=== PATIENT | female | born 1955 | race Caucasian/White ===

== ENCOUNTER 2017-11-17 02:06 | Outpatient (CLI) | payer OTHER, MEDICARE, SELFPAY ==
[2017-11-17 11:15] LABS: Prothrombin Time 9.3 sec (9.3-10.8)
[2017-11-17 11:39] LABS: ALT 38 U/L (12-78); AST 26 U/L (15-37); Albumin 3.8 g/dL (3.4-5.0); Alkaline Phosphatase 203 U/L (46-116); Bilirubin, Total 0.3 mg/dL (0.2-1.0); GGT 576 U/L (5-55); Total Protein 6.6 g/dL (6.4-8.2)
[2017-11-17 12:33] LABS: Bilirubin, Direct 0.08 mg/dL (0.00-0.20)
[2017-11-18 21:57] LABS: ALT 32 U/L (7-45); ActiTest Grade A0; ActiTest Interpretation no activity; ActiTest Score 0.15; Alpha-2-Macroglobulin 137 mg/dL (100 - 280); Apoliprotein A1 124 mg/dL (>=140); Bilirubin, Total 0.3 mg/dL (<=1.2); FibroTest Interpretation no fibrosis; FibroTest Score 0.25; FibroTest Stage F0-F1; GGT 454 U/L (5 - 36); Haptoglobin 205 mg/dL (30 - 200)
[2017-11-19 20:25] LABS: Mitochondrial Ab, M2 <0.1 U
== END 2017-11-17 02:26 ==
PROVIDERS: PCP Family Medicine; Visit Provider Internal Medicine Gastroenterology
DX: R94.5 Abnormal results of liver function studies (principal)
CPT/HCPCS: 36415; 80076; 82172; 82247; 82977; 83010; 83516; 83883; 84460; 85610

== ENCOUNTER 2017-12-09 00:26 | Outpatient (CLI) | payer OTHER, MEDICARE, SELFPAY ==
--- NOTE | 2017-12-09 10:13 | DI.MRI_ITS ---
SYMPTOMS/DIAGNOSIS: ABNL LFTS, R94.5 MRI OF THE ABDOMEN: Comparison is made with CT of the abdomen and pelvis dated 4Nov16 and abdomen ultrasound dated [id number]. The previous ultrasound showed diffuse fatty infiltration. T 1 and fat suppressed T 2 axial and coronal and TRUFI axial and coronal sequences were performed. No contrast was administered due to reduced GFR. In phase and out of phase sequences were also not performed. The exam is somewhat limited by respiratory motion and patient body habitus. The liver parenchyma appears homogeneous. No focal liver lesions are seen. The patient is status post cholecystectomy. There is mild enlargement of the common bile duct to 11 mm unchanged from previous ultrasound. This is within normal limits for post cholecystectomy. No filling defects are seen in the common bile duct. The pancreas appears atrophic but otherwise unremarkable. The spleen is normal in size. The adrenals and kidneys are unremarkable. No pleural or pericardial effusions are seen. The aorta is normal in diameter. IMPRESSION: Limited exam. There is stable mild biliary dilatation status post cholecystectomy. No focal liver abnormality is seen.
[2017-12-09 11:35] LABS: Anion Gap 6.7 mmol/L (3-11); BUN 21 mg/dL (7-18); CO2 32.3 mmol/L (21.0-32.0); Calcium 8.9 mg/dL (8.5-10.1); Chloride 102 mmol/L (98-107); Estimated GFR 41.37 (mL/min/1.73m2); Glucose 193 mg/dL (70-100); Potassium 4.5 mmol/L (3.5-5.1); Sodium 141 mmol/L (136-145)
== END 2017-12-09 00:46 ==
PROVIDERS: PCP Family Medicine; Visit Provider Internal Medicine Gastroenterology
DX: Z01.812 Encounter for preprocedural laboratory examination (principal); R94.5 Abnormal results of liver function studies; K83.8 Other specified diseases of biliary tract; Z90.49 Acquired absence of other specified parts of digestive tract
CPT/HCPCS: 36415; 80048; 74181

== ENCOUNTER 2017-12-20 11:23 | Outpatient (CLI) | payer OTHER, MEDICARE, SELFPAY ==
[2017-12-20 13:18] LABS: HCT 37.6 % (36.0-46.0); HGB 12.2 g/dL (12.0-15.5); Mean Corp. HGB Concentration 32.4 g/dL (32.0-36.0); Mean Corpuscular Hemoglobin 31.1 pg (27.0-33.0); Mean Corpuscular Volume 95.9 fL (80-95); Mean Platelet Volume 11.6 fL (8.0-11.0); Platelet Count 227 x1000/uL (130-400); RBC 3.92 m/cumm (4.00-5.20); RBC Distribution Width 14.9 % (11.7-14.6); White Blood Cell Count 7.64 k/cumm (4.4-10.8)
[2017-12-20 13:38] LABS: Hemoglobin A1C 9.3 % (4.5-6.2)
[2017-12-20 13:49] LABS: ALT 45 U/L (12-78); AST 37 U/L (15-37); Alkaline Phosphatase 131 U/L (46-116); Anion Gap 9.2 mmol/L (3-11); BUN 19 mg/dL (7-18); Bilirubin, Total 0.3 mg/dL (0.2-1.0); CO2 31.8 mmol/L (21.0-32.0); CREATININE 1.42 mg/dL (0.55-1.02); Calcium 9.4 mg/dL (8.5-10.1); Chloride 97 mmol/L (98-107); Estimated GFR 37.36 (mL/min/1.73m2); Glucose 160 mg/dL (70-100); Potassium 4.6 mmol/L (3.5-5.1); Sodium 138 mmol/L (136-145); TSH (W/Ref FT4) 0.72 uIU/mL (0.358-3.74)
== END 2017-12-20 11:43 ==
PROVIDERS: PCP Family Medicine; Visit Provider Family Medicine
DX: E03.9 Hypothyroidism, unspecified (principal); E11.9 Type 2 diabetes mellitus without complications; I10 Essential (primary) hypertension; D64.9 Anemia, unspecified
CPT/HCPCS: 36415; 80053; 85027; 83036; 84443

== ENCOUNTER 2018-03-21 13:32 | Emergency (ER) | payer OTHER, MEDICARE, SELFPAY ==
[2018-03-21] VITALS (42 sets, daily range): BP systolic 160–192; BP diastolic 65–110; PULSE 62–77; RESP 9–26; TEMP 36.8–37; O2SAT 94–99
--- NOTE | 2018-03-21 14:55 | DI.RAD_ITS ---
SYMPTOMS/DIAGNOSIS: CHEST PAIN CHEST X-RAY, PA AND LATERAL: Comparison is 08/23/16. The heart is normal in size. The lungs are clear. The mediastinal structures and pleura appear intact. IMPRESSION: Normal chest.
[2018-03-21 15:36] LABS: Abs Immature Grans 0.08 k/cumm (0.0-0.09); Absolute Basophil Count 0.04 k/cumm (0.0-0.2); Absolute Eosinophil Count 0.07 k/cumm (0.0-0.7); Absolute Monocyte Count 0.93 k/cumm (0.11-0.7); Absolute Neutrophil Count 4.69 k/cumm (1.2-6.7); Basophils % 0.6; HCT 36.6 % (36.0-46.0); HGB 12.3 g/dL (12.0-15.5); Immature Grans % 1.1; Lymphocytes % 19.4; Mean Corp. HGB Concentration 33.6 g/dL (32.0-36.0); Mean Corpuscular Hemoglobin 31.1 pg (27.0-33.0); Mean Corpuscular Volume 92.7 fL (80-95); Mean Platelet Volume 12.2 fL (8.0-11.0); Monocytes % 12.9; Platelet Count 192 x1000/uL (130-400); RBC 3.95 m/cumm (4.00-5.20); RBC Distribution Width 15.2 % (11.7-14.6); White Blood Cell Count 7.21 k/cumm (4.4-10.8)
[2018-03-21] MEDS: LORazepam 2 MG/ML VIAL 1 MG IVP (15:40)
--- NOTE | 2018-03-21 15:44 | ED.GENADUL_ITS ---
Discharge Plan Disposition Patient Disposition: HOME Discharge Details Chief Complaint: RespSymp Clinical Impression: Chest pain, Anxiety Primary Care Provider: Renu Gerber ED Provider: Raffy Mejia Home Meds and New Rx's Prescriptions: Continued Januvia 100 mg tablet 100 mg PO DAILY Qty: 90 RF: 4 cholecalciferol (vitamin D3) [Vitamin D3] 2,000 UNIT capsule 2,000 unit PO DAILY RF: 0 pen needle, diabetic [Novofine 32] 1 EACH needle 1 ea Miscellaneous 5 time day Qty: 500 RF: 12 ipratropium-albuterol 3 ML solution for nebulization 3 ml Inhalation TID PRNQty: 100 RF: 3 nystatin 15 GM cream 15 gm Topical BID PRNQty: 15 RF: 0 ProAir HFA 8.5 GM HFA aerosol inhaler 1 - 2 puff Inhalation Q6H PRN Qty: 1 RF: 12 Narcan 4 MG spray,non-aerosol 4 mg NS PRN Qty: 2 RF: 0 Humalog KwikPen Insulin 200 UNIT/1 ML insulin pen 20 unit SQ AC & HS Qty: 6 RF: 11 chlorthalidone 25 MG tablet 25 mg PO DAILY Qty: 90 RF: 4 fluoxetine [Prozac] 20 MG capsule 20 mg PO DAILY Qty: 90 RF: 11 lamotrigine [Lamictal] 200 MG tablet 200 mg PO HS Qty: 90 RF: 12 omeprazole 40 MG capsule,delayed release(DR/EC) 40 mg PO DAILY Qty: 90 RF: 3 magnesium oxide 500 MG capsule 500 mg PO BID Qty: 180 RF: 12 metoprolol succinate 100 MG tablet extended release 24 hr 1.5 tab PO DAILY Qty: 135 RF: 11 ropinirole [Requip] 0.25 MG tablet 2 tab PO HS Qty: 180 RF: 6 losartan 100 MG tablet 1 tab PO DAILY Qty: 90 RF: 12 Symbicort 10.2 GM HFA aerosol inhaler 2 puff Inhalation BID Qty: 3 RF: 12 Levemir U-100 Insulin 100 UNIT/ML solution 140 unit SQ DAILY Qty: 6 RF: 12 metformin 500 MG tablet 500 mg PO BID Qty: 180 RF: 12 cyanocobalamin (vitamin B-12) [Vitamin B-12] 100 MCG tablet 100 mcg PO DAILY RF: 0 levothyroxine 175 MCG tablet 175 mcg PO DAILY Qty: 90 RF: 11 clonazepam 2 mg tablet 1 mg PO DAILY MDD 1 PRN (Reason: anxiety) Qty: 90 RF: 2 Lyrica 150 mg capsule 150 mg PO BID MDD 2 90 Days Qty: 180 RF: 2 vitamin E 400 unit capsule 1,200 unit PO DAILY RF: 0 blood sugar diagnostic [Blood Glucose Test] strip .ROUTE .MEDSUPPLY Qty: 400 RF: 5 Glucagon Emergency Kit (human) 1 MG kit 1 mg Sub-Q STAT PRNQty: 1 RF: 1 Discharge Instructions Instructions: Chest Pain (ED), Anxiety (ED) Additional Instructions: Please take medication as prescribed. Take your metoprolol in the morning. Take your insulin tonight. Please call your doctor to arrange follow-up. You should have your kidney function rechecked later this week. You need to have a stress test performed ideally within the next 72 hours. Diagnostic testing department will be in contact with you to arrange this test. Please contact your primary care physician to arrange follow-up. Return to the ER for any worsening or new concerning symptoms. Referrals: Renu Gerber MD, [place] [Primary Care Provider] - Discharge Data Discharge Date/Time-TO BE ENTERED AT DEPARTURE: 03/21/18 20:22 Medical Decision Making 18:10 --62-year-old female with multiple medical problems here with intermittent chest pain over the past few days with radiation to the back. Patient is hypertensive. She did not take her antihypertensive medication today. Patient is saturating well in no respiratory distress. Possible withdrawal from decreased benzodiazepine. We will give Ativan 1 mg IV this will also help with her anxiety. Consider ACS as well as aortic dissection. ECG was reviewed and interpreted by me: Normal sinus rhythm 67 bpm, nonspecific ST depression noted in lead V3 to V6, not presently ECG 2012. Labs reviewed and chronic kidney disease noted. Initial troponin normal. GFR is depressed. Had a lengthy conversation with the patient about my concerns for potential acute aortic dissection and the risks and benefits of CT imaging with IV contrast. Patient provided verbal informed consent to CTA chest. Awaiting repeat trop. 19:50 -- Patient reassessed and has remained stable. CT of the chest interpreted by radiology: IMPRESSION: 1. No aneurysm of the aorta. 2. No dissection of the aorta. 3. No evidence of pulmonary embolus in the main pulmonary arteries. CT of the abd/pelv intepreted by radiology: IMPRESSION: 1. No aneurysm of the aorta. 2. No dissection of the aorta. 3. 50% stenosis in the origin of the left renal artery. Impression. Labs reviewed: elevated gluc noted. no anion gap. Will give patient her humolog. -- Repeat troponin at 4 hours negative. All results were discussed with the patient. Suspect anxiety as etiology but will plan for outpatient stress test and follow- up with PCP. Unclear home dose of metoprolol. Will give metoprolol 50mg PO. Patient requesting additional benzo and has run out of home prescription. I will give 0.5 clonazepam. I instructed her to call her PCP tomorrow regarding ongoing benzodiazepam dosing. Disposition decision was made weighing the risks and benefits of hospitalization versus outpatient treatment, the risk for further decompensation, and the patient's wishes. The patient was stable and requested discharge. Prior to discharge, my usual and customary return precautions were reviewed with the patient - this included follow-up instructions and reason to return to the emergency department if condition worsens, does not improve as expected, or other new concerns arise. HPI General Mode of arrival: ambulatory . Date/Time Provider Initiated Documentation: 03/21/18 14:07 . Limitations to Documentation: no limitations . Information obtained by: patient . HPI Narrative: 62-year-old female with multiple medical problems including von Willebrand factor inhibitor disorder, insulin-dependent diabetes, hyperlipidemia, hypertension, presents with chief complaint of chest pain. Patient notes that over the past few days she has had intermittent chest pain. Pain is localized to her left anterior chest and seems to radiate to her upper back. Pain is described as sharp, moderate intensity and lasting minutes. No modifiers. She also has associated palpitations and intermittent shortness of breath. She also notes that a few days ago she had a different type of achy discomfort in her chest. She states that her anxiety has been more intense recently. She specifically notes about 1 month ago her Klonopin was decreased by one half of chronic dose. Related Data Home Medications Medication Instructions Recorded Confirmed cholecalciferol (vitamin D3) 2,000 unit PO DAILY 05/16/12 03/21/18 [Vitamin D3] pen needle, diabetic [Novofine 32] #500 ndl 03/06/15 12/20/17 Glucagon Emergency Kit (human) 1 mg SUB-Q STAT PRN #1 kit 07/02/15 03/21/18 ipratropium-albuterol 3 ml INHALATION TID PRN #100 dose 06/24/16 03/21/18 Narcan 4 mg NS PRN #2 spray 11/25/16 03/21/18 ProAir HFA 1 - 2 puff INHALATION Q6H PRN #1 11/25/16 03/21/18 inhaler nystatin 15 gm TOPICAL BID PRN #15 gm 11/25/16 03/21/18 Humalog KwikPen Insulin 20 unit SQ AC & HS #6 box 03/01/17 03/21/18 chlorthalidone 25 mg PO DAILY #90 tab 03/07/17 03/21/18 fluoxetine [Prozac] 20 mg PO DAILY #90 tab-cap 03/21/17 03/21/18 lamotrigine [Lamictal] 200 mg PO HS #90 tab-cap 03/24/17 03/21/18 magnesium oxide 500 mg PO BID #180 tab 03/24/17 03/21/18 omeprazole 40 mg PO DAILY #90 tab-cap 03/24/17 03/21/18 metoprolol succinate 1.5 tab PO DAILY #135 tab-cap 04/11/17 03/21/18 ropinirole [Requip] 2 tab PO HS #180 tab-cap 05/17/17 03/21/18 Symbicort 2 puff INHALATION BID #3 canister 07/01/17 03/21/18 losartan 1 tab PO DAILY #90 tab 07/01/17 03/21/18 Levemir U-100 Insulin 140 unit SQ DAILY #6 vial 08/09/17 03/21/18 metformin 500 mg PO BID #180 tab-cap 09/01/17 03/21/18 cyanocobalamin (vitamin B-12) 100 mcg PO DAILY 09/26/17 12/20/17 [Vitamin B-12] levothyroxine 175 mcg PO DAILY #90 tab-cap 09/28/17 03/21/18 clonazepam 2 mg tablet 1 mg PO DAILY PRN #90 tab-cap MDD 1 12/14/17 03/21/18 pregabalin 150 mg capsule 150 mg PO BID 90 Days #180 tab MDD 12/15/17 03/21/18 2 sitagliptin 100 mg tablet 100 mg PO DAILY #90 tab 12/20/17 03/21/18 vitamin E 400 unit capsule 1,200 unit PO DAILY cap 12/20/17 03/21/18 blood sugar diagnostic strips #400 each 02/06/18 Previous Rx's Medication Instructions Recorded Glucagon Emergency Kit (human) 1 mg SUB-Q STAT PRN #1 kit 07/02/15 Narcan 4 mg NS PRN #2 spray 11/25/16 ProAir HFA 1 - 2 puff INHALATION Q6H PRN #1 11/25/16 inhaler Humalog KwikPen Insulin 20 unit SQ AC & HS #6 box 03/01/17 chlorthalidone 25 mg PO DAILY #90 tab 03/07/17 fluoxetine [Prozac] 20 mg PO DAILY #90 tab-cap 03/21/17 lamotrigine [Lamictal] 200 mg PO HS #90 tab-cap 03/24/17 magnesium oxide 500 mg PO BID #180 tab 03/24/17 omeprazole 40 mg PO DAILY #90 tab-cap 03/24/17 metoprolol succinate 1.5 tab PO DAILY #135 tab-cap 04/11/17 ropinirole [Requip] 2 tab PO HS #180 tab-cap 05/17/17 Symbicort 2 puff INHALATION BID #3 canister 07/01/17 losartan 1 tab PO DAILY #90 tab 07/01/17 Levemir U-100 Insulin 140 unit SQ DAILY #6 vial 08/09/17 metformin 500 mg PO BID #180 tab-cap 09/01/17 levothyroxine 175 mcg PO DAILY #90 tab-cap 09/28/17 clonazepam 2 mg tablet 1 mg PO DAILY PRN #90 tab-cap MDD 1 12/14/17 pregabalin 150 mg capsule 150 mg PO BID 90 Days #180 tab MDD 12/15/17 2 sitagliptin 100 mg tablet 100 mg PO DAILY #90 tab 12/20/17 blood sugar diagnostic strips #400 each 02/06/18 Allergies Allergy/AdvReac Type Severity Reaction Status Date / Time Penicillins Allergy Skin Rash Unverified 03/21/18 13:43 amlodipine besylate AdvReac Intermediate cough Unverified 03/21/18 13:43 [From [facility]] lithium AdvReac Intermediate HYPERACTIVITY Unverified 03/21/18 13:43 FOR DAYS rizatriptan AdvReac Intermediate BAD COUGH Unverified 03/21/18 13:43 FOR 2 YEARS morphine AdvReac Mild Hallucinati Unverified 03/21/18 13:43 ons/Vomitin g atorvastatin AdvReac myalgias Unverified 03/21/18 13:43 carbamazepine AdvReac myalgias Unverified 03/21/18 13:43 enalaprilat AdvReac Cough Unverified 03/21/18 13:43 General Stated Complaint: RespSymp EARL: 3 Review of Systems Constitutional Denies fever(s) Cardiovascular Reports as per HPI Gastrointestinal Denies abdominal pain Psychiatric Reports as per HPI ON LICENSE OF [facility] Medical History Von Willebrand factor inhibitor disorder (Chronic) Vitamin D deficiency (Resolved 02/24/12) Type II diabetes mellitus, uncontrolled (Chronic) Stenosing tenosynovitis of thumb (Chronic 05/13/14) Rotator cuff disorder (Chronic 06/27/14) Right foot pain (Chronic 12/16/14) Recurrent ventral hernia (Chronic 04/07/16) Non-alcoholic fatty liver disease (Chronic) Neoplasm of unspecified nature of bone, soft tissue, and skin (Resolved 08/12/14) Insomnia (Chronic) Hypothyroidism (Chronic) Hyperlipidemia (Chronic) Gastroesophageal reflux disease (Chronic) Essential hypertension (Chronic 12/13/12) Elevated serum GGT level (Chronic 02/17/15) Diverticula of colon (Chronic) Diabetes mellitus with neuropathy (Chronic 02/14/14) Depressed bipolar I disorder (Chronic) Cerebrovascular accident (Resolved 04/02/13) Sanjuanita infection (Chronic 08/26/16) Atrophic vaginitis (Chronic 09/14/12) Asthma (Chronic) Chronic pain disorder (Chronic 11/25/16) Fatigue (Chronic) Stress incontinence in female (Chronic) Chest pain (Resolved) Ganglion of tendon sheath (Resolved) Hand joint pain (Resolved) History of alcoholism (Resolved) History of tobacco use (Resolved) Overdose (Resolved) Triggering of finger (Resolved) Asthma Atrophic vaginitis Bipolar disorder CVA (cerebral vascular accident) Chronic cough Chronic sinusitis Diabetes type 2, uncontrolled Diabetic neuropathy Essential hypertension Fatty liver disease, nonalcoholic GERD (gastroesophageal reflux disease) Headache Hyperlipidemia Hypothyroidism Insomnia Rotator cuff disorder Vitamin D deficiency Von Willebrand factor inhibitor disorder Surgical History H/O esophagogastroduodenoscopy (Resolved) H/O surgical procedure (Resolved) S/P BSO (bilateral salpingo-oophorectomy) (Resolved) S/P abdominal hysterectomy (Resolved) S/P cholecystectomy (Resolved) S/P hernia repair (Resolved) Abdominal hysterectomy Bilateral salpingectomy with oophorectomy Cholecystectomy Colonoscopy - IV Sedation (04/02/11) Colonoscopy - MAC (~03/2011) EGD - MAC (09/29/12) Incision, Tendon Sheath (08/01/12) Tooth extraction Ventral Hernia repair (04/07/16) hernia repair (~02/2011) Family History Mother Alcohol abuse Mental disorder Neoplasm Father No problems noted. Sister Substance abuse Brother No problems noted. Grandfather Asthma Grandfather Heart disease Grandmother No problems noted. Grandmother No problems noted. Sister Substance abuse Asthma Son No problems noted. Son No problems noted. Son Essential hypertension Asthma Social History household members: other details: 3 current occupational status: unemployed frequency: 3-4 times per week duration: 15-30 minutes/day Smoking/Tobacco Use Status: Former Tobacco Use quit date: 06/19/13 alcohol intake: never substance use type: marijuana daron/jehovah's witness: [employer] special daron needs: No Exam Const General: cooperative and no acute distress HENMT Head: normocephalic and atraumatic Mouth: moist mucous membranes Eyes Conjunctivae: normal conjunctivae Sclera: normal sclerae EOM: EOM intact bilaterally Neck Neck: trachea midline and supple Resp Auscultation: clear to auscultation bilaterally, no rales, no rhonchi and no wheezes Cardio Jugular venous pressure: no JVD Rate: regular rate and not tachycardic Rhythm: regular rhythm Pulses: radial pulses present on the right 2+ and on the left 2+ GI Palpation: soft, not firm, no guarding, no masses, not rigid and nontender Skin General skin exam: no rashes or lesions noted Other: diaphoresis Neuro General: alert, awake, oriented x3 and tone normal Extrem General: no edema Psych Appearance: grossly normal Mental Status: mental status grossly normal Speech and Movement: speech and movement normal Other: anxious Course Vital Signs Temperature 37 C 03/21/18 13:39 Pulse 71 03/21/18 13:39 Respiratory Rate 16 03/21/18 13:39 Blood Pressure 192/73 H 03/21/18 13:39 Pulse Oximetry 97 03/21/18 13:39 Temperature 37 C 03/21/18 13:39 Temperature Source Skin 03/21/18 13:39 Pulse 64 03/21/18 15:31 Pulse 67 03/21/18 15:20 Respiratory Rate 9 L 03/21/18 15:31 Respiratory Effort Non-Labored 03/21/18 13:48 Respiratory Depth Normal 03/21/18 13:48 Blood Pressure 164/86 H 03/21/18 15:31 Blood Pressure Mean 105 03/21/18 15:31 Blood Pressure Position Sitting 03/21/18 13:39 Pulse Oximetry 96 03/21/18 15:31 Oxygen Delivery Method Room Air 03/21/18 13:39 Oxygen Flow Rate 0 03/21/18 13:39 Pain Level 0 03/21/18 13:39 Lab/Test Results Lab/Test Results: Laboratory Tests Range/Units 03/21/18 15:30 WBC (4.4-10.8) k/cumm 7.21 RBC (4.00-5.20) m/cumm 3.95 L Hgb (12.0-15.5) g/dL 12.3 Hct (36.0-46.0) % 36.6 MCV (80-95) fL 92.7 MCH (27.0-33.0) pg 31.1 MCHC (32.0-36.0) g/dL 33.6 RDW (11.7-14.6) % 15.2 H Plt Count (130-400) x1000/uL 192 MPV (8.0-11.0) fL 12.2 H Immature Gran % 1.1 Neutrophils % 65.0 Lymphocytes % 19.4 Monocytes % 12.9 Eosinophils % 1.0 Basophils % 0.6 Absolute Neutrophils (1.2-6.7) k/cumm 4.69 Absolute Lymphocytes (1.2-3.4) k/cumm 1.40 Absolute Monocytes (0.11-0.7) k/cumm 0.93 H Absolute Eosinophils (0.0-0.7) k/cumm 0.07 Absolute Basophils (0.0-0.2) k/cumm 0.04
[2018-03-21 15:53] LABS: ALT 89 U/L (12-78); AST 49 U/L (15-37); Alkaline Phosphatase 166 U/L (46-116); Anion Gap 8.4 mmol/L (3-11); BUN 17 mg/dL (7-18); Bilirubin, Total 0.6 mg/dL (0.2-1.0); CO2 29.6 mmol/L (21.0-32.0); CREATININE 1.35 mg/dL (0.55-1.02); Calcium 9.2 mg/dL (8.5-10.1); Chloride 98 mmol/L (98-107); Estimated GFR 39.61 (mL/min/1.73m2); Glucose 355 mg/dL (70-100); Magnesium 1.8 mg/dL (1.8-2.4); Potassium 4.3 mmol/L (3.5-5.1); Sodium 136 mmol/L (136-145); Total Protein 7.1 g/dL (6.4-8.2)
[2018-03-21 16:02] LABS: Troponin I < 0.02 ng/mL (0.00-0.06)
--- NOTE | 2018-03-21 17:36 | DI.CT_ITS ---
SYMPTOM/DIAGNOSIS: CHEST PAIN RADIATING TO BACK, ? DISSECTION CHEST AND ABDOMEN CTA: CT angiography was performed with multi slice acquisition and multi planar and 3D reconstruction. The study was carried out according to the usual protocol with an intravenous administration of 80 cc's of Omnipaque 350. CHEST: There is no evidence of pulmonary emboli. There is no evidence of an aneurysm involving the aorta. There is nothing to suggest a dissection. The lungs are normal. There is no pneumothorax or pleural effusion. Coronary artery calcification is demonstrated. There is no lymphadenopathy. There is no acute bony abnormality. The soft tissues are unremarkable. ABDOMEN: There is no evidence of an aortic aneurysm. Note is made of atherosclerotic changes throughout the mid and distal portion of the abdominal aorta. THere is no evidence of occlusion involving the celiac axis or superior mesenteric artery. Note is made of what appears to represent a 50% stenosis at the origin of the left main pulmonary artery. The liver is normal. There is some prominence of the common duct which measures up to 12 mm. in caliber. The patient is status post cholecystectomy and the findings are likely on a post surgical basis. If there is further strong specific clinical indication, then further imaging of the biliary tree could be obtained. The pancreas is normal. The spleen is normal. The adrenals are normal. There is no abnormality involving the kidneys or ureters. There is no evidence of hydronephrosis. The stomach is unremarkable. There is no evidence of bowel obstruction. There is no evidence of free air or free fluid in the intraperitoneal space. No acute bony abnormality is apparent. Opacities are noted in the subcutaneous fat anteriorly where a small fat containing ventral hernia is evident. There is no evidence of lymphadenopathy. CONCLUSION: There is no aortic aneurysm. There is no evidence of dissection. Note is made of what appears to represent up to a 50% stenosis at the origin of the left pulmonary artery.
[2018-03-21] MEDS: Omnipaque 350 MG/ML 100 ML BTL IV (18:01)
[2018-03-21] MEDS: Normal Saline 1,000 ML 1000 ML IV (18:11)
--- NOTE | 2018-03-21 19:11 | DI.VRAD_ITS ---
EXAM: CT Angiography Chest With Contrast EXAM DATE/TIME: 03/21/2018 5:39 PM CLINICAL HISTORY: 62 years old, female; Signs and symptoms; Other: Chest pain radiating to back, consider dissection TECHNIQUE: Axial computed tomographic angiography images of the chest with intravenous contrast using CT angiography protocol. All CT scans at this facility use at least one of these dose optimization techniques: automated exposure control; mA and/or kV adjustment per patient size (includes targeted exams where dose is matched to clinical indication); or iterative reconstruction. MIP reconstructed images were created and reviewed. CONTRAST: 80 ml of omnipaque 350 administered intravenously. COMPARISON: CR XR CHEST 2V PA LATERAL 03/21/2018 3:45 PM FINDINGS: Pulmonary arteries: No evidence of pulmonary embolus in the main pulmonary arteries. Aorta: No aneurysm of the aorta. No dissection of the aorta. Lungs: Normal. No consolidation. No masses. Pleural space: Normal. No pneumothorax. No pleural effusion. Heart: Coronary artery calcifications may indicate coronary artery disease Lymph nodes: Unremarkable. No enlarged lymph nodes. Bones/joints: Unremarkable. No acute fracture. Soft tissues: Unremarkable. IMPRESSION: 1. No aneurysm of the aorta. 2. No dissection of the aorta. 3. No evidence of pulmonary embolus in the main pulmonary arteries. EXAM: CT Angiography Abdomen With Contrast EXAM DATE/TIME: 03/21/2018 5:39 PM CLINICAL HISTORY: 62 years old, female; Signs and symptoms; Other: Chest pain radiating to back, consider dissection TECHNIQUE: Axial computed tomographic angiography images of the abdomen with intravenous contrast material, including non-contrast images if performed. MIP and/or 3D reconstructed images were created and reviewed. All CT scans at this facility use at least one of these dose optimization techniques: automated exposure control; mA and/or kV adjustment per patient size (includes targeted exams where dose is matched to clinical indication); or iterative reconstruction. CONTRAST: 80 ml of omnipaque 350 administered intravenously. COMPARISON: CR XR CHEST 2V PA LATERAL 03/21/2018 3:45 PM FINDINGS: VASCULATURE: Aorta: No aneurysm of the aorta. No dissection of the aorta. Celiac trunk and mesenteric arteries: No occlusion or significant stenosis. Renal arteries: 50% stenosis in the origin of the left renal artery. ABDOMEN: Liver: Normal. No mass. Gallbladder and bile ducts: The common duct is prominent. It measures 12 millimeters. This may be due to post cholecystectomy state and elderly status. However, if biliary obstruction is suspected clinically, recommend further evaluation Pancreas: Normal. No ductal dilation. Spleen: Normal. No splenomegaly. Adrenals: Normal. No mass. Kidneys and ureters: Normal. No hydronephrosis. Stomach and bowel: Unremarkable. No obstruction. No mucosal thickening. Intraperitoneal space: Unremarkable. No free air. No significant fluid collection. Bones/joints: Unremarkable. No acute fracture. No dislocation. Soft tissues: Opacities in the subcutaneous fat anteriorly Ventral hernia contains fat Lymph nodes: Unremarkable. No enlarged lymph nodes. IMPRESSION: 1. No aneurysm of the aorta. 2. No dissection of the aorta. 3. 50% stenosis in the origin of the left renal artery. Impression. Dictated and Authenticated by: Autumn Chacon MD. Ordering:JACQUELINE Akbar MD
[2018-03-21 19:48] LABS: Troponin I 0.02 ng/mL (0.00-0.06)
[2018-03-21] MEDS: Metoprolol 50 MG TAB PO (20:01)
[2018-03-21] MEDS: clonazePAM 0.5 MG TAB PO (20:02)
== END 2018-03-21 20:22 | disposition home or self-care (01) ==
PROVIDERS: Emergency Provider Student in an Organized Health Care Education/Training Program; PCP Family Medicine
DX: R07.9 Chest pain, unspecified (principal); F41.9 Anxiety disorder, unspecified; D60.0 Chronic acquired pure red cell aplasia; I10 Essential (primary) hypertension; E11.40 Type 2 diabetes mellitus with diabetic neuropathy, unspecified; Z79.4 Long term (current) use of insulin
CPT/HCPCS: 36415; 71275; 74175; 80053; 82947; 93005; 96361; 96374; 99285; 71046; 83735; 84484; 85025; 93010; J2060; J3490

== ENCOUNTER 2018-04-06 07:36 | Outpatient (CLI) | payer OTHER, MEDICARE, SELFPAY ==
[2018-04-06 08:37] LABS: Hemoglobin A1C 9.6 % (4.5-6.2)
[2018-04-06 09:07] LABS: ALT 94 U/L (12-78); AST 30 U/L (15-37); Albumin 3.9 g/dL (3.4-5.0); Alkaline Phosphatase 169 U/L (46-116); Anion Gap 9.9 mmol/L (3-11); BUN 27 mg/dL (7-18); Bilirubin, Total 0.4 mg/dL (0.2-1.0); CO2 30.1 mmol/L (21.0-32.0); CREATININE 1.51 mg/dL (0.55-1.02); Calcium 9.6 mg/dL (8.5-10.1); Chloride 97 mmol/L (98-107); Glucose 397 mg/dL (70-100); Potassium 4.4 mmol/L (3.5-5.1); Sodium 137 mmol/L (136-145); TSH (W/Ref FT4) 0.27 uIU/mL (0.358-3.74); Total Protein 7.1 g/dL (6.4-8.2)
[2018-04-06 09:25] LABS: FREE T4 1.25 ng/dL (0.76-1.46)
== END 2018-04-06 07:56 ==
PROVIDERS: PCP Family Medicine; Visit Provider Family Medicine
DX: I10 Essential (primary) hypertension (principal); E11.65 Type 2 diabetes mellitus with hyperglycemia; E03.9 Hypothyroidism, unspecified
CPT/HCPCS: 36415; 80053; 83036; 84439; 84443

== ENCOUNTER 2018-05-26 10:46 | Outpatient (CLI) | payer OTHER, MEDICARE, SELFPAY ==
[2018-05-26 11:30] LABS: Hemoglobin A1C 8.7 % (4.5-6.2)
[2018-05-26 12:23] LABS: ALT 50 U/L (12-78); AST 39 U/L (15-37); Albumin 4.1 g/dL (3.4-5.0); Alkaline Phosphatase 111 U/L (46-116); Anion Gap 12.8 mmol/L (3-11); BUN 22 mg/dL (7-18); Bilirubin, Total 0.3 mg/dL (0.2-1.0); CO2 26.2 mmol/L (21.0-32.0); CREATININE 1.34 mg/dL (0.55-1.02); Calcium 9.2 mg/dL (8.5-10.1); Chloride 103 mmol/L (98-107); Estimated GFR 39.82 (mL/min/1.73m2); Glucose 205 mg/dL (70-100); Potassium 4.5 mmol/L (3.5-5.1); Sodium 142 mmol/L (136-145); TSH (W/Ref FT4) 0.05 uIU/mL (0.358-3.74); Total Protein 7.1 g/dL (6.4-8.2)
[2018-05-26 12:42] LABS: FREE T4 1.01 ng/dL (0.76-1.46)
[2018-05-26 12:49] LABS: GGT 252 U/L (5-55)
== END 2018-05-26 11:06 ==
PROVIDERS: PCP Family Medicine; Visit Provider Family Medicine
DX: E11.65 Type 2 diabetes mellitus with hyperglycemia (principal); R74.8 Abnormal levels of other serum enzymes; R94.5 Abnormal results of liver function studies; E03.9 Hypothyroidism, unspecified; K76.0 Fatty (change of) liver, not elsewhere classified
CPT/HCPCS: 36415; 80053; 82977; 83036; 84439; 84443

== ENCOUNTER 2018-07-10 10:28 | Emergency (ER) | payer OTHER, MEDICARE, SELFPAY ==
[2018-07-10 10:39] VITALS: BP 145/68; PULSE 64; RESP 18; TEMP 36.5; O2SAT 98
--- NOTE | 2018-07-10 11:48 | DI.RAD_ITS ---
SYMPTOMS/DIAGNOSIS: KNEE PAIN LEFT KNEE: No fracture or joint effusion is seen. The joint spaces are well maintained. There are minimal degenerative changes. IMPRESSION: Minimal degenerative changes.
--- NOTE | 2018-07-10 11:48 | DI.US_ITS ---
SYMPTOMS/DIAGNOSIS: LEFT LOWER EXTREMITY SWELLING AND RIGHT LOWER EXTREMITY SWELLING LEFT LOWER EXTREMITY ULTRASOUND: The femoral and popliteal veins and visualized portions of the calf veins are freely compressible. No thrombus is visible. The Doppler venous waveform augments normally. No Laird's cyst is seen. IMPRESSION: Negative left lower extremity ultrasound. No evidence of DVT.
--- NOTE | 2018-07-10 11:49 | W.ED.GENAD ---
Discharge Plan Discharge Details Chief Complaint: Orthopedic Primary Care Provider: Renu Gerber ED Provider: Triston Harrison Home Meds and New Rx's Prescriptions: No Action clonazepam 2 mg tablet 1 mg PO BID MDD 1 PRN (Reason: anxiety) Qty: 60 RF: 4 insulin syringe-needle U-100 [BD Insulin Syringe] 0.5 mL 29 gauge x 1/2 syringe .ROUTE .MEDSUPPLY Qty: 100 RF: 7 Tresiba FlexTouch U-200 200 unit/mL (3 mL) insulin pen 90 unit SC BID RF: 0 cholecalciferol (vitamin D3) [Vitamin D3] 2,000 UNIT capsule 2,000 unit PO DAILY RF: 0 pen needle, diabetic [Novofine 32] 1 EACH needle 1 ea Miscellaneous 5 time day Qty: 500 RF: 12 ipratropium-albuterol 3 ML solution for nebulization 3 ml Inhalation TID PRNQty: 100 RF: 3 albuterol sulfate [ProAir HFA] 8.5 GM HFA aerosol inhaler 1 - 2 puff Inhalation Q6H PRN Qty: 1 RF: 12 Narcan 4 MG spray,non-aerosol 4 mg NS PRN Qty: 2 RF: 0 chlorthalidone 25 MG tablet 25 mg PO DAILY Qty: 90 RF: 4 losartan 100 MG tablet 1 tab PO DAILY Qty: 90 RF: 12 Symbicort 10.2 GM HFA aerosol inhaler 2 puff Inhalation BID Qty: 3 RF: 12 levothyroxine 175 MCG tablet 175 mcg PO DAILY Qty: 90 RF: 11 Lyrica 150 mg capsule 150 mg PO BID MDD 2 90 Days Qty: 180 RF: 2 Blood Glucose Test strip .Route .MEDSUPPLY Qty: 400 RF: 5 insulin lispro 200 unit/mL (3 mL) insulin pen 20 unit SC .Ac and HS Qty: 15 RF: 4 metoprolol succinate 100 mg tablet extended release 24 hr 150 mg PO DAILY Qty: 135 RF: 11 ropinirole [Requip] 0.5 mg tablet 0.5 mg PO QHS Qty: 90 RF: 1 Glucagon Emergency Kit (human) 1 MG kit 1 mg Sub-Q STAT PRNQty: 1 RF: 1 fluoxetine [Prozac] 20 mg Capsule 20 mg PO DAILY RF: 0 Medical Decision Making 63-year-old female with primary complaint of left knee pain x-ray and ultrasound unremarkable no DVT no fracture suspect possible meniscal injury versus sprain versus strain will provide Librado wrap as needed crutches versus cane and orthopedic follow-up. Left back and hip pain full range of motion no sensory deficits no skin changes no back pain red flags. Patient to take naproxen and Tylenol and follow-up with primary care return for increasing pain focal neurologic deficit fever chills decreased range of motion or other concern. HPI 63-year-old female past medical history of fatty liver diabetes morbid obesity hypertension hypothyroid GERD hyperlipidemia presents with few weeks of left knee pain and intermittent lower back pain began temporally related to working outside with her son no known trauma known falls that she may have kaleigh her knee a few times working outside that day. Since then her back pain is improved but the knee pain continues pain is lateral knee worse with walking intermittently using crutches due to the pain. Patient full but painful range of motion. No shortness of breath chest pain nausea vomiting loss of consciousness pain on palpation of her knee redness skin changes or other concern General Date/Time Provider Initiated Documentation: 07/10/18 11:14. Related Data Home Medications Medication Instructions Recorded Confirmed cholecalciferol (vitamin D3) 2,000 unit PO DAILY 05/16/12 07/10/18 [Vitamin D3] pen needle, diabetic [Novofine 32] #500 ndl 03/06/15 05/25/18 Glucagon Emergency Kit (human) 1 mg SUB-Q STAT PRN #1 kit 07/02/15 07/10/18 ipratropium-albuterol 3 ml INHALATION TID PRN #100 dose 06/24/16 07/10/18 Narcan 4 mg NS PRN #2 spray 11/25/16 07/10/18 albuterol sulfate [ProAir HFA] 1 - 2 puff INHALATION Q6H PRN #1 11/25/16 07/10/18 inhaler chlorthalidone 25 mg PO DAILY #90 tab 03/07/17 07/10/18 Symbicort 2 puff INHALATION BID #3 canister 07/01/17 07/10/18 losartan 1 tab PO DAILY #90 tab 07/01/17 07/10/18 levothyroxine 175 mcg PO DAILY #90 tab-cap 09/28/17 07/10/18 pregabalin 150 mg capsule 150 mg PO BID 90 Days #180 tab MDD 12/15/17 07/10/18 2 blood sugar diagnostic strips #400 each 02/06/18 05/25/18 clonazepam 2 mg tablet 1 mg PO BID PRN #60 tab-cap MDD 1 04/10/18 07/10/18 insulin syringe U-100 with needle #100 each 04/10/18 05/25/18 0.5 mL 29 gauge x 1/2 insulin lispro (U-200) 200 unit/mL 20 unit SC .Ac and HS #15 ml 05/19/18 07/10/18 (3 mL) subcutaneous pen insulin degludec (U-200) 200 90 unit SC BID syringe 05/25/18 07/10/18 unit/mL (3 mL) subcutaneous pen metoprolol succinate ER 100 mg 150 mg PO DAILY #135 tab-cap 07/03/18 07/10/18 tablet,extended release 24 hr ropinirole 0.5 mg tablet 0.5 mg PO QHS #90 tab 07/04/18 07/10/18 fluoxetine [Prozac] 20 mg PO DAILY 07/10/18 07/10/18 Previous Rx's Medication Instructions Recorded Glucagon Emergency Kit (human) 1 mg SUB-Q STAT PRN #1 kit 07/02/15 Narcan 4 mg NS PRN #2 spray 11/25/16 albuterol sulfate [ProAir HFA] 1 - 2 puff INHALATION Q6H PRN #1 11/25/16 inhaler chlorthalidone 25 mg PO DAILY #90 tab 03/07/17 Symbicort 2 puff INHALATION BID #3 canister 07/01/17 losartan 1 tab PO DAILY #90 tab 07/01/17 levothyroxine 175 mcg PO DAILY #90 tab-cap 09/28/17 pregabalin 150 mg capsule 150 mg PO BID 90 Days #180 tab MDD 12/15/17 2 blood sugar diagnostic strips #400 each 02/06/18 clonazepam 2 mg tablet 1 mg PO BID PRN #60 tab-cap MDD 1 04/10/18 insulin syringe U-100 with needle #100 each 04/10/18 0.5 mL 29 gauge x 1/2 insulin lispro (U-200) 200 unit/mL 20 unit SC .Ac and HS #15 ml 05/19/18 (3 mL) subcutaneous pen metoprolol succinate ER 100 mg 150 mg PO DAILY #135 tab-cap 07/03/18 tablet,extended release 24 hr ropinirole 0.5 mg tablet 0.5 mg PO QHS #90 tab 07/04/18 Allergies Allergy/AdvReac Type Severity Reaction Status Date / Time Penicillins Allergy Skin Rash Unverified 07/10/18 11:21 amlodipine besylate AdvReac Intermediate cough Unverified 07/10/18 11:[address] [[address] [facility]] lithium AdvReac Intermediate HYPERACTIVITY Unverified 07/10/18 11:21 FOR DAYS rizatriptan AdvReac Intermediate BAD COUGH Unverified 07/10/18 11:21 FOR 2 YEARS morphine AdvReac Mild Hallucinati Unverified 07/10/18 11:21 ons/Vomitin g ibuprofen AdvReac Unknown Other (See Unverified 07/10/18 11:21 Comment) atorvastatin AdvReac myalgias Unverified 07/10/18 11:21 carbamazepine AdvReac myalgias Unverified 07/10/18 11:21 enalaprilat AdvReac Cough Unverified 07/10/18 11:21 General Stated Complaint: Orthopedic EARL: 4 Review of Systems Review of Systems All systems reviewed & are unremarkable except as noted in HPI and below PFSH Medical History Von Willebrand factor inhibitor disorder (Chronic) Vitamin D deficiency (Resolved 02/24/12) Type II diabetes mellitus, uncontrolled (Chronic) Stenosing tenosynovitis of thumb (Chronic 05/13/14) Rotator cuff disorder (Chronic 06/27/14) Recurrent ventral hernia (Chronic 04/07/16) Non-alcoholic fatty liver disease (Chronic) Insomnia (Chronic) Hypothyroidism (Chronic) Hyperlipidemia (Chronic) Gastroesophageal reflux disease (Chronic) Elevated serum GGT level (Chronic 02/17/15) Diverticula of colon (Chronic) Diabetes mellitus with neuropathy (Chronic 02/14/14) Depressed bipolar I disorder (Chronic) Cerebrovascular accident (Resolved 04/02/13) Sanjuanita infection (Chronic 08/26/16) Atrophic vaginitis (Chronic 09/14/12) Asthma (Chronic) Chronic pain disorder (Chronic 11/25/16) Fatigue (Chronic) Stress incontinence in female (Chronic) Chest pain (Resolved) Ganglion of tendon sheath (Resolved) Hand joint pain (Resolved) History of alcoholism (Resolved) History of tobacco use (Resolved) Neoplasm of unspecified nature of bone, soft tissue, and skin (Resolved 08/12/14) Overdose (Resolved) Right foot pain (Resolved 12/16/14) Triggering of finger (Resolved) Essential hypertension (Inactive 12/13/12) Asthma Atrophic vaginitis Bipolar disorder CVA (cerebral vascular accident) Chronic cough Chronic sinusitis Diabetes type 2, uncontrolled Diabetic neuropathy Essential hypertension Fatty liver disease, nonalcoholic GERD (gastroesophageal reflux disease) Headache Hyperlipidemia Hypothyroidism Insomnia Rotator cuff disorder Vitamin D deficiency Von Willebrand factor inhibitor disorder Surgical History H/O esophagogastroduodenoscopy (Resolved) H/O surgical procedure (Resolved) S/P BSO (bilateral salpingo-oophorectomy) (Resolved) S/P abdominal hysterectomy (Resolved) S/P cholecystectomy (Resolved) S/P hernia repair (Resolved) Abdominal hysterectomy Bilateral salpingectomy with oophorectomy Cholecystectomy Colonoscopy - IV Sedation (04/02/11) Colonoscopy - MAC (~03/2011) EGD - MAC (09/29/12) Incision, Tendon Sheath (08/01/12) Tooth extraction Ventral Hernia repair (04/07/16) hernia repair (~02/2011) Social History Smoking/Tobacco Use Status: Former Tobacco Use Quit Date: 06/19/13 Alcohol Intake: never Drug use: Occasionally Substance use type: marijuana Household members: other Details: 3 Duration: 15-30 minutes/day Frequency: 3-4 times per week Silvia/Denominational: [facility] Special silvia needs: No Do you feel safe in your relationship?: Yes Exam Narrative Exam Narrative: Pulse oximetry reviewed by me and is normal [] Constitutional: Pt is in no acute distress. she is well appearing. she oriented to person, place, and time. Eyes: conjunctivae are normal. Pupils are equal, round, and reactive to light. No scleral icterus. extraocular muscles are intact Ears/Nose/Mouth/Throat: mucus membranes are moist. Musculoskeletal: neck is supple. normal range of motion in all extremities. Left knee with mild tenderness along the medial meniscal line mild knee effusion full range of motion no redness warmth normal distal neurovascular exam. Full range of motion at the left hip no tenderness palpation normal plantar flexion extension no sensory deficits normal distal patellar reflexes Cardiovascular: Normal rate and rhythm. No lower extremity edema [regular rate and] Respiratory: effort is normal . pt exhibits no stridor or respiratory distress. [Lungs clear to auscultation bile] GastrointestinaI: abdomen soft, +BS, nontender, -rebound, -guarding. Neurological: alert and oriented to person, place, and time. he has normal strength, no tremor. Skin: Skin is warm and dry. he is not diaphoretic. Distal perfusion in tact, warm extremities, cap refill ? 2 seconds. Hem/Lymph/Imm: No cervical LAD, no goiter, no conjunctival pallor Psych: normal mood and affect. behavior is normal Triage and nurse notes reviewed.[] Course Vital Signs Temperature 36.5 C 07/10/18 10:39 Pulse 64 07/10/18 10:39 Respiratory Rate 18 07/10/18 10:39 Blood Pressure 145/68 H 07/10/18 10:39 Pulse Oximetry 98 07/10/18 10:39 Temperature 36.5 C 07/10/18 10:39 Temperature Source Skin 07/10/18 10:39 Pulse 64 07/10/18 10:39 Respiratory Rate 18 07/10/18 10:39 Blood Pressure 145/68 H 07/10/18 10:39 Pulse Oximetry 98 07/10/18 10:39 Oxygen Delivery Method Room Air 07/10/18 10:39 Oxygen Flow Rate 0 07/10/18 10:39 Pain Level 9 07/10/18 11:30
[2018-07-10] MEDS: Naproxen 250 MG TAB PO (13:10)
[2018-07-10] MEDS: Acetaminophen 500 MG TAB 1000 MG PO (13:10)
== END 2018-07-10 14:40 | disposition home or self-care (01) ==
PROVIDERS: Emergency Provider Emergency Medicine; PCP Family Medicine
DX: M25.562 Pain in left knee (principal); M54.5 Low back pain; M25.552 Pain in left hip; Y93.H2 Activity, gardening and landscaping; I10 Essential (primary) hypertension; E11.9 Type 2 diabetes mellitus without complications; Z79.4 Long term (current) use of insulin; E66.01 Morbid (severe) obesity due to excess calories; Z68.36 Body mass index [BMI] 36.0-36.9, adult
CPT/HCPCS: 73562; 99284; 93971

== ENCOUNTER 2018-08-28 00:23 | Outpatient (CLI) | payer OTHER, MEDICARE, SELFPAY ==
--- NOTE | 2018-08-28 08:46 | DI.MRI_ITS ---
SYMPTOM/DIAGNOSIS: LT INTERNAL DERANGEMENT, LT KNEE PAIN MRI LEFT KNEE: Comparison is made with plain films dated 10 Jul 2018 FS T2 axial, T1 and FS T2 coronal, proton density and FS T2 sagittal and proton density oblique sagittal sequences were performed. There is a small to moderate size joint effusion. The anterior cruciate ligament shows thickening distally with some surrounding fluid. There is no evidence of a complete tear. The posterior cruciate ligament appears intact. There is edema around the medial collateral ligament. No focal tear. The lateral collateral ligament complex appears intact. The body of the medial meniscus appears diminutive. There is a small amount of high signal in the body of the lateral meniscus. No displaced fragment is seen. The lateral meniscus appears intact. No focal cartilage defects are seen. The marrow signal is normal. IMPRESSION: 1. ACL and MCL sprains. 2. Tear in the body of the medial meniscus.
== END 2018-08-28 00:43 ==
PROVIDERS: PCP Family Medicine; Visit Provider Orthopaedic Surgery
DX: M25.562 Pain in left knee (principal); M23.92 Unspecified internal derangement of left knee; S83.512A Sprain of anterior cruciate ligament of left knee, initial encounter; S83.412A Sprain of medial collateral ligament of left knee, initial encounter; S83.242A Other tear of medial meniscus, current injury, left knee, initial encounter; M25.432 Effusion, left wrist
CPT/HCPCS: 73721

== ENCOUNTER 2018-09-06 12:38 | Day surgery (SDC) | payer OTHER, SELFPAY, MEDICARE ==
[2018-09-06] VITALS (7 sets, daily range): BP systolic 116–134; BP diastolic 45–61; PULSE 60–65; RESP 10–18; TEMP 35.8–36.7; O2SAT 95–100
[2018-09-06] MEDS: Lactated Ringers 1,000 ML 80 ML IV ×2 (13:55→15:40)
[2018-09-06] MEDS: ceFAZolin 2 GM/50 ML BAG IVPB (14:53)
--- NOTE | 2018-09-06 15:59 | PDOC.DSDIS_ITS ---
Discharge Plan Disposition Patient Disposition: HOME Condition: Good Discharge Details Reason For Visit: INTERNAL DERANGEMENT (L) KNEE Attending Provider: Girma Nuno Primary Care Provider: Renu Gerber Home Meds and New Rx's Prescriptions: New hydrocodone-acetaminophen 5-325 mg tablet 1 tab PO Q4H PRN (Reason: pain) Qty: 20 RF: 0 naproxen [Naprosyn] 500 mg tablet 500 mg PO BID Qty: 30 RF: 0 Continued clonazepam 2 mg tablet 1 mg PO BID MDD 1 PRN (Reason: anxiety) Qty: 60 RF: 4 insulin syringe-needle U-100 [BD Insulin Syringe] 0.5 mL 29 gauge x 1/2 syringe .ROUTE .MEDSUPPLY Qty: 100 RF: 7 Tresiba FlexTouch U-200 200 unit/mL (3 mL) insulin pen 90 unit SC BID RF: 0 Avocado seed See Patient Comments PO DAILY RF: 0 nystatin 100,000 unit/gram powder 1 applic TP BID Qty: 60 RF: 2 cholecalciferol (vitamin D3) [Vitamin D3] 2,000 UNIT capsule 2,000 unit PO DAILY RF: 0 pen needle, diabetic [Novofine 32] 1 EACH needle 1 ea Miscellaneous 5 time day Qty: 500 RF: 12 ipratropium-albuterol 3 ML solution for nebulization 3 ml Inhalation TID PRNQty: 100 RF: 3 Narcan 4 MG spray,non-aerosol 4 mg NS PRN Qty: 2 RF: 0 levothyroxine 175 MCG tablet 175 mcg PO DAILY Qty: 90 RF: 11 Blood Glucose Test strip .Route .MEDSUPPLY Qty: 400 RF: 5 insulin lispro 200 unit/mL (3 mL) insulin pen 20 unit SC .Ac and HS Qty: 15 RF: 4 metoprolol succinate 100 mg tablet extended release 24 hr 150 mg PO DAILY Qty: 135 RF: 11 ropinirole [Requip] 0.5 mg tablet 0.5 mg PO QHS Qty: 90 RF: 1 albuterol sulfate [ProAir HFA] 90 mcg/actuation HFA aerosol inhaler 1 - 2 puff Inhalation Q6H PRN Qty: 1 RF: 12 Symbicort 160-4.5 mcg/actuation HFA aerosol inhaler 2 puff Inhalation BID Qty: 3 RF: 12 chlorthalidone 25 mg tablet 25 mg PO DAILY Qty: 90 RF: 4 losartan 100 mg tablet 100 mg PO DAILY Qty: 90 RF: 4 Lyrica 150 mg capsule 150 mg PO BID MDD 2 tabs 90 Days Qty: 180 RF: 2 Glucagon Emergency Kit (human) 1 MG kit 1 mg Sub-Q STAT PRNQty: 1 RF: 1 fluoxetine [Prozac] 20 mg capsule 40 mg PO HS RF: 0 Januvia 100 mg Tablet 100 mg PO DAILY RF: 0 naproxen 250 mg tablet 250 mg PO BID PRN (Reason: pain) Qty: 20 RF: 0 Discharge Instructions Additional Instructions: Elevate L leg on pillows when sitting. Keep cryocuff on L knee continuously overnite tonite. Tomorrow, start to use 4 times/day for 1 hour each time. May remove dressings, shower, and get incisions wet after 48 hours. Leave incisions uncovered when they are dry and sealed. Crutches to walk. Put as much weight on L leg as your pain allows. Discontinue the crutches when you can step fully on L leg with minimal discomfort. Begin outpatient physical therapy on Tuesday for rehab of L knee post- arthroscopic partial medial meniscectomy. Follow up with in 2 weeks. Take naprosyn twice/day for 2 weeks to decrease swelling and inflammation. Take hydrocodone for breakthru pain, if needed. Referrals: Girma Nuno MD [ [facility] STAFF PHYSICIAN] - (f/u in 2 weeks.) Activity:: Activity as Tolerated Remove Dressings/Wound Care:: 48 hours Shower/Bathe:: 48 hours Diet:: As Tolerated Discharge Orders Discharge Orders: Discharge Order (Routine); Ordered 09/06/18 Ordered By: Girma Nuno DS: Diagnosis Discharge Diagnosis (1) Torn medial meniscus: Status: Acute
[2018-09-06] MEDS: fentaNYL 100 MCG/2 ML VIAL IVP ×2 (16:09→16:25)
[2018-09-06] MEDS: oxyCODONE-CR 10 MG TABCR PO (17:10)
--- NOTE | 2018-09-08 08:43 | ROE_ITS ---
REPORT OF OPERATIVE PROCEDURE DATE OF SURGERY September 06, 2018 PREOPERATIVE DIAGNOSIS Torn left medial meniscus. POSTOPERATIVE DIAGNOSIS Torn left medial meniscus. Mild medial compartment osteoarthritis. PROCEDURES Arthroscopic partial left medial meniscectomy, limited chondroplasty medial femoral condyle. ANESTHESIA General. SURGEON Girma Nuno M.D. INDICATIONS This 63-year-old white female with persistent disabling left knee pain following a twisting injury. S he has not responded to conservative treatment. She was forced to use a cane to ambulate. An MRI sca n was obtained, which showed a large tear of the posterior horn of the medial meniscus. Because of fa ilure to improve with conservative treatment, arthroscopy and arthroscopic partial medial meniscectom y was recommended. The risks and complications of the procedure were explained to the patient in deta il preoperatively. PROCEDURE The patient was taken to the Operating Room on 09/06/18, she was placed supine on the operating table and a General anesthetic was administered. The left thigh was placed in the arthroscopic leg butcher. The left knee was prepped and draped free in usual sterile fashion. Arthroscopic portals were establi shed and the knee was inflated with normal saline solution using the arthroscopy pump. Routine arthro scopic examination then proceeded. Intraoperative photographs were obtained to document pertinent fin dings. Upon entering the medial compartment, she was found to have an obvious complex tear of the posterior horn of the medial meniscus. The extent of the tear was determined by probing under direct vision wi th the right angle probe. The tear was then resected using punch forceps to debulk the tear and then further debridement smoothing and contouring the remaining rim of the medial meniscus with the 90-deg ree high rate frequency electrocautery wand. Once the resection was complete, the remainder of the me dial meniscus was probed under direct vision and was found to be fully stable. The patient demonstrat ed some grade II change of the medial femoral condyle over a small area and a very limited chondropla sty was performed. The tibia had some grade I changes of osteoarthritis. The intercondylar notch showed intact anterior and posterior cruciate ligaments. The lateral compartment showed normal lateral meniscus, stable to probing under direct vision. The ar ticular cartilage and in the lateral compartment was normal. The medial and lateral gutters were clear. The suprapatellar pouch demonstrated some mild synovitis. Patellar tracking was anatomic. Articular cartilage and the patellofemoral joint was not damaged. At this point, the knee was copiously irrigated with saline solution using the arthroscopy pump until t he outflow was clear. 20 cc of 0.5% Marcaine with epinephrine solution along with 4 mg of morphine we re instilled into the left knee. All instruments were removed from the knee. The arthroscopy portals were infiltrated with 0.5% Marcaine with epinephrine solution. The arthroscopy portals were approximated with interrupted #4-0 Nylon sutures. Sterile dressings wer e applied, of Xeroform gauze, sterile gauze, 4x4s, ABD pad and wrapped with a 6-inch Librado bandage for a light pressure dressing. The patient's anesthesia was reversed without complication. Blood loss was minimal. The patient was discharged to the Recovery Room in good condition. The patient was discharged home from the Day Surgery Unit when fully recovered from her general anest hesia. She was given instructions to elevate her left leg on one to two pillows as much as possible for the next 48 hours. She is to apply the Cryo/Cuff continuously overnight. Tomorrow she will start using the Cryo/Cuff on the left knee four times a day for an hour each time. She is to keep her dressings dry and intact for 48 hours. After 48 hours, she can remove her dressing s, shower and get her incisions wet. She is to use crutches to walk, weightbearing as tolerated to th e left leg. She may discontinue the crutches when she can step fully on her left leg with minimal reid n. She can leave the incisions uncovered when they are dry and sealed. She will begin outpatient physical therapy on 09/11/2018 for rehab of her left knee post arthr oscopic partial medial meniscectomy. She will take Naprosyn 500 mg p.o. b.i.d. for inflammation and swelling. She is given a prescription for pain of hydrocodone 5/325, 1 tablet every four as if needed for breakthrough pain. She will followup with Dr. Nuno in two weeks.
== END 2018-09-06 17:56 | disposition home or self-care (01) ==
PROVIDERS: PCP Family Medicine; Visit Provider Orthopaedic Surgery
PROC: (CPT 29870; principal; 2018-09-06 14:00)
DX: S83.232A Complex tear of medial meniscus, current injury, left knee, initial encounter (principal); X50.1XXA Overexertion from prolonged static or awkward postures, initial encounter; E11.65 Type 2 diabetes mellitus with hyperglycemia; K21.9 Gastro-esophageal reflux disease without esophagitis; E11.42 Type 2 diabetes mellitus with diabetic polyneuropathy; I10 Essential (primary) hypertension
CPT/HCPCS: 29881; J0690; J1100; J1200; J1885; J2250; J2405; J3010

== ENCOUNTER 2018-11-14 01:29 | Outpatient (CLI) | payer OTHER, MEDICARE, SELFPAY ==
[2018-11-14 11:58] LABS: Hemoglobin A1C 7.1 % (4.5-6.2)
[2018-11-14 12:02] LABS: Albumin 3.8 g/dL (3.4-5.0); Anion Gap 6.6 mmol/L (3-11); BUN 12 mg/dL (7-18); Bilirubin, Total 0.4 mg/dL (0.2-1.0); CO2 30.4 mmol/L (21.0-32.0); CREATININE 1.21 mg/dL (0.55-1.02); Chloride 104 mmol/L (98-107); Glucose 171 mg/dL (70-100); Sodium 141 mmol/L (136-145); Total Protein 6.4 g/dL (6.4-8.2)
[2018-11-14 12:52] LABS: ALT 30 U/L (14-59); AST 19 U/L (15-37); Alkaline Phosphatase 131 U/L (46-116)
[2018-11-14 21:14] LABS: TSH <0.02 uIU/ml (0.47-4.68)
== END 2018-11-14 01:49 ==
PROVIDERS: PCP Family Medicine; Visit Provider Family Medicine
DX: E11.9 Type 2 diabetes mellitus without complications (principal); E03.9 Hypothyroidism, unspecified; E11.65 Type 2 diabetes mellitus with hyperglycemia
CPT/HCPCS: 36415; 80053; 83036; 84439; 84443

== ENCOUNTER 2018-12-05 01:45 | Outpatient (CLI) | payer OTHER, MEDICARE, SELFPAY ==
--- NOTE | 2018-12-05 14:16 | DI.MRI_ITS ---
EXAM: MR BRAIN WO CLINICAL HISTORY: new stabbing headache, R51. TECHNIQUE: Multiplanar multisequence MRI was performed. COMPARISON: MRI - BRAIN WO CONTRAST from 03/27/2013 FINDINGS: The exam is somewhat limited by patient motion. There is moderate atrophy. No intracranial hemorrhag e, mass or infarct is seen. There are a few scattered high signal lesions in the white matter consis tent with small vessel disease. The vascular flow voids appear intact. Ventricles are normal in size . The orbits, sinuses and mastoid air cells are unremarkable. IMPRESSION: Atrophy and mild white matter changes of small vessel disease. No acute abnormality.
== END 2018-12-05 02:05 ==
PROVIDERS: PCP Family Medicine; Visit Provider Nurse Practitioner Adult Health
DX: R51 Headache (principal); G31.89 Other specified degenerative diseases of nervous system; R90.82 White matter disease, unspecified
CPT/HCPCS: 70551

== ENCOUNTER 2019-02-19 01:38 | Outpatient (CLI) | payer OTHER, MEDICARE, SELFPAY ==
[2019-02-19 12:24] LABS: HGB 12.8 g/dL (12.0-15.5); Mean Corp. HGB Concentration 32.8 g/dL (32.0-36.0); Mean Corpuscular Hemoglobin 30.8 pg (27.0-33.0); Mean Corpuscular Volume 93.8 fL (80-95); Mean Platelet Volume 12.1 fL (8.0-11.0); Platelet Count 160 x1000/uL (130-400); RBC 4.16 m/cumm (4.00-5.20); RBC Distribution Width 14.9 % (11.7-14.6); White Blood Cell Count 5.38 k/cumm (4.4-10.8)
[2019-02-19 13:01] LABS: ALT 135 U/L (14-59); AST 156 U/L (15-37); Albumin 3.8 g/dL (3.4-5.0); Alkaline Phosphatase 157 U/L (46-116); Anion Gap 6.1 mmol/L (3-11); BUN 22 mg/dL (7-18); Bilirubin, Total 0.8 mg/dL (0.2-1.0); CO2 33.9 mmol/L (21.0-32.0); CREATININE 1.26 mg/dL (0.55-1.02); Calcium 9.1 mg/dL (8.5-10.1); Calculated LDL 132 mg/dL; Chloride 101 mmol/L (98-107); Cholesterol 237 mg/dL (<200); Estimated GFR 42.75 (mL/min/1.73m2); Glucose 300 mg/dL (74-106); HDL Cholesterol 27 mg/dL (40-60); Potassium 4.9 mmol/L (3.5-5.1); Sodium 141 mmol/L (136-145); TSH (W/Ref FT4) 0.04 uIU/mL (0.36-3.74); Total Protein 6.4 g/dL (6.4-8.2); Triglyceride 391 mg/dL (<150)
[2019-02-19 13:28] LABS: FREE T4 1.44 ng/dL (0.76-1.46)
[2019-02-19 13:45] LABS: GGT 984 U/L (5-55)
[2019-02-20 08:54] LABS: Hemoglobin A1C 9.2 % (3.8-5.6)
== END 2019-02-19 01:58 ==
PROVIDERS: PCP Family Medicine; Visit Provider Family Medicine
DX: E03.9 Hypothyroidism, unspecified (principal); E11.9 Type 2 diabetes mellitus without complications; E11.65 Type 2 diabetes mellitus with hyperglycemia; K76.0 Fatty (change of) liver, not elsewhere classified
CPT/HCPCS: 36415; 80053; 80061; 85027; 82977; 83036; 84439; 84443

== ENCOUNTER 2019-03-29 01:18 | Outpatient (CLI) | payer OTHER, MEDICARE, SELFPAY ==
--- NOTE | 2019-03-29 08:43 | DI.CTLCSR_ITS ---
EXAM: CT CHEST LUNG CANCER SCREEN CLINICAL HISTORY: Screening for lung cancer, H/O NICOTINE DEPENDENCE, Z87.891 TECHNIQUE: COMPARISON: CT thorax abdomen CTA from 03/21/2018 FINDINGS: Chest CT was performed utilizing low-dose lung cancer screening protocol. Images obtained through th e upper abdomen show unremarkable appearance of visualized portions of the liver and spleen. No mediastinal or hilar adenopathy seen. Tracheobronchial tree appears intact. No pleural effusion. There are scattered tiny noncalcified nodules in both lungs measuring less than 4 millimeters in diam eter. These are unchanged prior study of 03/21/2018. No new pulmonary nodule seen. IMPRESSION: Benign appearance or behavior of pulmonary nodules, category 2, continue annual screening with LD CT in 12 months.
== END 2019-03-29 01:38 ==
PROVIDERS: PCP Family Medicine; Visit Provider Family Medicine
DX: Z12.2 Encounter for screening for malignant neoplasm of respiratory organs (principal); R91.8 Other nonspecific abnormal finding of lung field; Z87.891 Personal history of nicotine dependence
CPT/HCPCS: G0297

== ENCOUNTER 2019-06-22 02:01 | Outpatient (CLI) | payer OTHER, MEDICARE, SELFPAY ==
--- NOTE | 2019-06-26 17:18 | PDOC.EEG ---
Neurology EEG EEG: [facility] Department of Neurology EEG REPORT Date of Recordin06/22/19 Interpreting Physician: Dr. Lee Ann Hood PCP/Referring Provider: Dr. Renu Gerber Reason for study: Ms. To is a 64 year-old woman with reported nocturnal thrashing episodes concerning for seizure. Current Medications: Home Medications Medication Instructions Recorded Confirmed Type cholecalciferol (vitamin D3) 2,000 unit PO DAILY 05/16/12 05/31/19 History [Vitamin D3] metoprolol succinate 100 mg 150 mg PO DAILY #135 tab-cap 07/03/18 05/31/19 Rx tablet,extended release 24 hr budesonide-formoterol HFA 160 2 puff INHALATION BID #3 canister 07/31/18 05/31/19 Rx mcg-4.5 mcg/actuation aerosol inhaler chlorthalidone 25 mg tablet 25 mg PO DAILY #90 tab 07/31/18 05/31/19 Rx losartan 100 mg tablet 100 mg PO DAILY #90 tab 07/31/18 05/31/19 Rx nystatin 100,000 unit/gram topical 1 applic TP BID #60 gm 08/03/18 05/31/19 Rx powder albuterol sulfate 90 mcg/actuation 1 - 2 puff INHALATION Q6H PRN 11/14/18 05/31/19 History aerosol inhaler inhaler fluoxetine 40 mg capsule 40 mg PO HS #90 cap 11/14/18 05/31/19 Rx sitagliptin 100 mg tablet 100 mg PO DAILY #90 tab 01/16/19 05/31/19 Rx blood sugar diagnostic #400 each 02/12/19 05/31/19 Rx insulin lispro 200 unit/mL (3 mL) 30 unit SC .Ac and HS #20 ml 03/01/19 05/31/19 Rx subcutaneous pen insulin syringe-needle U-100 0.5 #100 each 03/01/19 05/31/19 Rx mL 29 gauge x 1/2 levothyroxine 150 mcg tablet 150 mcg PO DAILY #90 tab-cap 03/01/19 05/31/19 Rx pen needle, diabetic 32 gauge x #500 each 03/01/19 05/31/19 Rx 1/4 omeprazole 20 mg capsule,delayed 20 mg PO DAILY #90 cap 05/01/19 05/31/19 Rx release pregabalin 150 mg capsule 150 mg PO BID 90 Days #180 tab MDD 05/01/19 05/31/19 Rx 2 tabs ropinirole 0.5 mg tablet 0.5 mg PO QHS #90 tab 05/16/19 05/31/19 Rx ipratropium 0.5 mg-albuterol 3 mg 3 ml INHALATION TID PRN #100 dose 05/18/19 05/31/19 Rx (2.5 mg base)/3 mL nebulization soln trazodone 50 mg tablet 50 mg PO QHS #90 tab 05/31/19 05/31/19 Rx insulin degludec 200 unit/mL (3 90 unit SC BID #60 ml 06/04/19 Rx mL) subcutaneous pen clonazepam 2 mg tablet 2 mg PO QHS PRN #30 tab-cap MDD 1 06/21/19 06/21/19 Rx METHODS: A 21 channel digitized electroencephalogram was performed in the [facility]. The 10/20 international system of electrode placement was used and bipolar and referential electrode montages were recorded. In addition to EEG the patient was monitored for EKG and lateral/vertical eye movements. Activation procedures of photic stimulation and hyperventilation were performed if applicable. Video was used during activation procedures and during events where applicable. The duration of the recording was 30 minutes. DESCRIPTION OF EEG: The patient was noted to be awake only during the recording. During maximal wakefulness a 10-Hz posterior background rhythm was present which was well-modulated, symmetrical, reactive to eye opening, and of moderate voltage. With eye opening the background activity changed to a low voltage mixture of alpha, beta, and occasional theta range frequencies. Faster frequencies were present in the bilateral anterior head regions. There was a normal anterior-posterior voltage gradient. No drowsiness or stage II sleep was recorded. Activating Procedures: Photic stimulation was performed which produced a symmetrical posterior driving response at various flash frequencies. Hyperventilation was not performed. EKG: EKG revealed normal sinus rhythm. INTERPRETATION: This EEG is normal during the awake state as well as during photic stimulation. PRIOR EEG: none CLINICAL CORRELATION: No focal regions of cerebral dysfunction or epileptiform activity was present. No sleep was recorded during the study which reduces the sensitivity of the exam. If seizure remains a part of the differential, consider a repeat sleep-deprived EEG or overnight ambulatory EEG as her events are reported as nocturnal. Epilepsy remains a clinical diagnosis and a normal EEG does not rule out epilepsy. Clinical correlation is advised. Lee Ann Hood MD
== END 2019-06-22 02:21 ==
PROVIDERS: PCP Family Medicine; Visit Provider Family Medicine
DX: R56.9 Unspecified convulsions (principal)
CPT/HCPCS: 95816

== ENCOUNTER 2019-07-01 09:53 | Outpatient (CLI) | payer OTHER, MEDICARE, SELFPAY | END 2019-07-01 10:13 | PROVIDERS: PCP Family Medicine; Visit Provider Family Medicine | DX: R25.8 Other abnormal involuntary movements (principal); R56.9 Unspecified convulsions; F31.9 Bipolar disorder, unspecified | CPT/HCPCS: 95953 ==

== ENCOUNTER 2019-07-03 03:18 | Outpatient (CLI) | payer OTHER, MEDICARE, SELFPAY ==
[2019-07-03 12:28] LABS: Hemoglobin A1C 9.8 % (3.8-5.6)
[2019-07-03 12:30] LABS: Microalb ug/mg Crea 4.3 ug/mg Cr
[2019-07-03 12:35] LABS: ALT 55 U/L (14-59); AST 55 U/L (15-37); Albumin 4.4 g/dL (3.4-5.0); Alkaline Phosphatase 154 U/L (46-116); Anion Gap 8.3 mmol/L (3-11); BUN 24 mg/dL (7-18); Bilirubin, Total 0.6 mg/dL (0.2-1.0); CO2 31.7 mmol/L (21.0-32.0); CREATININE 1.51 mg/dL (0.55-1.02); Calcium 8.9 mg/dL (8.5-10.1); Chloride 100 mmol/L (98-107); Estimated GFR 34.58 (mL/min/1.73m2); GGT 304 U/L (5-55); Glucose 139 mg/dL (74-106); Potassium 4.2 mmol/L (3.5-5.1); Sodium 140 mmol/L (136-145); TSH (W/Ref FT4) 0.09 uIU/mL (0.36-3.74); Total Protein 7.1 g/dL (6.4-8.2)
[2019-07-03 12:54] LABS: FREE T4 1.58 ng/dL (0.76-1.46)
== END 2019-07-03 03:38 ==
PROVIDERS: PCP Family Medicine; Visit Provider Family Medicine
DX: E03.9 Hypothyroidism, unspecified (principal); E11.40 Type 2 diabetes mellitus with diabetic neuropathy, unspecified; R74.8 Abnormal levels of other serum enzymes; F31.9 Bipolar disorder, unspecified; R94.5 Abnormal results of liver function studies
CPT/HCPCS: 36415; 80053; 82043; 82570; 82977; 83036; 84439; 84443

== ENCOUNTER 2019-08-09 02:36 | Outpatient (CLI) | payer OTHER, MEDICARE, SELFPAY ==
[2019-08-09 10:24] LABS: Ferritin 83 ng/mL (8-252)
== END 2019-08-09 02:56 ==
PROVIDERS: PCP Family Medicine; Visit Provider Internal Medicine
DX: M25.50 Pain in unspecified joint (principal)
CPT/HCPCS: 36415; 82728

== ENCOUNTER 2019-11-06 22:18 | Outpatient (REF) | payer OTHER, MEDICARE, SELFPAY | END 2019-11-06 22:38 | LOC: LBN 22:18 | PROVIDERS: PCP Family Medicine; Visit Provider Family Medicine | DX: S50.821A Blister (nonthermal) of right forearm, initial encounter (principal); R21 Rash and other nonspecific skin eruption | CPT/HCPCS: 87070; 87205 ==

== ENCOUNTER 2019-11-07 02:54 | Outpatient (CLI) | payer OTHER, MEDICARE, SELFPAY ==
[2019-11-07 12:46] LABS: ALT 36 U/L (14-59); AST 28 U/L (15-37); Albumin 4.1 g/dL (3.4-5.0); Alkaline Phosphatase 116 U/L (46-116); Anion Gap 5.2 mmol/L (3-11); BUN 17 mg/dL (7-18); Bilirubin, Total 0.5 mg/dL (0.2-1.0); CO2 31.8 mmol/L (21.0-32.0); CREATININE 1.29 mg/dL (0.55-1.02); Calcium 9.1 mg/dL (8.5-10.1); Chloride 99 mmol/L (98-107); Estimated GFR 41.48 (mL/min/1.73m2); Glucose 245 mg/dL (74-106); Hemoglobin A1C 10.6 % (<5.7); Potassium 4.1 mmol/L (3.5-5.1); Sodium 136 mmol/L (136-145); Total Protein 6.7 g/dL (6.4-8.2)
[2019-11-08 07:06] LABS: Vitamin D 25 Total 28.2 ng/ml (30-100)
== END 2019-11-07 03:14 ==
PROVIDERS: PCP Family Medicine; Visit Provider Family Medicine
DX: E11.9 Type 2 diabetes mellitus without complications (principal); E03.9 Hypothyroidism, unspecified; K76.0 Fatty (change of) liver, not elsewhere classified; M81.0 Age-related osteoporosis without current pathological fracture
CPT/HCPCS: 36415; 80053; 82306; 83036; 84443

== ENCOUNTER 2020-02-08 04:43 | Outpatient (CLI) | payer OTHER, MEDICARE, SELFPAY | END 2020-02-08 05:03 | PROVIDERS: PCP Family Medicine; Visit Provider Family Medicine | DX: E11.9 Type 2 diabetes mellitus without complications (principal) | CPT/HCPCS: 36415; 83036 ==

== ENCOUNTER 2020-05-02 02:05 | Outpatient (CLI) | payer OTHER, MEDICARE, SELFPAY ==
[2020-05-02 12:41] LABS: Hemoglobin A1C 8.6 % (<5.7)
== END 2020-05-02 02:06 | disposition home or self-care (01) ==
LOC: LOS 02:05
PROVIDERS: PCP Family Medicine; Visit Provider Family Medicine
DX: E11.9 Type 2 diabetes mellitus without complications (principal)
CPT/HCPCS: 36415; 83036

== ENCOUNTER 2020-06-09 04:00 | Outpatient (CLI) | payer OTHER, MEDICARE, SELFPAY ==
[2020-06-09 12:29] LABS: ESR 4 mm//hr (0-30)
[2020-06-09 12:30] LABS: Abs Immature Grans 0.06 10^3/uL (0.0-0.06); Absolute Basophil Count 0.05 10^3/uL (0.0-0.2); Absolute Eosinophil Count 0.14 10^3/uL (0.0-0.7); Absolute Monocyte Count 0.91 10^3/uL (0.1-0.8); Absolute Neutrophil Count 5.99 10^3/uL (1.2-6.7); Basophils % 0.6; Eosinophils % 1.6; HCT 43.2 % (36.0-46.0); HGB 13.8 g/dL (11.2-15.7); Immature Grans % 0.7; Lymphocytes % 18.3; MCH 30.1 pg (27.0-33.0); MCHC 31.9 % (32.0-36.0); MCV 94.1 fL (80-95); Monocytes % 10.4; Neutrophils % 68.4; Nucleated RBC 0 %; Platelet Count 224 10^3/uL (130-400); RBC 4.59 10^6/uL (3.93-5.22); RDW 14.4 % (11.7-14.6); RDW-SD 50.2 fL; WBC 8.75 10^3/uL (4.4-10.8)
[2020-06-09 13:15] LABS: ALT 60 U/L (14-59); AST 31 U/L (15-37); Albumin 4.1 g/dL (3.4-5.0); Alkaline Phosphatase 143 U/L (46-116); Anion Gap 7.9 mmol/L (3-11); BUN 24 mg/dL (7-18); Bilirubin, Total 0.4 mg/dL (0.2-1.0); C-Reactive Protein 1.82 mg/dL (0.0-0.3); CO2 33.1 mmol/L (21.0-32.0); CREATININE 1.8 mg/dL (0.55-1.02); Calcium 9.4 mg/dL (8.5-10.1); Chloride 102 mmol/L (98-107); Creatine Kinase 253 U/L (26-192); Estimated GFR 28.15 (mL/min/1.73m2); Glucose 211 mg/dL (74-106); Potassium 4.4 mmol/L (3.5-5.1); Sodium 143 mmol/L (136-145); Total Protein 7.1 g/dL (6.4-8.2)
[2020-06-09 13:35] LABS: Vitamin D 25 Total 20.3 ng/mL (30-100)
[2020-06-10 15:26] LABS: ANA Interpretation Positive (Negative); ANA Titer Pattern 1:160 Homogeneous
== END 2020-06-09 04:01 | disposition home or self-care (01) ==
LOC: LOS 04:00
PROVIDERS: PCP Family Medicine; Visit Provider Physician Assistant
DX: E11.40 Type 2 diabetes mellitus with diabetic neuropathy, unspecified (principal); E55.9 Vitamin D deficiency, unspecified; R53.83 Other fatigue; L29.8 Other pruritus; M25.59 Pain in other specified joint; G89.29 Other chronic pain
CPT/HCPCS: 80053; 82306; 82550; 85652; 85025; 86038; 86140

== ENCOUNTER 2020-06-12 21:34 | Outpatient (REF) | payer OTHER, MEDICARE, SELFPAY ==
[2020-06-12 14:08] LABS: ESR 13 mm//hr (0-30)
[2020-06-12 14:18] LABS: Hemoglobin A1C 8.6 % (<5.7)
[2020-06-12 14:19] LABS: ALT 56 U/L (14-59); AST 45 U/L (15-37); Albumin 4.3 g/dL (3.4-5.0); Alkaline Phosphatase 128 U/L (46-116); Anion Gap 9.8 mmol/L (3-11); BUN 26 mg/dL (7-18); Bilirubin, Total 0.4 mg/dL (0.2-1.0); CO2 31.2 mmol/L (21.0-32.0); CREATININE 2.1 mg/dL (0.55-1.02); Calcium 9.4 mg/dL (8.5-10.1); Chloride 100 mmol/L (98-107); Estimated GFR 23.56 (mL/min/1.73m2); GGT 265 U/L (5-55); Glucose 252 mg/dL (74-106); Potassium 4.6 mmol/L (3.5-5.1); Sodium 141 mmol/L (136-145); Total Protein 7.4 g/dL (6.4-8.2)
[2020-06-12 14:46] LABS: C-Reactive Protein 1.93 mg/dL (0.0-0.3)
[2020-06-12 21:45] LABS: Rheumatoid Factor <8.6 IU/mL (<12.0)
[2020-06-13 09:08] LABS: Cyclic Citrullinated Peptide <2.5 U/mL (<5.0)
== END 2020-06-12 21:35 | disposition home or self-care (01) ==
LOC: LBN 21:34
PROVIDERS: PCP Family Medicine; Visit Provider Physician Assistant
DX: E11.40 Type 2 diabetes mellitus with diabetic neuropathy, unspecified (principal); E55.9 Vitamin D deficiency, unspecified; R79.89 Other specified abnormal findings of blood chemistry; M25.59 Pain in other specified joint
CPT/HCPCS: 80053; 85652; 86200; 82977; 83036; 86140; 86431

== ENCOUNTER 2021-01-26 03:26 | Outpatient (CLI) | payer MEDICARE, OTHER, SELFPAY ==
--- OUTSIDE RECORDS SUMMARY | 2021-01-26 03:44 | XMS_ITS ---
:1955 Author Care Team Providers Name Role Phone DARNELL GARCIA Primary Care Provider [phone] Allergies Code Code System Name Reaction Severity Status Onset RxNorm Amlodipine ? ? Active ? 51809 RxNorm Atorvastatin ? ? Active ? 2001 RxNorm Carbamazepine ? ? Active ? 3829 RxNorm Enalaprilat ? ? Active ? 5640 RxNorm Ibuprofen ? ? Active ? 5548 RxNorm [place] ? ? Active ? 7052 RxNorm Morphine ? ? Active ? 75561 RxNorm Rizatriptan ? ? Active ? Medications Name Status Start Date Stop Date ? ? albuterol sulf 90 mcg/actuation breath activated powder inhaler, sensor Active ? Not available Inhale 2 puffs every 4-6 hours by inhalation route. budesonide-formoterol HFA 160 mcg-4.5 mcg/actuation aerosol inha ler Active ? Not available Inhale 2 puffs twice a day by inhalation route. chlorthalidone 25 mg tablet Active ? Not available Take 1 tablet every day by oral route. clonazepam 2 mg disintegrating tablet Active ? Not available Place 1 tablet every day by translingual route at bedtime. fluoxetine 40 mg capsule Active ? Not thang ilable Take 1 capsule every day by oral route at bedtime. insulin lispro (U-200) 200 unit/mL (3 mL) subcutaneous pen Activ e ? Not available Inject 30 units twice a day by subcutaneous route. ipratropium 0.5 mg-albuterol 3 mg (2.5 mg base)/3 mL nebulizatio n soln Active ? Not available Inhale 3 mL 3 times a day by nebulization route. levothyroxine 150 mcg tablet Active ? Not available Take 1 tablet every day by oral route. losartan 100 mg tablet Active ? Not avail able Take 1 tablet every day by oral route. metoprolol suc 100 mg-hydrochlorothiazide 12.5 mg tablet,ext.rel 24 hr Active ? Not available Take 1 tablet every day by oral route. omeprazole 20 mg capsule,delayed release Active ? Not available Take 1 capsule every day by oral route. pregabalin 150 mg capsule Active ? Not av ailable Take 1 capsule twice a day by oral route. ropinirole 0.5 mg tablet Completed ? 020 Take 1 tablet 3 times a day by oral route at bedtime. ropinirole 1 mg tablet Active ? Not avail able take 1 PO 2 hours before bedtime sitagliptin 100 mg tablet Active ? Not av ailable Take 1 tablet every day by oral route. trazodone 50 mg tablet Active ? Not avail able Take 1 tablet every day by oral route at bedtime. Tresiba FlexTouch U-200 insulin 200 unit/mL (3 mL) subcutaneous pen Active ? Not available Inject 90 units twice a day by subcutaneous route. Problems Name Status Onset Date Source ? Type 2 Diabetes Mellitus Active 08/03/2019 ? Atrial Fibrillation Active 08/03/2019 ? Asthma Active 08/03/2019 ? Candidiasis Active 08/06/2019 ? Neoplasm of Bone Active 08/06/2019 ? Hypothyroidism Active 08/06/2019 ? Vitamin D Deficiency Active 08/06/2019 ? Hyperlipidemia Active 08/06/2019 ? Von Willebrand Disorder Active 08/06/2019 ? Bipolar Disorder Active 08/06/2019 ? Psychophysiologic Insomnia Active 08/06/2019 ? Depressive Disorder Active 08/06/2019 ? Insomnia Active 08/06/2019 ? Restless Legs Active 08/06/2019 ? Chronic Pain Active 08/06/2019 ? Cerebrovascular Accident Active 08/06/2019 ? Chronic Sinusitis Active 08/06/2019 ? Gastroesophageal Reflux Disease Active 08/06/2019 ? Recurrent Hernia of Anterior Abdominal Wall Active 09/2019 ? Atrophic Vaginitis Active 08/06/2019 ? Cellulitis Active 08/06/2019 ? Hand Joint Pain Active 08/06/2019 ? Disorder of Rotator Cuff Active 08/06/2019 ? Stenosing Tenosynovitis Active 08/06/2019 ? 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 Fatigue Active 08/06/2019 ? Headache Active 08/06/2019 ? Snoring Active 08/06/2019 ? Chest Pain Active 08/06/2019 ? Diarrhea Active 08/06/2019 ? Incontinence Active 08/06/2019 ? Serum Lactate Dehydrogenase Level Elevated Active 08/05 ? Tear of Medial Meniscus of Knee Active 08/06/2019 ? Drug Overdose Active 08/06/2019 ? Neuropathic Arthropathy Due to Diabetes Active 08/06/19 20 ? Mellitus Diverticulosis of Colon Active 08/06/2019 ? Pain in Right Foot Active 08/06/2019 ? Dream Enactment Behavior Active 08/06/2019 ? Obstructive Sleep Apnea Syndrome Active ? ? Hypertensive Disorder Active ? ? Procedures None recorded. Results Lab Results Date Name Specimen Result Interpretation Description Value Range Status Address ? 08/09/2019 Ferritin, ? No observation ? ? ? [facility] Serum or recorded. [facility]: [address] [place] [address], [facility] Past Encounters 10/29/2019 Obstructive Sleep Apnea Syndrome; Restle ss Legs [employer]ab[employer]: [address] [place] [phone], Ph. 08/16/2019 Obstructive Sleep Apnea Syndrome; Restle ss Legs; Psychophysiologic Insomnia [employer]: [address] [place] [phone], Ph. 08/06/2019 Snoring; Restless Legs; Dream Enactment Behavior; Psychophysiologic Insomnia; Joint Pain [employer]: [address] [place] [phone], Ph. Social History Tobacco Smoking Status Former Smoker (1 pack per week) Not es: quit 2003 Vaccine List None recorded. Plan of Care Reminders Provider Appointments None ? ? recorded. Lab None ? ? recorded. Referral None ? ? recorded. Procedures None ? ? recorded. Surgeries None ? ? recorded. Imaging None ? ? recorded. Vitals 10/29/2019 08:00AM Office 15 Height Weight BMI Blood Pressure 166.37 cm 102.06 kg 36.9 kg/m2 128/60 mm[Hg] 08/16/2019 08:00AM Office 30 Height Weight BMI Blood Pressure 166.37 cm 101.56 kg 36.7 kg/m2 128/64 mm[Hg] 08/06/2019 09:45AM New Patient 44 Height Weight BMI Blood Pressure 166.37 cm 106.87 kg 38.6 kg/m2 138/86 mm[Hg]
[2021-01-26 12:40] LABS: Hemoglobin A1C 8.7 % (<5.7)
== END 2021-01-26 03:27 | disposition home or self-care (01) ==
LOC: LOS 03:26
PROVIDERS: PCP Family Medicine; Visit Provider Family Medicine
DX: E11.9 Type 2 diabetes mellitus without complications (principal)
CPT/HCPCS: 36415; 83036

== ENCOUNTER 2021-05-29 02:45 | Outpatient (CLI) | payer OTHER, MEDICARE, SELFPAY ==
[2021-05-29 10:53] LABS: Hemoglobin A1C 8.7 % (<5.7)
[2021-05-29 11:06] LABS: COMMENT (LAB VIEW ONLY) 107.83 mg/dL; Microalb ug/mg Crea 12.2 ug/mg Cr
== END 2021-05-29 02:46 | disposition home or self-care (01) ==
LOC: LBO 02:45
PROVIDERS: PCP Family Medicine; Visit Provider Family Medicine
DX: E11.9 Type 2 diabetes mellitus without complications (principal)
CPT/HCPCS: 36415; 82043; 82570; 83036

== ENCOUNTER 2021-06-02 12:56 | Outpatient (REF) | payer OTHER, MEDICARE, SELFPAY | END 2021-06-02 12:57 | disposition home or self-care (01) | LOC: LBN 12:56 | PROVIDERS: PCP Family Medicine; Visit Provider Family Medicine | DX: N76.0 Acute vaginitis (principal) | CPT/HCPCS: 87480; 87510; 87660 ==

== ENCOUNTER 2021-06-03 01:31 | Outpatient (CLI) | payer OTHER, MEDICARE, SELFPAY ==
--- NOTE | 2021-06-03 07:30 | DI.RAD_ITS ---
Exam(s) XR LUMBAR SPINE COMPLETE EXAM: XR LUMBAR SPINE COMPLETE CLINICAL HISTORY: left LBP and leg pain,radicular pain,m54.16. TECHNIQUE: 2D digital imaging was performed. COMPARISON: No exams were available for comparison FINDINGS: Six views There is no evidence of fracture, listhesis, or pars defects. There is multilevel chronic disc space narrowing at L3-4, L4-5, and L5-S1 levels. Prominent right-si ded osteophytes are noted at L4-5 level where there is more prominent right-sided than left-sided sharron rowing of this disc space. There is prominent density in the sub endplate regions of both L3 and L4 levels, this surrounding a significantly degenerative disc this level. This implies Modic type 1 or type 3 changes. Disc spaces above L3 appear unremarkable. There are minimal facet joint degenerative changes. Sacroiliac joints appear unremarkable. There is evidence of previous cholecystectomy. There is also calcification lower abdominal aorta and common iliac arteries and there is suggestion of abdominal aortic aneurysm. IMPRESSION: As above. Recommend follow-up MRI of the lumbosacral spine. DATA REPOSITORY: RADIATION DOSE DELIVERED:
== END 2021-06-03 01:51 ==
PROVIDERS: PCP Family Medicine; Visit Provider Family Medicine
DX: M79.605 Pain in left leg; M51.17 Intervertebral disc disorders with radiculopathy, lumbosacral region; M47.27 Other spondylosis with radiculopathy, lumbosacral region
CPT/HCPCS: 72110

== ENCOUNTER 2021-07-28 13:55 | Emergency (ER) | payer OTHER, MEDICARE, SELFPAY ==
[2021-07-28] VITALS (12 sets, daily range): BP systolic 148–181; BP diastolic 64–99; PULSE 57–68; RESP 4–29; TEMP 36.3; O2SAT 90–98
--- NOTE | 2021-07-28 14:00 | RT.EKG_ITS ---
APPROVED REPORT Exam: Resting ECG Reason for Exam: chest pain Patient Location: E HR:62 bpm ECG Measurements Heart Rate 62 AXIS DE 176 P 41 QRSd 84 QRS 38 QT 424 T 64 QTc 431 Conclusion Sinus rhythm...normal P axis, V-rate 60- 99
--- NOTE | 2021-07-28 14:30 | DI.RAD_ITS ---
Exam(s) XR CHEST 2V PA LATERAL EXAM: XR CHEST 2V PA LATERAL CLINICAL HISTORY: cough, SOB. TECHNIQUE: 2D digital imaging was performed. COMPARISON: CR XR CHEST 2V PA LATERAL from 03/21/2018 FINDINGS: 2 views: Heart size is normal. The mediastinum is not widened. Lungs are clear. No infiltrates nor pleural effusions. IMPRESSION: No acute pulmonary findings. DATA REPOSITORY: RADIATION DOSE DELIVERED:
--- NOTE | 2021-07-28 14:31 | ED.GENADUL_ITS ---
Discharge Plan Disposition Patient Disposition: HOME Condition: Improving Discharge Details Clinical Impression: Acute bronchitis with chronic obstructive pulmonary disease (COPD) Primary Care Provider: Renu Gerber ED Provider: Girma Ribeiro Home Meds and New Rx's Prescriptions: New cefpodoxime 200 mg tablet 200 mg PO BID 7 Days Qty: 14 0RF Rx Instructions: must administer with a meal/food prednisone 50 mg tablet 50 mg PO DAILY 5 Days Qty: 5 0RF Continued trazodone 100 mg tablet 100 mg PO QHS Qty: 90 4RF (DME) insulin syringe-needle U-100 [BD Insulin Syringe] 0.5 mL 29 gauge x 1/2 syringe See Dose Instructions .ROUTE .MEDSUPPLY Qty: 100 7RF Dose Instruction: As directed Rx Instructions: As directed (DME) pen needle, diabetic [Novofine 32] 32 gauge x 1/4 needle 1 ea Miscellaneous 5 time day Qty: 500 4RF Rx Instructions: E11.40 novofine pen needles 32X6mm ; use 5 times daily ipratropium-albuterol 0.5 mg-3 mg(2.5 mg base)/3 mL solution for nebulization 3 ml Inhalation TID PRN (Reason: shortness of breath or wheezing) Qty: 180 3RF Rx Instructions: J45.909 clindamycin phosphate 2 % cream 1 appful vaginal DAILY Qty: 40 0RF Rx Instructions: for 3 days cholecalciferol (vitamin D3) [Vitamin D3] 2,000 UNIT capsule 2,000 unit PO DAILY hydroxyzine pamoate [Vistaril] 25 mg capsule 25 mg PO TID PRN (Reason: itching) Qty: 5 0RF metoprolol succinate 100 mg tablet extended release 24 hr 150 mg PO DAILY Qty: 135 11RF losartan 100 mg tablet 100 mg PO DAILY Qty: 90 4RF levothyroxine 125 mcg tablet 125 mcg PO DAILY Qty: 90 11RF fluoxetine 40 mg capsule 40 mg PO HS Qty: 90 4RF chlorthalidone 25 mg tablet 25 mg PO DAILY Qty: 90 4RF budesonide-formoterol [Symbicort] 160-4.5 mcg/actuation HFA aerosol inhaler 2 puff Inhalation BID Qty: 3 12RF omeprazole 40 mg capsule,delayed release(DR/EC) 40 mg PO DAILY Qty: 90 4RF (DME) Blood Glucose Test Strip See Dose Instructions .Route .MEDSUPPLY Qty: 400 5RF Dose Instruction: EDGARD and ABISAI Label Comments: pt. reports checking blood sugar this AM, BS 134 @ 0800 Rx Instructions: EDGARD and ABISAI; 4Xdaily; E11.21 albuterol sulfate [ProAir HFA] 90 mcg/actuation HFA aerosol inhaler 1 - 2 puff Inhalation Q6H PRN Qty: 18 3RF pregabalin [Lyrica] 150 mg capsule 150 mg PO Q8H MDD 3 tabs Qty: 270 2RF ropinirole 1 mg tablet 1 mg PO QHS Qty: 90 1RF Rx Instructions: administer 1-3 hours before bedtime clonazepam 2 mg tablet 2 mg PO QHS MDD 1 PRN (Reason: anxiety) Qty: 30 2RF nystatin 100,000 unit/gram powder 1 applic TP BID PRN (Reason: yeast infx in groin) Qty: 60 1RF Humalog U-100 Insulin 100 unit/mL cartridge 50 unit subcut TID Qty: 270 3RF Tresiba FlexTouch U-200 200 unit/mL (3 mL) insulin pen 96 unit SC BID Qty: 60 5RF Rx Instructions: 90units BID; insulin dependent diabetes Discharge Instructions Instructions: Acute Bronchitis (ED) Additional Instructions: Elevate your legs above the level of the heart to reduce pain and swelling. We will ask our care management team to arrange a follow-up for you with Dr. Gerber for recheck. Take prednisone and antibiotics as prescribed, your next doses will be tomorrow morning. Return to the ER for any acute concerns. Medical Decision Making 66-year-old female reports a chronic cough that is worsened over days time, accompanied with wheeze and shortness of breath as well as production with dark- colored sputum. She notes a 10 pound weight gain with this along with some mild pretibial edema. No chest pain. Differential gnosis includes peripheral fluid retention, CHF, bronchitis, exacerbation of underlying reactive airway disease. Patient was placed on a shelter monitor, screening laboratories obtained, she is given parenteral steroids and inhaled DuoNeb updraft. Referred for x-ray. The patient's laboratories will note a normal white blood cell count of 7.9, hematocrit of 35.8, platelets 158. Chemistries sodium 140, potassium 3.8, chloride 102, bicarb 30, BUN 17, creatinine 1.2. Magnesium slightly low at 1.5 and supplemented in the emergency department. Troponin is negative. BNP slightly elevated at 603. Urinalysis appears contaminated. Chest x-ray without focal infiltrate no evidence of pulmonary edema. Patient is improving with DuoNeb updraft and steroids. Patient given a single dose of Lasix for diuresis. We will arrange outpatient follow-up for her for recheck. I will place her on a course of oral antibiotics. She will be given a burst of oral prednisone. HPI General Mode of arrival: ambulatory . Date/Time Provider Initiated Documentation: 07/28/21 14:13 . Limitations to Documentation: no limitations . Information obtained by: patient . History of Present Illness 66 year old F presents to the emergency department with the chief complaint of Cough, sputum production, shortness of breath, weight gain, described as moderate, and is localized to the chest. Patient reports no radiation. Patient started exper iencing this day(s) and it has been intermittent. No relieving factors improve symptom(s), Movement worsens symptoms . Patient notes cough, fever/chills and shortness of breath; denies chest pain. Patient did receive the following treatments prior to arrival, none Related Data Home Medications Medication Instructions Recorded Confirmed cholecalciferol (vitamin D3) 50 2,000 unit PO DAILY 05/16/12 07/28/21 mcg (2,000 unit) capsule (Vitamin D3) insulin syringe-needle U-100 0.5 #100 ea 03/01/19 07/28/21 mL 29 gauge x 1/2 (BD Insulin Syringe) pen needle, diabetic 32 gauge x #500 ea 03/01/19 07/28/21 1/4 (Novofine 32) hydroxyzine pamoate 25 mg capsule 25 mg PO TID PRN itching #5 caps 06/09/20 (Vistaril) budesonide-formoterol HFA 160 2 puff inhalation BID ##3 07/31/20 07/28/21 mcg-4.5 mcg/actuation aerosol inhaler (Symbicort) chlorthalidone 25 mg tablet 25 mg PO DAILY #90 tabs 07/31/20 07/28/21 fluoxetine 40 mg capsule 40 mg PO HS #90 caps 07/31/20 07/28/21 levothyroxine 125 mcg tablet 125 mcg PO DAILY #90 tab-caps 07/31/20 07/28/21 losartan 100 mg tablet 100 mg PO DAILY #90 tabs 07/31/20 07/28/21 metoprolol succinate 100 mg 150 mg PO DAILY #135 tab-caps 07/31/20 07/28/21 tablet,extended release 24 hr omeprazole 40 mg capsule,delayed 40 mg PO DAILY #90 caps 07/31/20 07/28/21 release trazodone 100 mg tablet 100 mg PO QHS #90 tabs 08/12/20 07/28/21 blood sugar diagnostic (Blood #400 ea 12/01/20 07/28/21 Glucose Test strips) albuterol sulfate 90 mcg/actuation 1 - 2 puff inhalation Q6H PRN #18 02/03/21 07/28/21 aerosol inhaler (ProAir HFA) grams pregabalin 150 mg capsule (Lyrica) 150 mg PO Q8H #270 tabs 04/05/21 07/28/21 ropinirole 1 mg tablet 1 mg PO QHS #90 tabs 05/13/21 07/28/21 clonazepam 2 mg tablet 2 mg PO QHS PRN anxiety #30 05/26/21 07/28/21 tab-caps clindamycin phosphate 2 % vaginal 1 appful vaginal DAILY #40 grams 06/02/21 07/28/21 cream ipratropium 0.5 mg-albuterol 3 mg 3 ml inhalation TID PRN shortness 06/02/21 07/28/21 (2.5 mg base)/3 mL nebulization of breath or wheezing #180 mL soln nystatin 100,000 unit/gram topical 1 applic topical BID PRN yeast 06/19/21 07/28/21 powder infx in groin #60 grams insulin lispro 100 unit/mL 50 unit (0.5 mL) subcut TID #270 mL 06/29/21 07/28/21 subcutaneous cartridge (Humalog U-100 Insulin) insulin degludec 200 unit/mL (3 96 unit (0.48 mL) subcut BID #60 mL 07/11/21 07/28/21 mL) subcutaneous pen (Tresiba FlexTouch U-200 insulin) cefpodoxime 200 mg tablet 200 mg PO BID 7 days #14 tabs 07/28/21 prednisone 50 mg tablet 50 mg PO DAILY 5 days #5 tabs 07/28/21 Previous Rx's Medication Instructions Recorded insulin syringe-needle U-100 0.5 #100 ea 03/01/19 mL 29 gauge x 1/2 (BD Insulin Syringe) pen needle, diabetic 32 gauge x #500 ea 03/01/19 1/4 (Novofine 32) hydroxyzine pamoate 25 mg capsule 25 mg PO TID PRN itching #5 caps 06/09/20 (Vistaril) budesonide-formoterol HFA 160 2 puff inhalation BID ##3 07/31/20 mcg-4.5 mcg/actuation aerosol inhaler (Symbicort) chlorthalidone 25 mg tablet 25 mg PO DAILY #90 tabs 07/31/20 fluoxetine 40 mg capsule 40 mg PO HS #90 caps 07/31/20 levothyroxine 125 mcg tablet 125 mcg PO DAILY #90 tab-caps 07/31/20 losartan 100 mg tablet 100 mg PO DAILY #90 tabs 07/31/20 metoprolol succinate 100 mg 150 mg PO DAILY #135 tab-caps 07/31/20 tablet,extended release 24 hr omeprazole 40 mg capsule,delayed 40 mg PO DAILY #90 caps 07/31/20 release trazodone 100 mg tablet 100 mg PO QHS #90 tabs 08/12/20 blood sugar diagnostic (Blood #400 ea 12/01/20 Glucose Test strips) albuterol sulfate 90 mcg/actuation 1 - 2 puff inhalation Q6H PRN #18 02/03/21 aerosol inhaler (ProAir HFA) grams pregabalin 150 mg capsule (Lyrica) 150 mg PO Q8H #270 tabs 04/05/21 ropinirole 1 mg tablet 1 mg PO QHS #90 tabs 05/13/21 clonazepam 2 mg tablet 2 mg PO QHS PRN anxiety #30 05/26/21 tab-caps clindamycin phosphate 2 % vaginal 1 appful vaginal DAILY #40 grams 06/02/21 cream ipratropium 0.5 mg-albuterol 3 mg 3 ml inhalation TID PRN shortness 06/02/21 (2.5 mg base)/3 mL nebulization of breath or wheezing #180 mL soln nystatin 100,000 unit/gram topical 1 applic topical BID PRN yeast 06/19/21 powder infx in groin #60 grams insulin lispro 100 unit/mL 50 unit (0.5 mL) subcut TID #270 mL 06/29/21 subcutaneous cartridge (Humalog U-100 Insulin) insulin degludec 200 unit/mL (3 96 unit (0.48 mL) subcut BID #60 mL 07/11/21 mL) subcutaneous pen (Tresiba FlexTouch U-200 insulin) cefpodoxime 200 mg tablet 200 mg PO BID 7 days #14 tabs 07/28/21 prednisone 50 mg tablet 50 mg PO DAILY 5 days #5 tabs 07/28/21 Allergies Allergy/AdvReac Type Severity Reaction Status Date / Time Penicillins Allergy Skin Rash Verified 06/02/21 10:33 amlodipine besylate AdvReac Intermediate cough Verified 06/02/21 10:33 [From [facility]] lithium AdvReac Intermediate HYPERACTIVITY Verified 06/02/21 10:33 FOR DAYS rizatriptan AdvReac Intermediate BAD COUGH Verified 06/02/21 10:33 FOR 2 YEARS morphine AdvReac Mild Hallucinati Verified 06/02/21 10:33 ons/Vomitin g ibuprofen AdvReac Unknown Other (See Verified 06/02/21 10:33 Comment) atorvastatin AdvReac myalgias Verified 06/02/21 10:33 carbamazepine AdvReac myalgias Verified 06/02/21 10:33 enalaprilat AdvReac Cough Verified 06/02/21 10:33 General Stated Complaint: Chest Pain EARL: 2 Review of Systems Narrative: Reports some incomplete voiding. Lower extremity edema over days time. No chest pain. 6 systems reviewed and otherwise negative PFSH All Active Problems (Updated 07/28/21 @ 15:58 by Girma Ribeiro MD) Acute bronchitis with chronic obstructive pulmonary disease (COPD) (Acute) AAA (abdominal aortic aneurysm) (Acute) Herpes (Acute) Lumbar radicular pain (Acute) Seborrhea corporis (Acute) Elevated LFTs (Acute) Arthralgia (Acute) DARLENE positive (Acute) Yeast infection (Acute) Staph infection (Acute) Restless leg (Acute) Von Willebrand factor inhibitor disorder (Chronic) Rotator cuff disorder (Chronic 06/27/14) Recurrent ventral hernia (Chronic 04/07/16) Non-alcoholic fatty liver disease (Chronic) elevated LFT Insomnia (Chronic) Hypothyroidism (Chronic) Hyperlipidemia (Chronic) Gastroesophageal reflux disease (Chronic) 09/29/12 EGD SHOW SOME REFULX CHANGES Elevated serum GGT level (Chronic 02/17/15) 1600 in 2011 [address] [place] [address] RIDDLE Diverticula of colon (Chronic) Diabetes mellitus with neuropathy (Chronic 02/14/14) Depressed bipolar I disorder (Chronic) STABLE 02/2011 Chronic cough (Chronic) Cataracts, both eyes (Chronic 12/09/15) 12/09/15-[facility]- OD>OS Atrophic vaginitis (Chronic 09/14/12) Asthma (Chronic) Chronic pain disorder (Chronic 11/25/16) Hypertension (Chronic) Stress incontinence in female (Chronic) Ganglion (Chronic) Medical History Asthma Atrophic vaginitis (09/14/12) Bipolar disorder Sanjuanita infection (08/26/16) Cellulitis Cerebrovascular accident (04/02/13) Chest pain 06/05/12 Chronic cough Chronic pain disorder (11/25/16) Chronic sinusitis CVA (cerebral vascular accident) Depressed bipolar I disorder STABLE 02/2011 Diabetes mellitus with neuropathy (02/14/14) Diabetes type 2, uncontrolled Diabetic neuropathy Diarrhea Diverticula of colon Elevated lipase (08/26/16) Elevated serum GGT level (02/17/15) 1600 in 2011 [address] 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 TIFFANI NICHOLS; DIVERTICULA Colonoscopy - MAC (~03/2011) EGD - MAC (09/29/12) ACTIVE GASTRITIS AND FOCAL ACUTE INFLAMMATION. H/O esophagogastroduodenoscopy active gastritis and focal acute inflammation 02/29/12 H/O surgical procedure right thumb release 02/29/12 hernia repair (~02/2011) Incision, Tendon Sheath (08/01/12) RIGHT THUMB RELEASE S/P abdominal hysterectomy fibroids, abnormal paps S/P BSO (bilateral salpingo-oophorectomy) S/P cholecystectomy S/P hernia repair 02/28/11 Status post abdominal hysterectomy Status post bilateral salpingo-oophorectomy Status post cholecystectomy Status post hernia repair Tooth extraction 10/12/14-TEETH REMOVED Ventral Hernia repair (04/07/16) Dr. Jackson Family History Mother , age 67 Alcohol abuse Mental disorder Psychotic/paranoid symptoms, unknown diagnosis Cancer bladder/kidney; ?brain Sister Substance abuse MARIJUANA Maternal Grandfather Asthma Paternal Grandfather Heart disease Maternal Grandmother No problems noted. Paternal Grandmother No problems noted. Sister Substance abuse MARIJUANA Asthma Son No problems noted. Son No problems noted. Son Essential hypertension Asthma Social History Smoking/Tobacco Use Status: Former Tobacco Use Quit Date: 06/19/13 Tobacco: How many years used: 30 Smoking risk assessment performed?: Yes Alcohol Intake: former Drug use: Daily Substance use type: marijuana Details: CBD oil Caregiver/Support person: No Household members: spouse and children Communication Needs: Corrective Lenses Do you need help understanding health information?: Often Pets and animals: Yes Pets and animals: cat(s) and dog(s) Sexually active: No Do you think of yourself as: straight/heterosexual Current gender identity: female What is your relationship status?: How often do you talk on the phone with friends or family?: twice per week How often do you get together with friends or relatives?: never How often do you attend shinto or restorationism services?: decline to answer Do you belong to any clubs or organized social groups?: no Panel score (0-1 are the most socially isolated patients): 1 What type of physical activity do you participate in: decline to answer Duration: 30-45 minutes/day Frequency: daily Silvia/Temple: Yashira Special silvia needs: No Seatbelt use: always Helmet use: No Drive intox or ride w/intox petrol tanker driver: No Do you feel safe at home: Yes Do you feel safe in your relationship?: Yes Exam Narrative Exam Narrative: GEN: awake, alert, oriented 3. Pleasant, well groomed, interactive. HEAD: Normocephalic, atraumatic ENT: Mucous membranes moist, oropharynx unremarkable, External ear exam unremarkable EYES: PERRL, EOMI NECK: Full ROM, no MAGDALENA, no menigismus CHEST/RESP: Nontender, bilateral end expiratory wheeze, predominantly at the bases CARDIOVASCULAR: RRR, no murmur, rub atbitha. 2+ Rad pulse bilateral ABDOMEN: Soft, nontender, no mass. +Bowel sounds EXT: Full ROM, 1+ pretibial symmetric bilateral edema, no rash Neuro: Grossly normal neurologic exam, conversant, interactive. Psych: Speech fluent, thoughts congruent, affect normal Course Vital Signs Vital signs: Vital Signs Temperature 36.3 C L 07/28/21 13:57 Pulse 63 07/28/21 13:57 Respiratory Rate 11 L 07/28/21 13:57 Blood Pressure 170/88 H 07/28/21 13:57 Pulse Oximetry 96 07/28/21 13:57 Temperature 36.3 C L 07/28/21 13:57 Temperature Source Skin 07/28/21 13:57 Pulse 63 07/28/21 13:57 Respiratory Rate 11 L 07/28/21 13:57 Respiratory Effort Incrsd Work of Breathing 07/28/21 14:18 Blood Pressure 170/88 H 07/28/21 13:57 Blood Pressure Position Sitting 07/28/21 13:57 Pulse Oximetry 96 07/28/21 13:57 Oxygen Delivery Method Room Air 07/28/21 13:57 Oxygen Flow Rate 0 07/28/21 13:57 Pain Level 7 07/28/21 13:57 Comment 07/28/21 13:57
[2021-07-28 14:38] LABS: Abs Immature Grans 0.13 10^3/uL (0.0-0.06); Absolute Basophil Count 0.07 10^3/uL (0.0-0.2); Absolute Eosinophil Count 0.13 10^3/uL (0.0-0.7); Absolute Lymphocyte Count 1.59 10^3/uL (1.2-3.4); Absolute Neutrophil Count 5.19 10^3/uL (1.2-6.7); Basophils % 0.9; Eosinophils % 1.6; HCT 35.8 % (36.0-46.0); HGB 12.2 g/dL (11.2-15.7); Immature Grans % 1.6; Lymphocytes % 20.1; MCHC 34.1 % (32.0-36.0); MCV 91 fL (80-95); MPV 12.1 fL (8.0-11.0); Monocytes % 10.1; Neutrophils % 65.7; Platelet Count 158 10^3/uL (130-400); RBC 3.94 10^6/uL (3.93-5.22); RDW 14.2 % (11.7-14.6); RDW-SD 47.1 fL; WBC 7.91 10^3/uL (4.4-10.8)
[2021-07-28 14:53] LABS: Bilirubin Negative (Negative); Blood Negative (Negative); Clarity Clear (Clear); Glucose Negative (Negative); Ketones Negative (Negative); Leukocyte Esterase Small (Negative); Nitrite Negative (Negative); Specific Gravity 1.015 (1.005-1.025); Urobilinogen 0.2 EU/dL (Up TO 0.2)
[2021-07-28 15:01] LABS: Bacteria Rare HPF (Negative); C & S Indicated? No/Sq. Contamination; Casts Negative LPF (Negative); Crystals Negative HPF (Negative); Epithelial Cells Moderate HPF (Negative); Mucus Negative (Negative); RBC Negative HPF (0-2)
[2021-07-28] MEDS: Albuterol/Ipratropium 3 ML UPD VIAL UPD ×2 (15:08→15:53)
[2021-07-28] MEDS: methylPREDNISolone SUCC 125 MG VIAL IVP (15:10)
[2021-07-28 15:15] LABS: ALT 46 U/L (14-59); AST 30 U/L (15-37); Albumin 3.9 g/dL (3.4-5.0); Alkaline Phosphatase 93 U/L (46-116); Anion Gap 7.6 mmol/L (3-11); BUN 17 mg/dL (7-18); Bilirubin, Total 0.4 mg/dL (0.2-1.0); CO2 30.4 mmol/L (21.0-32.0); CREATININE 1.2 mg/dL (0.55-1.02); Calcium 8.4 mg/dL (8.5-10.1); Chloride 102 mmol/L (98-107); Estimated GFR 44.81 (mL/min/1.73m2); Glucose 158 mg/dL (74-106); Magnesium 1.5 mg/dL (1.8-2.4); NT-proBNP 603 pg/mL (<300); Potassium 3.8 mmol/L (3.5-5.1); Sodium 140 mmol/L (136-145); Total Protein 6.8 g/dL (6.4-8.2); Troponin I < 50 ng/L (<or=60)
[2021-07-28] MEDS: MAGNESIUM SULFATE 1 GM/100 ML BAG IVPB (16:06)
[2021-07-28] MEDS: Furosemide 20 MG/2 ML VIAL IVP (16:06)
--- NOTE | 2021-07-28 16:19 | NUR.NOTE ---
Nursing Note: Referral faxed to [facility],PCP; for COPD exacerbation, 1 to 2 weeks. Patricia Larson
[2021-07-28] MEDS: Cefpodoxime 200 MG TAB PO (16:25)
== END 2021-07-28 17:45 | disposition home or self-care (01) ==
PROVIDERS: Emergency Provider Emergency Medicine; PCP Family Medicine
DX: J20.9 Acute bronchitis, unspecified (principal); J44.0 Chronic obstructive pulmonary disease with (acute) lower respiratory infection; R07.9 Chest pain, unspecified; R06.02 Shortness of breath
CPT/HCPCS: 36415; 80053; 93005; 94640; 96365; 96375; 99284; 71046; 81003; 81015; 83735; 83880; 84484; 85025; 93010; J1941; J2930; J3475; J7620

== ENCOUNTER 2021-07-31 16:03 | Outpatient (REF) | payer OTHER, MEDICARE, SELFPAY ==
[2021-08-02 15:43] LABS: COVID-19 RT-PCR UVMMC Result Negative (Negative)
== END 2021-07-31 16:04 | disposition home or self-care (01) ==
LOC: LBN 16:03
PROVIDERS: PCP Family Medicine; Visit Provider Family Medicine
DX: J06.9 Acute upper respiratory infection, unspecified (principal); Z20.822 Contact with and (suspected) exposure to COVID-19
CPT/HCPCS: U0003

== ENCOUNTER → 2021-08-19 01:23 | Outpatient (CLI) | payer OTHER, MEDICARE, SELFPAY ==
--- NOTE | 2021-08-19 07:45 | DI.MAMMO_ITS ---
Exam(s) MG MAMMO SCREENING 60 MIN DUR EXAM: MG MAMMO SCREENING 60 MIN DUR CLINICAL HISTORY: breast cancer screening, Z12.31 TECHNIQUE: Bilateral full field digital CC and MLO mammographic images were obtained with 3D tomosyn thesis and utilizing computer aided detection (CAD). COMPARISON: Available for comparison. FINDINGS: Masses/Architectural Distortion: None seen. Microcalcifications: No suspicious pleomorphic-type are seen. Skin Thickening/Nipple Retraction: None. IMPRESSION: 1. No significant interval change with no specific features of malignancy noted. 2. Unless there is more urgent need, screening mammography is recommended, as per [place] [employer] guidelines. BI-RADS Category 1 - Negative Breast Density - Category B - Scattered areas of fibroglandular density Breast density category C or D implies that the patient has dense breast tissue. Dense breast tissue is very common and is not abnormal but dense breast tissue can make it harder to find cancer on a ma mmogram. Also, dense breast tissue may increase their breast cancer risk. This information about the result of the mammogram report was provided to the patient to raise their awareness. Use this report when you speak with the patient about their risks for breast cancer, which includes their family hist ory. At that time, you may recommend for more screening tests (Ultrasound or MRI) as they might be us eful based on their risk. A negative radiographic report should not delay biopsy if a dominant or clinically suspicious mass is present. Up to ten percent of cancers are not identified on mammography. A negative report may reinforce clinical impression. Adenosis and dense breasts may obscure an underlying neoplasm. False positive reports average 6 to 10%. Patient will receive a letter notifying them of these results.
== END ==
PROVIDERS: PCP Family Medicine; Visit Provider Family Medicine
DX: Z12.31 Encounter for screening mammogram for malignant neoplasm of breast (principal)
CPT/HCPCS: 77063; 77067

== ENCOUNTER 2021-08-28 02:41 | Outpatient (CLI) | payer OTHER, MEDICARE, SELFPAY ==
[2021-08-28 13:30] LABS: Hemoglobin A1C 8.7 % (<5.7)
== END 2021-08-28 02:42 | disposition home or self-care (01) ==
LOC: LOS 02:41
PROVIDERS: PCP Family Medicine; Visit Provider Family Medicine
DX: E11.9 Type 2 diabetes mellitus without complications (principal)
CPT/HCPCS: 36415; 83036

== ENCOUNTER 2022-03-31 12:46 | Emergency (ER) | payer OTHER, MEDICARE, SELFPAY ==
[2022-03-31 12:51] VITALS: BP 171/100; PULSE 74; RESP 20; TEMP 37; O2SAT 97
--- NOTE | 2022-03-31 13:05 | ED.GENADUL_ITS ---
Discharge Plan Disposition Patient Disposition: Home Condition: Stable Discharge Details Clinical Impression: Abdominal pain Primary Care Provider: Renu Gerber ED Provider: Bryant Mckeon Home Meds and New Rx's Prescriptions: Continued (DME) insulin syringe-needle U-100 [BD Insulin Syringe] 0.5 mL 29 gauge x 1/2 syringe See Dose Instructions .ROUTE .MEDSUPPLY Qty: 100 7RF Dose Instruction: As directed Rx Instructions: As directed (DME) pen needle, diabetic [Novofine 32] 32 gauge x 1/4 needle 1 ea Miscellaneous 5 time day Qty: 500 4RF Rx Instructions: E11.40 novofine pen needles 32X6mm ; use 5 times daily ipratropium-albuterol 0.5 mg-3 mg(2.5 mg base)/3 mL solution for nebulization 3 ml Inhalation TID PRN (Reason: shortness of breath or wheezing) Qty: 180 3RF Rx Instructions: J45.909 clindamycin phosphate 2 % cream 1 appful vaginal DAILY Qty: 40 0RF Rx Instructions: for 3 days clonazepam 2 mg tablet 2 mg PO QHS MDD 1 PRN (Reason: anxiety) Qty: 30 5RF cholecalciferol (vitamin D3) [Vitamin D3] 2,000 UNIT capsule 2,000 unit PO DAILY (DME) Blood Glucose Test Strip See Dose Instructions .Route .MEDSUPPLY Qty: 400 5RF Dose Instruction: AC and ABISAI Label Comments: pt. reports checking blood sugar this AM, BS 134 @ 0800 Rx Instructions: AC and HS; 4Xdaily; E11.21 losartan 100 mg tablet 100 mg PO DAILY Qty: 90 4RF nystatin 100,000 unit/gram powder 1 applic TP BID PRN (Reason: yeast infx in groin) Qty: 60 1RF budesonide-formoterol [Symbicort] 160-4.5 mcg/actuation HFA aerosol inhaler 2 puff Inhalation BID Qty: 3 4RF metoprolol succinate 100 mg tablet extended release 24 hr 150 mg PO DAILY Qty: 135 3RF levothyroxine 125 mcg tablet 125 mcg PO DAILY Qty: 90 11RF (DME) Dexcom G6 Sensor Device See Rx Instructions .Route Qty: 9 4RF Rx Instructions: As directed (DME) Dexcom G6 Access Representative Misc See Rx Instructions .Route Qty: 3 4RF Rx Instructions: As directed (DME) Dexcom G6 Transmitter Device See Rx Instructions .Route Qty: 1 3RF Rx Instructions: As directed chlorthalidone 25 mg tablet 25 mg PO DAILY Qty: 90 3RF omeprazole 40 mg capsule,delayed release(DR/EC) 40 mg PO DAILY Qty: 90 3RF nystatin-triamcinolone 100,000-0.1 unit/gram-% ointment 1 applic topical BID Qty: 60 0RF insulin degludec [Tresiba FlexTouch U-200] 200 unit/mL (3 mL) insulin pen 96 unit SC BID Qty: 60 5RF Rx Instructions: insulin dependent diabetes trazodone 100 mg tablet 100 mg PO QHS Qty: 90 4RF Humalog U-100 Insulin 100 unit/mL cartridge 50 unit subcut TID Qty: 270 3RF albuterol sulfate [ProAir HFA] 90 mcg/actuation HFA aerosol inhaler 1 - 2 puff Inhalation Q6H PRN Qty: 18 3RF ropinirole 1 mg tablet 1.5 mg PO QHS Qty: 135 1RF Rx Instructions: administer 1-3 hours before bedtime pregabalin 100 mg capsule 100 mg PO Q8H MDD 3 tabs Qty: 90 5RF Discharge Instructions Instructions: Abdominal Pain (ED) Additional Instructions: your blood work and cat scan did not show concerning findings at this time I placed you on our follow up list to see a surgeon within a week. if you feel more ill, have persistent vomiting or fevers return to the emergency department Discharge Data Discharge Date/Time-TO BE ENTERED AT DEPARTURE: 03/31/22 16:30 Medical Decision Making <Shabnam Cornell DO - Last Filed: 04/04/22 20:04> 1300 -- 66-year-old female with a history of morbid obesity, hypertension, hyperlipidemia, diabetes, CVA, GERD, hypothyroidism, total hysterectomy, cholecystectomy, hernia repair x2 presents for worsening abdominal pain for the past 2 weeks. Also endorses right ear pain and decreased hearing for last few days. She states she had COVID, influenza and RSV in the last 2 months. Pressure hypertensive, will continue to monitor. Her abdomen is obese with a reducible hernia that is quite large and soft in the right lateral abdomen. There are no signs of overlying cellulitis. She has tenderness to the right side of her abdomen but no rigidity or guarding. No peritoneal signs. Discussed with patient at length that we can obtain screening labs and CT a bdomen and pelvis to rule out strangulated versus incarcerated hernia considering her recent increase in coughing which may have contributed to worsening of her hernia. We will also obtain a Fluvid for uri symptoms. If Fluvid negative, consider treatment with medrol dose mauricio for persistent right ear inflammation in the setting of recent multiple viral infections. Do not see an indication for antibiotics at this time. 1445 --labs reviewed. Normal white blood cell count. Normal electrolytes. Fluvid negative. Patient reassessed and she still is complaining of pain and nausea. We will order a dose of Dilaudid and Reglan IV. Pt to go to CT at 1505. 1500 -- case endorsed to Dr. Mckeon to f/u on imaging and final disposition. Medical Records Medical records reviewed: Yes I reviewed the patient's medical records. Lab Data Lab results reviewed: Yes I reviewed the patient's lab results. Labs: Laboratory Tests Range/Units 03/31/22 03/31/22 03/31/22 13:25 13:25 13:25 WBC (4.4-10.8) 10^3/uL 7.61 RBC (3.93-5.22) 10^6/uL 4.39 Hgb (11.2-15.7) g/dL 13.3 Hct (36.0-46.0) % 39.5 MCV (80-95) fL 90 MCH (27.0-33.0) pg 30.3 MCHC (32.0-36.0) % 33.7 RDW (11.7-14.6) % 14.4 Plt Count (130-400) 10^3/uL 207 MPV (8.0-11.0) fL 10.9 Immature Gran % 1.1 Neutrophils % 49.5 Lymphocytes % 33.9 Monocytes % 13.0 Eosinophils % 1.4 Basophils % 1.1 Nucleated RBC % (0.0-0.3) % 0.0 Absolute Neutrophils (1.2-6.7) 10^3/uL 3.77 Absolute Lymphocytes (1.2-3.4) 10^3/uL 2.58 Absolute Monocytes (0.1-0.8) 10^3/uL 0.99 H Absolute Eosinophils (0.0-0.7) 10^3/uL 0.11 Absolute Basophils (0.0-0.2) 10^3/uL 0.08 Sodium (136-145) mmol/L 139 Potassium (3.5-5.1) mmol/L 3.8 Chloride (98-107) mmol/L 102 Carbon Dioxide (21.0-32.0) mmol/L 31.1 Anion Gap (3-11) mmol/L 5.9 BUN (7-18) mg/dL 14 Creatinine (0.55-1.02) mg/dL 1.3 H Est GFR (CKD-EPI 2020) (mL/min/1.73m2) 45.07 Glucose (74-106) mg/dL 107 H Calcium (8.5-10.1) mg/dL 9.1 Total Bilirubin (0.2-1.0) mg/dL 0.4 AST (15-37) U/L 35 ALT (14-59) U/L 33 Alkaline Phosphatase (46-116) U/L 105 Total Protein (6.4-8.2) g/dL 7.0 Albumin (3.4-5.0) g/dL 3.7 Lipase (16-77) U/L 20 Urine Color (Yellow) Urine Clarity (Clear) Urine pH (5-8) Ur Specific Eads (1.005-1.025) Urine Protein (Negative) mg/dL Urine Ketones (Negative) mg/dL Urine Blood (Negative) Urine Nitrite (Negative) Urine Bilirubin (Negative) Urine Urobilinogen (Up TO 0.2) EU/dL Ur Leukocyte Esterase (Negative) Urine RBC (0-2) HPF Urine WBC (0-5) HPF Ur Epithelial Cells (Negative) HPF Urine Crystals (Negative) HPF Urine Bacteria (Negative) HPF Urine Casts (Negative) LPF Urine Mucus (Negative) Ur Culture Indicated? Urine Glucose (Negative) mg/dL COVID-19 Source Nasopharynx SARS-CoV-2 (PCR) (Negative) Negative Influenza Type A (PCR) (Negative) Negative Influenza Type B (PCR) (Negative) Negative RSV (PCR) (Negative) Negative Range/Units 03/31/22 14:35 WBC (4.4-10.8) 10^3/uL RBC (3.93-5.22) 10^6/uL Hgb (11.2-15.7) g/dL Hct (36.0-46.0) % MCV (80-95) fL MCH (27.0-33.0) pg MCHC (32.0-36.0) % RDW (11.7-14.6) % Plt Count (130-400) 10^3/uL MPV (8.0-11.0) fL Immature Gran % Neutrophils % Lymphocytes % Monocytes % Eosinophils % Basophils % Nucleated RBC % (0.0-0.3) % Absolute Neutrophils (1.2-6.7) 10^3/uL Absolute Lymphocytes (1.2-3.4) 10^3/uL Absolute Monocytes (0.1-0.8) 10^3/uL Absolute Eosinophils (0.0-0.7) 10^3/uL Absolute Basophils (0.0-0.2) 10^3/uL Sodium (136-145) mmol/L Potassium (3.5-5.1) mmol/L Chloride (98-107) mmol/L Carbon Dioxide (21.0-32.0) mmol/L Anion Gap (3-11) mmol/L BUN (7-18) mg/dL Creatinine (0.55-1.02) mg/dL Est GFR (CKD-EPI 2020) (mL/min/1.73m2) Glucose (74-106) mg/dL Calcium (8.5-10.1) mg/dL Total Bilirubin (0.2-1.0) mg/dL AST (15-37) U/L ALT (14-59) U/L Alkaline Phosphatase (46-116) U/L Total Protein (6.4-8.2) g/dL Albumin (3.4-5.0) g/dL Lipase (16-77) U/L Urine Color (Yellow) Yellow Urine Clarity (Clear) Sl Cloudy Urine pH (5-8) 7.5 Ur Specific Eads (1.005-1.025) 1.020 Urine Protein (Negative) mg/dL Negative Urine Ketones (Negative) mg/dL Negative Urine Blood (Negative) Negative Urine Nitrite (Negative) Negative Urine Bilirubin (Negative) Negative Urine Urobilinogen (Up TO 0.2) EU/dL 0.2 Ur Leukocyte Esterase (Negative) Trace H Urine RBC (0-2) HPF Negative Urine WBC (0-5) HPF 0-2 Ur Epithelial Cells (Negative) HPF Many Urine Crystals (Negative) HPF Negative Urine Bacteria (Negative) HPF Rare Urine Casts (Negative) LPF Negative Urine Mucus (Negative) Negative Ur Culture Indicated? No/Sq. Contamination Urine Glucose (Negative) mg/dL Negative COVID-19 Source SARS-CoV-2 (PCR) (Negative) Influenza Type A (PCR) (Negative) Influenza Type B (PCR) (Negative) RSV (PCR) (Negative) <Bryant Mckeon MD - Last Filed: 03/31/22 16:07> 1300 -- 66-year-old female with a history of morbid obesity, hypertension, hyperlipidemia, diabetes, CVA, GERD, hypothyroidism, total hysterectomy, cholecystectomy, hernia repair x2 presents for worsening abdominal pain for the past 2 weeks. Also endorses right ear pain and decreased hearing for last few days. She states she had COVID, influenza and RSV in the last 2 months. Pressure hypertensive, will continue to monitor. Her abdomen is obese with a reducible hernia that is quite large and soft in the right lateral abdomen. There are no signs of overlying cellulitis. She has tenderness to the right side of her abdomen but no rigidity or guarding. No peritoneal signs. Discussed with patient at length that we can obtain screening labs and CT abdomen and pelvis to rule out strangulated versus incarcerated hernia considering her recent increase in coughing which may have contributed to worsening of her hernia. We will also obtain a Fluvid for uri symptoms. If Fluvid negative, consider treatment with medrol dose mauricio for persistent right ear inflammation in the setting of recent multiple viral infections. Do not see an indication for antibiotics at this time. 1445 --labs reviewed. Normal white blood cell count. Normal electrolytes. Fluvid negative. Patient reassessed and she still is complaining of pain and nausea. We will order a dose of Dilaudid and Reglan IV. Pt to go to CT at 1505. 1500 -- case endorsed to Dr. Mckeon to f/u on imaging and final disposition. pt doing well, stable, mild pain in the right side of her abdomen, labs and imaging unremarkable, no hernia on CT. Discussed with pt and given reassuring workup and feels well feel she is stable for d/c and can f/u as an outpatient with general surgery. Return precautions given HPI <Shabnam Prather Jonathonsharon - Last Filed: 04/04/22 20:04> General Mode of arrival: ambulatory . Date/Time Provider Initiated Documentation: 03/31/22 12:57 . Limitations to Documentation: no limitations . Information obtained by: patient . HPI Narrative: Patient is a 66-year-old female with a history of morbid obesity, hypertension, hyperlipidemia, diabetes, CVA, GERD, hypothyroidism, total hysterectomy, cholecystectomy, hernia repair x2 presents for worsening abdominal pain for the past 2 weeks. Patient states she last had hernia repair several years ago with Dr. Norman. She states has had COVID, influenza and RSV in the last 2 months and has been coughing frequently and feels that she may have caused worsening of her hernia. She states she also has had increased pain in her abdomen eating solids over the past 2 months. She also endorses diarrhea over the last few days and states it is mainly been watery and brown. She denies any rectal bleeding. She does admit to occasional nausea but denies any vomiting. She denies fever, chest pain, shortness of breath. She does also endorse that she has had right ear pain and decreased hearing of the last few days. She does also endorse right-sided facial pain. She states she had URI symptoms with her recent diagnosis of COVID, flu and RSV but states the right ear pain and decreased hearing has persisted. Again she denies any fever, left ear pain, rhinorrhea, congestion, sore throat or coughing. Related Data Home Medications Medication Instructions Recorded Confirmed cholecalciferol (vitamin D3) 50 2,000 unit PO DAILY 05/16/12 03/31/22 mcg (2,000 unit) capsule (Vitamin D3) insulin syringe-needle U-100 0.5 #100 ea 03/01/19 01/10/22 mL 29 gauge x 1/2 (BD Insulin Syringe) pen needle, diabetic 32 gauge x #500 ea 03/01/19 01/10/22 1/4 (Novofine 32) blood sugar diagnostic (Blood #400 ea 12/01/20 01/10/22 Glucose Test strips) clindamycin phosphate 2 % vaginal 1 appful vaginal DAILY #40 grams 06/02/21 01/10/22 cream ipratropium 0.5 mg-albuterol 3 mg 3 ml inhalation TID PRN shortness 06/02/21 03/31/22 (2.5 mg base)/3 mL nebulization of breath or wheezing #180 mL soln losartan 100 mg tablet 100 mg PO DAILY #90 tabs 08/04/21 03/31/22 nystatin 100,000 unit/gram topical 1 applic topical BID PRN yeast 08/19/21 03/31/22 powder infx in groin #60 grams budesonide-formoterol HFA 160 2 puff inhalation BID ##3 09/02/21 03/31/22 mcg-4.5 mcg/actuation aerosol inhaler (Symbicort) metoprolol succinate 100 mg 150 mg PO DAILY #135 tab-caps 09/02/21 03/31/22 tablet,extended release 24 hr levothyroxine 125 mcg tablet 125 mcg PO DAILY #90 tab-caps 09/16/21 03/31/22 blood-glucose meter,continuous #3 ea 10/06/21 01/10/22 (Dexcom G6 Access Representative) blood-glucose sensor (Dexcom G6 #9 ea 10/06/21 01/10/22 Sensor device) blood-glucose transmitter (Dexcom #1 ea 10/07/21 01/10/22 G6 Transmitter device) chlorthalidone 25 mg tablet 25 mg PO DAILY #90 tabs 10/26/21 03/31/22 omeprazole 40 mg capsule,delayed 40 mg PO DAILY #90 caps 11/12/21 03/31/22 release clonazepam 2 mg tablet 2 mg PO QHS PRN anxiety #30 11/17/21 03/31/22 tab-caps nystatin-triamcinolone 100,000 1 applic topical BID apply under 11/17/21 03/31/22 unit/gram-0.1 % topical ointment breasts #60 grams insulin degludec 200 unit/mL (3 96 unit (0.48 mL) subcut BID #60 mL 11/22/21 03/31/22 mL) subcutaneous pen (Tresiba FlexTouch U-200 insulin) trazodone 100 mg tablet 100 mg PO QHS #90 tabs 11/22/21 03/31/22 insulin lispro 100 unit/mL 50 unit (0.5 mL) subcut TID #270 mL 02/04/22 03/31/22 subcutaneous cartridge (Humalog U-100 Insulin) albuterol sulfate 90 mcg/actuation 1 - 2 puff inhalation Q6H PRN #18 02/15/22 03/31/22 aerosol inhaler (ProAir HFA) grams pregabalin 100 mg capsule 100 mg PO Q8H #90 tabs 03/08/22 03/31/22 ropinirole 1 mg tablet 1.5 mg PO QHS #135 tabs 03/08/22 03/31/22 Previous Rx's Medication Instructions Recorded insulin syringe-needle U-100 0.5 #100 ea 03/01/19 mL 29 gauge x 1/2 (BD Insulin Syringe) pen needle, diabetic 32 gauge x #500 ea 03/01/19 1 (Novofine 32) blood sugar diagnostic (Blood #400 ea 12/01/20 Glucose Test strips) clindamycin phosphate 2 % vaginal 1 appful vaginal DAILY #40 grams 06/02/21 cream ipratropium 0.5 mg-albuterol 3 mg 3 ml inhalation TID PRN shortness 06/02/21 (2.5 mg base)/3 mL nebulization of breath or wheezing #180 mL soln losartan 100 mg tablet 100 mg PO DAILY #90 tabs 08/04/21 nystatin 100,000 unit/gram topical 1 applic topical BID PRN yeast 08/19/21 powder infx in groin #60 grams budesonide-formoterol HFA 160 2 puff inhalation BID ##3 09/02/21 mcg-4.5 mcg/actuation aerosol inhaler (Symbicort) metoprolol succinate 100 mg 150 mg PO DAILY #135 tab-caps 09/02/21 tablet,extended release 24 hr levothyroxine 125 mcg tablet 125 mcg PO DAILY #90 tab-caps 09/16/21 blood-glucose meter,continuous #3 ea 10/06/21 (Dexcom G6 Access Representative) blood-glucose sensor (Dexcom G6 #9 ea 10/06/21 Sensor device) blood-glucose transmitter (Dexcom #1 ea 10/07/21 G6 Transmitter device) chlorthalidone 25 mg tablet 25 mg PO DAILY #90 tabs 10/26/21 omeprazole 40 mg capsule,delayed 40 mg PO DAILY #90 caps 11/12/21 release clonazepam 2 mg tablet 2 mg PO QHS PRN anxiety #30 11/17/21 tab-caps nystatin-triamcinolone 100,000 1 applic topical BID apply under 11/17/21 unit/gram-0.1 % topical ointment breasts #60 grams insulin degludec 200 unit/mL (3 96 unit (0.48 mL) subcut BID #60 mL 11/22/21 mL) subcutaneous pen (Tresiba FlexTouch U-200 insulin) trazodone 100 mg tablet 100 mg PO QHS #90 tabs 11/22/21 insulin lispro 100 unit/mL 50 unit (0.5 mL) subcut TID #270 mL 02/04/22 subcutaneous cartridge (Humalog U-100 Insulin) albuterol sulfate 90 mcg/actuation 1 - 2 puff inhalation Q6H PRN #18 02/15/22 aerosol inhaler (ProAir HFA) grams pregabalin 100 mg capsule 100 mg PO Q8H #90 tabs 03/08/22 ropinirole 1 mg tablet 1.5 mg PO QHS #135 tabs 03/08/22 Allergies Allergy/AdvReac Type Severity Reaction Status Date / Time Penicillins Allergy Skin Rash Verified 01/08/22 09:31 amlodipine besylate AdvReac Intermediate cough Verified 01/08/22 09:31 [From [facility]] lithium AdvReac Intermediate HYPERACTIVITY Verified 01/08/22 09:31 FOR DAYS rizatriptan AdvReac Intermediate BAD COUGH Verified 01/08/22 09:31 FOR 2 YEARS morphine AdvReac Mild Hallucinati Verified 01/08/22 09:31 ons/Vomitin g ibuprofen AdvReac Unknown Other (See Verified 01/08/22 09:31 Comment) atorvastatin AdvReac myalgias Verified 01/08/22 09:31 carbamazepine AdvReac myalgias Verified 01/08/22 09:31 enalaprilat AdvReac Cough Verified 01/08/22 09:31 General Stated Complaint: Abd Prob EARL: 3 Review of Systems <Shabnam Cornell DO - Last Filed: 04/04/22 20:04> All systems reviewed & are unremarkable except as noted in HPI and below Constitutional Constitutional: Reports as per HPI, Denies chills and Denies fever(s) Eyes Eyes: Denies blurry vision ENT Ears, Nose, Mouth, and Throat: Denies dizziness, Reports otalgia, Denies sore throat and Denies throat swelling Cardiovascular Cardiovascular: Denies chest pain and Denies dyspnea Respiratory Respiratory: Denies cough and Denies dyspnea Gastrointestinal Gastrointestinal: Reports abdominal pain, Reports diarrhea, Reports nausea and Denies vomiting Genitourinary Genitourinary: Denies hematuria and Denies dysuria Musculoskeletal Musculoskeletal: Denies back pain and Denies numbness Integumentary/Breasts Skin/Breast: Denies lesions and Denies rash Neurologic Neurologic: Denies dizziness, Denies localized weakness and Denies numbness Allergic/Immunologic Allergic/Immunologic: Denies throat swelling PFSH <Shabnam Cornell, DO - Last Filed: 04/04/22 20:04> All Active Problems (Updated 03/31/22 @ 16:01 by Bryant Mckeon MD) Abdominal pain (Acute) AAA (abdominal aortic aneurysm) (Acute) Herpes (Acute) Lumbar radicular pain (Acute) Seborrhea corporis (Acute) Elevated LFTs (Acute) Arthralgia (Acute) DARLENE positive (Acute) Yeast infection (Acute) Staph infection (Acute) Restless leg (Acute) Von Willebrand factor inhibitor disorder (Chronic) Rotator cuff disorder (Chronic 06/27/14) Recurrent ventral hernia (Chronic 04/07/16) Non-alcoholic fatty liver disease (Chronic) elevated LFT Insomnia (Chronic) Hypothyroidism (Chronic) Hyperlipidemia (Chronic) Gastroesophageal reflux disease (Chronic) 09/29/12 EGD SHOW SOME REFULX CHANGES Elevated serum GGT level (Chronic 02/17/15) 1600 in 2011 [address] [place] [address] RIDDLE Diverticula of colon (Chronic) Diabetes mellitus with neuropathy (Chronic 02/14/14) Depressed bipolar I disorder (Chronic) STABLE 02/2011 Chronic cough (Chronic) Cataracts, both eyes (Chronic 12/09/15) [facility]OS Atrophic vaginitis (Chronic 09/14/12) Asthma (Chronic) Chronic pain disorder (Chronic 11/25/16) Hypertension (Chronic) Stress incontinence in female (Chronic) Ganglion (Chronic) Medical History Asthma Atrophic vaginitis (09/14/12) Bipolar disorder Sanjuanita infection (08/26/16) Cellulitis Cerebrovascular accident (04/02/13) Chest pain 06/05/12 Chronic cough Chronic pain disorder (11/25/16) Chronic sinusitis CVA (cerebral vascular accident) Depressed bipolar I disorder STABLE 02/2011 Diabetes mellitus with neuropathy (02/14/14) Diabetes type 2, uncontrolled Diabetic neuropathy Diarrhea Diverticula of colon Elevated lipase (08/26/16) Elevated serum GGT level (02/17/15) 1600 in 2011 [address] 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 TIFFANI NICHOLS; DIVERTICULA Colonoscopy - MAC (~03/2011) EGD - MAC (09/29/12) ACTIVE GASTRITIS AND FOCAL ACUTE INFLAMMATION. H/O esophagogastroduodenoscopy active gastritis and focal acute inflammation 02/29/12 H/O surgical procedure right thumb release 02/29/12 hernia repair (~02/2011) Incision, Tendon Sheath (08/01/12) RIGHT THUMB RELEASE S/P abdominal hysterectomy fibroids, abnormal paps S/P BSO (bilateral salpingo-oophorectomy) S/P cholecystectomy S/P hernia repair 02/28/11 Status post abdominal hysterectomy Status post bilateral salpingo-oophorectomy Status post cholecystectomy Status post hernia repair Tooth extraction 10/12/14-TEETH REMOVED Ventral Hernia repair (04/07/16) Dr. Jackson Family History (Updated 10/02/21 @ 11:42 by Patricia Alva) Mother , age 67 Alcohol abuse Mental disorder Psychotic/paranoid symptoms, unknown diagnosis Cancer bladder/kidney; ?brain Sister Substance abuse MARIJUANA Maternal Grandfather Asthma Alcohol abuse Paternal Grandfather Heart disease Diabetes Stroke Maternal Grandmother No problems noted. Paternal Grandmother Diabetes Sister Substance abuse MARIJUANA Asthma Alcohol abuse Son Depression Diabetes Hyperlipidemia Stroke Son No problems noted. Son Asthma Diabetes Hyperlipidemia Hypertension Father , 80 Cancer Brother Alcohol abuse Depression Social History (Updated 10/02/21 @ 11:39 by Patricia Alva) Smoking/Tobacco Use Status: Former Tobacco Use tobacco type: cigarettes Quit Date: 06/19/13 Tobacco: How many years used: 30 Second Hand Exposure: Yes Smoking risk assessment performed?: Yes Alcohol Intake: former Drug use: Daily Substance use type: marijuana Details: CBD oil Caregiver/Support person: No Household members: spouse and children Communication Needs: None Do you need help understanding health information?: Often Pets and animals: Yes Pets and animals: cat(s) and dog(s) Sexually active: No Do you think of yourself as: straight/heterosexual Current gender identity: female What is your relationship status?: How often do you talk on the phone with friends or family?: twice per week How often do you get together with friends or relatives?: never How often do you attend buddhism or sikh services?: decline to answer Do you belong to any clubs or organized social groups?: decline to answer Panel score (0-1 are the most socially isolated patients): 1 What type of physical activity do you participate in: walking Duration: < 15 minutes/day Frequency: 3-4 times per week Silvia/Anglican: Yashira Special silvia needs: No Seatbelt use: always Helmet use: No Drive intox or ride w/intox public transit trolley driver: No Do you feel safe at home: Yes Do you feel safe in your relationship?: Yes Exam <Shabnam Cornell DO - Last Filed: 04/04/22 20:04> Const General: cooperative and no acute distress Orientation: alert, awake and oriented x3 HENMT Head: normal to inspection Ears: hearing grossly normal bilaterally, external ears normal and TM abnormal dull on the right and erythematous on the right General nose exam: external nose normal Face and sinus: normal facial exam and sinus tenderness maxillary Mouth: oral mucosae normal Throat: posterior oropharynx normal Eyes General: appearance normal, both eyes and all related structures Pupils: PERRL EOM: EOM intact bilaterally Neck Neck: normal visual inspection and No submandibular swelling Lymphatic: no lymphadenopathy noted Chest Chest: normal inspection of the chest and no tenderness Resp Effort & Inspection: normal respiratory effort and able to speak in complete sentences Auscultation: clear to auscultation bilaterally Cardio Rate: regular rate Rhythm: regular rhythm GI Inspection: normal to inspection and obesity Palpation: soft, not firm, not rigid and tender (Right side; large reducible hernia right lateral abdomen, no erythema noted) Auscultation: normal bowel sounds Skin General skin exam: no rashes or lesions noted Neuro General: patient alert, patient awake and patient oriented x3 Cognition: normal cognition Speech: speech normal Motor: muscle tone normal throughout Sensory Exam: no sensory deficits noted Extrem General: normal to inspection, full ROM and no edema Psych Appearance: grossly normal Mental Status: mental status grossly normal Speech and Movement: speech and movement normal Affect: normal affect Course <DO Eleno Garcia Filed: 04/04/22 20:04> Vital Signs Vital signs: Vital Signs Temperature 98.6 F 03/31/22 12:51 Pulse 74 03/31/22 12:51 Respiratory Rate 20 03/31/22 12:51 Blood Pressure 171/100 H 03/31/22 12:51 Pulse Oximetry 97 03/31/22 12:51 Temperature 98.6 F 03/31/22 12:51 Temperature Source Temporal Artery Scan 03/31/22 12:51 Pulse 74 03/31/22 12:51 Respiratory Rate 20 03/31/22 12:51 Blood Pressure 171/100 H 03/31/22 12:51 Blood Pressure Position Sitting 03/31/22 12:51 Pulse Oximetry 97 03/31/22 12:51 Oxygen Delivery Method Room Air 03/31/22 12:51 Oxygen Flow Rate 0 03/31/22 12:51 Pain Level 7 03/31/22 12:51 Sign Out <DO Eleno Garcia Last Filed: 04/04/22 20:04> Sign Out Data: Sign Out Comment: Nausea, diarrhea and worsening pain around site of hernia. History of multiple abdominal surgeries. Follow-up on CT and final disposition. Last updated by Shabnam Cornell DO at 03/31/22 14:40
--- NOTE | 2022-03-31 13:15 | DI.CT_ITS ---
Exam(s) CT ABDOMEN PELVIS W EXAM: CT ABDOMEN PELVIS W CLINICAL HISTORY: diffuse abd pain, nausea, diarrhea, h/o hernia. TECHNIQUE: Imaging Protocol: Axial computed tomography images with coronal and sagittal reformatted images were created and reviewed CONTRAST MATERIAL: Intravenous: Omnipaque 350 Contrast volume:100 ml Oral: Yes COMPARISON: CT CT thorax abdomen CTA from 03/21/2018 CR XR LUMBAR SPINE COMPLETE from 06/03/2021 FINDINGS: ABDOMEN: Lung Bases: Normal where visualized. The heart is mildly enlarged. Coronary artery calcifications ar e seen. Liver: Enlarged, fatty infiltration. No measurable mass. Gallbladder and biliary tract: Status post cholecystectomy. No radiodense calculus or dilation. Pancreas: Normal somewhat atrophic. No abnormal calcifications or inflammatory process. Spleen: Normal. Kidneys: Normal size, contour and axis. No radiodense stones or obstructive uropathy. No masses seen. Adrenal glands: No masses seen. Abdominal Aorta: Abdominal portion non-dilated. Atherosclerotic changes. Soft tissues: Small defect in the anterior abdominal wall midline above the level of the umbilicus wh ich appears unchanged. This may be an area of prior hernia repair. PELVIS: Bladder: Nearly empty. No calculi. Bowel: Mild diverticulosis. No obstruction or bowel wall thickening. Appendix normal. Peritoneal cavity: No ascites, collection or mesenteric inflammatory response. Bones: Advanced degenerative changes lower lumbar spine. Reproductive organs: Status post hysterectomy. Lymph nodes: Unremarkable. Impression: No acute abnormality. Findings called to Dr. Kerr of the emergency department. RADIATION DOSE DELIVERED: 1,168.29mGy.cm Total DLP DATA REPOSITORY: All CT scans at this facility are submitted to the National Radiology Data Registry (NRDR) Dose Index Registry (DIR) with the [employer] (ACR). RADIATION OPTIMIZATION: All CT scans at this facility use at least one of these dose optimization te chniques: automated exposure control; mA and/or kV adjustment per patient size (includes targeted exa ms where dose is matched to clinical indication); or iterative reconstruction.
[2022-03-31] MEDS: Breeza Beverage 473 ML BTL PO (13:28)
[2022-03-31 13:32] LABS: Abs Immature Grans 0.08 10^3/uL (0.0-0.06); Absolute Basophil Count 0.08 10^3/uL (0.0-0.2); Absolute Eosinophil Count 0.11 10^3/uL (0.0-0.7); Absolute Lymphocyte Count 2.58 10^3/uL (1.2-3.4); Absolute Monocyte Count 0.99 10^3/uL (0.1-0.8); Absolute Neutrophil Count 3.77 10^3/uL (1.2-6.7); Basophils % 1.1; Eosinophils % 1.4; HCT 39.5 % (36.0-46.0); HGB 13.3 g/dL (11.2-15.7); Immature Grans % 1.1; Lymphocytes % 33.9; MCH 30.3 pg (27.0-33.0); MCHC 33.7 % (32.0-36.0); MCV 90 fL (80-95); MPV 10.9 fL (8.0-11.0); Neutrophils % 49.5; Platelet Count 207 10^3/uL (130-400); RBC 4.39 10^6/uL (3.93-5.22); RDW 14.4 % (11.7-14.6); RDW-SD 47.3 fL; WBC 7.61 10^3/uL (4.4-10.8)
[2022-03-31] MEDS: Normal Saline 1,000 ML 1000 ML IV (13:39)
[2022-03-31] MEDS: Ondansetron 4 MG/2 ML VIAL IVP (13:39)
[2022-03-31] MEDS: ACETAMINOPHEN 1,000 MG/100 ML BTL 400 MG IVPB (13:40)
[2022-03-31 13:51] LABS: ALT 33 U/L (14-59); AST 35 U/L (15-37); Albumin 3.7 g/dL (3.4-5.0); Alkaline Phosphatase 105 U/L (46-116); Anion Gap 5.9 mmol/L (3-11); BUN 14 mg/dL (7-18); Bilirubin, Total 0.4 mg/dL (0.2-1.0); CO2 31.1 mmol/L (21.0-32.0); CREATININE 1.3 mg/dL (0.55-1.02); Calcium 9.1 mg/dL (8.5-10.1); Chloride 102 mmol/L (98-107); Estimated GFR 45.07 (mL/min/1.73m2); Glucose 107 mg/dL (74-106); Lipase 20 U/L (16-77); Potassium 3.8 mmol/L (3.5-5.1); Sodium 139 mmol/L (136-145)
[2022-03-31 14:08] LABS: COVID-19 PCR Negative (Negative); Influenza A PCR Negative (Negative); Influenza B PCR Negative (Negative); RSV PCR Negative (Negative)
[2022-03-31 14:09] LABS: Source Nasopharynx
[2022-03-31 14:43] LABS: Bilirubin Negative (Negative); Blood Negative (Negative); Clarity Sl Cloudy (Clear); Glucose Negative (Negative); Ketones Negative (Negative); Leukocyte Esterase Trace (Negative); Nitrite Negative (Negative); Urobilinogen 0.2 EU/dL (Up TO 0.2); pH 7.5 (5-8)
[2022-03-31 14:49] LABS: Bacteria Rare HPF (Negative); C & S Indicated? No/Sq. Contamination; Casts Negative LPF (Negative); Crystals Negative HPF (Negative); Epithelial Cells Many HPF (Negative); Mucus Negative (Negative); RBC Negative HPF (0-2); WBC 0-2 HPF (0-5)
[2022-03-31 14:51] VITALS: BP 167/93; PULSE 67; RESP 18; O2SAT 96
[2022-03-31] MEDS: HYDROmorphone 2 MG/ML SYR 0.5 MG IVP (14:53)
[2022-03-31] MEDS: Metoclopramide 10 MG/2 ML VIAL IVP (14:54)
[2022-03-31] MEDS: Omnipaque 350 MG/ML 100 ML BTL IJ (15:00)
[2022-03-31] MEDS: Normal Saline - Diluent 50 ML VIAL IJ (15:01)
--- NOTE | 2022-03-31 16:03 | NUR.NOTE ---
Nursing Note: Referral faxed to [phone] for abdomen pain around previous surgical site; within 1 week.
[2022-03-31 16:27] VITALS: BP 166/65; PULSE 66; RESP 18; TEMP 36.7; O2SAT 95
== END 2022-03-31 16:30 | disposition home or self-care (01) ==
PROVIDERS: Physician Assistant; Emergency Provider Emergency Medicine; PCP Family Medicine
DX: K46.9 Unspecified abdominal hernia without obstruction or gangrene (principal); H92.01 Otalgia, right ear; I10 Essential (primary) hypertension; E03.9 Hypothyroidism, unspecified; J45.909 Unspecified asthma, uncomplicated; E11.40 Type 2 diabetes mellitus with diabetic neuropathy, unspecified; Z90.710 Acquired absence of both cervix and uterus; Z86.73 Personal history of transient ischemic attack (TIA), and cerebral infarction without residual deficits; Z86.16 Personal history of COVID-19; Z79.4 Long term (current) use of insulin; Z20.822 Contact with and (suspected) exposure to COVID-19
CPT/HCPCS: 36415; 80053; 83690; 87637; 96361; 96365; 96375; 99285; 74177; 81003; 81015; 85025; 99284; J0131; J1170; J2405; J2765; J3490

== ENCOUNTER 2022-08-04 04:06 | Outpatient (CLI) | payer OTHER, MEDICARE, SELFPAY ==
[2022-08-04 12:44] LABS: ALT 45 U/L (14-59); AST 39 U/L (15-37); Albumin 4.2 g/dL (3.4-5.0); Alkaline Phosphatase 112 U/L (46-116); Anion Gap 7.6 mmol/L (3-11); BUN 22 mg/dL (7-18); Bilirubin, Total 0.6 mg/dL (0.2-1.0); CO2 32.4 mmol/L (21.0-32.0); CREATININE 1.8 mg/dL (0.55-1.02); Calcium 9.9 mg/dL (8.5-10.1); Chloride 99 mmol/L (98-107); Estimated GFR 30.31 (mL/min/1.73m2); Glucose 200 mg/dL (74-106); Potassium 4.1 mmol/L (3.5-5.1); Sodium 139 mmol/L (136-145); Total Protein 7.6 g/dL (6.4-8.2)
== END 2022-08-04 04:07 | disposition home or self-care (01) ==
LOC: LOS 04:07
PROVIDERS: PCP Family Medicine; Visit Provider Family Medicine
DX: E11.40 Type 2 diabetes mellitus with diabetic neuropathy, unspecified (principal); E03.9 Hypothyroidism, unspecified; K76.0 Fatty (change of) liver, not elsewhere classified; R10.9 Unspecified abdominal pain
CPT/HCPCS: 36415; 80053; 84443

== ENCOUNTER 2022-11-03 04:22 | Outpatient (CLI) | payer OTHER, MEDICARE, SELFPAY ==
[2022-11-03 12:28] LABS: HCT 45.7 % (36.0-46.0); HGB 15.1 g/dL (11.2-15.7); MCH 31.5 pg (27.0-33.0); MCV 95 fL (80-95); MPV 11.9 fL (8.0-11.0); Platelet Count 175 10^3/uL (130-400); RDW 14.3 % (11.7-14.6); RDW-SD 50.4 fL; WBC 5.57 10^3/uL (4.4-10.8)
[2022-11-03 12:31] LABS: Hemoglobin A1C 7.1 % (<5.7)
[2022-11-03 12:42] LABS: ALT 35 U/L (14-59); AST 28 U/L (15-37); Albumin 4.1 g/dL (3.4-5.0); Alkaline Phosphatase 111 U/L (46-116); Anion Gap 4.8 mmol/L (3-11); BUN 23 mg/dL (7-18); Bilirubin, Total 0.5 mg/dL (0.2-1.0); CO2 33.2 mmol/L (21.0-32.0); CREATININE 1.8 mg/dL (0.55-1.02); Calcium 9.1 mg/dL (8.5-10.1); Chloride 101 mmol/L (98-107); Estimated GFR 30.31 (mL/min/1.73m2); Glucose 172 mg/dL (74-106); Potassium 4.1 mmol/L (3.5-5.1); Sodium 139 mmol/L (136-145); TSH (W/Ref FT4) 12.96 uIU/mL (0.36-3.74); Total Protein 7.2 g/dL (6.4-8.2)
[2022-11-03 13:04] LABS: FREE T4 0.64 ng/dL (0.76-1.46)
== END 2022-11-03 04:23 | disposition home or self-care (01) ==
LOC: LOS 04:22
PROVIDERS: PCP Family Medicine; Visit Provider Family Medicine
DX: D68.318 Other hemorrhagic disorder due to intrinsic circulating anticoagulants, antibodies, or inhibitors (principal); E03.9 Hypothyroidism, unspecified; I25.10 Atherosclerotic heart disease of native coronary artery without angina pectoris; R79.89 Other specified abnormal findings of blood chemistry; E11.9 Type 2 diabetes mellitus without complications
CPT/HCPCS: 36415; 80053; 85027; 83036; 84439; 84443

== ENCOUNTER 2022-11-15 23:57 | Outpatient (REF) | payer OTHER, MEDICARE, SELFPAY ==
[2022-11-15 17:46] LABS: Microalb ug/mg Crea 10.5 ug/mg Cr
== END 2022-11-15 23:58 | disposition home or self-care (01) ==
LOC: LBN 23:57
PROVIDERS: PCP Family Medicine; Visit Provider Family Medicine
DX: E11.9 Type 2 diabetes mellitus without complications (principal)
CPT/HCPCS: 82043; 82570

== ENCOUNTER → 2022-11-22 01:04 | Outpatient (CLI) | payer OTHER, MEDICARE, SELFPAY ==
--- NOTE | 2022-11-22 07:15 | DI.US_ITS ---
APPROVED REPORT EXAM: Comprehensive 2D, Doppler, and color-flow Echocardiogram Patient Location: Out-Patient Shift Supervisor Rn: Ric Toscano RDCS (AE) Indications: enlarged heart, DM, hx smoking, HTN, CVA, hernia Conclusion Borderline concentric left ventricular hypertrophy. Ejection fraction and wall motion are normal Normal right ventricular size and systolic function Both atria are normal in size There is no structural or hemodynamically significant valvular disease Estimated right ventricular systolic pressure is normal at 22 mmHg Wall motion Left Ventricle The left ventricle is normal size. The left ventricular systolic function is normal. The left ventric ular ejection fraction is within the normal range. Borderline concentric left ventricular hypertrophy . There is normal LV segmental wall motion. There is no ventricular septal defect visualized. LVEF is 55-60%. Right Ventricle The right ventricle is normal size. Right ventricular systolic function is grossly normal. The RVSP i s 21.6 mmHg. Atria The left atrium size is normal. The right atrium size is normal. The interatrial septum is intact wit h no evidence for an atrial septal defect. Aortic Valve The aortic valve is normal in structure. There is no aortic valvular stenosis. No aortic regurgitatio n is present. Mitral Valve The mitral valve is normal in structure. No evidence of mitral valve stenosis. Mild mitral regurgitat ion. Tricuspid Valve The tricuspid valve is normal in structure. There is no tricuspid valve stenosis. Mild to moderate tr icuspid regurgitation. Pulmonic Valve The pulmonary valve is normal in structure. There is no pulmonic valvular stenosis. There is no pulmo edis valvular regurgitation. Great Vessels Aortic root is top normal The ascending aorta is normal in size. Aortic arch is not well visualized. IVC is normal in size and collapses >50% with inspiration. Pericardium There is no pericardial effusion. 2D Dimensions IVSD d PLAX 0.99 cm F: 0.6-1.0 Ao Root d 3.43 cm F: 2.7 - 3.3 LVPW d PLAX 1.03 cm F: 0.6 - 1.0 Ao Asc Diam d 3.27 cm F: 2.3 - 3.1 LVID d PLAX 4.89 cm F: 3.8 - 5.2 LVDs 3.50 cm F: 2.2 - 3.5 LV EF Teichholz 54.7 % FS 28.40 % LV EDV (Teich) 112.4 mL LV ESV (Teich) 51.0 mL Stroke Vol Index (Teich) 30.11 M-Mode TAPSE 2.57 cm (M/F) >1.7 Auto EF LV EDV A4C 125.6 mL LV EDV A2C 134.3 mL LV EDV BP 130.6 mL LV ESV A4C 51.9 mL LV ESV A2C 56.2 mL LV ESV BP 54.0 mL LVEF(%) A4C 58.7 % LVEF(%) A2C 58.2 % LVEF(%) BP 58.6 % LV SV A4C 73.8 ml LV SV A2C 78.1 ml LV SV BP 76.6 ml LV CO A4C 3.5 L/min LV CO A2C 3.8 L/min LV CO BP 3.6 L/min HR A4C 47.43 BPM HR A2C 48.52 BPM LV EDV Index (BP) LA Volume LA Length A4C 4.4 cm LA Length A2C LA Area A4C s 10.17 cm2 LA Area A2C s LA Vol A4C A-L 19.86 mL LA Vol A2C A-L LA Vol Biplane A-L LA Vol A4C MOD 18.4 mL LA Vol A2C MOD LA Vol BP MOD RA Volume RA Area A4C 8.9 cm2 RA ESV A4C (A-L) 17.3mL RA Vol/BSA A4C A-L RA Length A4C 3.9 cm RA ESV A4C (MOD) 16.5mL LV Diastology MV E' medial 0.060 (>0.07 m/s) MV E Vmax 0.72 (0.4-1.3 m/s) MV E/E' MED 11.99 (<14) MV A Vmax 0.85 (0.4-1.3 m/s) MV E' lateral 0.073 (>0.1 m/s) E/A Ratio 0.8 MV E/E' LAT 9.90 (<14) MV E' Average 0.067 m/s MV E/E'(average) 10.84 Aortic Valve AoV Vmax 1.40 m/s LVOT Vmax 1.09 m/s AoV Peak Grad 7.9 mmHg LVOT Peak Grad 4.7 mmHg AoV Area (Vmax) 2.18 cm2 LVOT VTI 0.283 m AoV VTI 0.343 m LVOT Mean Grad 2.5 mmHg AoV Mean [place]. 0.93 m/s LVOT SV 79.71 mL AoV Mean Grad 3.9 mmHg LVOT Diam s 1.85 cm AoV Area (VTI) 2.32 cm2 Velocity Ratio 0.78 Mitral Valve MV DT 198 (160-240 msec) Pulmonary Valve PV Vmax 0.82 (0.5-1.5 m/s) RVOT Vmax 0.65 m/s PV Peak Grad 2.7 mmHg RVOT Peak Gr. 1.7 mmHg PV Mean [place] 0.60 m/s RVOT VTI 0.152 m PV Mean Grad 1.6 mmHg RVOT Mean Gr. 1.0 mmHg Tricuspid Valve RA Pressure 3.00 mmHg TR Vmax 2.15 m/s TR Peak Grad 18.5 mmHg RVSP (TR) 21.6 mmHg
== END ==
PROVIDERS: PCP Family Medicine; Visit Provider Surgery
DX: D68.318 Other hemorrhagic disorder due to intrinsic circulating anticoagulants, antibodies, or inhibitors (principal); E03.9 Hypothyroidism, unspecified; E78.5 Hyperlipidemia, unspecified; F10.21 Alcohol dependence, in remission; F31.9 Bipolar disorder, unspecified; I10 Essential (primary) hypertension; I25.10 Atherosclerotic heart disease of native coronary artery without angina pectoris; I51.7 Cardiomegaly; I70.90 Unspecified atherosclerosis; K43.9 Ventral hernia without obstruction or gangrene; K57.30 Diverticulosis of large intestine without perforation or abscess without bleeding; M25.50 Pain in unspecified joint; R10.9 Unspecified abdominal pain; R79.89 Other specified abnormal findings of blood chemistry; Z87.891 Personal history of nicotine dependence; I51.9 Heart disease, unspecified
CPT/HCPCS: 93306

== ENCOUNTER → 2022-12-02 02:54 | Outpatient (CLI) | payer OTHER, MEDICARE, SELFPAY ==
--- NOTE | 2022-12-02 07:45 | DI.DEXA_ITS ---
Exam(s) XR DEXA BONE DENSITY W/WO ANTOLIN EXAM: XR DEXA BONE DENSITY W/WO ANTOLIN CLINICAL HISTORY: screening for osteoporosis in postmenopausal woman,z78.0 TECHNIQUE: Routine DEXA evaluation of the lumbar spine, hip, or forearm. COMPARISON: No exams were available for comparison FINDINGS: Performed on a Hologic unit. Lateral image: No compression fracture evident. Lumbar Spine total T-score: 4.1 Hip total T-score:0.7 Independent reading at the level of the femoral neck yields T-score of -1.0 Forearm total T-score: -0.8 IMPRESSION: Bone mineral density measures in the normal range. Fracture risk is low. Note: Any spine fracture indicates 5x risk for subsequent spine fracture and 2x risk for subsequent h ip fracture. World Health Organization criteria for BMD interpretation classify patients: Normal...... T- Score at or above -1.0 Osteopenic... T- Score between -1.0 and -2.5 Osteoporosis... T-Score at or below -2.5
== END ==
PROVIDERS: PCP Family Medicine; Visit Provider Family Medicine
DX: Z78.0 Asymptomatic menopausal state (principal); Z13.820 Encounter for screening for osteoporosis
CPT/HCPCS: 77080

== ENCOUNTER → 2022-12-08 00:30 | Outpatient (CLI) | payer OTHER, MEDICARE, SELFPAY ==
--- NOTE | 2022-12-08 07:57 | DI.MAMMO_ITS ---
Exam(s) MG MAMMO SCREENING 60 MIN DUR EXAM: MG MAMMO SCREENING 60 MIN DUR CLINICAL HISTORY: breast cancer screening,Z12.39 TECHNIQUE: Mammograms were interpreted according to the usual protocol including computer analysis w [employer] CAD system, tomosynthesis and C-view imaging. COMPARISON: 2014 through 2021 FINDINGS: The breasts are composed of scattered fibroglandular densities, Breast Density category B. No suspicious masses or suspicious microcalcifications are seen. No skin thickening or abnormal axillary lymph nodes are seen. There has been no significant change from prior exams. IMPRESSION: BI-RADS Category 1, Negative mammogram Yearly screening mammography is recommended. Breast Density - Category B, scattered fibroglandular densities. A negative radiographic report should not delay biopsy if a dominant or clinically suspicious mass is present. Up to ten percent of cancers are not identified on mammography. A negative report may reinforce clinical impression. Adenosis and dense breasts may obscure an underlying neoplasm. False positive reports average 6 to 10%. Patient will receive a letter notifying them of these results.
== END ==
PROVIDERS: PCP Family Medicine; Visit Provider Family Medicine
DX: Z12.31 Encounter for screening mammogram for malignant neoplasm of breast (principal)
CPT/HCPCS: 77063; 77067

== ENCOUNTER 2023-02-24 09:30 | Outpatient (CLI) | payer OTHER, MEDICARE, SELFPAY ==
--- NOTE | 2023-02-24 09:30 | RT.EKG_ITS ---
APPROVED REPORT Exam: Resting ECG Reason for Exam: Pre-op cataract surgery Patient Location: O HR:63 bpm ECG Measurements Heart Rate [address] 169 P 48 QRSd 91 QRS 41 QT 433 T 77 QTc 444 Conclusion Sinus rhythm...normal P axis, V-rate 50- 99 Normal Electrocardiogram I have reviewed and interpreted ECG and agree with software generated interpretation.
== END 2023-02-24 09:31 | disposition home or self-care (01) ==
PROVIDERS: PCP Family Medicine; Visit Provider Family Medicine
DX: Z01.818 Encounter for other preprocedural examination (principal)
CPT/HCPCS: 93010

== ENCOUNTER 2023-03-11 07:46 | Day surgery (SDC) | payer OTHER, MEDICARE, SELFPAY ==
[2023-03-11 08:52] VITALS: BP 126/66; PULSE 63; RESP 16; TEMP 36.5; O2SAT 95
--- NOTE | 2023-03-11 09:01 | W.ANESPRE ---
General Info Date of Service Date Performed: 03/11/23 Height: 5 ft 4 in Weight: 107.6 kg Body Mass Index (BMI): 40.7 Surgical Procedure: Operation Date: 03/11/23 10:40 Proposed Procedure Side Surgeon p Cataract Extraction with IOL Implant Left Jonathan Aguilar MD Meds Allergies and Home Medications Allergies Allergy/AdvReac Type Severity Reaction Status Date / Time Penicillins Allergy Skin Rash Verified 03/11/23 08:30 amlodipine besylate AdvReac Intermediate cough Verified 03/11/23 08:30 [From [facility]] lithium AdvReac Intermediate HYPERACTIVITY Verified 03/11/23 08:30 FOR DAYS rizatriptan AdvReac Intermediate BAD COUGH Verified 03/11/23 08:30 FOR 2 YEARS morphine AdvReac Mild Hallucinati Verified 03/11/23 08:30 ons/Vomitin g ibuprofen AdvReac Unknown Other (See Verified 03/11/23 08:30 Comment) atorvastatin AdvReac myalgias Verified 03/11/23 08:30 carbamazepine AdvReac myalgias Verified 03/11/23 08:30 enalaprilat AdvReac Cough Verified 03/11/23 08:30 Home Medication Medication Instructions Recorded cholecalciferol (vitamin D3) 50 2,000 unit PO DAILY 05/16/12 mcg (2,000 unit) capsule (Vitamin D3) insulin syringe-needle U-100 0.5 #100 ea 03/01/19 mL 29 gauge x 1/2 (BD Insulin Syringe) pen needle, diabetic 32 gauge x #500 ea 03/01/19 1/4 (Novofine 32) blood sugar diagnostic (Blood #400 ea 12/01/20 Glucose Test strips) empagliflozin 25 mg tablet 25 mg PO QAM #90 tabs 04/05/22 (Jardiance) loratadine 10 mg capsule 10 mg PO DAILY PRN allergy 04/05/22 symptoms #30 caps blood-glucose meter,continuous #3 ea 07/01/22 (Dexcom G6 Senior 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) blood-glucose sensor (Dexcom G6 #9 ea 07/01/22 Sensor device) blood-glucose transmitter (Dexcom #1 ea 09/02/22 G6 Transmitter device) chlorthalidone 25 mg tablet 25 mg PO DAILY #90 tabs 10/06/22 clonazepam 2 mg tablet 2 mg PO QHS PRN anxiety #30 10/17/22 tab-caps ropinirole 1 mg tablet 1.5 mg (1.5 x 1 mg) PO QHS #135 10/20/22 tabs losartan 100 mg tablet 100 mg PO DAILY #90 tabs 11/12/22 budesonide-formoterol HFA 160 2 puff inhalation BID ##3 11/15/22 mcg-4.5 mcg/actuation aerosol inhaler (Symbicort) insulin degludec 200 unit/mL (3 96 unit (0.48 mL) subcut BID #60 mL 11/15/22 mL) subcutaneous pen (Tresiba FlexTouch U-200 insulin) insulin lispro 100 unit/mL 40 unit (0.4 mL) subcut TID #270 mL 11/15/22 subcutaneous pen (Humalog Tempo Pen (U-100) Insulin) ipratropium 0.5 mg-albuterol 3 mg 3 ml inhalation TID PRN shortness 11/15/22 (2.5 mg base)/3 mL nebulization of breath or wheezing #180 mL soln levothyroxine 137 mcg tablet 137 mcg PO DAILY #90 tab-caps 11/15/22 metoprolol succinate 100 mg 150 mg (1.5 x 100 mg) PO DAILY 11/15/22 tablet,extended release 24 hr #135 tab-caps nystatin 100,000 unit/gram topical 1 applic topical BID PRN yeast 11/15/22 powder infx in groin #60 grams semaglutide 3 mg tablet 3 mg PO DAILY #90 tabs 11/15/22 trazodone 100 mg tablet 100 mg PO QHS #90 tabs 11/15/22 pregabalin 100 mg capsule 100 mg PO Q8H #90 tabs 12/06/22 nystatin-triamcinolone 100,000 1 applic topical BID apply under 12/09/22 unit/gram-0.1 % topical ointment breasts #60 grams albuterol sulfate 90 mcg/actuation 1 - 2 puff inhalation Q6H PRN #18 02/19/23 aerosol inhaler (ProAir HFA) grams omeprazole 20 mg capsule,delayed 20 mg PO DAILY #90 caps 03/10/23 release diphenhydramine HCl 25 mg capsule 25 mg PO QHS 03/11/23 (Benadryl) melatonin 10 mg tablet 10 mg PO HS PRN 03/11/23 Current Visit Medications: Current Medications Generic Name Dose Route Start Last Admin Trade Name Toneq PRN Reason Stop Dose Admin Acetaminophen 1,000 mg 03/11/23 06:00 Acetaminophen 500 Mg Tab PO 04/10/23 05:59 Q4H PRN PRN Balanced Salt Solution 500 ml 03/11/23 06:00 Balanced Salt Soln.-Plus 500 Ml Bag OP 04/10/23 05:59 DIRECTED CANDACE Miscellaneous Medication 0 ml 03/11/23 06:00 Prednisolone 1%, Moxifloxacin 0.5%, Bromfenac 0.09% 5ml Btl OS 04/10/23 05:59 DIRECTED CANDACE Miscellaneous Medication 0 ml 03/11/23 06:00 03/11/23 08:57 Tropicam./Phenyleph. (1/2.5%) 10 Ml Btl OS 04/10/23 05:59 1 drp DIRECTED CANDACE Administration Tetracaine HCl 0 ml 03/11/23 06:00 Tetracaine 0.5% 4 Ml Btl OS 04/10/23 05:59 DIRECTED CANDACE PFSH Active Problems Active Problems: Problem Status Onset Code Cortical age-related cataract, left eye H25.012 Nuclear age-related cataract, left eye H25.12 Cataract H26.9 Bunion, right foot M21.611 BMI 40.0-44.9, adult Z68.41 Abdominal wall hernia K43.9 Coronary artery calcification seen on CAT scan I25.10 Atherosclerosis I70.90 Enlarged heart I51.7 Herpes B00.9 Lumbar radicular pain M54.16 Seborrhea corporis L21.8 Elevated LFTs R79.89 Arthralgia M25.50 DARLENE positive R76.8 Yeast infection B37.9 Staph infection Restless leg G25.81 Von Willebrand factor inhibitor disorder D68.318 Vitamin D deficiency 02/24/12 E55.9 Rotator cuff disorder 06/27/14 M67.919 Recurrent ventral hernia 04/07/16 K43.2 Non-alcoholic fatty liver disease K76.0 Insomnia G47.00 Hypothyroidism E03.9 Hyperlipidemia E78.5 Gastroesophageal reflux disease K21.9 Elevated serum GGT level 02/17/15 R74.8 Diverticula of colon K57.30 Diabetes mellitus with neuropathy 02/14/14 E11.40 Depressed bipolar I disorder F31.9 Chronic cough R05 Cerebrovascular accident 04/02/13 I63.9 Cataracts, both eyes 12/09/15 H26.9 Atrophic vaginitis 09/14/12 N95.2 Asthma J45.909 Chronic pain disorder 11/25/16 G89.4 Ganglion M67.40 Stress incontinence in female N39.3 Hypertension I10 Medical History Medical History Tibial fracture pt. reports surgical intervention Fatigue Torn medial meniscus Diarrhea Cellulitis Trigger finger Hand joint pain (12/01/11) History of tobacco use History of tobacco use quit in 2002 History of alcoholism in sobriety for greater than 10 years Triggering of finger thumb Ganglion of tendon sheath 12/01/11 Hand joint pain 12/01/11 Chest pain 06/05/12 Overdose 1995: alcohol and benzo 09/18/13 Stenosing tenosynovitis of thumb (05/13/14) Right foot pain (12/16/14) Neoplasm of unspecified nature of bone, soft tissue, and skin (08/12/14) Headache Essential hypertension (12/13/12) fatty liver Elevated lipase (08/26/16) Sanjuanita infection (08/26/16) Chronic sinusitis CVA (cerebral vascular accident) 2018 x2 Diabetes type 2, uncontrolled Hypothyroidism Hyperlipidemia Headache Chronic cough Bipolar disorder Diabetic neuropathy Fatty liver disease, nonalcoholic Insomnia Hypomagnesemia Fatigue Medical History Comments:: Reviewed with and JJ for patient to TAKE Tresiba AM of and hold humalog. Pt also instructed to take Metoprolol, Losartan, Levothyroxine, Omeprazole, and Pregabalin AM of with a small sip of water, and resume the rest of of meds when they get home. Pt. states she didnt take omeprazole this morning. Pt. also stated walking in that she was going to have a pill under her tongue for this procedure Surgical History Surgical History Status post abdominal hysterectomy Status post bilateral salpingo-oophorectomy Status post cholecystectomy Status post hernia repair S/P BSO (bilateral salpingo-oophorectomy) S/P abdominal hysterectomy fibroids, abnormal paps S/P cholecystectomy S/P hernia repair 02/28/11 H/O esophagogastroduodenoscopy active gastritis and focal acute inflammation 02/29/12 H/O surgical procedure right thumb release 02/29/12 hernia repair (~02/2011) Ventral Hernia repair (04/07/16) Dr. Jackson Incision, Tendon Sheath (08/01/12) RIGHT THUMB RELEASE Abdominal hysterectomy FIBROIDS/ABNORMAL PAPS EGD - MAC (09/29/12) ACTIVE GASTRITIS AND FOCAL ACUTE INFLAMMATION. Tooth extraction 10/12/14-TEETH REMOVED Colonoscopy - MAC (~03/2011) Colonoscopy - IV Sedation (04/02/11) DR. TIFFANI NICHOLS; DIVERTICULA Cholecystectomy Bilateral salpingectomy with oophorectomy Tobacco Smoking/Tobacco Use Status: Former Tobacco Use Passive smoking exposure: Yes Second hand exposure: Yes Alcohol Alcohol Intake: former Substance Use Substance use: Daily Substance use type: marijuana Details: CBD oil Vital Signs and Lab Results Vital Signs Most Recent Vital Signs in EMR: Most Recent Vital Signs Temp Pulse Resp BP Pulse Ox 36.5 C 63 16 126/66 95 03/11/23 08:52 03/11/23 08:52 03/11/23 08:52 03/11/23 08:52 03/11/23 08:52 Point of Care Results Point of Care Results: Finger Stick Blood Glucose 228 03/11/23 08:48 Lab Results Blood Type / Crossmatch: No Data to Display Complete Blood Count: No Data to Display Complete Metabolic Panel: Hemoglobin A1c 8.0 % (4.5-5.7) H 02/24/23 10:00 Liver Function Panel: No Data to Display Coagulation Panel: No Data to Display Cardiac Panel: No Data to Display Arterial Blood Gas: No Data to Display Venous Blood Gas: No Data to Display Pancreas Panel: No Data to Display Thyroid Panel: No Data to Display Infectious Disease: No Data to Display Blood Cultures: No Data to Display Toxicology Panel: No Data to Display Anesthesia Assessment and Plan Anesthesia History Personal History: No History of Anesthesia Complications Family History: No Family History of Anesthesia Complications Exercise Tolerance Exercise Tolerance: Metabolic Equivalents<4 Pertinent Negatives Pertinent Negatives: No Symptoms of GERD (RXb treatment) Cardiac & Pulmonary Exam Cardiac Exam: Normal S1/S2 Heart Sounds Pulmonary Exam: Clear Bilateral Breath Sounds Implantable Cardiac Device Does patient have a Pacemaker or an ICD?: No Airway Exam Known Difficult Airway: No Mallampati Class: 2 Mouth Opening: Normal (> 3cm) Thyromental Distance: Greater than 3 cm Neck Range of Motion: Full ROM Neck Circumference: Normal Teeth Condition: Normal Dentition ASA Classification ASA Score: ASA 3 Emergency Case?: No NPO Status NPO Status: NPO Clears >2 hours, Solids >8 hours Anesthesia Plan Resuscitation Status: Full Code Anesthesia Technique: MAC Anesthesia Airway Planned: Natural Airway Monitors Used: Standard Monitors
[2023-03-11 09:02] VITALS: BMI 40.7
[2023-03-11] MEDS: Balanced Salt Soln.-PLUS 500 ML BAG OP (10:04)
[2023-03-11] MEDS: Lidocaine 1% Pres-Free 5 ML VIAL (10:05)
[2023-03-11] MEDS: Duovisc Viscoelastic System EACH 1 EACH (10:05)
[2023-03-11] MEDS: Tetracaine 0.5% 4 ML BTL OS (10:05)
[2023-03-11] MEDS: Povidone-Iodine Ophth 30 ML BTL (10:07)
[2023-03-11 10:22] VITALS: BP 112/83; PULSE 60; RESP 18; TEMP 36.5; O2SAT 95
--- NOTE | 2023-03-11 10:22 | W.PM.DSUDISC ---
Date of service: 03/11/23 Time of Service: 10:22 Discharge Plan Disposition Patient Disposition: Home Discharge Details Attending Provider: Jonathan Aguilar Primary Care Provider: Renu Gerber Home Meds and New Rx's Prescriptions: No Action budesonide-formoterol [Symbicort] 160-4.5 mcg/actuation HFA aerosol inhaler 2 puff Inhalation BID Qty: 3 4RF insulin degludec [Tresiba FlexTouch U-200] 200 unit/mL (3 mL) insulin pen 96 unit SC BID Qty: 60 5RF Rx Instructions: insulin dependent diabetes ipratropium-albuterol 0.5 mg-3 mg(2.5 mg base)/3 mL solution for nebulization 3 ml Inhalation TID PRN (Reason: shortness of breath or wheezing) Qty: 180 3RF Rx Instructions: J45.909 metoprolol succinate 100 mg tablet extended release 24 hr 150 mg PO DAILY Qty: 135 3RF nystatin 100,000 unit/gram powder 1 applic TP BID PRN (Reason: yeast infx in groin) Qty: 60 1RF trazodone 100 mg tablet 100 mg PO QHS Qty: 90 4RF levothyroxine 137 mcg tablet 137 mcg PO DAILY Qty: 90 11RF insulin lispro [Humalog Tempo Pen(U-100)Insuln] 100 unit/mL insulin pen 40 unit subcut TID Qty: 270 5RF (DME) insulin syringe-needle U-100 [BD Insulin Syringe] 0.5 mL 29 gauge x 1/2 syringe See Dose Instructions .ROUTE .MEDSUPPLY Qty: 100 7RF Dose Instruction: As directed Rx Instructions: As directed (DME) pen needle, diabetic [Novofine 32] 32 gauge x 1/4 needle 1 ea Miscellaneous 5 time day Qty: 500 4RF Rx Instructions: E11.40 novofine pen needles 32X6mm ; use 5 times daily Jardiance 25 mg tablet 25 mg PO QAM Qty: 90 5RF loratadine 10 mg capsule 10 mg PO DAILY PRN (Reason: allergy symptoms) Qty: 30 0RF cholecalciferol (vitamin D3) [Vitamin D3] 2,000 UNIT capsule 2,000 unit PO DAILY (DME) Blood Glucose Test Strip See Dose Instructions .Route .MEDSUPPLY Qty: 400 5RF Dose Instruction: AC and HS Patient Comments: pt. reports checking blood sugar this AM, BS 134 @ 0800 Rx Instructions: AC and HS; 4Xdaily; E11.21 (DME) Dexcom G6 Sensor Device See Rx Instructions .Route Qty: 9 4RF Rx Instructions: As directed E11.9 (DME) Dexcom G6 Resident Engineer Misc See Rx Instructions .Route Qty: 3 4RF Rx Instructions: As directed E11.9 (DME) Dexcom G6 Transmitter Device See Rx Instructions .Route Qty: 1 3RF Rx Instructions: As directed chlorthalidone 25 mg tablet 25 mg PO DAILY Qty: 90 3RF clonazepam 2 mg tablet 2 mg PO QHS MDD 1 PRN (Reason: anxiety) Qty: 30 5RF ropinirole 1 mg tablet 1.5 mg PO QHS Qty: 135 4RF Rx Instructions: administer 1-3 hours before bedtime losartan 100 mg tablet 100 mg PO DAILY Qty: 90 4RF semaglutide 3 mg tablet 3 mg PO DAILY Qty: 90 5RF pregabalin 100 mg capsule 100 mg PO Q8H MDD 3 tabs Qty: 90 5RF nystatin-triamcinolone 100,000-0.1 unit/gram-% ointment 1 applic topical BID Qty: 60 0RF albuterol sulfate [ProAir HFA] 90 mcg/actuation HFA aerosol inhaler 1 - 2 puff Inhalation Q6H PRN Qty: 18 3RF omeprazole 20 mg capsule,delayed release(DR/EC) 20 mg PO DAILY Qty: 90 3RF melatonin 10 mg tablet 10 mg PO HS PRN diphenhydramine HCl [Benadryl] 25 mg capsule 25 mg PO QHS Patient Comments: pt. reports she took 2 last night, for a dose of 50mg Discharge Instructions Stand Alone Forms: DSU Post-Op CataractSandy (DSU) Discharge Orders Discharge Orders: Discharge Order (Routine); Ordered 03/11/23 Ordered By: Jonathan Aguilar DS: Diagnosis Discharge Diagnosis (1) Cortical age-related cataract, left eye: Status: Resolved (2) Nuclear age-related cataract, left eye: Status: Resolved
--- NOTE | 2023-03-11 10:24 | ROE_ITS ---
Date of service: 03/11/23 Time of Service: 10:24 Operative Note Operative Note DATE OF PROCEDURE: 03/11/23 PRE-OP DIAGNOSIS: Nuclear/cortical cataract, left eye POST-OP DIAGNOSIS: same PROCEDURE: Cataract extraction using phacoemulsification with intraocular lens implant, left eye SURGEON: Jonathan Aguilar ANESTHESIA TYPE: Local By Surgeon and MAC Refer to Anesthesia Record PATHOLOGY: none sent COMPLICATIONS: None Patient was transported to: same day Patient's condition: stable Implants: Venancio Clareon [id number] Indications: Progressive decreased vision due to cataract, left eye Procedure Description: CATARACT SURGERY OPERATIVE REPORT PREOPERATIVE DIAGNOSIS: Nuclear/cortical cataract, left eye POSTOPERATIVE DIAGNOSIS: Same OPERATION: Cataract extraction using phacoemulsification with posterior chamber intraocular lens implant, left eye. IOL: IOL Monitoring And Evaluation Advisor/Model: Venancio Clareon [id number] IOL Power: + 23.5 diopters IOL Serial Number: [id number] Optic Diameter: 6.0mm Haptic/Overall Diameter: 13.0mm PHACO INFO: VenancioCardinal Media Technologiesurion Vision System with OZil and Active Fluidics Cumulative Dispersed Energy (CDE): 4.90 seconds SURGEON: Jonathan Aguilar MD, ISA ANESTHESIA: Monitored Anesthesia Care (MAC), with local sub-tenon's anesthetic infiltration COMPLICATIONS: None SPECIMENS: None INDICATIONS FOR PROCEDURE: The patient is a 67-year-old lady with history of diminished visual acuity in her left eye secondary to the development of nuclear/cortical cataract. She is significantly symptomatic that she desires cataract surgery and attempt to improve and maximize her vision. The option of cataract surgery is offered to the patient in order to improve and maximize her vision. She wishes to proceed. See office notes for detailed information. PROCEDURE: The correct surgical eye was identified and marked as the left eye and the pupil was dilated in the preoperative area using mydriatics and cycloplegics. The dilated pupil size was 6.0 mm. Oral sedation was administered in the form of an Imprimis MKO Melt (midazolam 3mg/ketamine 25mg/ondansetron 2mg). . The patient was brought to the operating room where cardiopulmonary monitoring was instituted and surgical time-out was performed, confirming the correct operative eye and IOL power. Topical anesthesia was administered and ophthalmic povidone-iodine 5% was instilled into the conjunctival fornices. The jose manuel-ocular area was prepped with Betadine 10% solution and draped in the usual sterile fashion for intraocular surgery, including an aperture drape. A Tegaderm transparent film dressing was cut in half and used to cover the lashes and lid margins. Care was taken to sequester the lashes and lid margins under the Tegaderm dressing. A lid speculum was placed between the lids of the operative eye and the Venancio LuxOR Revalia operating microscope was maneuvered into position. Lillian scissors were then used to make a conjunctival buttonhole approximately 6mm posterior to the limbus in the inferonasal quadrant. Blunt dissection was carried out to expose bare sclera, and a blunt-tipped sub-tenon?s anesthesia cannula was introduced and passed posteriorly along the globe where non- preserved plain lidocaine was injected into posterior sub-Tenon?s space. A sideport knife was used to make a paracentesis port. Intraocular phenylephrine/lidocaine was injected into the anterior chamber. The anterior chamber was then filled with viscoelastic. A keratome knife was used construct a two-plane clear corneal tunnel extending 2.0mm into clear cornea. A flap was raised on the anterior capsule and capsulorhexis forceps were used to complete a continuous curvilinear capsulorhexis of 5.0 mm. Balanced salt solution was then used to perform cortical cleaving hydrodissection and nuclear hydrodelineation until the lens could be freely rotated within the capsular bag. The lens nucleus was then disassembled and removed within the capsular bag and iris plane using phacoemulsification. Residual cortical material was removed using the irrigation/aspiration handpiece. The posterior capsule was carefully polished to remove as much residual lens epithelial cells as safely possible. The capsular bag was then inflated and the anterior chamber deepened with viscoelastic. The lens implant described above was inserted into the capsular bag using the Venancio Autonome Injector. A Kuglen hook was used to dial the IOL into position. Residual viscoelastic was then removed first from posterior to the IOL, then from the anterior chamber using the I/A handpiece. The lens implant was noted to center nicely within the capsular bag. The incisions were stromally hydrated, and the anterior chamber was reformed using BSS. Then 0.5cc of moxifloxacin 1.0mg/ml were injected into the capsular bag and anterior chamber. The inc isions were checked with a Weck spear and found to be secure. Several drops of ophthalmic povidone-iodine 5% were then applied to the eye followed by two drops of combination steroid/NSAID/antibiotic solution. The drapes were removed and a clear plastic protective eye shield was placed over the eye. The patient was then returned to Same Day Surgery in stable condition.
--- NOTE | 2023-03-11 10:27 | W.ANESPOSTOP ---
Postoperative Evaluation Date, Time and Location Date Performed: 03/11/23 Time Performed: 10:28 Patient Location: Day Surgery Unit Vital Signs Most Recent Imported Vital Signs: Most Recent Vital Signs Temp Pulse Resp BP Pulse Ox 36.5 C 63 16 126/66 95 03/11/23 08:52 03/11/23 08:52 03/11/23 08:52 03/11/23 08:52 03/11/23 08:52 Pain Score Most Recent Pain Score: Most Recent Pain Score Pain Level 0 03/11/23 08:52 Assessment Mental Status: Awake (Alert & Oriented to Patient Baseline) Airway and Respiratory Function: Patent airway with normal (patient baseline) respiratory exam Cardiovascular Function: Hemodynamically Stable Hydration Status: Adequately Hydrated Nausea & Vomiting: No Nausea or Vomiting Pain: Pt. Denies Any Pain Peripheral Nerve Block: Patient did not receive a nerve block
[2023-03-11 10:52] VITALS: BP 98/64; PULSE 60; RESP 18; TEMP 36.6; O2SAT 93
== END 2023-03-11 10:58 | disposition home or self-care (01) ==
LOC: SUR 07:46
PROVIDERS: PCP Family Medicine; Visit Provider Ophthalmology
PROC: (CPT 66984; principal; 2023-03-11 10:30)
DX: H25.012 Cortical age-related cataract, left eye (principal); H25.12 Age-related nuclear cataract, left eye; E11.40 Type 2 diabetes mellitus with diabetic neuropathy, unspecified; I10 Essential (primary) hypertension
CPT/HCPCS: 66984; 00123; V2632; J2003

== ENCOUNTER 2023-03-25 07:37 | Day surgery (SDC) | payer OTHER, MEDICARE, SELFPAY ==
[2023-03-25 08:04] VITALS: BP 158/69; PULSE 74; RESP 18; TEMP 36; O2SAT 95
--- NOTE | 2023-03-25 08:35 | W.ANESPRE ---
General Info Date of Service Date Performed: 03/25/23 Height: 5 ft 4 in Weight: 109.8 kg Body Mass Index (BMI): 41.5 Surgical Procedure: Operation Date: 03/25/23 10:40 Proposed Procedure Side Surgeon p Cataract Extraction with IOL Implant Right Jonathan Aguilar MD Meds Allergies and Home Medications Allergies Allergy/AdvReac Type Severity Reaction Status Date / Time Penicillins Allergy Skin Rash Verified 03/25/23 08:06 amlodipine besylate AdvReac Intermediate cough Verified 03/25/23 08:06 [From [facility][1]] lithium AdvReac Intermediate HYPERACTIVITY Verified 03/25/23 08:06 FOR DAYS rizatriptan AdvReac Intermediate BAD COUGH Verified 03/25/23 08:06 FOR 2 YEARS morphine AdvReac Mild Hallucinati Verified 03/25/23 08:06 ons/Vomitin g ibuprofen AdvReac Unknown Other (See Verified 03/25/23 08:06 Comment) atorvastatin AdvReac myalgias Verified 03/25/23 08:06 carbamazepine AdvReac myalgias Verified 03/25/23 08:06 enalaprilat AdvReac Cough Verified 03/25/23 08:06 Home Medication Medication Instructions Recorded cholecalciferol (vitamin D3) 50 2,000 unit PO DAILY 05/16/12 mcg (2,000 unit) capsule (Vitamin D3) insulin syringe-needle U-100 0.5 #100 ea 03/01/19 mL 29 gauge x 1/2 (BD Insulin Syringe) pen needle, diabetic 32 gauge x #500 ea 03/01/19 1/4 (Novofine 32) blood sugar diagnostic (Blood #400 ea 12/01/20 Glucose Test strips) empagliflozin 25 mg tablet 25 mg PO QAM #90 tabs 04/05/22 (Jardiance) loratadine 10 mg capsule 10 mg PO DAILY PRN allergy 04/05/22 symptoms #30 caps blood-glucose meter,continuous #3 ea 07/01/22 (Dexcom G6 Electrical Tests Supervisor) blood-glucose sensor (Dexcom G6 #9 ea 07/01/22 Sensor device) blood-glucose transmitter (Dexcom #1 ea 09/02/22 G6 Transmitter device) chlorthalidone 25 mg tablet 25 mg PO DAILY #90 tabs 10/06/22 clonazepam 2 mg tablet 2 mg PO QHS PRN anxiety #30 10/17/22 tab-caps ropinirole 1 mg tablet 1.5 mg (1.5 x 1 mg) PO QHS #135 10/20/22 tabs losartan 100 mg tablet 100 mg PO DAILY #90 tabs 11/12/22 budesonide-formoterol HFA 160 2 puff inhalation BID ##3 11/15/22 mcg-4.5 mcg/actuation aerosol inhaler (Symbicort) insulin degludec 200 unit/mL (3 96 unit (0.48 mL) subcut BID #60 mL 11/15/22 mL) subcutaneous pen (Tresiba FlexTouch U-200 insulin) insulin lispro 100 unit/mL 40 unit (0.4 mL) subcut TID #270 mL 11/15/22 subcutaneous pen (Humalog Tempo Pen (U-100) Insulin) ipratropium 0.5 mg-albuterol 3 mg 3 ml inhalation TID PRN shortness 11/15/22 (2.5 mg base)/3 mL nebulization of breath or wheezing #180 mL soln levothyroxine 137 mcg tablet 137 mcg PO DAILY #90 tab-caps 11/15/22 metoprolol succinate 100 mg 150 mg (1.5 x 100 mg) PO DAILY 11/15/22 tablet,extended release 24 hr #135 tab-caps nystatin 100,000 unit/gram topical 1 applic topical BID PRN yeast 11/15/22 powder infx in groin #60 grams semaglutide 3 mg tablet 3 mg PO DAILY #90 tabs 11/15/22 trazodone 100 mg tablet 100 mg PO QHS #90 tabs 11/15/22 pregabalin 100 mg capsule 100 mg PO Q8H #90 tabs 12/06/22 nystatin-triamcinolone 100,000 1 applic topical BID apply under 12/09/22 unit/gram-0.1 % topical ointment breasts #60 grams albuterol sulfate 90 mcg/actuation 1 - 2 puff inhalation Q6H PRN #18 02/19/23 aerosol inhaler (ProAir HFA) grams omeprazole 20 mg capsule,delayed 20 mg PO DAILY #90 caps 03/10/23 release diphenhydramine HCl 25 mg capsule 25 mg PO QHS 03/11/23 (Benadryl) melatonin 10 mg tablet 10 mg PO HS PRN 03/11/23 Current Visit Medications: Current Medications Generic Name Dose Route Start Last Admin Trade Name Toneq PRN Reason Stop Dose Admin Acetaminophen 1,000 mg 03/25/23 06:00 Acetaminophen 500 Mg Tab PO 04/24/23 05:59 Q4H PRN PRN Balanced Salt Solution 500 ml 03/25/23 06:00 Balanced Salt Soln.-Plus 500 Ml Bag OP 04/24/23 05:59 DIRECTED CANDACE Miscellaneous Medication 0 ml 03/25/23 06:00 Prednisolone 1%, Moxifloxacin 0.5%, Bromfenac 0.09% 5ml Btl OD 04/24/23 05:59 DIRECTED CANDACE Miscellaneous Medication 0 ml 03/25/23 06:00 03/25/23 08:19 Tropicam./Phenyleph. (1/2.5%) 10 Ml Btl OD 04/24/23 05:59 1 drp DIRECTED CANDACE Administration Tetracaine HCl 0 ml 03/25/23 06:00 Tetracaine 0.5% 4 Ml Btl OD 04/24/23 05:59 DIRECTED CANDACE PFSH Active Problems Active Problems: Problem Status Onset Code Cortical age-related cataract, right eye H25.011 Nuclear age-related cataract, right eye H25.11 Cortical age-related cataract, left eye H25.012 Nuclear age-related cataract, left eye H25.12 Cataract H26.9 Bunion, right foot M21.611 BMI 40.0-44.9, adult Z68.41 Abdominal wall hernia K43.9 Coronary artery calcification seen on CAT scan I25.10 Atherosclerosis I70.90 Enlarged heart I51.7 Herpes B00.9 Lumbar radicular pain M54.16 Seborrhea corporis L21.8 Elevated LFTs R79.89 Arthralgia M25.50 DARLENE positive R76.8 Yeast infection B37.9 Staph infection Restless leg G25.81 Von Willebrand factor inhibitor disorder D68.318 Vitamin D deficiency 02/24/12 E55.9 Rotator cuff disorder 06/27/14 M67.919 Recurrent ventral hernia 04/07/16 K43.2 Non-alcoholic fatty liver disease K76.0 Insomnia G47.00 Hypothyroidism E03.9 Hyperlipidemia E78.5 Gastroesophageal reflux disease K21.9 Elevated serum GGT level 02/17/15 R74.8 Diverticula of colon K57.30 Diabetes mellitus with neuropathy 02/14/14 E11.40 Depressed bipolar I disorder F31.9 Chronic cough R05 Cerebrovascular accident 04/02/13 I63.9 Cataracts, both eyes 12/09/15 H26.9 Atrophic vaginitis 09/14/12 N95.2 Asthma J45.909 Chronic pain disorder 11/25/16 G89.4 Ganglion M67.40 Stress incontinence in female N39.3 Hypertension I10 Medical History Medical History Tibial fracture pt. reports surgical intervention Fatigue Torn medial meniscus Diarrhea Cellulitis Trigger finger Hand joint pain (12/01/11) History of tobacco use History of tobacco use quit in 2002 History of alcoholism in sobriety for greater than 10 years Triggering of finger thumb Ganglion of tendon sheath 12/01/11 Hand joint pain 12/01/11 Chest pain 06/05/12 Overdose 1994: alcohol and benzo 09/18/13 Stenosing tenosynovitis of thumb (05/13/14) Right foot pain (12/16/14) Neoplasm of unspecified nature of bone, soft tissue, and skin (08/12/14) Headache Essential hypertension (12/13/12) fatty liver Elevated lipase (08/26/16) Sanjuanita infection (08/26/16) Chronic sinusitis CVA (cerebral vascular accident) 2018 x2 Diabetes type 2, uncontrolled Hypothyroidism Hyperlipidemia Headache Chronic cough Bipolar disorder Diabetic neuropathy Fatty liver disease, nonalcoholic Insomnia Hypomagnesemia Fatigue Medical History Comments:: Reviewed with and PREET for patient to TAKE Tresiba AM of and hold humalog. Pt also instructed to take Metoprolol, Losartan, Levothyroxine, Omeprazole, and Pregabalin AM of with a small sip of water, and resume the rest of of meds when they get home. Surgical History Surgical History Status post abdominal hysterectomy Status post bilateral salpingo-oophorectomy Status post cholecystectomy Status post hernia repair S/P BSO (bilateral salpingo-oophorectomy) S/P abdominal hysterectomy fibroids, abnormal paps S/P cholecystectomy S/P hernia repair 02/28/11 H/O esophagogastroduodenoscopy active gastritis and focal acute inflammation 02/29/12 H/O surgical procedure right thumb release 02/29/12 hernia repair (~02/2011) Ventral Hernia repair (04/07/16) Dr. Jackson Incision, Tendon Sheath (08/01/12) RIGHT THUMB RELEASE Abdominal hysterectomy FIBROIDS/ABNORMAL PAPS EGD - MAC (09/29/12) ACTIVE GASTRITIS AND FOCAL ACUTE INFLAMMATION. Tooth extraction 10/12/14-TEETH REMOVED Colonoscopy - MAC (~03/2011) Colonoscopy - IV Sedation (04/02/11) DR. TIFFANI NICHOLS; DIVERTICULA Cholecystectomy Bilateral salpingectomy with oophorectomy Tobacco Smoking/Tobacco Use Status: Former Tobacco Use Passive smoking exposure: Yes Second hand exposure: Yes Alcohol Alcohol Intake: former Substance Use Substance use: Daily Substance use type: marijuana Details: CBD oil Vital Signs and Lab Results Vital Signs Most Recent Vital Signs in EMR: Most Recent Vital Signs Temp Pulse Resp BP Pulse Ox 36 C L 74 18 158/69 H 95 03/25/23 08:04 03/25/23 08:04 03/25/23 08:04 03/25/23 08:04 03/25/23 08:04 Lab Results Blood Type / Crossmatch: No Data to Display Complete Blood Count: No Data to Display Complete Metabolic Panel: Hemoglobin A1c 8.0 % (4.5-5.7) H 02/24/23 10:00 Liver Function Panel: No Data to Display Coagulation Panel: No Data to Display Cardiac Panel: No Data to Display Arterial Blood Gas: No Data to Display Venous Blood Gas: No Data to Display Pancreas Panel: No Data to Display Thyroid Panel: No Data to Display Infectious Disease: No Data to Display Blood Cultures: No Data to Display Toxicology Panel: No Data to Display Imaging and Studies Imaging and Studies Study information below may be from another EMR and interpreted by another provider. Please see original notes in EMR for more complete details. EKG Summary: 02/24/23: Exam: Resting ECG Reason for Exam: Pre-op cataract surgery Patient Location: O HR:63 bpm ECG Measurements Heart Rate 63 AXIS WY 169 P 48 QRSd 91 QRS 41 QT 433 T77 QTc 444 Conclusion Sinus rhythm...normal P axis, V-rate 50- 99 Normal Electrocardiogram I have reviewed and interpreted ECG and agree with software generated interpretation. Echocardiogram Summary: 11/22/22: Conclusion Borderline concentric left ventricular hypertrophy. Ejection fraction and wall motion are normal Normal right ventricular size and systolic function Both atria are normal in size There is no structural or hemodynamically significant valvular disease Estimated right ventricular systolic pressure is normal at 22 mmHg Anesthesia Assessment and Plan Anesthesia History Personal History: No History of Anesthesia Complications Family History: No Family History of Anesthesia Complications Exercise Tolerance Exercise Tolerance: Metabolic Equivalents<4 Pertinent Negatives Pertinent Negatives: No Symptoms of GERD Cardiac & Pulmonary Exam Cardiac Exam: Normal S1/S2 Heart Sounds Pulmonary Exam: Clear Bilateral Breath Sounds Implantable Cardiac Device Does patient have a Pacemaker or an ICD?: No Airway Exam Known Difficult Airway: No Mallampati Class: 2 Mouth Opening: Normal (> 3cm) Thyromental Distance: Greater than 3 cm Neck Range of Motion: Full ROM Neck Circumference: Normal Teeth Condition: Normal Dentition ASA Classification ASA Score: ASA 3 Emergency Case?: No NPO Status NPO Status: NPO Clears >2 hours, Solids >8 hours Anesthesia Plan Resuscitation Status: Full Code Anesthesia Technique: MAC Anesthesia Airway Planned: Natural Airway Monitors Used: Standard Monitors
[2023-03-25 08:38] VITALS: BMI 41.5
[2023-03-25] MEDS: Povidone-Iodine Ophth 30 ML BTL (09:02)
[2023-03-25] MEDS: Tetracaine 0.5% 4 ML BTL OD (09:10)
[2023-03-25] MEDS: Balanced Salt Soln.-PLUS 500 ML BAG OP (09:10)
[2023-03-25] MEDS: Duovisc Viscoelastic System EACH 1 EACH (09:10)
[2023-03-25] MEDS: Lidocaine 1% Pres-Free 5 ML VIAL (09:11)
[2023-03-25] MEDS: Trypan Blue 0.06% 0.5 ML SYR (09:11)
[2023-03-25 09:36] VITALS: BP 123/74; PULSE 70; RESP 17; TEMP 36.1; O2SAT 95
--- NOTE | 2023-03-25 09:42 | ROE_ITS ---
Date of service: 03/25/23 Time of Service: 09:43 Operative Note Operative Note DATE OF PROCEDURE: 03/25/23 PRE-OP DIAGNOSIS: Nuclear/cortical cataract, right eye POST-OP DIAGNOSIS: same PROCEDURE: Cataract extraction using phacoemulsification with intraocular lens implant, right eye SURGEON: Jonathan Aguilar ANESTHESIA TYPE: Local By Surgeon and MAC Refer to Anesthesia Record ESTIMATED BLOOD LOSS: 0 PATHOLOGY: none sent COMPLICATIONS: None Patient was transported to: same day Patient's condition: stable Implants: Venancio Clareon [id number] Indications: Progressive decreased vision due to cataract, right eye Procedure Description: CATARACT SURGERY OPERATIVE REPORT PREOPERATIVE DIAGNOSIS: Nuclear/cortical cataract, right eye POSTOPERATIVE DIAGNOSIS: Same OPERATION: Cataract extraction using phacoemulsification with posterior chamber intraocular lens implant, right eye. IOL: IOL Process Control Specialist/Model: Venancio Clareon [id number] IOL Power: + 23.0 diopters IOL Serial Number: [id number] Optic Diameter: 6.0mm Haptic/Overall Diameter: 13.0mm PHACO INFO: VenancioSimulated Surgical Systemsurion Vision System with OZil and Active Fluidics Cumulative Dispersed Energy (CDE): 9.0 seconds SURGEON: Jonathan Aguilar MD, ISA ANESTHESIA: Monitored Anesthesia Care (MAC), with local sub-tenon's anesthetic infiltration COMPLICATIONS: None SPECIMENS: None INDICATIONS FOR PROCEDURE: The patient is a 67-year-old lady with history of diminished visual acuity in both eyes secondary to the development of bilateral nuclear/cortical cataract. She is significantly symptomatic that she desires cataract surgery and attempt to improve and maximize her vision. She has already undergone cataract surgery in the left eye and is doing well postoperatively. The option of cataract surgery was offered to the patient and she wished to proceed. See office notes for detailed information. PROCEDURE: The correct surgical eye was identified and marked as the right eye and the pupil was dilated in the preoperative area using mydriatics and cycloplegics. The dilated pupil size was [] mm. Oral sedation was administered in the form of an Imprimis MKO Melt (midazolam 3mg/ketamine 25mg/ondansetron 2mg). The patient was brought to the operating room where cardiopulmonary monitoring was instituted and surgical time-out was performed, confirming the correct operative eye and IOL power. Topical anesthesia was administered and ophthalmic povidone-iodine 5% was instilled into the conjunctival fornices. The jose manuel-ocular area was prepped with Betadine 10% solution and draped in the usual sterile fashion for intraocular surgery, including an aperture drape. A Tegaderm transparent film dressing was cut in half and used to cover the lashes and lid margins. Care was taken to sequester the lashes and lid margins under the Tegaderm dressing. A lid speculum was placed between the lids of the operative eye and the Mino-Nikolas operating microscope was maneuvered into position. Lillian scissors were then used to make a conjunctival buttonhole approximately 6mm posterior to the limbus in the inferonasal quadrant. Blunt dissection was carried out to expose bare sclera, and a blunt-tipped sub-tenon?s anesthesia cannula was introduced and passed posteriorly along the globe where non- preserved plain lidocaine was injected into posterior sub-Tenon?s space. A sideport knife was used to make a paracentesis port. VisionBlue was injected into the anterior chamber and allowed to sit for 20 seconds. Intraocular phenylephrine/lidocaine was injected into the anterior chamber. The anterior chamber was then filled with viscoelastic. A keratome knife was used to construct a two--plane clear corneal tunnel extending 2.0mm into clear cornea. A flap was raised on the anterior capsule and capsulorhexis forceps were used to complete a continuous curvilinear capsulorhexis of 5.0 mm. Balanced salt solution was then used to perform cortical cleaving hydrodissection and nuclear hydrodelineation until the lens could be freely rotated within the capsular bag. The lens nucleus was then disassembled and removed within the capsular bag and iris plane using phacoemulsification. Residual cortical material was removed using the I/A handpiece. The posterior capsule was carefully polished to remove as much residual lens epithelial cells as safely possible. The capsular bag was then inflated and the anterior chamber deepened with cohesive viscoelastic. The lens implant described above was inserted into the capsular bag using the Venancio Autonome Injector. A Kuglen hook was used to dial the IOL into position. Residual viscoelastic was then removed first from posterior to the IOL, then from the anterior chamber using the I/A handpiece. The lens implant was noted to center nicely within the capsular bag. The incisions were stromally hydrated, and the anterior chamber was reformed using BSS. Then 0.5cc of moxifloxacin 1.0mg/ml were injected into the capsular bag and anterior chamber. The incisions were checked with a Weck spear and found to be secure. Several drops of ophthalmic povidone-iodine 5% were then applied to the eye followed by two drops of combination steroid/NSAID/antibiotic solution. The drapes were removed and a clear plastic protective eye shield was placed over the eye. The patient was then returned to Same Day Surgery in stable condition.
--- NOTE | 2023-03-25 09:42 | W.PM.DSUDISC ---
Date of service: 03/25/23 Time of Service: 09:42 Discharge Plan Disposition Patient Disposition: Home Discharge Details Attending Provider: Jonathan Aguilar Primary Care Provider: Renu Gerber Home Meds and New Rx's Prescriptions: No Action budesonide-formoterol [Symbicort] 160-4.5 mcg/actuation HFA aerosol inhaler 2 puff Inhalation BID Qty: 3 4RF insulin degludec [Tresiba FlexTouch U-200] 200 unit/mL (3 mL) insulin pen 96 unit SC BID Qty: 60 5RF Rx Instructions: insulin dependent diabetes ipratropium-albuterol 0.5 mg-3 mg(2.5 mg base)/3 mL solution for nebulization 3 ml Inhalation TID PRN (Reason: shortness of breath or wheezing) Qty: 180 3RF Rx Instructions: J45.909 metoprolol succinate 100 mg tablet extended release 24 hr 150 mg PO DAILY Qty: 135 3RF nystatin 100,000 unit/gram powder 1 applic TP BID PRN (Reason: yeast infx in groin) Qty: 60 1RF trazodone 100 mg tablet 100 mg PO QHS Qty: 90 4RF levothyroxine 137 mcg tablet 137 mcg PO DAILY Qty: 90 11RF insulin lispro [Humalog Tempo Pen(U-100)Insuln] 100 unit/mL insulin pen 40 unit subcut TID Qty: 270 5RF (DME) insulin syringe-needle U-100 [BD Insulin Syringe] 0.5 mL 29 gauge x 1/2 syringe See Dose Instructions .ROUTE .MEDSUPPLY Qty: 100 7RF Dose Instruction: As directed Rx Instructions: As directed (DME) pen needle, diabetic [Novofine 32] 32 gauge x 1/4 needle 1 ea Miscellaneous 5 time day Qty: 500 4RF Rx Instructions: E11.40 novofine pen needles 32X6mm ; use 5 times daily Jardiance 25 mg tablet 25 mg PO QAM Qty: 90 5RF loratadine 10 mg capsule 10 mg PO DAILY PRN (Reason: allergy symptoms) Qty: 30 0RF cholecalciferol (vitamin D3) [Vitamin D3] 2,000 UNIT capsule 2,000 unit PO DAILY (DME) Blood Glucose Test Strip See Dose Instructions .Route .MEDSUPPLY Qty: 400 5RF Dose Instruction: AC and HS Patient Comments: pt. reports checking blood sugar this AM, BS 134 @ 0800 Rx Instructions: AC and HS; 4Xdaily; E11.21 (DME) Dexcom G6 Sensor Device See Rx Instructions .Route Qty: 9 4RF Rx Instructions: As directed E11.9 (DME) Dexcom G6 Broke Handler Misc See Rx Instructions .Route Qty: 3 4RF Rx Instructions: As directed E11.9 (DME) Dexcom G6 Transmitter Device See Rx Instructions .Route Qty: 1 3RF Rx Instructions: As directed chlorthalidone 25 mg tablet 25 mg PO DAILY Qty: 90 3RF clonazepam 2 mg tablet 2 mg PO QHS MDD 1 PRN (Reason: anxiety) Qty: 30 5RF ropinirole 1 mg tablet 1.5 mg PO QHS Qty: 135 4RF Rx Instructions: administer 1-3 hours before bedtime losartan 100 mg tablet 100 mg PO DAILY Qty: 90 4RF semaglutide 3 mg tablet 3 mg PO DAILY Qty: 90 5RF pregabalin 100 mg capsule 100 mg PO Q8H MDD 3 tabs Qty: 90 5RF nystatin-triamcinolone 100,000-0.1 unit/gram-% ointment 1 applic topical BID Qty: 60 0RF albuterol sulfate [ProAir HFA] 90 mcg/actuation HFA aerosol inhaler 1 - 2 puff Inhalation Q6H PRN Qty: 18 3RF omeprazole 20 mg capsule,delayed release(DR/EC) 20 mg PO DAILY Qty: 90 3RF melatonin 10 mg tablet 10 mg PO HS PRN diphenhydramine HCl [Benadryl] 25 mg capsule 25 mg PO QHS Patient Comments: pt. reports she took 2 last night, for a dose of 50mg Discharge Instructions Stand Alone Forms: [facility] Post-Op CataractSandy ([facility]) Discharge Orders Discharge Orders: Discharge Order (Routine); Ordered 03/25/23 Ordered By: Jonathan Aguilar DS: Diagnosis Discharge Diagnosis (1) Cortical age-related cataract, right eye: Status: Resolved (2) Nuclear age-related cataract, right eye: Status: Resolved
--- NOTE | 2023-03-25 09:56 | W.ANESPOSTOP ---
Postoperative Evaluation Date, Time and Location Date Performed: 03/25/23 Time Performed: 09:39 Patient Location: Day Surgery Unit Vital Signs Most Recent Imported Vital Signs: Most Recent Vital Signs Temp Pulse Resp BP Pulse Ox 36.1 C L 70 17 123/74 95 03/25/23 09:36 03/25/23 09:36 03/25/23 09:36 03/25/23 09:36 03/25/23 09:36 Pain Score Most Recent Pain Score: Most Recent Pain Score Pain Level 0 03/25/23 09:36 Assessment Mental Status: Awake (Alert & Oriented to Patient Baseline) Airway and Respiratory Function: Patent airway with normal (patient baseline) respiratory exam Cardiovascular Function: Hemodynamically Stable Hydration Status: Adequately Hydrated Nausea & Vomiting: No Nausea or Vomiting Pain: Pt. Denies Any Pain Peripheral Nerve Block: Patient did not receive a nerve block
[2023-03-25 10:00] VITALS: BP 133/80; PULSE 74; RESP 17; TEMP 36.1; O2SAT 94
== END 2023-03-25 10:08 | disposition home or self-care (01) ==
LOC: SUR 07:37
PROVIDERS: PCP Family Medicine; Visit Provider Ophthalmology
PROC: (CPT 66984; principal; 2023-03-25 10:30)
DX: H25.011 Cortical age-related cataract, right eye (principal); H25.11 Age-related nuclear cataract, right eye; Z98.42 Cataract extraction status, left eye
CPT/HCPCS: 66984; 00123; V2632; J2003

== ENCOUNTER 2023-06-16 10:00 | Outpatient (CLI) | payer OTHER, MEDICARE, SELFPAY ==
[2023-06-16 12:36] LABS: ALT 68 U/L (14-59); AST 63 U/L (15-37); Albumin 4.2 g/dL (3.4-5.0); Alkaline Phosphatase 153 U/L (46-116); Anion Gap 9.9 mmol/L (3-11); BUN 23 mg/dL (7-18); Bilirubin, Total 0.6 mg/dL (0.2-1.0); CO2 31.1 mmol/L (21.0-32.0); CREATININE 1.6 mg/dL (0.55-1.02); Calcium 9.5 mg/dL (8.5-10.1); Chloride 103 mmol/L (98-107); Glucose 104 mg/dL (74-106); Potassium 3.9 mmol/L (3.5-5.1); Sodium 144 mmol/L (136-145); TSH (W/Ref FT4) 0.21 uIU/mL (0.36-3.74); Total Protein 7.4 g/dL (6.4-8.2)
[2023-06-16 12:56] LABS: FREE T4 1.29 ng/dL (0.76-1.46)
== END 2023-06-16 10:01 | disposition home or self-care (01) ==
LOC: LOS 10:00
PROVIDERS: PCP Family Medicine; Referring Provider Family Medicine; Visit Provider Family Medicine
DX: I10 Essential (primary) hypertension (principal); E03.9 Hypothyroidism, unspecified
CPT/HCPCS: 36415; 80053; 84439; 84443

== ENCOUNTER → 2023-07-04 03:12 | Outpatient (CLI) | payer OTHER, MEDICARE, SELFPAY ==
--- NOTE | 2023-07-04 06:30 | DI.RAD_ITS ---
Exam(s) XR LUMBAR SPINE COMPLETE EXAM: XR LUMBAR SPINE COMPLETE CLINICAL HISTORY: right LBP and leg pain,m54.41,g89.29. TECHNIQUE: 2D digital imaging was performed of the lumbar spine. Five images were obtained. AP, la teral, right oblique, left oblique and L5-S1 spot views were obtained. COMPARISON: CR XR LUMBAR SPINE COMPLETE from 06/03/[address] ABDOMEN PELVIS W from 07/04/2023 FINDINGS: BONES: No acute fracture. There is disc space narrowing at L3-L4 with endplate osteophytes. Slight further irregularity of the cortices at this level are also noted. No facet hypertrophy identified. Large bony productive changes are seen on the right at L4-L5 and to a lesser degree at L3-L4. DISKS: There is also disc space narrowing at L5-S1 with a vacuum disc at this level. ALIGNMENT: Lumbar spinal alignment is within normal limits. No spondylolysis or spondylolisthesis. SOFT TISSUE: There is oral contrast seen in the bowel and IV contrast seen in the renal collecting sy stem from the patient's CT scan from earlier in the day. Extensive vascular calcification is present . IMPRESSION: 1. Irregularity of the cortices at the inferior endplate of L3 and the superior endplate of L4 which have progressed since 06/03/2021. Infection may be considered. An MRI without and with contrast is re commended of the lumbar spine. 2. Multilevel degenerative changes in the lumbar spine from L3-4 through L5-S1 as described. Unexpected findings DATA REPOSITORY: RADIATION DOSE DELIVERED:
[2023-07-04] MEDS: Barium Sulfate 2% W/V-Berry Smoothie 450 ML BTL PO (07:33)
[2023-07-04 07:40] LABS: CREATININE 1.2 mg/dL (0.55-1.02)
[2023-07-04] MEDS: Omnipaque 350 MG/ML 100 ML BTL IJ (09:08)
[2023-07-04] MEDS: Normal Saline - Diluent 50 ML VIAL IJ (09:08)
--- NOTE | 2023-07-04 09:15 | DI.CT_ITS ---
Exam(s) CT ABDOMEN PELVIS W EXAM: CT ABDOMEN PELVIS W CLINICAL HISTORY: RLQ ABD PAIN, LARGE HIATAL HERNIA,R10.31,K44.9. TECHNIQUE: Imaging Protocol: Axial computed tomography images with coronal and sagittal reformatted images were created and reviewed CONTRAST MATERIAL: Intravenous: Omnipaque 350 Contrast volume:100 ml Oral: 900 mL barium COMPARISON: CT CT ABDOMEN PELVIS W from 03/31/2022 FINDINGS: ABDOMEN and PELVIS: Lung Bases: No acute findings. Liver: Enlarged. Mild fatty infiltration. No suspicious mass. Gallbladder and biliary tract: Status post cholecystectomy. No radiodense calculus. No biliary dila tion. Pancreas: Somewhat atrophic. Normal density. No abnormal calcifications or inflammatory process. No evidence of mass. Spleen: Normal. Kidneys: Normal size, contour and axis. No radiodense stones. No obstructive uropathy. No suspicious masses seen. Adrenal glands: No masses seen. Vasculature: Abdominal aorta non-dilated. Soft tissues: Tiny midline fatty hernia above the level of the umbilicus. Fatty containing hernia le ft lower quadrant, measuring roughly 7 by 2.7 by 6 cm. No evidence of edema. Diffuse anterior ski n thickening. Bladder: No gross wall thickening. No calculi.No focal mass. Bowel: Mild diverticulosis. No evidence of diverticulitis peer no obstruction. No bowel wall thick ening. Appendix normal. Peritoneal cavity: No ascites. No focal collection. No mesenteric inflammatory response. Bones: Severe degenerative disc changes again noted at L3-4. Degenerative changes seen to lesser ext ent at L4-5 and L5-S1. Reproductive organs: Status post hysterectomy. Lymph nodes: No pathologically enlarged lymph nodes. IMPRESSION:: No acute abnormality in the abdomen or pelvis. Fatty containing spigelian hernia to the left of the midline in the lower abdominal wall. Stable fro m prior. RADIATION DOSE DELIVERED: 1,562.5mGy.cm Total DLP DATA REPOSITORY: All CT scans at this facility are submitted to the National Radiology Data Registry (NRDR) Dose Index Registry (DIR) with the [employer] (ACR). RADIATION OPTIMIZATION: All CT scans at this facility use at least one of these dose optimization te chniques: automated exposure control; mA and/or kV adjustment per patient size (includes targeted exa ms where dose is matched to clinical indication); or iterative reconstruction.
== END ==
PROVIDERS: PCP Family Medicine; Visit Provider Family Medicine
DX: M54.41 Lumbago with sciatica, right side; K44.9 Diaphragmatic hernia without obstruction or gangrene
CPT/HCPCS: 72110; 74177; 82565; J3490

== ENCOUNTER → 2023-07-19 03:19 | Outpatient (CLI) | payer OTHER, MEDICARE, SELFPAY ==
--- NOTE | 2023-07-19 06:15 | DI.MRI_ITS ---
Exam(s) MR LUMBAR SPINE WO/W EXAM: MR LUMBAR SPINE WO/W CLINICAL HISTORY: possible infection of L3-4,m46.62,osteomyelitis. TECHNIQUE: Multiplanar multisequence MRI of the Lumbar Spine was performed. Additional pre and post gadolinium fat suppressed T1 sagittal and axial sequences were performed. CONTRAST MATERIAL: IV Contrast: 20 mL of Dotarem contrast administered. COMPARISON: CT CT ABDOMEN PELVIS W from 03/31/[address] ABDOMEN PELVIS W from 07/04/2023 CR XR LUMBAR SPINE COMPLETE from 07/04/2023 FINDINGS: Bones: The last intervertebral disc space is designated the L5/S1 level for the numbering purpose of this examination. The vertebral body heights are well maintained. Mild degenerative scoliosis. Marrow signal: Minimally increased signal on STIR images at the L3-4 superior and inferior endplates. Minimal post gadolinium enhancement. No findings 2 suggest osteomyelitis. Significant degenerativ e sclerosis of the inferior half of L3 and superior half of L4. Sclerosis noted on previous CT exami nations. Cord: The conus tip ends at the T12 level. It is of normal size and signal intensity. T12-L1: No disc herniations or bulges are present. No central spinal canal or neural foraminal stenos is. L1-2: No disc herniations or bulges are present. No central spinal canal or neural foraminal stenosis . L2-3: No disc herniations or bulges are present. No central spinal canal or neural foraminal stenosis . L3-4: Severe loss of disc height. Prominent endplate osteophytes projecting circumferentially, great er posteriorly. Facet degenerative changes also present. Moderate central canal stenosis. Mild lef t neural foraminal narrowing. L4-5: Mild disc bulging, endplate osteophytes and loss of disc height eccentric toward the right mild facet degenerative changes. No central spinal canal or neural foraminal stenosis. L5-S1: Moderate to severe loss of disc height, broad-based disc bulging and endplate osteophytes. Mo derate right neural foraminal narrowing. No central canal stenosis. The visualized SI joints and sacrum are well maintained. Soft tissues: The paraspinal soft tissues are unremarkable. IMPRESSION: No evidence of osteomyelitis or discitis. Severe degenerative disc changes L3-4 cause moderate central canal stenosis. Degenerative disc morrow es at L5-S1 cause moderate right neural foraminal narrowing. No evidence of focal disc herniation at any level. DATA REPOSITORY:
[2023-07-19] MEDS: Gadoterate meglumine 20 ML SYRINGE IVP (07:52)
[2023-07-19] MEDS: Normal Saline Flush 10 ML SYR IVP (07:52)
== END ==
PROVIDERS: PCP Family Medicine; Visit Provider Family Medicine
DX: M46.26 Osteomyelitis of vertebra, lumbar region (principal)
CPT/HCPCS: 72158

== ENCOUNTER → 2023-08-29 03:10 | Outpatient (CLI) | payer OTHER, MEDICARE, SELFPAY ==
--- NOTE | 2023-08-29 10:06 | DI.RAD_ITS ---
Exam(s) XR FOOT RT COMPLETE EXAM: XR FOOT RT COMPLETE CLINICAL HISTORY: Right foot pain,M79.671. TECHNIQUE: 2D digital imaging was performed. COMPARISON: CR XR FOOT LT COMPLETE from 08/29/2023 FINDINGS: 3 views No evidence of acute fracture or diastasis of the Lisfranc joint. There is Leonides valgus. No prominent narrowing of the great toe metatarsophalangeal joint. Degenerati ve subarticular cyst is noted in the base of the 4th metatarsal. IMPRESSION: Hallux valgus. Other findings as above. DATA REPOSITORY: RADIATION DOSE DELIVERED:
--- NOTE | 2023-08-29 10:07 | DI.RAD_ITS ---
Exam(s) XR FOOT LT COMPLETE EXAM: XR FOOT LT COMPLETE CLINICAL HISTORY: Left foot pain,M79.672. TECHNIQUE: 2D digital imaging was performed of the left foot. Three images were obtained. AP, obli que and lateral views were obtained. COMPARISON: CR LEFT FOOT COMPLETE from 07/12/2012 FINDINGS: BONES: No acute fracture is present. No bony destructive lesion is seen. There is an enthesophyte see n at the posterior calcaneus. JOINTS: No dislocation present. The joint spaces are well maintained. SOFT TISSUE: Normal. IMPRESSION: Small calcaneal spur. DATA REPOSITORY: RADIATION DOSE DELIVERED:
== END ==
PROVIDERS: PCP Family Medicine; Visit Provider Podiatrist
DX: M79.671 Pain in right foot (principal); M79.672 Pain in left foot
CPT/HCPCS: 73630

== ENCOUNTER 2023-09-03 15:27 | Observation (INO) | payer OTHER, MEDICARE, SELFPAY ==
[2023-09-03] VITALS (20 sets, daily range): BP systolic 101–164; BP diastolic 54–66; PULSE 61–71; RESP 18; TEMP 36.4–36.8; O2SAT 91–97
--- NOTE | 2023-09-03 16:30 | DI.CT_ITS ---
Exam(s) CT CHEST/ABD/PEL W EXAM: CT CHEST/ABD/PEL W CLINICAL HISTORY: fall R posterior rib pain, bruising, RUQ tender. TECHNIQUE: Imaging Protocol: Axial computed tomography images with coronal and sagittal reformatted images were created and reviewed CONTRAST MATERIAL: Intravenous: Omnipaque 350 Contrast volume:100 ml Oral: None COMPARISON: CT ABD PELVIS WITH CONTRAST from 07/14/[address] ABDOMEN PELVIS W from 07/04/2023 FINDINGS: CHEST: LUNGS: No evidence of lung contusion, pleural effusion, nor pneumothorax. There is a E 2-3 mm subple ural nodule in the lateral basal segment of the left lower lobe, unchanged from CT scans dating back to 2011 and therefore benign. No new lung base nodules. MEDIASTINUM: No evidence of sternal fracture or mediastinal hematoma. No intrathoracic adenopathy. Thyroid gland appears diminutive. CARDIAC: Heart size is normal. There is no pericardial effusion.Thoracic aorta appears unremarkable. OSSEOUS: There nondisplaced fractures of the anterolateral aspects of the right 8th and 9th ribs and a mildly displaced fracture of the right 10th rib. No left rib fractures identified. No vertebral f ractures identified. ABDOMEN: There is no evidence of ascites, bowel wall hematoma nor mesenteric hematoma. LIVER: Intact. No laceration. No lesions. GALLBLADDER/BILIARY: Gallbladder is surgically absent. CBD diameter slightly prominent, most probabl y commensurate with post cholecystectomy status. PANCREAS: No evidence of pancreatic mass nor dilatation of the pancreatic duct. SPLEEN: Normal size. No laceration. No lesions. Splenic and portal veins are patent. ADRENALS: There are no significant adrenal masses. KIDNEYS: No evidence of renal laceration or subcapsular hematomas.. No focal findings in the kidneys . No hydronephrosis. ABDOMINAL AORTA: Calcified and atherosclerotic and was mild aneurysmal dilatation the distal abdomina l aorta but measures 2.4 cm. Calcified but not enlarged common iliac arteries. LYMPH NODES: There is no retroperitoneal nor paraaortic adenopathy. ABDOMINAL WALL: No evidence of significant anterior abdominal wall nor inguinal hernia. GI: There is no evidence of bowel obstruction. PELVIS: LYMPH NODES: There is no intrapelvic nor inguinal adenopathy. GI: No evidence of appendicitis.No evidence of sigmoid diverticulitis. URINARY BLADDER: Unremarkable. Not distended. No intraluminal clots, calculi, nor lesions. REPRODUCTIVE: Uterus surgically absent. No abnormal adnexal masses nor free fluid in the pelvis. OSSEOUS: No hip nor pelvic fractures. Chronic disc space narrowing L3-4, L4-5 and L5-S1 levels, most prominent at L3-4 and L5-S1 levels. Sacroiliac joints appear unremarkable. IMPRESSION: 1. There are fractures of the right 8th and 9th ribs which are nondisplaced and there is a slightly d isplaced fracture of the right 10th rib. There is no pneumothorax nor lung contusion nor pleural eff usion. 2. No other acute trauma sequelae in the chest, abdomen, and pelvis. 3. Other findings as above. Called by myself to ER physician 09/03/2023 6:30 p.m. RADIATION DOSE DELIVERED: 2,014.66mGy.cm Total DLP DATA REPOSITORY: All CT scans at this facility are submitted to the National Radiology Data Registry (NRDR) Dose Index Registry (DIR) with the [employer] (ACR). RADIATION OPTIMIZATION: All CT scans at this facility use at least one of these dose optimization te chniques: automated exposure control; mA and/or kV adjustment per patient size (includes targeted exa ms where dose is matched to clinical indication); or iterative reconstruction.
--- NOTE | 2023-09-03 16:41 | W.ED.GENAD ---
Discharge Plan Disposition Patient Disposition: Admit to [facility] Condition: Stable Discharge Details Clinical Impression: Multiple fractures of ribs of right side Primary Care Provider: Renu Gerber ED Provider: Juan M Chacko Home Meds and New Rx's Prescriptions: No Action budesonide-formoterol [Symbicort] 160-4.5 mcg/actuation HFA aerosol inhaler 2 puff Inhalation BID Qty: 3 4RF insulin degludec [Tresiba FlexTouch U-200] 200 unit/mL (3 mL) insulin pen 96 unit SC BID Qty: 60 5RF Rx Instructions: insulin dependent diabetes ipratropium-albuterol 0.5 mg-3 mg(2.5 mg base)/3 mL solution for nebulization 3 ml Inhalation TID PRN (Reason: shortness of breath or wheezing) Qty: 180 3RF Rx Instructions: J45.909 metoprolol succinate 100 mg tablet extended release 24 hr 150 mg PO DAILY Qty: 135 3RF nystatin 100,000 unit/gram powder 1 applic TP BID PRN (Reason: yeast infx in groin) Qty: 60 1RF trazodone 100 mg tablet 100 mg PO QHS Qty: 90 4RF levothyroxine 137 mcg tablet 137 mcg PO DAILY Qty: 90 11RF insulin lispro [Humalog Tempo Pen(U-100)Insuln] 100 unit/mL insulin pen 40 unit subcut TID Qty: 270 5RF clotrimazole-betamethasone 1-0.05 % cream 1 applic topical BID Qty: 45 0RF ketoconazole 2 % cream 1 applic topical DAILY Qty: 120 6RF Rx Instructions: Apply to toenails once daily (DME) insulin syringe-needle U-100 [BD Insulin Syringe] 0.5 mL 29 gauge x 1/2 syringe See Dose Instructions .ROUTE .MEDSUPPLY Qty: 100 7RF Dose Instruction: As directed Rx Instructions: As directed loratadine 10 mg capsule 10 mg PO DAILY PRN (Reason: allergy symptoms) Qty: 30 0RF pregabalin 150 mg capsule 150 mg PO QHS Qty: 90 3RF cholecalciferol (vitamin D3) [Vitamin D3] 2,000 UNIT capsule 2,000 unit PO DAILY (DME) Blood Glucose Test Strip See Dose Instructions .Route .MEDSUPPLY Qty: 400 5RF Dose Instruction: AC and HS Patient Comments: pt. reports checking blood sugar this AM, BS 134 @ 0800 Rx Instructions: AC and HS; 4Xdaily; E11.21 (DME) Dexcom G6 Assistant Purchasing Manager Misc See Rx Instructions .Route Qty: 3 4RF Rx Instructions: As directed E11.9 (DME) Dexcom G6 Transmitter Device See Rx Instructions .Route Qty: 1 3RF Rx Instructions: As directed chlorthalidone 25 mg tablet 25 mg PO DAILY Qty: 90 3RF ropinirole 1 mg tablet 1.5 mg PO QHS Qty: 135 4RF Rx Instructions: administer 1-3 hours before bedtime losartan 100 mg tablet 100 mg PO DAILY Qty: 90 4RF omeprazole 20 mg capsule,delayed release(DR/EC) 20 mg PO DAILY Qty: 90 3RF clonazepam 2 mg tablet 1 - 2 mg PO QHS MDD 1 PRN (Reason: anxiety) Qty: 30 5RF albuterol sulfate [ProAir HFA] 90 mcg/actuation HFA aerosol inhaler 1 - 2 puff Inhalation Q6H PRN Qty: 18 3RF (DME) Dexcom G6 Sensor Device See Rx Instructions .Route Qty: 9 4RF Rx Instructions: As directed E11.9 pregabalin 100 mg capsule 100 mg PO .COMPLEX MDD 3 tabs Qty: 180 5RF Rx Instructions: 100 mg orally am and noon; (DME) pen needle, diabetic [Novofine 32] 32 gauge x 1/4 needle 1 ea Miscellaneous 5 time day Qty: 500 4RF Rx Instructions: E11.40 novofine pen needles 32X6mm ; use 5 times daily melatonin 10 mg tablet 10 mg PO HS PRN diphenhydramine HCl [Benadryl] 25 mg capsule 25 mg PO QHS Patient Comments: pt. reports she took 2 last night, for a dose of 50mg HPI General Date/Time Provider Initiated Documentation: 09/03/23 16:07. HPI Narrative: 68 year-old female presents to ED today by POV/ambulating with antalgic gait and cane, with a chief complaint of significant fall at home 2 days ago, R side pain with bruising, has been having an awful time at home- very difficult to get up to even toilet- works and can't help all day. Quality described as severer R sided axillary pain with deep breathing, with any cough etc, with radiation to shortness of breath, denies chest pain with exertion, denies fever, denies productive cough, endorses RUQ abdominal pain and L hip pain. Severity is described as severe. Palliating factors include OTC analgesics not helping. Provoking factors include multiple falls this year- has had PT visits but cancelled. Events leading up to the incident/Associated Symptoms: mobility issues at baseline, morbid obesity. Patient not anticoagulated. Related Data Home Medications Medication Instructions Recorded Confirmed cholecalciferol (vitamin D3) 50 2,000 unit PO DAILY 05/16/12 09/03/23 mcg (2,000 unit) capsule (Vitamin D3) insulin syringe-needle U-100 0.5 #100 ea 03/01/19 06/29/23 mL 29 gauge x 1/2 (BD Insulin Syringe) blood sugar diagnostic (Blood #400 ea 12/01/20 06/29/23 Glucose Test strips) loratadine 10 mg capsule 10 mg PO DAILY PRN allergy 04/05/22 09/03/23 symptoms #30 caps blood-glucose meter,continuous #3 ea 07/01/22 06/29/23 (Dexcom G6 Assistant Purchasing Manager) blood-glucose transmitter (Dexcom #1 ea 09/02/22 06/29/23 G6 Transmitter device) chlorthalidone 25 mg tablet 25 mg PO DAILY #90 tabs 10/06/22 09/03/23 ropinirole 1 mg tablet 1.5 mg (1.5 x 1 mg) PO QHS #135 10/20/22 09/03/23 tabs losartan 100 mg tablet 100 mg PO DAILY #90 tabs 11/12/22 09/03/23 budesonide-formoterol HFA 160 2 puff inhalation BID ##3 11/15/22 09/03/23 mcg-4.5 mcg/actuation aerosol inhaler (Symbicort) insulin degludec 200 unit/mL (3 96 unit (0.48 mL) subcut BID #60 mL 11/15/22 09/03/23 mL) subcutaneous pen (Tresiba FlexTouch U-200 insulin) insulin lispro 100 unit/mL 40 unit (0.4 mL) subcut TID #270 mL 09/18/23 07/06/24 subcutaneous pen (Humalog Tempo Pen (U-100) Insulin) ipratropium 0.5 mg-albuterol 3 mg 3 ml inhalation TID PRN shortness 11/15/22 09/03/23 (2.5 mg base)/3 mL nebulization of breath or wheezing #180 mL soln levothyroxine 137 mcg tablet 137 mcg PO DAILY #90 tab-caps 11/15/22 09/03/23 metoprolol succinate 100 mg 150 mg (1.5 x 100 mg) PO DAILY 11/15/22 09/03/23 tablet,extended release 24 hr #135 tab-caps nystatin 100,000 unit/gram topical 1 applic topical BID PRN yeast 11/15/22 09/03/23 powder infx in groin #60 grams trazodone 100 mg tablet 100 mg PO QHS #90 tabs 11/15/22 09/03/23 omeprazole 20 mg capsule,delayed 20 mg PO DAILY #90 caps 03/10/23 09/03/23 release diphenhydramine HCl 25 mg capsule 25 mg PO QHS 03/11/23 09/03/23 (Benadryl) melatonin 10 mg tablet 10 mg PO HS PRN 03/11/23 09/03/23 clonazepam 2 mg tablet 1 - 2 mg (0.5 - 1 x 2 mg) PO QHS 04/18/23 09/03/23 PRN anxiety #30 tab-caps albuterol sulfate 90 mcg/actuation 1 - 2 puff inhalation Q6H PRN #18 05/12/23 09/03/23 aerosol inhaler (ProAir HFA) grams pregabalin 150 mg capsule 150 mg PO QHS #90 caps 06/16/23 09/03/23 clotrimazole-betamethasone 1 1 applic topical BID #45 grams 06/29/23 09/03/23 %-0.05 % topical cream blood-glucose sensor (Dexcom G6 #9 ea 07/05/23 Sensor device) pregabalin 100 mg capsule 100 mg PO .COMPLEX #180 tabs 08/10/23 09/03/23 ketoconazole 2 % topical cream 1 applic topical DAILY #120 grams 08/29/23 09/03/23 pen needle, diabetic 32 gauge x #500 ea 08/30/2303/03 (Novofine 32) Previous Rx's Medication Instructions Recorded insulin syringe-needle U-100 0.5 #100 ea 03/01/19 mL 29 gauge x 1/2 (BD Insulin Syringe) blood sugar diagnostic (Blood #400 ea 12/01/20 Glucose Test strips) loratadine 10 mg capsule 10 mg PO DAILY PRN allergy 04/05/22 symptoms #30 caps blood-glucose meter,continuous #3 ea 07/01/22 (Dexcom G6 Assistant Purchasing Manager) blood-glucose transmitter (Dexcom #1 ea 09/02/22 G6 Transmitter device) chlorthalidone 25 mg tablet 25 mg PO DAILY #90 tabs 10/06/22 ropinirole 1 mg tablet 1.5 mg (1.5 x 1 mg) PO QHS #135 10/20/22 tabs losartan 100 mg tablet 100 mg PO DAILY #90 tabs 11/12/22 budesonide-formoterol HFA 160 2 puff inhalation BID ##3 11/15/22 mcg-4.5 mcg/actuation aerosol inhaler (Symbicort) insulin degludec 200 unit/mL (3 96 unit (0.48 mL) subcut BID #60 mL 11/15/22 mL) subcutaneous pen (Tresiba FlexTouch U-200 insulin) insulin lispro 100 unit/mL 40 unit (0.4 mL) subcut TID #270 mL 11/15/22 subcutaneous pen (Humalog Tempo Pen (U-100) Insulin) ipratropium 0.5 mg-albuterol 3 mg 3 ml inhalation TID PRN shortness 11/15/22 (2.5 mg base)/3 mL nebulization of breath or wheezing #180 mL soln levothyroxine 137 mcg tablet 137 mcg PO DAILY #90 tab-caps 11/15/22 metoprolol succinate 100 mg 150 mg (1.5 x 100 mg) PO DAILY 11/15/22 tablet,extended release 24 hr #135 tab-caps nystatin 100,000 unit/gram topical 1 applic topical BID PRN yeast 11/15/22 powder infx in groin #60 grams trazodone 100 mg tablet 100 mg PO QHS #90 tabs 11/15/22 omeprazole 20 mg capsule,delayed 20 mg PO DAILY #90 caps 03/10/23 release clonazepam 2 mg tablet 1 - 2 mg (0.5 - 1 x 2 mg) PO QHS 04/18/23 PRN anxiety #30 tab-caps albuterol sulfate 90 mcg/actuation 1 - 2 puff inhalation Q6H PRN #18 05/12/23 aerosol inhaler (ProAir HFA) grams pregabalin 150 mg capsule 150 mg PO QHS #90 caps 06/16/23 clotrimazole-betamethasone 1 1 applic topical BID #45 grams 06/29/23 %-0.05 % topical cream blood-glucose sensor (Dexcom G6 #9 ea 07/05/23 Sensor device) pregabalin 100 mg capsule 100 mg PO .COMPLEX #180 tabs 08/10/23 ketoconazole 2 % topical cream 1 applic topical DAILY #120 grams 08/29/23 pen needle, diabetic 32 gauge x #500 ea 08/30/2303/03 (Novofine 32) Allergies Allergy/AdvReac Type Severity Reaction Status Date / Time Penicillins Allergy Skin Rash Verified 09/03/23 15:35 amlodipine besylate AdvReac Intermediate cough Verified 09/03/23 15:35 [From [facility]] lithium AdvReac Intermediate HYPERACTIVITY Verified 09/03/23 15:35 FOR DAYS rizatriptan AdvReac Intermediate BAD COUGH Verified 09/03/23 15:35 FOR 2 YEARS morphine AdvReac Mild Hallucinati Verified 09/03/23 15:35 ons/Vomitin g ibuprofen AdvReac Unknown Other (See Verified 09/03/23 15:35 Comment) atorvastatin AdvReac myalgias Verified 09/03/23 15:35 carbamazepine AdvReac myalgias Verified 09/03/23 15:35 enalaprilat AdvReac Cough Verified 09/03/23 15:35 General Stated Complaint: Chest/Rib EARL: 3 Review of Systems All systems reviewed & are unremarkable except as noted in HPI and below Exam Narrative Exam Narrative: GENERAL APPEARANCE: Morbidly obese, non-toxic, awake and alert, atraumatic, no acute distress. SKIN: Warm, pink, dry, intact, without rashes/lesions/ulcerations. HEAD: Normocephalic, atraumatic- no periorbital ecchymosis, no scalp hematomas, no Ferrell's sign, normal hair distribution for gender/age. EYES: Pupils PERRLA, EOMs intact without nystagmus, normal conjunctiva, no exudates on lids/lashes. ENT: Nares patent, no circumoral cyanosis, no facial swelling NECK: Supple, trachea midline, painless cervical ROM, no midline vertebral tenderness/crepitus/step-offs. LUNGS/CHEST: Lungs CTA bilaterally- no focally diminished or absent lung sounds, non-labored respirations, normal A/P diameter, symmetrical expansion, no chest wall deformity, no flail segment or paradoxical motion, severe TTP to R posterior and axillary ribs with ecchymosis in mid to lower ribs HEART (CV/PV): Regular rate and rhythm without murmur, no peripheral edema, no JVD. ABDOMEN: Soft, non-distended, no guarding, RUQ abdominal tenderness without overt Calloway's sign. MSK: Normal ROM, no swelling/deformity to bilateral UEs or LEs, moving all extremities without weakness, no cyanosis, spine midline without tenderness, normal curvature, L hip tenderness without crepitus NEURO: Mental Status AAOx4 - alert to person, place, time, events No facial droop, no forehead involvement. Motor: No focal weakness - strength 5/5 in bilateral UEs and LEs, proximal and distal, symmetric. Sensory: sensation intact to light touch globally. Gait antalgic. PSYCH: euthymic, cooperative, pleasant, appropriate speech Course Vital Signs Vital signs: Vital Signs Temperature 36.8 C 09/03/23 15:32 Pulse 71 09/03/23 15:32 Respiratory Rate 18 09/03/23 15:32 Blood Pressure 135/54 L 09/03/23 15:32 Pulse Oximetry 94 09/03/23 15:32 Temperature 36.8 C 09/03/23 15:32 Pulse 71 09/03/23 15:32 Respiratory Rate 18 09/03/23 15:32 Respiratory Effort Normal 09/03/23 16:35 Respiratory Depth Normal 09/03/23 16:35 Respiratory Pattern Normal 09/03/23 16:35 Blood Pressure 135/54 L 09/03/23 15:32 Blood Pressure Position Sitting 09/03/23 15:32 Pulse Oximetry 94 09/03/23 15:32 Oxygen Delivery Method Room Air 09/03/23 15:32 Oxygen Flow Rate 0 09/03/23 15:32 Pain Level 9 09/03/23 16:31 Medical Decision Making This dictation utilizes [id number] dictation software and may contain unedited grammatical errors. 68 year-old female presents to ED today by POV/ambulating with antalgic gait and cane, with a chief complaint of significant fall at home 2 days ago, R side pain with bruising, has been having an awful time at home- very difficult to get up to even toilet- works and can't help all day. Quality described as severer R sided axillary pain with deep breathing, with any cough etc, with radiation to shortness of breath, denies chest pain with exertion, denies fever, denies productive cough, endorses RUQ abdominal pain and L hip pain. Severity is described as severe. Palliating factors include OTC analgesics not helping. Provoking factors include multiple falls this year- has had PT visits but cancelled. Events leading up to the incident/Associated Symptoms: mobility issues at baseline, morbid obesity. Patients' medical history: History of alcoholism, hypertension, history of CVA, T2DM, hyperlipidemia, bipolar disorder, diabetic neuropathy, morbid obesity, abdominal wall hernia, von Willebrand factor disorder, asthma. Family and social history: poor diet, no exercise. Pertinent exam findings / vital signs include severe tenderness to the right posterior axillary ribs diffusely, right upper quadrant abdominal tenderness, right sided axillary bruising, severely antalgic gait with mobility issues, slow speech question baseline, benign cardiac exam, left hip tenderness. Differential / pathologies of concern include rib fractures, pulmonary contusion, abdominal organ injuries, left hip fracture, pneumothorax, pneumonia, debility. Diagnostic studies of: -CBC, BMP, Lipase, LFTs, CT Chest/ABD/Pelvis w Contrast. -CBC shows no leukocytosis -Creatinine is elevated above baseline to 1.7, baseline is 1.2, patient will be hydrated here in the ED -Elevated LFTs, has been elevated in the past but not to this degree -CT chest/abdomen/pelvis shows 3 contiguous rib fractures 1 with displacement of the right eighth ninth and 10th ribs without pulmonary contusion or pneumothorax, no acute abdominal injury, no left hip fracture Interventions of: -1 g Tylenol, 5 mg oxycodone, IV fluids-patient does have significant history of allergies to pain medicines, significant risk for pain control at home and fall risk prior to PT evaluation which cannot be performed in the ED after hours. ED Course/Assessment/Plan: 68-year-old female with baseline mobility issues history of CVA, morbid obesity presents 2 days after a fall at home with severe right-sided rib pain and shortness of breath with deep breathing causing pain. She has been barely able to get around the house without significant assistance from her who cannot be there 20/09, getting to the toilet has been a large undertaking. Patient has 3 contiguous rib fractures, high risk for developing pneumonia likely needs incentive spirometry, physical therapy evaluation, possible home health services and pain control observation overnight. Discussed with Surgery on-call Dr. Obregon who accepted for admission. Findings not consistent with pneumothorax, pneumonia, liver laceration, hip fracture. Disposition of Multiple Fractures of Ribs of Right Side. Patient verbalized understanding of the plan and return to ED criteria and engaged in shared decision making. Medical Records Medical records reviewed: Yes I reviewed the patient's medical records. Imaging Data Radiologic Study: Attestation: I personally reviewed and interpreted this imaging study as follows: Imaging: CT Scan Radiologist's impression: EXAM: CT CHEST/ABD/PEL W CLINICAL HISTORY: fall R posterior rib pain, bruising, RUQ tender. TECHNIQUE: Imaging Protocol: Axial computed tomography images with coronal and sagittal reformatted images were created and reviewed CONTRAST MATERIAL: Intravenous: Omnipaque 350 Contrast volume:100 ml Oral: None COMPARISON: CT ABD PELVIS WITH CONTRAST from 07/14/[address] ABDOMEN PELVIS W from 07/04/2023 FINDINGS: CHEST: LUNGS: No evidence of lung contusion, pleural effusion, nor pneumothorax. There is a E 2-3 mm subpleural nodule in the lateral basal segment of the left lower lobe, unchanged from CT scans dating back to 2011 and therefore benign. No new lung base nodules. MEDIASTINUM: No evidence of sternal fracture or mediastinal hematoma. No intrathoracic adenopathy. Thyroid gland appears diminutive. CARDIAC: Heart size is normal. There is no pericardial effusion.Thoracic aorta appears unremarkable. OSSEOUS: There nondisplaced fractures of the anterolateral aspects of the right 8th and 9th ribs and a mildly displaced fracture of the right 10th rib. No left rib fractures identified. No vertebral fractures identified. ABDOMEN: There is no evidence of ascites, bowel wall hematoma nor mesenteric hematoma. LIVER: Intact. No laceration. No lesions. GALLBLADDER/BILIARY: Gallbladder is surgically absent. CBD diameter slightly prominent, most probably commensurate with post cholecystectomy status. PANCREAS: No evidence of pancreatic mass nor dilatation of the pancreatic duct. SPLEEN: Normal size. No laceration. No lesions. Splenic and portal veins are patent. ADRENALS: There are no significant adrenal masses. KIDNEYS: No evidence of renal laceration or subcapsular hematomas.. No focal findings in the kidneys. No hydronephrosis. ABDOMINAL AORTA: Calcified and atherosclerotic and was mild aneurysmal dilatation the distal abdominal aorta but measures 2.4 cm. Calcified but not enlarged common iliac arteries. LYMPH NODES: There is no retroperitoneal nor paraaortic adenopathy. ABDOMINAL WALL: No evidence of significant anterior abdominal wall nor inguinal hernia. GI: There is no evidence of bowel obstruction. PELVIS: LYMPH NODES: There is no intrapelvic nor inguinal adenopathy. GI: No evidence of appendicitis.No evidence of sigmoid diverticulitis. URINARY BLADDER: Unremarkable. Not distended. No intraluminal clots, calculi, nor lesions. REPRODUCTIVE: Uterus surgically absent. No abnormal adnexal masses nor free fluid in the pelvis. OSSEOUS: No hip nor pelvic fractures. Chronic disc space narrowing L3-4, L4-5 and L5-S1 levels, most prominent at L3-4 and L5-S1 levels. Sacroiliac joints appear unremarkable. IMPRESSION: 1. There are fractures of the right 8th and 9th ribs which are nondisplaced and there is a slightly displaced fracture of the right 10th rib. There is no pneumothorax nor lung contusion nor pleural effusion. 2. No other acute trauma sequelae in the chest, abdomen, and pelvis. 3. Other findings as above. Called by myself to ER physician 09/03/2023 6:30 p.m. Lab Data Lab results reviewed: Yes I reviewed the patient's lab results. Labs: Laboratory Tests Range/Units 09/03/23 17:03 WBC (4.4-10.8) 10^3/uL 7.86 RBC (3.93-5.22) 10^6/uL 4.65 Hgb (11.2-15.7) g/dL 15.2 Hct (36.0-46.0) % 45.0 MCV (80-95) fL 97 H MCH (27.0-33.0) pg 32.7 MCHC (32.0-36.0) % 33.8 RDW (11.7-14.6) % 13.8 Plt Count (130-400) 10^3/uL 218 MPV (8.0-11.0) fL 11.4 H Immature Gran % % 1.5 Neutrophils % % 59.0 Lymphocytes % % 23.5 Monocytes % % 12.2 Eosinophils % % 2.8 Basophils % % 1.0 Nucleated RBC % (0.0-0.3) % 0.0 Absolute Neutrophils (1.2-6.7) 10^3/uL 4.63 Absolute Lymphocytes (1.2-3.4) 10^3/uL 1.85 Absolute Monocytes (0.1-0.8) 10^3/uL 0.96 H Absolute Eosinophils (0.0-0.7) 10^3/uL 0.22 Absolute Basophils (0.0-0.2) 10^3/uL 0.08 Sodium (136-145) mmol/L 139 Potassium (3.5-5.1) mmol/L 4.2 Chloride (98-107) mmol/L 102 Carbon Dioxide (21.0-32.0) mmol/L 28.1 Anion Gap (3-11) mmol/L 8.9 BUN (7-18) mg/dL 25 H Creatinine (0.55-1.02) mg/dL 1.7 H Est GFR (CKD-EPI 2020) (mL/min/1.73m2) 32.26 Glucose (74-106) mg/dL 174 H Calcium (8.5-10.1) mg/dL 8.4 L Total Bilirubin (0.2-1.0) mg/dL 0.72 Conjugated Bilirubin (0.0-0.2) mg/dL 0.2 AST (15-37) U/L 133 H ALT (14-59) U/L 172 H Alkaline Phosphatase (46-116) U/L 209 H Total Protein (6.4-8.2) g/dL 7.1 Albumin (3.4-5.0) g/dL 3.9 Lipase (16-77) U/L 19 Quality:SDOH Health Related Social Needs: No Data to Display PFSH All Active Problems (Updated 09/03/23 @ 20:35 by RAHUL Buckner) Multiple fractures of ribs of right side (Acute) Ribs, multiple fractures (Acute) Pain in joints of both feet (Acute) Nail dystrophy (Acute) Onychomycosis (Acute) Ingrown toenail (Acute) Atherosclerosis of artery of both lower extremities (Acute) Type 2 diabetes mellitus with peripheral neuropathy (Acute) Diabetes mellitus with autonomic neuropathy (Acute) Infection of lumbar spine (Acute) Frequent falls (Acute) Chronic low back pain with right-sided sciatica (Acute) Large hiatal hernia (Acute) RLQ abdominal pain (Acute) Cataract (Chronic) Bunion, right foot (Acute) BMI 40.0-44.9, adult (Acute) Abdominal wall hernia (Acute) Coronary artery calcification seen on CAT scan (Acute) Atherosclerosis (Acute) Enlarged heart (Acute) Herpes (Acute) Lumbar radicular pain (Acute) Seborrhea corporis (Acute) Elevated LFTs (Acute) Arthralgia (Acute) DARLENE positive (Acute) Yeast infection (Acute) Staph infection (Acute) Restless leg (Acute) Von Willebrand factor inhibitor disorder (Chronic) Rotator cuff disorder (Chronic 06/27/14) Recurrent ventral hernia (Chronic 04/07/16) Non-alcoholic fatty liver disease (Chronic) elevated LFT Insomnia (Chronic) Hypothyroidism (Chronic) Hyperlipidemia (Chronic) Gastroesophageal reflux disease (Chronic) 09/29/12 EGD SHOW SOME REFULX CHANGES Elevated serum GGT level (Chronic 02/17/15) 1600 in 2011 [address] IRDDLE Diverticula of colon (Chronic) Diabetes mellitus with neuropathy (Chronic 02/14/14) Depressed bipolar I disorder (Chronic) STABLE 02/2011 Chronic cough (Chronic) Cataracts, both eyes (Chronic 12/09/15) 12/09/15-[facility]- OD>OS Atrophic vaginitis (Chronic 09/14/12) Asthma (Chronic) Chronic pain disorder (Chronic 11/25/16) Ganglion (Chronic) Stress incontinence in female (Chronic) Hypertension (Chronic) Medical History Tibial fracture pt. reports surgical intervention Fatigue Torn medial meniscus Diarrhea Cellulitis Trigger finger Hand joint pain (12/01/11) History of tobacco use History of tobacco use quit in 2002 History of alcoholism in sobriety for greater than 10 years Triggering of finger thumb Ganglion of tendon sheath 12/01/11 Hand joint pain 12/01/11 Chest pain 06/05/12 Overdose 1995: alcohol and benzo 09/18/13 Stenosing tenosynovitis of thumb (05/13/14) Right foot pain (12/16/14) Neoplasm of unspecified nature of bone, soft tissue, and skin (08/12/14) Headache Essential hypertension (12/13/12) fatty liver Elevated lipase (08/26/16) Sanjuanita infection (08/26/16) Chronic sinusitis CVA (cerebral vascular accident) 2018 x2 Diabetes type 2, uncontrolled Hypothyroidism Hyperlipidemia Headache Chronic cough Bipolar disorder Diabetic neuropathy Fatty liver disease, nonalcoholic Insomnia Hypomagnesemia Fatigue Surgical History Status post abdominal hysterectomy Status post bilateral salpingo-oophorectomy Status post cholecystectomy Status post hernia repair S/P BSO (bilateral salpingo-oophorectomy) S/P abdominal hysterectomy fibroids, abnormal paps S/P cholecystectomy S/P hernia repair 02/28/11 H/O esophagogastroduodenoscopy active gastritis and focal acute inflammation 02/29/12 H/O surgical procedure right thumb release 02/29/12 hernia repair (~02/2011) Ventral Hernia repair (04/07/16) Dr. Jackson Incision, Tendon Sheath (08/01/12) RIGHT THUMB RELEASE Abdominal hysterectomy FIBROIDS/ABNORMAL PAPS EGD - MAC (09/29/12) ACTIVE GASTRITIS AND FOCAL ACUTE INFLAMMATION. Tooth extraction 10/12/14-TEETH REMOVED Colonoscopy - MAC (~03/2011) Colonoscopy - IV Sedation (04/02/11) DR. TIFFANI NICHOLS; DIVERTICULA Cholecystectomy Bilateral salpingectomy with oophorectomy Family History Mother , age 67 Alcohol abuse Mental disorder Psychotic/paranoid symptoms, unknown diagnosis Cancer bladder/kidney; ?brain Sister Substance abuse MARIJUANA Maternal Grandfather Asthma Alcohol abuse Paternal Grandfather Heart disease Diabetes Stroke Maternal Grandmother No problems noted. Paternal Grandmother Diabetes Sister Substance abuse MARIJUANA Asthma Alcohol abuse Son Depression Diabetes Hyperlipidemia Stroke Son No problems noted. Son Asthma Diabetes Hyperlipidemia Hypertension Father , 80 Cancer Brother Alcohol abuse Depression Social History Smoking/Tobacco Use Status: Former Tobacco Use tobacco type: cigarettes Quit Date: 06/20/03 Tobacco: How many years used: 30 Second Hand Exposure: Yes Smoking risk assessment performed?: Yes Alcohol Intake: former Drug use: Daily Substance use type: marijuana Details: CBD oil Caregiver/Support person: No Household members: spouse and children Housing: house Communication Needs: None Do you need help understanding health information?: Often Pets and animals: Yes Pets and animals: cat(s) and dog(s) Sexually active: No Do you think of yourself as: straight/heterosexual Current gender identity: female What is your relationship status?: How often do you talk on the phone with friends or family?: three or more times per week How often do you get together with friends or relatives?: decline to answer How often do you attend taoism or quaker services?: decline to answer Do you belong to any clubs or organized social groups?: no Panel score (0-1 are the most socially isolated patients): 2 What type of physical activity do you participate in: walking Duration: < 15 minutes/day Frequency: 3-4 times per week Silvia/Worship: Yashira Special silvia needs: No Seatbelt use: always Helmet use: No Drive intox or ride w/intox stage driver: No Do you feel safe at home: Yes Do you feel safe in your relationship?: Yes
[2023-09-03 17:07] LABS: Abs Immature Grans 0.12 10^3/uL (0.0-0.06); Absolute Basophil Count 0.08 10^3/uL (0.0-0.2); Absolute Eosinophil Count 0.22 10^3/uL (0.0-0.7); Absolute Lymphocyte Count 1.85 10^3/uL (1.2-3.4); Absolute Monocyte Count 0.96 10^3/uL (0.1-0.8); Absolute Neutrophil Count 4.63 10^3/uL (1.2-6.7); Eosinophils % 2.8 %; HGB 15.2 g/dL (11.2-15.7); Immature Grans % 1.5 %; Lymphocytes % 23.5 %; MCH 32.7 pg (27.0-33.0); MCHC 33.8 % (32.0-36.0); MCV 97 fL (80-95); MPV 11.4 fL (8.0-11.0); Monocytes % 12.2 %; Platelet Count 218 10^3/uL (130-400); RBC 4.65 10^6/uL (3.93-5.22); RDW 13.8 % (11.7-14.6); RDW-SD 49.3 fL; WBC 7.86 10^3/uL (4.4-10.8)
[2023-09-03 17:30] LABS: ALT 172 U/L (14-59); Albumin 3.9 g/dL (3.4-5.0); Alkaline Phosphatase 209 U/L (46-116); Anion Gap 8.9 mmol/L (3-11); BUN 25 mg/dL (7-18); Bilirubin, Direct 0.2 mg/dL (0.0-0.2); Bilirubin, Total 0.72 mg/dL (0.2-1.0); CO2 28.1 mmol/L (21.0-32.0); CREATININE 1.7 mg/dL (0.55-1.02); Calcium 8.4 mg/dL (8.5-10.1); Chloride 102 mmol/L (98-107); Estimated GFR 32.26 (mL/min/1.73m2); Glucose 174 mg/dL (74-106); Lipase 19 U/L (16-77); Potassium 4.2 mmol/L (3.5-5.1); Sodium 139 mmol/L (136-145); Total Protein 7.1 g/dL (6.4-8.2)
[2023-09-03 18:01] LABS: AST 133 U/L (15-37)
[2023-09-03] MEDS: Normal Saline - Diluent 50 ML VIAL IJ (18:02)
[2023-09-03] MEDS: Omnipaque 350 MG/ML 100 ML BTL IJ (18:05)
[2023-09-03] MEDS: Normal Saline Flush 10 ML SYR IVP (18:06)
[2023-09-03] MEDS: Acetaminophen 500 MG TAB 1000 MG PO ×2 (18:38→23:16)
[2023-09-03] MEDS: oxyCODONE 5 MG TAB PO (18:38)
[2023-09-03] MEDS: Normal Saline 1,000 ML 1000 ML IV (18:46)
--- NOTE | 2023-09-03 20:23 | SCONE_ITS ---
Date of service: 09/03/23 Time of Service: 20:24 Assessment and Plan Assessment and plan (1) Ribs, multiple fractures: Status: Acute Assessment and plan: 68-year-old obese and handicapped(uses cane) woman who fell a couple of days ago and broke 3 ribs on the right. No flail. No pneumothorax now 2 days after the fall. No displacement of significance. No pulmonary contusions and she is on room air. No other injuries. A brief chart review shows that the patient was already undergoing physical therapy and actually canceled her last couple of appointments. Not sure what else we are going to do for her if she is canceling her therapy sessions. She does not need monitoring for 3 rib fractures that are 48 hours old and she is 95% on room air. I am happy to admit her overnight for observation while she gets the narcotics out of her system. She will be discharged in the morning with an incentive spirometer, non-narcotic analgesia and will be encouraged to get back in touch with her physical therapy team. History of Present Illness Narrative: The history and physical is per the ED provider: Called by ER requesting admission for observation on a 68-year-old morbidly obese woman who uses a cane and has had frequent falls and fell a couple of days ago, from standing, and now presented to the ER. The only findings on cross-sectional imaging were 3 broken ribs on the right. 1 is mildly displaced. No hemo or pneumothorax. No pulmonary contusion. Patient is reportedly 95% on room air. ER provider says the patient is too out of it to ambulate after being given narcotics in the ED and for this reason request the admission. [facility] All Active Problems (Updated 09/03/23 @ 20:26 by Shemar Obregon MD) Ribs, multiple fractures (Acute) Pain in joints of both feet (Acute) Nail dystrophy (Acute) Onychomycosis (Acute) Ingrown toenail (Acute) Atherosclerosis of artery of both lower extremities (Acute) Type 2 diabetes mellitus with peripheral neuropathy (Acute) Diabetes mellitus with autonomic neuropathy (Acute) Infection of lumbar spine (Acute) Frequent falls (Acute) Chronic low back pain with right-sided sciatica (Acute) Large hiatal hernia (Acute) RLQ abdominal pain (Acute) Cataract (Chronic) Bunion, right foot (Acute) BMI 40.0-44.9, adult (Acute) Abdominal wall hernia (Acute) Coronary artery calcification seen on CAT scan (Acute) Atherosclerosis (Acute) Enlarged heart (Acute) Herpes (Acute) Lumbar radicular pain (Acute) Seborrhea corporis (Acute) Elevated LFTs (Acute) Arthralgia (Acute) DARLENE positive (Acute) Yeast infection (Acute) Staph infection (Acute) Restless leg (Acute) Von Willebrand factor inhibitor disorder (Chronic) Rotator cuff disorder (Chronic 06/27/14) Recurrent ventral hernia (Chronic 04/07/16) Non-alcoholic fatty liver disease (Chronic) elevated LFT Insomnia (Chronic) Hypothyroidism (Chronic) Hyperlipidemia (Chronic) Gastroesophageal reflux disease (Chronic) 09/29/12 EGD SHOW SOME REFULX CHANGES Elevated serum GGT level (Chronic 02/17/15) 1600 in 2011 [address] RIDDLE Diverticula of colon (Chronic) Diabetes mellitus with neuropathy (Chronic 02/14/14) Depressed bipolar I disorder (Chronic) STABLE 02/2011 Chronic cough (Chronic) Cataracts, both eyes (Chronic 12/09/15) [facility] Atrophic vaginitis (Chronic 09/14/12) Asthma (Chronic) Chronic pain disorder (Chronic 11/25/16) Ganglion (Chronic) Stress incontinence in female (Chronic) Hypertension (Chronic) Medical History Tibial fracture pt. reports surgical intervention Fatigue Torn medial meniscus Diarrhea Cellulitis Trigger finger Hand joint pain (12/01/11) History of tobacco use History of tobacco use quit in 2002 History of alcoholism in sobriety for greater than 10 years Triggering of finger thumb Ganglion of tendon sheath 12/01/11 Hand joint pain 12/01/11 Chest pain 06/05/12 Overdose 1995: alcohol and benzo 09/18/13 Stenosing tenosynovitis of thumb (05/13/14) Right foot pain (12/16/14) Neoplasm of unspecified nature of bone, soft tissue, and skin (08/12/14) Headache Essential hypertension (12/13/12) fatty liver Elevated lipase (08/26/16) Sanjuanita infection (08/26/16) Chronic sinusitis CVA (cerebral vascular accident) 2018 x2 Diabetes type 2, uncontrolled Hypothyroidism Hyperlipidemia Headache Chronic cough Bipolar disorder Diabetic neuropathy Fatty liver disease, nonalcoholic Insomnia Hypomagnesemia Fatigue Surgical History Status post abdominal hysterectomy Status post bilateral salpingo-oophorectomy Status post cholecystectomy Status post hernia repair S/P BSO (bilateral salpingo-oophorectomy) S/P abdominal hysterectomy fibroids, abnormal paps S/P cholecystectomy S/P hernia repair 02/28/11 H/O esophagogastroduodenoscopy active gastritis and focal acute inflammation 02/29/12 H/O surgical procedure right thumb release 02/29/12 hernia repair (~02/2011) Ventral Hernia repair (04/07/16) Dr. Jackson Incision, Tendon Sheath (08/01/12) RIGHT THUMB RELEASE Abdominal hysterectomy FIBROIDS/ABNORMAL PAPS EGD - MAC (09/29/12) ACTIVE GASTRITIS AND FOCAL ACUTE INFLAMMATION. Tooth extraction 10/12/14-TEETH REMOVED Colonoscopy - MAC (~03/2011) Colonoscopy - IV Sedation (04/02/11) DR. TIFFANI NICHOLS; DIVERTICULA Cholecystectomy Bilateral salpingectomy with oophorectomy Family History Mother , age 67 Alcohol abuse Mental disorder Psychotic/paranoid symptoms, unknown diagnosis Cancer bladder/kidney; ?brain Sister Substance abuse MARIJUANA Maternal Grandfather Asthma Alcohol abuse Paternal Grandfather Heart disease Diabetes Stroke Maternal Grandmother No problems noted. Paternal Grandmother Diabetes Sister Substance abuse MARIJUANA Asthma Alcohol abuse Son Depression Diabetes Hyperlipidemia Stroke Son No problems noted. Son Asthma Diabetes Hyperlipidemia Hypertension Father , 80 Cancer Brother Alcohol abuse Depression Social History Smoking/Tobacco Use Status: Former Tobacco Use tobacco type: cigarettes Quit Date: 06/20/03 Tobacco: How many years used: 30 Second Hand Exposure: Yes Smoking risk assessment performed?: Yes Alcohol Intake: former Drug use: Daily Substance use type: marijuana Details: CBD oil Caregiver/Support person: No Household members: spouse and children Housing: house Communication Needs: None Do you need help understanding health information?: Often Pets and animals: Yes Pets and animals: cat(s) and dog(s) Sexually active: No Do you think of yourself as: straight/heterosexual Current gender identity: female What is your relationship status?: How often do you talk on the phone with friends or family?: three or more times per week How often do you get together with friends or relatives?: decline to answer How often do you attend latter day or latter-day services?: decline to answer Do you belong to any clubs or organized social groups?: no Panel score (0-1 are the most socially isolated patients): 2 What type of physical activity do you participate in: walking Duration: < 15 minutes/day Frequency: 3-4 times per week Silvia/Holiness: Ac Special silvia needs: No Seatbelt use: always Helmet use: No Drive intox or ride w/intox tank wagon driver: No Do you feel safe at home: Yes Do you feel safe in your relationship?: Yes Exam Narrative Exam Narrative: Per ED provider: Hemodynamically stable, on room air and in no respiratory distress Results Last Vital Signs Temp 98.2 F 09/03/23 15:32 Pulse 61 09/03/23 19:31 Resp 18 09/03/23 15:32 BP 142/64 H 09/03/23 19:31 Pulse Ox 95 09/03/23 18:33 Labs 09/03/23 17:03 09/03/23 17:03 Labs: Laboratory Results - last 24 hr 09/03/23 17:03 WBC 7.86 RBC 4.65 Hgb 15.2 Hct 45.0 MCV 97 H MCH 32.7 MCHC 33.8 RDW 13.8 Plt Count 218 MPV 11.4 H Immature Gran % 1.5 Neutrophils % 59.0 Lymphocytes % 23.5 Monocytes % 12.2 Eosinophils % 2.8 Basophils % 1.0 Nucleated RBC % 0.0 Absolute Neutrophils 4.63 Absolute Lymphocytes 1.85 Absolute Monocytes 0.96 H Absolute Eosinophils 0.22 Absolute Basophils 0.08 Sodium 139 Potassium 4.2 Chloride 102 Carbon Dioxide 28.1 Anion Gap 8.9 BUN 25 H Creatinine 1.7 H Est GFR (CKD-EPI 2020) 32.26 Glucose 174 H Calcium 8.4 L Total Bilirubin 0.72 Conjugated Bilirubin 0.2 AST 133 H ALT 172 H Alkaline Phosphatase 209 H Total Protein 7.1 Albumin 3.9 Lipase 19
[2023-09-03] MEDS: Heparin 5,000 UNITS/ML VIAL 5000 UNITS SC (23:15)
[2023-09-03] MEDS: traZODone 100 MG TAB PO (23:16)
[2023-09-03] MEDS: Pregabalin 100 MG CAP (23:24)
[2023-09-03] MEDS: Pregabalin 50 MG CAP (23:24)
[2023-09-03] MEDS: rOPINIRole 1 MG TAB 1.5 MG PO (23:47)
[2023-09-03] MEDS: clonazePAM 1 MG TAB PO (23:51)
--- NOTE | 2023-09-04 02:36 | W.PC.ACHO ---
Registration Status: ADM RAFA Primary Language: Preferred Language: Armenian ED Information & Data Chief Complaint Chest/Rib 09/03/23 16:42 Triage Note Patient fell 3 days ago. 09/03/23 15:32 Patient landed on her right side. Patient complaining of right side pain Medical / Surgical History (Last Reviewed 08/29/23 @ 12:19 by Chelsea Huang DPM) Tibial fracture Fatigue Torn medial meniscus Diarrhea Cellulitis Trigger finger Hand joint pain (12/01/11) History of tobacco use History of tobacco use History of alcoholism Triggering of finger Ganglion of tendon sheath Hand joint pain Chest pain Overdose Stenosing tenosynovitis of thumb (05/13/14) Right foot pain (12/16/14) Neoplasm of unspecified nature of bone, soft tissue, and skin (08/12/14) Headache Essential hypertension (12/13/12) Elevated lipase (08/26/16) Sanjuanita infection (08/26/16) Chronic sinusitis CVA (cerebral vascular accident) Diabetes type 2, uncontrolled Hypothyroidism Hyperlipidemia Headache Chronic cough Bipolar disorder Diabetic neuropathy Fatty liver disease, nonalcoholic Insomnia Hypomagnesemia Fatigue (Last Reviewed 08/29/23 @ 12:19 by Chelsea Huang DPM) Status post abdominal hysterectomy Status post bilateral salpingo-oophorectomy Status post cholecystectomy Status post hernia repair S/P BSO (bilateral salpingo-oophorectomy) S/P abdominal hysterectomy S/P cholecystectomy S/P hernia repair H/O esophagogastroduodenoscopy H/O surgical procedure hernia repair (~02/2011) Ventral Hernia repair (04/07/16) Incision, Tendon Sheath (08/01/12) Abdominal hysterectomy EGD - MAC (09/29/12) Tooth extraction Colonoscopy - MAC (~03/2011) Colonoscopy - IV Sedation (04/02/11) Cholecystectomy Bilateral salpingectomy with oophorectomy Most Recent Vital Signs Temperature 36.4 C L 09/03/23 21:50 Pulse 64 09/03/23 21:50 Pulse Rhythm Regular 09/03/23 21:50 Respiratory Rate 18 09/03/23 21:50 Respiratory Effort Normal, Non-Labored, Short of Breath 09/03/23 21:50 Respiratory Depth Shallow 09/03/23 21:50 Respiratory Pattern Normal 09/03/23 21:50 Blood Pressure 126/66 09/03/23 21:50 Blood Pressure Mean 94 09/03/23 19:31 Blood Pressure Position Sitting 09/03/23 15:32 Pulse Oximetry 96 09/03/23 22:20 Oxygen Delivery Method Room Air 09/03/23 22:20 Oxygen Flow Rate 0 09/03/23 22:20 Pain Level 8 09/03/23 23:16 Allergies Penicillins Allergy (Verified 09/03/23 15:35) Skin Rash ithcy amlodipine besylate [From [facility]] Adverse Reaction (Intermediate, Verified 09/03/23 15:35) cough cough lithium Adverse Reaction (Intermediate, Verified 09/03/23 15:35) HYPERACTIVITY FOR DAYS rizatriptan Adverse Reaction (Intermediate, Verified 09/03/23 15:35) BAD COUGH FOR 2 YEARS morphine Adverse Reaction (Mild, Verified 09/03/23 15:35) Hallucinations/Vomiting ibuprofen Adverse Reaction (Unknown, Verified 09/03/23 15:35) Other (See Comment) pt. reports it makes her heart crazy things atorvastatin Adverse Reaction (Verified 09/03/23 15:35) myalgias carbamazepine Adverse Reaction (Verified 09/03/23 15:35) myalgias enalaprilat Adverse Reaction (Verified 09/03/23 15:35) Cough Precautions Isolation Standard precaution 09/03/23 15:36 Active Medications Generic Name Dose Route Start Last Admin Trade Name Freq PRN Reason Stop Dose Admin Clonazepam 1 - 2 mg 09/03/23 22:45 09/03/23 23:51 Clonazepam 1 Mg Tab PO 2 mg HS PRN PRN Administration anxiety Iohexol 100 ml 09/03/23 18:15 09/03/23 18:05 Omnipaque 350 Mg/Ml 100 Ml Btl IJ 10/03/23 23:59 100 ml DIRECTED CANDACE Administration Pregabalin 150 mg 09/03/23 21:00 09/03/23 23:59 Pregabalin 150 Mg Cap PO Not Given HS CANDACE Ropinirole HCl 1.5 mg 09/03/23 22:36 09/03/23 23:47 Ropinirole 1 Mg Tab PO 1.5 mg HS CANDACE Administration Sodium Chloride 50 ml 09/03/23 18:15 09/03/23 18:02 Normal Saline - Diluent 50 Ml Vial IJ 50 ml .FOR DI USE CANDACE Administration Sodium Chloride 0 ml 09/03/23 18:05 09/03/23 18:06 Normal Saline Flush 10 Ml Syr IVP 10 ml PRN PRN Administration Trazodone HCl 100 mg 09/03/23 21:00 09/03/23 23:16 Trazodone 100 Mg Tab PO 100 mg HS CANDACE Administration IV IV Catheter Type [Left Saline Lock Antecubital] Diagnostics 09/03/23 Range/Units 17:03 WBC 7.86 (4.4-10.8) 10^3/uL RBC 4.65 (3.93-5.22) 10^6/uL Hgb 15.2 (11.2-15.7) g/dL Hct 45.0 (36.0-46.0) % MCV 97 H (80-95) fL MCH 32.7 (27.0-33.0) pg MCHC 33.8 (32.0-36.0) % RDW 13.8 (11.7-14.6) % Plt Count 218 (130-400) 10^3/uL MPV 11.4 H (8.0-11.0) fL Immature Gran % 1.5 % Neutrophils % 59.0 % Lymphocytes % 23.5 % Monocytes % 12.2 % Eosinophils % 2.8 % Basophils % 1.0 % Nucleated RBC % 0.0 (0.0-0.3) % Absolute Neutrophils 4.63 (1.2-6.7) 10^3/uL Absolute Lymphocytes 1.85 (1.2-3.4) 10^3/uL Absolute Monocytes 0.96 H (0.1-0.8) 10^3/uL Absolute Eosinophils 0.22 (0.0-0.7) 10^3/uL Absolute Basophils 0.08 (0.0-0.2) 10^3/uL Sodium 139 (136-145) mmol/L Potassium 4.2 (3.5-5.1) mmol/L Chloride 102 (98-107) mmol/L Carbon Dioxide 28.1 (21.0-32.0) mmol/L Anion Gap 8.9 (3-11) mmol/L BUN 25 H (7-18) mg/dL Creatinine 1.7 H (0.55-1.02) mg/dL Est GFR (CKD-EPI 2020) 32.26 (mL/min/1.73m2) Glucose 174 H (74-106) mg/dL Calcium 8.4 L (8.5-10.1) mg/dL Total Bilirubin 0.72 (0.2-1.0) mg/dL Conjugated Bilirubin 0.2 (0.0-0.2) mg/dL AST 133 H (15-37) U/L ALT 172 H (14-59) U/L Alkaline Phosphatase 209 H (46-116) U/L Total Protein 7.1 (6.4-8.2) g/dL Albumin 3.9 (3.4-5.0) g/dL Lipase 19 (16-77) U/L [id number] Documentation Fingerstick Glucose Start: 09/03/23 21:58 Freq: Status: Complete Protocol: Activity Type Activity Date Activity User E-sign Co-sign Detail Recorded Client Recorded Date Recorded By Document 09/03/23 21:58 VAIBHAV BENDER(3) [id number] 09/03/23 21:58 VAIBHAV DALYNN(4) Intake and Output - 24 Hour Total 09/03/23 15:27 thru 09/04/23 01:18 Intake Total 1550 Output Total 150 Balance 1400 Weight 113.852 kg Intake: IV 1000 Oral 550 Output: Urine 150 Other: Urine Color Pale Yellow Urine Appearance Clear Urine Odor Normal Voiding Methods Bedside Commode Falls Risk Assessment History of Falls Previous History 09/03/23 21:50 Contributing Factors Impairments,Incontinence 09/03/23 21:50 Ambulatory Aids Uses ambulatory device 09/03/23 21:50 Tubes/Lines None 09/03/23 21:50 Gait Evaluation W/any additional score 09/03/23 21:50 Cognition No cognitive impairment 09/03/23 21:50 Fall Total Score 56 09/03/23 21:50 Level of Risk High Risk 09/03/23 21:50 Problems (Last Reviewed 08/29/23 @ 12:19 by Chelsea Huang DPM) Ribs, multiple fractures (Acute) v v v v v v v v v Sending and/or Receiving Nurses: Please use comment section below to note any information pertinent to the patient hand-off not included above. 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 Ribs 8-9 non-displaced. Rib 10 slightly displaced. No pneumo/hemothorax. Bruising to R mid back, low back, and buttock. Pain managed in ED with acetaminophen 1000mg and oxycodone 5mg at 1838; no subsequent complaints of pain. Uses a walker at baseline, transferred well from chair to bed. FSBG not taken in ED. Med reconciliation not completed in ED. Report received from:
[2023-09-04] MEDS: Acetaminophen 500 MG TAB 1000 MG PO (06:05)
[2023-09-04] MEDS: Budesonide/Formoterol 160/4.5 6 GM 60 PUFF INH IH (08:57)
--- NOTE | 2023-09-04 09:07 | W.PM.DS.N ---
Date of service: 09/04/23 Time of Service: 09:08 DS: Diagnosis Discharge Diagnosis (1) Ribs, multiple fractures: Status: Acute Asessment and Plan: 68-year-old woman with 3 right?sided rib fractures from a fall, from standing, 3 days ago. She is saturating 96% on room air. She has no noticeable pain objectively and denies any significant pain subjectively. She is able to pull 2300 cc on incentive spirometry without any difficulty. She can be discharged home. She has been seeing PT for months and does not need another PT evaluation here in the hospital. She is certainly at elevated risk for repeated falls in the future, but this is a chronic, baseline problem and she can continue her outpatient physical therapy plan and have further management and input from her PCP. She does not need follow-up in the surgery office and does not need repeat chest imaging unless she develops respiratory symptoms to suggest pneumonia. Discharge Plan Disposition Patient Disposition: Home Condition: Stable Condition: Stable Discharge Details Reason For Visit: RIB FRACTURES Admit Date/Time: 09/03/23 20:32 Admit Provider: Shemar Obregon Attending Provider: Shemar Obregon Primary Care Provider: Rneu Gerber [facility] Hospital Course: 68-year-old woman fell from standing at home. A couple days later she came in to be evaluated at the ER because of persistent pain. She was found to have 3 right?sided rib fractures. No pneumothorax. No hemothorax. No pulmonary contusions. She was saturating in the high 90s on room air. She was able to perform incentive spirometry of 2200?2500 at the time of admission. She had been seeing physical therapy at baseline in the outpatient setting. The ER provider felt that she needed to be monitored overnight because she became too sedated after receiving narcotic medication. She was not given any more narcotic medication. She was admitted in the next morning was able to perform incentive spirometry 2300 cc at the bedside without any analgesia on board other than Tylenol. She had no subjective complaints other than mild rib pain and was saturating 96% on room air with a normal respiratory rate. She was thus set up for discharge home and will follow-up with her PCP and her physical therapy team. She does not need any chest imaging or surgery follow-up. If she develops pneumonia symptoms, then chest imaging should be performed. She was discharged with an incentive spirometer and had been given instructions on how to use it. Home Meds and New Rx's Prescriptions: No Action budesonide-formoterol [Symbicort] 160-4.5 mcg/actuation HFA aerosol inhaler 2 puff Inhalation BID Qty: 3 4RF insulin degludec [Tresiba FlexTouch U-200] 200 unit/mL (3 mL) insulin pen 96 unit SC BID Qty: 60 5RF Rx Instructions: insulin dependent diabetes ipratropium-albuterol 0.5 mg-3 mg(2.5 mg base)/3 mL solution for nebulization 3 ml Inhalation TID PRN (Reason: shortness of breath or wheezing) Qty: 180 3RF Rx Instructions: J45.909 metoprolol succinate 100 mg tablet extended release 24 hr 150 mg PO DAILY Qty: 135 3RF nystatin 100,000 unit/gram powder 1 applic TP BID PRN (Reason: yeast infx in groin) Qty: 60 1RF trazodone 100 mg tablet 100 mg PO QHS Qty: 90 4RF levothyroxine 137 mcg tablet 137 mcg PO DAILY Qty: 90 11RF insulin lispro [Humalog Tempo Pen(U-100)Insuln] 100 unit/mL insulin pen 40 unit subcut TID Qty: 270 5RF clotrimazole-betamethasone 1-0.05 % cream 1 applic topical BID Qty: 45 0RF ketoconazole 2 % cream 1 applic topical DAILY Qty: 120 6RF Patient Comments: Medication just picked up from pharmacy, has not used yet Rx Instructions: Apply to toenails once daily (DME) insulin syringe-needle U-100 [BD Insulin Syringe] 0.5 mL 29 gauge x 1/2 syringe See Dose Instructions .ROUTE .MEDSUPPLY Qty: 100 7RF Dose Instruction: As directed Rx Instructions: As directed loratadine 10 mg capsule 10 mg PO DAILY PRN (Reason: allergy symptoms) Qty: 30 0RF pregabalin 150 mg capsule 150 mg PO QHS Qty: 90 3RF cholecalciferol (vitamin D3) [Vitamin D3] 2,000 UNIT capsule 2,000 unit PO DAILY (DME) Blood Glucose Test Strip See Dose Instructions .Route .MEDSUPPLY Qty: 400 5RF Dose Instruction: AC and HS Patient Comments: pt. reports checking blood sugar this AM, BS 134 @ 0800 Rx Instructions: AC and HS; 4Xdaily; E11.21 (DME) Dexcom G6 Inside Meter Tester Misc See Rx Instructions .Route Qty: 3 4RF Rx Instructions: As directed E11.9 (DME) Dexcom G6 Transmitter Device See Rx Instructions .Route Qty: 1 3RF Rx Instructions: As directed chlorthalidone 25 mg tablet 25 mg PO DAILY Qty: 90 3RF ropinirole 1 mg tablet 1.5 mg PO QHS Qty: 135 4RF Rx Instructions: administer 1-3 hours before bedtime losartan 100 mg tablet 100 mg PO DAILY Qty: 90 4RF omeprazole 20 mg capsule,delayed release(DR/EC) 20 mg PO DAILY Qty: 90 3RF clonazepam 2 mg tablet 1 - 2 mg PO QHS MDD 1 PRN (Reason: anxiety) Qty: 30 5RF albuterol sulfate [ProAir HFA] 90 mcg/actuation HFA aerosol inhaler 1 - 2 puff Inhalation Q6H PRN Qty: 18 3RF (DME) Dexcom G6 Sensor Device See Rx Instructions .Route Qty: 9 4RF Rx Instructions: As directed E11.9 pregabalin 100 mg capsule 100 mg PO .COMPLEX MDD 3 tabs Qty: 180 5RF Rx Instructions: 100 mg orally am and noon; (DME) pen needle, diabetic [Novofine 32] 32 gauge x 1/4 needle 1 ea Miscellaneous 5 time day Qty: 500 4RF Rx Instructions: E11.40 novofine pen needles 32X6mm ; use 5 times daily Rybelsus 3 mg tablet PO DAILY nystatin-triamcinolone 100,000-0.1 unit/gram-% ointment TOPICAL DAILY PRN Patient Comments: APPLY TOPICALLY UNDER BREASTS TWO TIMES A DAY melatonin 10 mg tablet 10 mg PO HS PRN diphenhydramine HCl [Benadryl] 25 mg capsule 25 mg PO QHS Patient Comments: pt. reports she took 2 last night, for a dose of 50mg Discharge Instructions Additional Instructions: Activity: As tolerated, try to avoid falling. Stay ambulatory and be up and about as much as you can. Breathing: Use incentive spirometry, 10 times per hour, every hour while awake, for the next 2 weeks. Pain: Take Tylenol as needed. Heat and ice can also be used. Diet: Regular Medications: Resume all of your usual and regular home medications Follow-up: See your PCP in the next 7 to 10 days. We encourage you to continue seeing your physical therapist team. Return to ER: For any worsening shortness of breath, fevers or new productive cough Activity:: Activity as Tolerated Equipment/Supplies:: No Equipment Needed Diet:: As Tolerated DS: Summary Time Spent with Patient providing and/or coordinating discharge services: Greater than 30 minutes Status at Discharge Functional status at discharge: uses cane/walker (Baseline) Overall status at discharge: patient is back to baseline Mental Status: mental status grossly normal Speech and Movement: speech and movement normal Mood: congruent mood Affect: normal affect Quality:SDOH Health Related Social Needs: No Data to Display Exam Narrative Exam Narrative: General: Nontoxic, comfortable and interactive Neuro: Alert and oriented x 3 Psych: Good mood and affect, reasonable insight and understanding Heart: Regular Chest: Nonlabored breathing, breath sounds are present bilateral, no crepitus, no significant tenderness to palpation. Abdomen: Soft, nondistended and grossly nontender. She is morbidly obese. Extremities: Free range of motion x 4 Psych Mental Status: mental status grossly normal Speech and Movement: speech and movement normal Mood: congruent mood Affect: normal affect DS: Data Vitals/I&O Vitals and I&O: Vital Signs Temperature 97.5 F L 09/03/23 21:50 Pulse 64 09/03/23 21:50 Pulse Rhythm Regular 09/03/23 21:50 Respiratory Rate 18 09/03/23 21:50 Respiratory Effort Normal, Non-Labored, Short of Breath 09/03/23 21:50 Respiratory Depth Shallow 09/03/23 21:50 Respiratory Pattern Normal 09/03/23 21:50 Blood Pressure 126/66 09/03/23 21:50 Blood Pressure Mean 94 09/03/23 19:31 Blood Pressure Position Sitting 09/03/23 15:32 Pulse Oximetry 96 09/03/23 22:20 Oxygen Delivery Method Room Air 09/03/23 22:20 Oxygen Flow Rate 0 09/03/23 22:20 Pain Level 7 09/04/23 06:10 Intake & Output 09/03/23 09/03/23 09/04/23 11:59 23:59 11:59 Intake Total 1550 / 1550 Output Total 100 / 100 50 / 50 Balance 1450 / 1450 -50 / -50 Weight 251 lb Intake: IV 1000 / 1000 Oral 550 / 550 Output: Urine 100 / 100 50 / 50 Other: Urine Color Yellow Pale Yellow Urine Appearance Cloudy Clear Urine Odor Normal Normal Voiding Methods Bedside Commode Bedside Commode Data Completed and Pending Labs on day of discharge: Labs from last 24 hours 09/04/23 09/03/23 08:20 17:03 WBC Cancelled 7.86 RBC Cancelled 4.65 Hgb Cancelled 15.2 Hct Cancelled 45.0 MCV Cancelled 97 H MCH Cancelled 32.7 MCHC Cancelled 33.8 RDW Cancelled 13.8 Plt Count Cancelled 218 MPV Cancelled 11.4 H Immature Gran % 1.5 Neutrophils % 59.0 Lymphocytes % 23.5 Monocytes % 12.2 Eosinophils % 2.8 Basophils % 1.0 Nucleated RBC % 0.0 Absolute Neutrophils 4.63 Absolute Lymphocytes 1.85 Absolute Monocytes 0.96 H Absolute Eosinophils 0.22 Absolute Basophils 0.08 Sodium 139 Potassium 4.2 Chloride 102 Carbon Dioxide 28.1 Anion Gap 8.9 BUN 25 H Creatinine 1.7 H Est GFR (CKD-EPI 2020) 32.26 Glucose 174 H Calcium 8.4 L Total Bilirubin 0.72 Conjugated Bilirubin 0.2 AST 133 H ALT 172 H Alkaline Phosphatase 209 H Total Protein 7.1 Albumin 3.9 Lipase 19 PFSH All Active Problems (Updated 09/03/23 @ 20:35 by RAHUL Buckner) Multiple fractures of ribs of right side (Acute) Ribs, multiple fractures (Acute) Pain in joints of both feet (Acute) Nail dystrophy (Acute) Onychomycosis (Acute) Ingrown toenail (Acute) Atherosclerosis of artery of both lower extremities (Acute) Type 2 diabetes mellitus with peripheral neuropathy (Acute) Diabetes mellitus with autonomic neuropathy (Acute) Infection of lumbar spine (Acute) Frequent falls (Acute) Chronic low back pain with right-sided sciatica (Acute) Large hiatal hernia (Acute) RLQ abdominal pain (Acute) Cataract (Chronic) Bunion, right foot (Acute) BMI 40.0-44.9, adult (Acute) Abdominal wall hernia (Acute) Coronary artery calcification seen on CAT scan (Acute) Atherosclerosis (Acute) Enlarged heart (Acute) Herpes (Acute) Lumbar radicular pain (Acute) Seborrhea corporis (Acute) Elevated LFTs (Acute) Arthralgia (Acute) DARLENE positive (Acute) Yeast infection (Acute) Staph infection (Acute) Restless leg (Acute) Von Willebrand factor inhibitor disorder (Chronic) Rotator cuff disorder (Chronic 06/27/14) Recurrent ventral hernia (Chronic 04/07/16) Non-alcoholic fatty liver disease (Chronic) elevated LFT Insomnia (Chronic) Hypothyroidism (Chronic) Hyperlipidemia (Chronic) Gastroesophageal reflux disease (Chronic) 09/29/12 EGD SHOW SOME REFULX CHANGES Elevated serum GGT level (Chronic 02/17/15) 1600 in 2011 [address] RIDDLE Diverticula of colon (Chronic) Diabetes mellitus with neuropathy (Chronic 02/14/14) Depressed bipolar I disorder (Chronic) STABLE 02/2011 Chronic cough (Chronic) Cataracts, both eyes (Chronic 12/09/15) 12/09/15-[facility]- [facility]>OS Atrophic vaginitis (Chronic 09/14/12) Asthma (Chronic) Chronic pain disorder (Chronic 11/25/16) Ganglion (Chronic) Stress incontinence in female (Chronic) Hypertension (Chronic) Medical History Tibial fracture pt. reports surgical intervention Fatigue Torn medial meniscus Diarrhea Cellulitis Trigger finger Hand joint pain (12/01/11) History of tobacco use History of tobacco use quit in 2002 History of alcoholism in sobriety for greater than 10 years Triggering of finger thumb Ganglion of tendon sheath 12/01/11 Hand joint pain 12/01/11 Chest pain 06/05/12 Overdose 1994: alcohol and benzo 09/18/13 Stenosing tenosynovitis of thumb (05/13/14) Right foot pain (12/16/14) Neoplasm of unspecified nature of bone, soft tissue, and skin (08/12/14) Headache Essential hypertension (12/13/12) fatty liver Elevated lipase (08/26/16) Sanjuanita infection (08/26/16) Chronic sinusitis CVA (cerebral vascular accident) 2018 x2 Diabetes type 2, uncontrolled Hypothyroidism Hyperlipidemia Headache Chronic cough Bipolar disorder Diabetic neuropathy Fatty liver disease, nonalcoholic Insomnia Hypomagnesemia Fatigue Surgical History Status post abdominal hysterectomy Status post bilateral salpingo-oophorectomy Status post cholecystectomy Status post hernia repair S/P BSO (bilateral salpingo-oophorectomy) S/P abdominal hysterectomy fibroids, abnormal paps S/P cholecystectomy S/P hernia repair 02/28/11 H/O esophagogastroduodenoscopy active gastritis and focal acute inflammation 02/29/12 H/O surgical procedure right thumb release 02/29/12 hernia repair (~02/2011) Ventral Hernia repair (04/07/16) Dr. Jackson Incision, Tendon Sheath (08/01/12) RIGHT THUMB RELEASE Abdominal hysterectomy FIBROIDS/ABNORMAL PAPS EGD - MAC (09/29/12) ACTIVE GASTRITIS AND FOCAL ACUTE INFLAMMATION. Tooth extraction 10/12/14-TEETH REMOVED Colonoscopy - MAC (~03/2011) Colonoscopy - IV Sedation (04/02/11) DR. TIFFANI NICHOLS; DIVERT[facility] Cholecystectomy Bilateral salpingectomy with oophorectomy Family History Mother , age 67 Alcohol abuse Mental disorder Psychotic/paranoid symptoms, unknown diagnosis Cancer bladder/kidney; ?brain Sister Substance abuse MARIJUANA Maternal Grandfather Asthma Alcohol abuse Paternal Grandfather Heart disease Diabetes Stroke Maternal Grandmother No problems noted. Paternal Grandmother Diabetes Sister Substance abuse MARIJUANA Asthma Alcohol abuse Son Depression Diabetes Hyperlipidemia Stroke Son No problems noted. Son Asthma Diabetes Hyperlipidemia Hypertension Father , 80 Cancer Brother Alcohol abuse Depression Social History Smoking/Tobacco Use Status: Former Tobacco Use tobacco type: cigarettes Quit Date: 06/20/03 Tobacco: How many years used: 30 Second Hand Exposure: Yes Smoking risk assessment performed?: Yes Alcohol Intake: former Drug use: Daily Substance use type: marijuana Details: CBD oil Caregiver/Support person: No Household members: spouse and children Housing: house Communication Needs: None Do you need help understanding health information?: Often Pets and animals: Yes Pets and animals: cat(s) and dog(s) Sexually active: No Do you think of yourself as: straight/heterosexual Current gender identity: female What is your relationship status?: How often do you talk on the phone with friends or family?: three or more times per week How often do you get together with friends or relatives?: decline to answer How often do you attend islam or adventism services?: decline to answer Do you belong to any clubs or organized social groups?: no Panel score (0-1 are the most socially isolated patients): 2 What type of physical activity do you participate in: walking Duration: < 15 minutes/day Frequency: 3-4 times per week Silvia/Holiness: Yashira Special silvia needs: No Seatbelt use: always Helmet use: No Drive intox or ride w/intox truss driver helper: No Do you feel safe at home: Yes Do you feel safe in your relationship?: Yes Time Spent with Patient Time Spent with Patient: 45-69 minutes Time was spent: preparing to see the patient(eg.review tests), obtaining and/or reviewing separately otained hiistory, indepentently interpreting results, counseling the patient and care coordination
[2023-09-04 09:12] VITALS: BP 117/64; PULSE 66; RESP 16; TEMP 36.6; O2SAT 92
[2023-09-04] MEDS: Pregabalin 100 MG CAP PO (09:23)
[2023-09-04] MEDS: Chlorthalidone 25 MG TAB PO (09:23)
[2023-09-04] MEDS: Cholecalciferol (Vitamin D3) 1,000 UNIT TAB 2000 UNITS PO (09:24)
[2023-09-04] MEDS: Omeprazole 20 MG CAPCR PO (09:24)
[2023-09-04] MEDS: Losartan 50 MG TAB 100 MG PO (09:24)
[2023-09-04] MEDS: Metoprolol CR 100 MG TABCR 150 MG PO (09:25)
== END 2023-09-04 11:02 | disposition home or self-care (01) ==
LOC: ER 20:35 → MS 09-04 02:53
PROVIDERS: Admitting Provider Student in an Organized Health Care Education/Training Program; Emergency Provider Physician Assistant; PCP Family Medicine; Visit Provider Student in an Organized Health Care Education/Training Program
DX: S22.41XA Multiple fractures of ribs, right side, initial encounter for closed fracture (principal); E66.9 Obesity, unspecified; M25.572 Pain in left ankle and joints of left foot; M25.571 Pain in right ankle and joints of right foot; W19.XXXA Unspecified fall, initial encounter; E11.40 Type 2 diabetes mellitus with diabetic neuropathy, unspecified; R29.6 Repeated falls; M54.41 Lumbago with sciatica, right side; G89.29 Other chronic pain; Z68.41 Body mass index [BMI] 40.0-44.9, adult; I70.91 Generalized atherosclerosis; I25.10 Atherosclerotic heart disease of native coronary artery without angina pectoris; K75.81 Nonalcoholic steatohepatitis (NASH); E03.9 Hypothyroidism, unspecified; E78.5 Hyperlipidemia, unspecified; K21.9 Gastro-esophageal reflux disease without esophagitis; I10 Essential (primary) hypertension
CPT/HCPCS: 00123; 74177; 80048; 80076; 83690; 85027; 94640; 96360; 96372; 99285; J3490; 71260; 85025; 94664; G0378; J1644; J1815

== ENCOUNTER 2023-10-20 09:59 | Outpatient (CLI) | payer OTHER, MEDICARE, SELFPAY ==
[2023-10-20 12:58] LABS: Uric Acid 8.3 mg/dL (2.6-6.0)
[2023-10-20 13:02] LABS: Hemoglobin A1C 6.8 % (<5.7)
== END 2023-10-20 10:00 | disposition home or self-care (01) ==
LOC: LOS 09:59
PROVIDERS: PCP Family Medicine; Visit Provider Nurse Practitioner Family
DX: M10.9 Gout, unspecified (principal); E11.9 Type 2 diabetes mellitus without complications; M79.676 Pain in unspecified toe(s)
CPT/HCPCS: 36415; 83036; 84550

== ENCOUNTER 2023-12-19 02:36 | Outpatient (CLI) | payer OTHER, MEDICARE, SELFPAY ==
[2023-12-19 12:55] LABS: Hemoglobin A1C 6.1 % (<5.7)
[2023-12-19 12:56] LABS: ALT 64 U/L (14-59); AST 51 U/L (15-37); Albumin 3.7 g/dL (3.4-5.0); Alkaline Phosphatase 250 U/L (46-116); BUN 36 mg/dL (7-18); Bilirubin, Total 0.62 mg/dL (0.2-1.0); CREATININE 1.5 mg/dL (0.55-1.02); Chloride 103 mmol/L (98-107); Estimated GFR 37.49 (mL/min/1.73m2); GGT 651 U/L (5-55); Glucose 85 mg/dL (74-106); Potassium 4.6 mmol/L (3.5-5.1); Sodium 141 mmol/L (136-145); TSH (W/Ref FT4) 0.16 uIU/mL (0.36-3.74); Total Protein 7.1 g/dL (6.4-8.2); Uric Acid 5.8 mg/dL (2.6-6.0)
[2023-12-19 13:05] LABS: COMMENT (LAB VIEW ONLY) 122.56 mg/dL; Microalb ug/mg Crea 11.9 ug/mg Cr
[2023-12-19 13:17] LABS: FREE T4 1.46 ng/dL (0.76-1.46)
== END 2023-12-19 02:37 | disposition home or self-care (01) ==
LOC: LOS 02:36
PROVIDERS: PCP Family Medicine; Visit Provider Family Medicine
DX: E11.9 Type 2 diabetes mellitus without complications (principal); R74.8 Abnormal levels of other serum enzymes; I10 Essential (primary) hypertension; E03.9 Hypothyroidism, unspecified; K76.0 Fatty (change of) liver, not elsewhere classified
CPT/HCPCS: 36415; 80053; 82043; 82570; 82977; 83036; 84439; 84443; 84550

== ENCOUNTER 2023-12-23 10:54 | Emergency (ER) | payer OTHER, MEDICARE, SELFPAY ==
--- NOTE | 2023-12-23 11:00 | RT.EKG_ITS ---
APPROVED REPORT Exam: Resting ECG Reason for Exam: chest pain Patient Location: E HR:64 bpm ECG Measurements Heart Rate 64 AXIS WI 173 P 32 QRSd 84 QRS 45 QT 395 T 84 QTc 407 Conclusion Sinus rhythm 64 normal axis no stemi
[2023-12-23 11:06] VITALS: BP 161/88; PULSE 71; RESP 14; TEMP 36.9; O2SAT 94
[2023-12-23 11:28] LABS: Bilirubin Negative (Negative); Blood Negative (Negative); Clarity Clear (Clear); Glucose Negative (Negative); Ketones Negative (Negative); Leukocyte Esterase Trace (Negative); Nitrite Negative (Negative); Urobilinogen 0.2 mg/dL (Up to 0.2)
[2023-12-23 11:34] VITALS: BP 161/88; PULSE 71; RESP 14; TEMP 36.9; O2SAT 94
[2023-12-23 11:37] LABS: Bacteria Rare HPF (Negative); C & S Indicated? No; Casts Negative LPF (Negative); Crystals Negative HPF (Negative); Epithelial Cells Few HPF (Negative); Mucus Negative (Negative); RBC Negative HPF (0-2); WBC 0-2 HPF (0-5)
[2023-12-23 11:57] LABS: Abs Immature Grans 0.03 10^3/uL (0.0-0.06); Absolute Basophil Count 0.06 10^3/uL (0.0-0.2); Absolute Eosinophil Count 0.09 10^3/uL (0.0-0.7); Absolute Lymphocyte Count 2.46 10^3/uL (1.2-3.4); Absolute Neutrophil Count 4.77 10^3/uL (1.2-6.7); Basophils % 0.7 %; Eosinophils % 1.1 %; HCT 44.4 % (36.0-46.0); HGB 15.2 g/dL (11.2-15.7); Immature Grans % 0.4 %; Lymphocytes % 28.9 %; MCH 32.3 pg (27.0-33.0); MCHC 34.2 % (32.0-36.0); MCV 95 fL (80-95); MPV 11.5 fL (8.0-11.0); Monocytes % 12.9 %; Platelet Count 199 10^3/uL (130-400); RDW 13.1 % (11.7-14.6); RDW-SD 45.5 fL; WBC 8.51 10^3/uL (4.4-10.8)
[2023-12-23 12:11] LABS: ALT 62 U/L (14-59); AST 59 U/L (15-37); Albumin 3.9 g/dL (3.4-5.0); Alkaline Phosphatase 229 U/L (46-116); Anion Gap 8.6 mmol/L (3-11); BUN 26 mg/dL (7-18); Bilirubin, Total 0.66 mg/dL (0.2-1.0); CO2 29.4 mmol/L (21.0-32.0); CREATININE 1.4 mg/dL (0.55-1.02); Calcium 9.8 mg/dL (8.5-10.1); Chloride 105 mmol/L (98-107); Estimated GFR 40.73 (mL/min/1.73m2); Glucose 71 mg/dL (74-106); Potassium 4.5 mmol/L (3.5-5.1); Sodium 143 mmol/L (136-145); Total Protein 7.4 g/dL (6.4-8.2)
[2023-12-23] MEDS: Ondansetron O.D.T. 4 MG TABEF, 3 TABS/BTL PO (13:02)
[2023-12-23 13:03] VITALS: BP 161/88; PULSE 71; RESP 14; TEMP 36.9; O2SAT 94
--- NOTE | 2023-12-23 14:35 | W.ED.GENAD ---
Discharge Plan Disposition Patient Disposition: Home Condition: Stable Discharge Details Clinical Impression: Hypoglycemia, Decreased oral intake Primary Care Provider: Renu Gerber ED Provider: María Baez Home Meds and New Rx's Prescriptions: New ondansetron 4 mg tablet,disintegrating 4 mg PO Q8H PRN (Reason: nausea and vomiting) Qty: 20 0RF famotidine [Pepcid] 20 mg tablet 20 mg PO DAILY Qty: 30 0RF No Action nystatin 100,000 unit/gram powder 1 applic TP BID PRN (Reason: yeast infx in groin) Qty: 60 1RF ketoconazole 2 % cream 1 applic topical DAILY Qty: 120 6RF Patient Comments: Medication just picked up from pharmacy, has not used yet Rx Instructions: Apply to toenails once daily (DME) insulin syringe-needle U-100 [BD Insulin Syringe] 0.5 mL 29 gauge x 1/2 syringe See Dose Instructions .ROUTE .MEDSUPPLY Qty: 100 7RF Dose Instruction: As directed Rx Instructions: As directed loratadine 10 mg capsule 10 mg PO DAILY PRN (Reason: allergy symptoms) Qty: 30 0RF cholecalciferol (vitamin D3) [Vitamin D3] 2,000 UNIT capsule 2,000 unit PO DAILY (DME) Blood Glucose Test Strip See Dose Instructions .Route .MEDSUPPLY Qty: 400 5RF Dose Instruction: EDGARD and ABISAI Patient Comments: pt. reports checking blood sugar this AM, BS 134 @ 0800 Rx Instructions: AC and HS; 4Xdaily; E11.21 (DME) Dexcom G6 Incident Response Consultant Misc See Rx Instructions .Route Qty: 3 4RF Rx Instructions: As directed E11.9 omeprazole 20 mg capsule,delayed release(DR/EC) 20 mg PO DAILY Qty: 90 3RF albuterol sulfate [ProAir HFA] 90 mcg/actuation HFA aerosol inhaler 1 - 2 puff Inhalation Q6H PRN Qty: 18 3RF (DME) Dexcom G6 Sensor Device See Rx Instructions .Route Qty: 9 4RF Rx Instructions: As directed E11.9 (DME) pen needle, diabetic [Novofine 32] 32 gauge x 1/4 needle 1 ea Miscellaneous 5 time day Qty: 500 4RF Rx Instructions: E11.40 novofine pen needles 32X6mm ; use 5 times daily metoprolol succinate 100 mg tablet extended release 24 hr 150 mg PO DAILY Qty: 135 3RF (DME) Dexcom G6 Transmitter Device See Rx Instructions .Route Qty: 1 3RF Rx Instructions: As directed pregabalin 150 mg capsule 150 mg PO TID Qty: 90 3RF clonazepam 2 mg tablet 1 - 2 mg PO QHS MDD 1 PRN (Reason: anxiety) Qty: 30 5RF ropinirole 1 mg tablet 1.5 mg PO QHS Qty: 135 4RF Rx Instructions: administer 1-3 hours before bedtime budesonide-formoterol [Symbicort] 160-4.5 mcg/actuation HFA aerosol inhaler 2 puff Inhalation BID Qty: 3 4RF insulin lispro 100 unit/mL insulin pen 40 unit subcut TID Qty: 270 5RF clotrimazole-betamethasone 1-0.05 % cream 1 applic topical BID Qty: 45 0RF levothyroxine 125 mcg tablet 125 mcg PO DAILY Qty: 90 11RF chlorthalidone 25 mg tablet 25 mg PO DAILY Qty: 90 3RF insulin degludec [Tresiba FlexTouch U-200] 200 unit/mL (3 mL) insulin pen 96 unit SC BID Qty: 60 5RF Rx Instructions: insulin dependent diabetes ipratropium-albuterol 0.5 mg-3 mg(2.5 mg base)/3 mL solution for nebulization 3 ml Inhalation TID PRN (Reason: shortness of breath or wheezing) Qty: 180 3RF Rx Instructions: J45.909 trazodone 100 mg tablet 100 mg PO QHS Qty: 90 4RF colchicine 0.6 mg tablet 0.6 mg PO BID Qty: 60 6RF nystatin-triamcinolone 100,000-0.1 unit/gram-% ointment 1 applic TOPICAL DAILY PRN Patient Comments: APPLY TOPICALLY UNDER BREASTS TWO TIMES A DAY Discharge Instructions Instructions: Low blood sugar in people with diabetes Additional Instructions: Take your humalog dosing with meals if blood sugar is elevated Stop taking the tresiba until you can see you doctor to have dose adjusted use zofran as needed for nausea start pepcid daily return if unable to keep blood sugars up or you are not tolerating anything by mouth Discharge Data Discharge Date/Time-TO BE ENTERED AT DEPARTURE: 12/23/23 13:03 HPI General Date/Time Provider Initiated Documentation: 12/23/23 11:34. Limitations to Documentation: no limitations. Information obtained by: patient. HPI Narrative: 68y F with PMH of DM, gout, elevated LFTs presents for evaluation of not feeling well for months. she states that she has chronic allergies and runny nose. she denies fever, cough to me though it does appear to have been reported to triage. she denies abdominal pain, but reports 2-3 episodes of soft/watery stool daily. she reports dry heaving daily for months. reports decreased oral intake and decreased appetite. She reports that she notes that her blood sugars been running low. She has a Dexcom monitor and it has been alerting her several times. She has not been taking her Humalog, but has been taking her long-acting dose of insulin twice daily. She does not take oral insulin medication. Related Data Home Medications ?Medication ?Instructions ?Recorded ?Confirmed cholecalciferol (vitamin D3) 50 2,000 unit PO DAILY 05/16/12 12/23/23 mcg (2,000 unit) capsule (Vitamin D3) insulin syringe-needle U-100 0.5 #100 ea 03/01/19 12/23/23 mL 29 gauge x 1/2 (BD Insulin Syringe) blood sugar diagnostic (Blood #400 ea 12/01/20 12/23/23 Glucose Test strips) loratadine 10 mg capsule 10 mg PO DAILY PRN allergy 04/05/22 12/06/23 symptoms #30 caps blood-glucose meter,continuous #3 ea 07/01/22 12/23/23 (Dexcom G6 Incident Response Consultant) nystatin 100,000 unit/gram topical 1 applic topical BID PRN yeast 11/15/22 12/23/23 powder infx in groin #60 grams omeprazole 20 mg capsule,delayed 20 mg PO DAILY #90 caps 03/10/23 12/23/23 release albuterol sulfate 90 mcg/actuation 1 - 2 puff inhalation Q6H PRN #18 05/12/23 12/23/23 aerosol inhaler (ProAir HFA) grams blood-glucose sensor (Dexcom G6 #9 ea 07/05/23 12/23/23 Sensor device) ketoconazole 2 % topical cream 1 applic topical DAILY #120 grams 08/29/23 12/23/23 pen needle, diabetic 32 gauge x #500 ea 08/30/23 12/23/23 1/4 (Novofine 32) nystatin-triamcinolone 100,000 1 applic topical DAILY PRN 09/03/23 12/23/23 unit/gram-0.1 % topical ointment metoprolol succinate 100 mg 150 mg (1.5 x 100 mg) PO DAILY 09/12/23 12/23/23 tablet,extended release 24 hr #135 tab-caps blood-glucose transmitter (Dexcom #1 ea 09/14/23 12/23/23 G6 Transmitter device) clonazepam 2 mg tablet 1 - 2 mg (0.5 - 1 x 2 mg) PO QHS 10/11/23 12/23/23 PRN anxiety #30 tab-caps pregabalin 150 mg capsule 150 mg PO TID #90 caps 10/11/23 12/23/23 ropinirole 1 mg tablet 1.5 mg (1.5 x 1 mg) PO QHS #135 11/28/23 12/23/23 tabs budesonide-formoterol HFA 160 2 puff inhalation BID ##3 11/30/23 12/23/23 mcg-4.5 mcg/actuation aerosol inhaler (Symbicort) clotrimazole-betamethasone 1 1 applic topical BID #45 grams 12/01/23 12/23/23 %-0.05 % topical cream insulin lispro 100 unit/mL 40 unit (0.4 mL) subcut TID #270 mL 12/01/23 12/23/23 subcutaneous pen chlorthalidone 25 mg tablet 25 mg PO DAILY #90 tabs 12/20/23 insulin degludec 200 unit/mL (3 96 unit (0.48 mL) subcut BID #60 mL 12/20/23 12/23/23 mL) subcutaneous pen (Tresiba FlexTouch U-200 insulin) ipratropium 0.5 mg-albuterol 3 mg 3 ml inhalation TID PRN shortness 12/20/23 12/23/23 (2.5 mg base)/3 mL nebulization of breath or wheezing #180 mL soln levothyroxine 125 mcg tablet 125 mcg PO DAILY #90 tab-caps 12/20/23 12/23/23 trazodone 100 mg tablet 100 mg PO QHS #90 tabs 12/20/23 12/23/23 colchicine 0.6 mg tablet 0.6 mg PO BID #60 tabs 12/22/23 12/23/23 famotidine 20 mg tablet (Pepcid) 20 mg PO DAILY #30 tabs 12/23/23 ondansetron 4 mg disintegrating 4 mg PO Q8H PRN nausea and 12/23/23 tablet vomiting #20 tabs Previous Rx's ?Medication ?Instructions ?Recorded insulin syringe-needle U-100 0.5 #100 ea 03/01/19 mL 29 gauge x 1/2 (BD Insulin Syringe) blood sugar diagnostic (Blood #400 ea 12/01/20 Glucose Test strips) loratadine 10 mg capsule 10 mg PO DAILY PRN allergy 04/05/22 symptoms #30 caps blood-glucose meter,continuous #3 ea 07/01/22 (Dexcom G6 Incident Response Consultant) nystatin 100,000 unit/gram topical 1 applic topical BID PRN yeast 11/15/22 powder infx in groin #60 grams omeprazole 20 mg capsule,delayed 20 mg PO DAILY #90 caps 03/10/23 release albuterol sulfate 90 mcg/actuation 1 - 2 puff inhalation Q6H PRN #18 05/12/23 aerosol inhaler (ProAir HFA) grams blood-glucose sensor (Dexcom G6 #9 ea 07/05/23 Sensor device) ketoconazole 2 % topical cream 1 applic topical DAILY #120 grams 08/29/23 pen needle, diabetic 32 gauge x #500 ea 08/30/2303/03 (Novofine 32) metoprolol succinate 100 mg 150 mg (1.5 x 100 mg) PO DAILY 09/12/23 tablet,extended release 24 hr #135 tab-caps blood-glucose transmitter (Dexcom #1 ea 09/14/23 G6 Transmitter device) clonazepam 2 mg tablet 1 - 2 mg (0.5 - 1 x 2 mg) PO QHS 10/11/23 PRN anxiety #30 tab-caps pregabalin 150 mg capsule 150 mg PO TID #90 caps 10/11/23 ropinirole 1 mg tablet 1.5 mg (1.5 x 1 mg) PO QHS #135 11/28/23 tabs budesonide-formoterol HFA 160 2 puff inhalation BID ##3 11/30/23 mcg-4.5 mcg/actuation aerosol inhaler (Symbicort) clotrimazole-betamethasone 1 1 applic topical BID #45 grams 12/01/23 %-0.05 % topical cream insulin lispro 100 unit/mL 40 unit (0.4 mL) subcut TID #270 mL 12/01/23 subcutaneous pen chlorthalidone 25 mg tablet 25 mg PO DAILY #90 tabs 12/20/23 insulin degludec 200 unit/mL (3 96 unit (0.48 mL) subcut BID #60 mL 12/20/23 mL) subcutaneous pen (Tresiba FlexTouch U-200 insulin) ipratropium 0.5 mg-albuterol 3 mg 3 ml inhalation TID PRN shortness 12/20/23 (2.5 mg base)/3 mL nebulization of breath or wheezing #180 mL soln levothyroxine 125 mcg tablet 125 mcg PO DAILY #90 tab-caps 12/20/23 trazodone 100 mg tablet 100 mg PO QHS #90 tabs 12/20/23 colchicine 0.6 mg tablet 0.6 mg PO BID #60 tabs 12/22/23 famotidine 20 mg tablet (Pepcid) 20 mg PO DAILY #30 tabs 12/23/23 ondansetron 4 mg disintegrating 4 mg PO Q8H PRN nausea and 12/23/23 tablet vomiting #20 tabs Allergies Allergy/AdvReac Type Severity Reaction Status Date / Time Penicillins Allergy Skin Rash Verified 12/23/23 11:12 amlodipine besylate (From AdvReac Intermediate cough Verified 12/23/23 11:12 [facility]) lithium AdvReac Intermediate HYPERACTIVITY Verified 12/23/23 11:12 FOR DAYS rizatriptan AdvReac Intermediate BAD COUGH Verified 12/23/23 11:12 FOR 2 YEARS morphine AdvReac Mild Hallucinati Verified 12/23/23 11:12 ons/Vomitin g ibuprofen AdvReac Unknown Other (See Verified 12/23/23 11:12 Comment) atorvastatin AdvReac myalgias Verified 12/23/23 11:12 carbamazepine AdvReac myalgias Verified 12/23/23 11:12 enalaprilat AdvReac Cough Verified 12/23/23 11:12 General Stated Complaint: GenMedical EARL: 3 Exam Narrative Exam Narrative: Review of Systems: All systems reviewed & are unremarkable except as noted in HPI and below Well-developed, obese NCAT moist mucus membranes RRR Unlabored respiratory effort Nondistended abdomen soft n/t Extremities w/o edema No rashes or lesions. no focal neurologic deficits Appropriate mood and affect Course Vital Signs Vital signs: Vital Signs Temperature 36.9 C 12/23/23 11:06 Pulse 71 12/23/23 11:06 Respiratory Rate 14 12/23/23 11:06 Blood Pressure 161/88 H 12/23/23 11:06 Pulse Oximetry 94 12/23/23 11:06 Temperature 36.9 C 12/23/23 13:03 Temperature Source Skin 12/23/23 11:34 Pulse 71 12/23/23 13:03 Respiratory Rate 14 12/23/23 13:03 Respiratory Effort Normal, Non-Labored 12/23/23 11:42 Respiratory Depth Normal 12/23/23 11:34 Respiratory Pattern Normal 12/23/23 11:34 Blood Pressure 161/88 H 12/23/23 13:03 Blood Pressure Position Sitting 12/23/23 11:34 Pulse Oximetry 94 12/23/23 13:03 Oxygen Delivery Method Room Air 12/23/23 11:34 Oxygen Flow Rate 0 12/23/23 11:34 Pain Level 4 12/23/23 11:34 Lab/Test Results Lab/Test Results: Laboratory Tests Range/Units 12/23/23 12/23/23 11:20 11:50 WBC (4.4-10.8) 10^3/uL 8.51 RBC (3.93-5.22) 10^6/uL 4.70 Hgb (11.2-15.7) g/dL 15.2 Hct (36.0-46.0) % 44.4 MCV (80-95) fL 95 MCH (27.0-33.0) pg 32.3 MCHC (32.0-36.0) % 34.2 RDW (11.7-14.6) % 13.1 Plt Count (130-400) 10^3/uL 199 MPV (8.0-11.0) fL 11.5 H Immature Gran % % 0.4 Neutrophils % % 56.0 Lymphocytes % % 28.9 Monocytes % % 12.9 Eosinophils % % 1.1 Basophils % % 0.7 Nucleated RBC % (0.0-0.3) % 0.0 Absolute Neutrophils (1.2-6.7) 10^3/uL 4.77 Absolute Lymphocytes (1.2-3.4) 10^3/uL 2.46 Absolute Monocytes (0.1-0.8) 10^3/uL 1.10 H Absolute Eosinophils (0.0-0.7) 10^3/uL 0.09 Absolute Basophils (0.0-0.2) 10^3/uL 0.06 Sodium (136-145) mmol/L 143 Potassium (3.5-5.1) mmol/L 4.5 Chloride (98-107) mmol/L 105 Carbon Dioxide (21.0-32.0) mmol/L 29.4 Anion Gap (3-11) mmol/L 8.6 BUN (7-18) mg/dL 26 H Creatinine (0.55-1.02) mg/dL 1.4 H Est GFR (CKD-EPI 2020) (mL/min/1.73m2) 40.73 Glucose (74-106) mg/dL 71 L Calcium (8.5-10.1) mg/dL 9.8 Total Bilirubin (0.2-1.0) mg/dL 0.66 AST (15-37) U/L 59 H ALT (14-59) U/L 62 H Alkaline Phosphatase (46-116) U/L 229 H Total Protein (6.4-8.2) g/dL 7.4 Albumin (3.4-5.0) g/dL 3.9 Urine Color (Yellow) Yellow Urine Clarity (Clear) Clear Urine pH (5-8) 6.0 Ur Specific [place] (1.005-1.025) 1.020 Urine Protein (Neg-Trace) mg/dL Negative Urine Ketones (Negative) mg/dL Negative Urine Blood (Negative) Negative Urine Nitrite (Negative) Negative Urine Bilirubin (Negative) Negative Urine Urobilinogen (Up to 0.2) mg/dL 0.2 Ur Leukocyte Esterase (Negative) Trace H Urine RBC (0-2) HPF Negative Urine WBC (0-5) HPF 0-2 Ur Epithelial Cells (Negative) HPF Few Urine Crystals (Negative) HPF Negative Urine Bacteria (Negative) HPF Rare Urine Casts (Negative) LPF Negative Urine Mucus (Negative) Negative Ur Culture Indicated? No Urine Glucose (Negative) mg/dL Negative Medical Decision Making evaluation of not feeling well. difficul to nail down the patient on her acutal chief complaint as she wants to talk about her prior rib fractures or ongoing gout, or difficulty finding a remelt furnace expediter. It is unclear what motivated her to come into the emergency department today. She is having difficulty keeping her blood sugar elevated. My suspicion is her decreased oral intake as well as the significantly high doses of insulin that she is on both the ultra long-acting in the faster acting. She has not taking the lispro as often because her blood sugar is been low. Lab work was obtained. She has no leukocytosis or anemia. Her creatinine is at baseline as well as her BNP. She has chronically elevated LFTs but no significant change there. Her urinalysis does not demonstrate signs of infection. Her glucose is noted to be 71. She is tolerating p.o. Given her persistent nausea, will treat with Pepcid and Zofran. I do recommend changes in her insulin regimen. Since she is wearing a Dexcom, I have recommended that she stop the twice daily degludec and just use the Humalog. Continue monitoring her blood sugars closely. Return to the emergency department with significant derangement and she should follow-up closely with her PCP for final medication adjustments. Quality:SDOH Health Related Social Needs: No Data to Display PFSH All Active Problems Decreased oral intake (Acute) Hypoglycemia (Acute) Contracture of left Achilles tendon (Acute) Plantar fasciitis of left foot (Acute) Tarsal tunnel syndrome of left side (Acute) Gout (Chronic) Multiple fractures of ribs of right side (Acute) Pain in joints of both feet (Acute) Nail dystrophy (Acute) Onychomycosis (Acute) Ingrown toenail (Acute) Atherosclerosis of artery of both lower extremities (Acute) Type 2 diabetes mellitus with peripheral neuropathy (Acute) Diabetes mellitus with autonomic neuropathy (Acute) Infection of lumbar spine (Acute) Frequent falls (Acute) Chronic low back pain with right-sided sciatica (Acute) Large hiatal hernia (Acute) RLQ abdominal pain (Acute) Cataract (Chronic) Bunion, right foot (Acute) BMI 40.0-44.9, adult (Acute) Abdominal wall hernia (Acute) Coronary artery calcification seen on CAT scan (Acute) Atherosclerosis (Acute) Enlarged heart (Acute) Herpes (Acute) Lumbar radicular pain (Acute) Seborrhea corporis (Acute) Elevated LFTs (Acute) Arthralgia (Acute) DARLENE positive (Acute) Yeast infection (Acute) Staph infection (Acute) Restless leg (Acute) Von Willebrand factor inhibitor disorder (Chronic) Rotator cuff disorder (Chronic 06/27/14) Recurrent ventral hernia (Chronic 04/07/16) Non-alcoholic fatty liver disease (Chronic) elevated LFT Insomnia (Chronic) Hypothyroidism (Chronic) Hyperlipidemia (Chronic) Gastroesophageal reflux disease (Chronic) 09/29/12 EGD SHOW SOME REFULX CHANGES Elevated serum GGT level (Chronic 02/17/15) 1600 in 2011 [address] RIDDLE Diverticula of colon (Chronic) Diabetes mellitus with neuropathy (Chronic 02/14/14) Depressed bipolar I disorder (Chronic) STABLE 02/2011 Chronic cough (Chronic) Cataracts, both eyes (Chronic 12/09/15) 12/09/15-[facility]- [facility]>OS Atrophic vaginitis (Chronic 09/14/12) Asthma (Chronic) Chronic pain disorder (Chronic 11/25/16) Ganglion (Chronic) Stress incontinence in female (Chronic) Hypertension (Chronic) Medical History Ribs, multiple fractures Tibial fracture pt. reports surgical intervention Fatigue Torn medial meniscus Diarrhea Cellulitis Trigger finger Hand joint pain (12/01/11) History of tobacco use History of tobacco use quit in 2002 History of alcoholism in sobriety for greater than 10 years Triggering of finger thumb Ganglion of tendon sheath 12/01/11 Hand joint pain 12/01/11 Chest pain 06/05/12 Overdose 1995: alcohol and benzo 09/18/13 Stenosing tenosynovitis of thumb (05/13/14) Right foot pain (12/16/14) Neoplasm of unspecified nature of bone, soft tissue, and skin (08/12/14) Headache Essential hypertension (12/13/12) fatty liver Elevated lipase (08/26/16) Sanjuanita infection (08/26/16) Chronic sinusitis CVA (cerebral vascular accident) 2018 x2 Diabetes type 2, uncontrolled Hypothyroidism Hyperlipidemia Headache Chronic cough Bipolar disorder Diabetic neuropathy Fatty liver disease, nonalcoholic Insomnia Hypomagnesemia Fatigue Surgical History Status post abdominal hysterectomy Status post bilateral salpingo-oophorectomy Status post cholecystectomy Status post hernia repair S/P BSO (bilateral salpingo-oophorectomy) S/P abdominal hysterectomy fibroids, abnormal paps S/P cholecystectomy S/P hernia repair 02/28/11 H/O esophagogastroduodenoscopy active gastritis and focal acute inflammation 02/29/12 H/O surgical procedure right thumb release 02/29/12 hernia repair (~02/2011) Ventral Hernia repair (04/07/16) Dr. Jackson Incision, Tendon Sheath (08/01/12) RIGHT THUMB RELEASE Abdominal hysterectomy FIBROIDS/ABNORMAL PAPS EGD - MAC (09/29/12) ACTIVE GASTRITIS AND FOCAL ACUTE INFLAMMATION. Tooth extraction 10/12/14-TEETH REMOVED Colonoscopy - MAC (~03/2011) Colonoscopy - IV Sedation (04/02/11) DR. TIFFANI NICHOLS; DIVERT[place]A Cholecystectomy Bilateral salpingectomy with oophorectomy Family History Mother , age 67 Alcohol abuse Mental disorder Psychotic/paranoid symptoms, unknown diagnosis Cancer bladder/kidney; ?brain Sister Substance abuse MARIJUANA Maternal Grandfather Asthma Alcohol abuse Paternal Grandfather Heart disease Diabetes Stroke Maternal Grandmother No problems noted. Paternal Grandmother Diabetes Sister Substance abuse MARIJUANA Asthma Alcohol abuse Son Depression Diabetes Hyperlipidemia Stroke Son No problems noted. Son Asthma Diabetes Hyperlipidemia Hypertension Father , 80 Cancer Brother Alcohol abuse Depression Social History Smoking/Tobacco Use Status: Former Tobacco Use tobacco type: cigarettes Quit Date: 06/20/03 Tobacco: How many years used: 30 Second Hand Exposure: Yes Smoking risk assessment performed?: Yes Alcohol Intake: former Drug use: Daily Substance use type: marijuana Details: CBD oil Caregiver/Support person: No Household members: spouse and children Housing: house Communication Needs: None Do you need help understanding health information?: Often Pets and animals: Yes Pets and animals: cat(s) and dog(s) Sexually active: No Do you think of yourself as: straight/heterosexual Current gender identity: female What is your relationship status?: How often do you talk on the phone with friends or family?: three or more times per week How often do you get together with friends or relatives?: decline to answer How often do you attend catholic or amish services?: decline to answer Do you belong to any clubs or organized social groups?: no Panel score (0-1 are the most socially isolated patients): 2 What type of physical activity do you participate in: walking Duration: < 15 minutes/day Frequency: 3-4 times per week Silvia/Nondenominational: Yashira Special silvia needs: No Seatbelt use: always Helmet use: No Drive intox or ride w/intox power screwdriver operator: No Do you feel safe at home: Yes Do you feel safe in your relationship?: Yes
== END 2023-12-23 13:03 | disposition home or self-care (01) ==
PROVIDERS: Emergency Provider Emergency Medicine; PCP Family Medicine
DX: E11.649 Type 2 diabetes mellitus with hypoglycemia without coma (principal); I10 Essential (primary) hypertension; E78.5 Hyperlipidemia, unspecified; R63.8 Other symptoms and signs concerning food and fluid intake; Z79.4 Long term (current) use of insulin; Z87.891 Personal history of nicotine dependence
CPT/HCPCS: 80053; 93005; 99284; 81003; 81015; 85025; 93010; 99283

== ENCOUNTER 2024-03-08 03:47 | Outpatient (CLI) | payer OTHER, MEDICARE, SELFPAY ==
--- NOTE | 2024-03-08 07:40 | DI.US_ITS ---
Exam(s) US ABDOMEN EXAM: US ABDOMEN CLINICAL HISTORY: fatty liver,ELEVATED GGT LEVEL,R74.8,K76.0 TECHNIQUE: Ultrasound abdomen performed using standard protocol. COMPARISON: US ABDOMEN ULTRASOUND (P) from 08/23/2016 US US AAA DIAGNOSTIC from 07/24/[address] CHEST/ABD/PEL W from 09/03/2023 FINDINGS: ABDOMINAL AORTA AND IVC: Visualized portions normal caliber. PANCREAS: Poorly visualized due to overlying bowel. LIVER: Portions of the liver cannot be visualized due to patient body habitus. The visualized portio n shows normal echogenicity. Hepatopetal flow in the Portal Vein. No evidence of a hepatic mass. Th e liver measures 17.4cm long. GALLBLADDER:Status post cholecystectomy. BILIARY SYSTEM: Common bile duct measures < 7 mm. No intrahepatic biliary ductal dilation. KIDNEYS: Kidneys are symmetric in size. No evidence of renal calculi. No evidence of hydronephrosis. No renal mass or cyst identified. SPLEEN: Upper limits of normal measuring 12.5 cm. ASCITES: None seen. IMPRESSION: 1. Examination limited by patient body habitus and overlying bowel. 2. Status post cholecystectomy. No biliary ductal dilatation. DATA REPOSITORY:
== END 2024-03-08 04:07 ==
PROVIDERS: PCP Family Medicine; Visit Provider Family Medicine
DX: K76.0 Fatty (change of) liver, not elsewhere classified (principal); R74.8 Abnormal levels of other serum enzymes
CPT/HCPCS: 76700

== ENCOUNTER 2024-06-01 01:04 | Outpatient (CLI) | payer OTHER, MEDICARE, SELFPAY ==
[2024-06-01 12:27] LABS: HCT 44.8 % (36.0-46.0); HGB 14.6 g/dL (11.2-15.7); MCH 32.4 pg (27.0-33.0); MCHC 32.6 % (32.0-36.0); MCV 99 fL (80-95); MPV 11.9 fL (8.0-11.0); Platelet Count 172 10^3/uL (130-400); RBC 4.51 10^6/uL (3.93-5.22); RDW 14.8 % (11.7-14.6); RDW-SD 54.4 fL; WBC 6.49 10^3/uL (4.4-10.8)
[2024-06-01 12:46] LABS: Iron 96 ug/dL (50-170)
[2024-06-01 13:09] LABS: Ferritin 176 ng/mL (8-252); Vitamin D 25 Total 34 ng/mL (30-100)
[2024-06-01 13:10] LABS: Vitamin B12 > 2000 pg/mL (193-986)
[2024-06-01 13:16] LABS: GGT 606 U/L (5-55)
== END 2024-06-01 01:05 | disposition home or self-care (01) ==
LOC: LOS 01:05
PROVIDERS: PCP Family Medicine; Visit Provider Family Medicine
DX: G62.9 Polyneuropathy, unspecified (principal); R79.0 Abnormal level of blood mineral; E61.1 Iron deficiency; R74.8 Abnormal levels of other serum enzymes; E55.9 Vitamin D deficiency, unspecified
CPT/HCPCS: 36415; 82306; 85027; 82607; 82728; 82977; 83540

== ENCOUNTER 2024-06-12 15:57 | Outpatient (REF) | payer OTHER, MEDICARE, SELFPAY ==
[2024-06-12 15:41] LABS: *AMPHETAMINES SCREEN URINE Negative (Negative); *BARBITURATES SCREEN URINE Negative (Negative); *BENZODIAZEPINES SCREEN URINE Negative (Negative); Cannabinoids THC Positive (Negative); Cocaine Screen,Urine Negative (Negative); METHADONE URINE SCREEN Negative (Negative); OPIATES URINE SCREEN Negative (Negative)
[2024-06-12 15:46] LABS: Tricyclic Antidepressants Positive (Negative)
== END 2024-06-12 15:58 | disposition home or self-care (01) ==
LOC: LBN 15:57
PROVIDERS: PCP Family Medicine; Visit Provider Family Medicine
DX: G89.4 Chronic pain syndrome (principal)
CPT/HCPCS: 80307

== ENCOUNTER 2024-07-30 04:28 | Outpatient (CLI) | payer OTHER, MEDICARE, SELFPAY ==
[2024-07-30 12:22] LABS: Absolute Basophil Count 0.11 10^3/uL (0.0-0.2); Absolute Eosinophil Count 0.18 10^3/uL (0.0-0.7); Absolute Lymphocyte Count 1.84 10^3/uL (1.2-3.4); Absolute Monocyte Count 0.92 10^3/uL (0.1-0.8); Absolute Neutrophil Count 3.46 10^3/uL (1.2-6.7); Basophils % 1.7 %; Eosinophils % 2.7 %; HGB 13.9 g/dL (11.2-15.7); Immature Grans % 1.5 %; Lymphocytes % 27.8 %; MCH 32.6 pg (27.0-33.0); MCHC 33.1 % (32.0-36.0); MCV 98 fL (80-95); MPV 12.8 fL (8.0-11.0); Monocytes % 13.9 %; Neutrophils % 52.4 %; Platelet Count 128 10^3/uL (130-400); RBC 4.27 10^6/uL (3.93-5.22); RDW 14.6 % (11.7-14.6); RDW-SD 52.7 fL; WBC 6.61 10^3/uL (4.4-10.8)
[2024-07-30 12:41] LABS: ALT 53 U/L (14-59); AST 50 U/L (15-37); Alkaline Phosphatase 173 U/L (46-116); Anion Gap 6.2 mmol/L (3-11); BUN 20 mg/dL (7-18); Bilirubin, Total 0.5 mg/dL (0.2-1.0); CO2 32.8 mmol/L (21.0-32.0); CREATININE 1.5 mg/dL (0.55-1.02); Chloride 104 mmol/L (98-107); Estimated GFR 37.26 (mL/min/1.73m2); GGT 377 U/L (5-55); Glucose 215 mg/dL (74-106); Magnesium 1.4 mg/dL (1.8-2.4); Potassium 4.9 mmol/L (3.5-5.1); Sodium 143 mmol/L (136-145); TSH (W/Ref FT4) 3.07 uIU/mL (0.36-3.74); Total Protein 6.9 g/dL (6.4-8.2); Uric Acid 8.5 mg/dL (2.6-6.0)
[2024-07-31 03:11] LABS: HBs Antibody, Qual Positive (See Note); HBs Antibody, Quant 43.1 mIU/mL (See Note); Hepatitis B Core Antibody Negative (Negative); Hepatitis B surface Ag Negative (Negative); Hepatitis C Ab w Rflx HCV PCR Negative (Negative)
== END 2024-07-30 04:29 | disposition home or self-care (01) ==
LOC: LOS 04:28
PROVIDERS: PCP Family Medicine; Visit Provider Family Medicine
DX: E03.9 Hypothyroidism, unspecified (principal); I10 Essential (primary) hypertension; R74.8 Abnormal levels of other serum enzymes; R79.89 Other specified abnormal findings of blood chemistry; M10.9 Gout, unspecified; R41.0 Disorientation, unspecified
CPT/HCPCS: 36415; 80053; 86704; 86706; 86803; 87340; 82977; 83735; 84443; 84550; 85025

== ENCOUNTER 2025-01-06 00:30 | Emergency (ER) | payer OTHER, MEDICARE, SELFPAY ==
[2025-01-06] VITALS (259 sets, daily range): BP systolic 80–156; BP diastolic 25–100; PULSE 63–129; RESP 7–22; TEMP 36.9; O2SAT 86–99
--- NOTE | 2025-01-06 00:15 | RT.EKG_ITS ---
APPROVED REPORT Exam: Resting ECG Reason for Exam: SEPSIS Patient Location: E HR:70 bpm ECG Measurements Heart Rate 70 AXIS GA 168 P 24 QRSd 88 QRS 27 QT 420 T 185 QTc 453 Conclusion Sinus rhythm...normal P axis, V-rate 60- 99 Physician: diffuse mild st depressions, no stemi
--- NOTE | 2025-01-06 00:57 | W.ED.GENAD ---
Discharge Plan Disposition Patient Disposition: Transfer-Acute Inpatient Care Specific Acute Inpt Facility: [facility] Condition: Improving Discharge Details Clinical Impression: Shock, Acute dehydration, Acute kidney injury, Transaminitis, Non-ST elevation IN (NSTEMI) Primary Care Provider: Renu Gerber ED Provider: Juan M Zazueta Home Meds and New Rx's Prescriptions: No Action ketoconazole 2 % cream 1 applic topical DAILY Qty: 120 6RF Patient Comments: Medication just picked up from pharmacy, has not used yet Rx Instructions: Apply to toenails once daily chlorthalidone 25 mg tablet 25 mg PO DAILY Qty: 90 3RF ipratropium-albuterol 0.5 mg-3 mg(2.5 mg base)/3 mL solution for nebulization 3 ml Inhalation TID PRN (Reason: shortness of breath or wheezing) Qty: 180 3RF Rx Instructions: J45.909 levothyroxine 125 mcg tablet 125 mcg PO DAILY Qty: 90 11RF nystatin 100,000 unit/gram powder 1 applic TP BID PRN (Reason: yeast infx in groin) Qty: 60 1RF ondansetron 4 mg tablet,disintegrating 4 mg PO Q8H PRN (Reason: nausea and vomiting) Qty: 20 0RF nystatin-triamcinolone 100,000-0.1 unit/gram-% ointment 1 applic TOPICAL DAILY PRN (Reason: rash) Qty: 30 2RF tramadol 50 mg tablet 100 mg PO BID Qty: 120 5RF Rx Instructions: one months supply insulin lispro 100 unit/mL insulin pen 60 unit subcut TID Qty: 300 5RF (DME) Dexcom G7 Sensor Device See Rx Instructions .Route Qty: 9 4RF Rx Instructions: Use as directed to monitor BG (DME) Dexcom G7 Shipping Hand Misc See Rx Instructions .Route Qty: 1 0RF Rx Instructions: Use to read G7 sensor blood glucose data. (DME) insulin syringe-needle U-100 [BD Insulin Syringe] 0.5 mL 29 gauge x 1/2 syringe See Dose Instructions .ROUTE .MEDSUPPLY Qty: 100 7RF Dose Instruction: As directed Rx Instructions: As directed omeprazole 20 mg capsule,delayed release(DR/EC) 20 mg PO DAILY Qty: 90 3RF ropinirole 1 mg tablet 1 mg PO BID Qty: 180 4RF mecobalamin (vitamin B12) 1,000 mcg lozenge 1,000 mcg PO DAILY Qty: 90 4RF Rx Instructions: allow to dissolve in mouth OR may chew lightly before swallowing mupirocin 2 % ointment 1 applic topical BID Qty: 22 0RF spironolactone 25 mg tablet 25 mg PO DAILY Qty: 90 4RF losartan 100 mg tablet 100 mg PO DAILY Qty: 90 4RF cholecalciferol (vitamin D3) [Vitamin D3] 2,000 UNIT capsule 2,000 unit PO DAILY (DME) Dexcom G6 Shipping Hand Misc See Rx Instructions .Route Qty: 3 4RF Rx Instructions: As directed E11.9 (DME) pen needle, diabetic [Novofine 32] 32 gauge x 1/4 needle 1 ea Miscellaneous 5 time day Qty: 500 4RF Rx Instructions: E11.40 novofine pen needles 32X6mm ; use 5 times daily clotrimazole-betamethasone 1-0.05 % cream 1 applic topical BID Qty: 45 0RF (DME) Blood Glucose Test Strip See Dose Instructions .Route .MEDSUPPLY Qty: 300 5RF Dose Instruction: AC and HS Patient Comments: pt. reports checking blood sugar this AM, BS 134 @ 0800 Rx Instructions: AC ; 3Xdaily; E11.21 (DME) Dexcom G6 Transmitter Device See Rx Instructions .Route Qty: 1 3RF Rx Instructions: As directed;E11.40 insulin glargine [Lantus Solostar U-100 Insulin] 100 unit/mL (3 mL) insulin pen 80 unit subcut BID Qty: 90 8RF budesonide-formoterol [Symbicort] 160-4.5 mcg/actuation HFA aerosol inhaler 2 puff Inhalation BID Qty: 3 4RF colchicine 0.6 mg tablet 0.6 mg PO BID Qty: 60 6RF (DME) Dexcom G6 Sensor Device See Rx Instructions .Route Qty: 9 4RF Rx Instructions: As directed E11.9 Slow-Mag 71.5 mg tablet,delayed release (DR/EC) 71.5 mg PO BID Qty: 180 4RF clonazepam 2 mg tablet 1 - 2 mg PO QHS MDD 1 PRN (Reason: anxiety) Qty: 30 5RF metoprolol succinate 100 mg tablet extended release 24 hr 150 mg PO DAILY Qty: 135 3RF pregabalin 150 mg capsule 150 mg PO TID Qty: 90 3RF albuterol sulfate 90 mcg/actuation HFA aerosol inhaler 1 - 2 puff Inhalation Q6H PRN Qty: 18 3RF HPI General Date/Time Provider Initiated Documentation: 01/06/25 00:50. HPI Narrative: This is a 69-year-old female with past medical history of type 2 diabetes mellitus, coronary artery disease, von Willebrand's disease, hypothyroidism, high cholesterol, nonalcoholic fatty liver disease, bipolar type I, previous CVA, hypertension, reactive airway disease, paroxysmal atrial fibrillation, bilateral abdominal wall hernias who presents today for evaluation of feeling unwell. Patient states that 3 weeks ago she was diagnosed with COVID, since then she has had gradual worsening weakness, nausea, vomiting, diarrhea, intermittent fevers, epigastric and abdominal pain, multiple recent falls. She denies any loss of consciousness. EMS was called this evening as her symptoms worsened. She was noted to be hypotensive in the 70s systolic, she had normal blood sugar she was noted to be quite chilled and cold at 93 °F tympanic. She was given a 500 cc bolus and brought to the ER for further assessment. Patient does admit to abdominal pain which she describes as achy in the abdominal epigastric region. She also admits to mild chest pain which she describes as achy as well for the last week. No other complaints at this time. No blood or vomit or stool. No other complaints or modifying factors. She has not been eating or drinking much at home. Related Data Home Medications Medication Instructions Recorded Confirmed cholecalciferol (vitamin D3) 50 2,000 unit PO DAILY 05/16/12 01/06/25 mcg (2,000 unit) capsule (Vitamin D3) insulin syringe-needle U-100 0.5 #100 ea 03/01/19 01/06/25 mL 29 gauge x 1/2 (BD Insulin Syringe) blood-glucose,human resources communications manager,cont #3 ea 07/01/22 01/06/25 (Dexcom G6 Shipping Hand) ketoconazole 2 % topical cream 1 applic topical DAILY #120 grams 08/29/23 01/06/25 pen needle, diabetic 32 gauge x #500 ea 08/30/23 01/06/2503/03 (Novofine 32) clotrimazole-betamethasone 1 1 applic topical BID #45 grams 01/11/24 01/06/25 %-0.05 % topical cream mupirocin 2 % topical ointment 1 applic topical BID #22 grams 01/20/24 01/06/25 mecobalamin (vitamin B12) 1,000 1,000 mcg PO DAILY #90 ea 03/05/24 01/06/25 mcg lozenges Held on 06/12/24. Instructions: Changed by Provider omeprazole 20 mg capsule,delayed 20 mg PO DAILY #90 caps 03/05/24 01/06/25 release ropinirole 1 mg tablet 1 mg PO BID #180 tabs 03/05/24 01/06/25 blood sugar diagnostic (Blood #300 ea 03/08/24 01/06/25 Glucose Test strips) blood-glucose transmitter (Dexcom #1 ea 03/21/24 01/06/25 G6 Transmitter device) Held on 11/22/24. Instructions: Home Medication placed on hold at Doctor's office insulin glargine 100 unit/mL (3 80 unit (0.8 mL) subcut BID #90 mL 03/23/24 01/06/25 mL) subcutaneous pen (Lantus Solostar U-100 Insulin) losartan 100 mg tablet 100 mg PO DAILY #90 tabs 06/12/24 01/06/25 spironolactone 25 mg tablet 25 mg PO DAILY #90 tabs 06/12/24 11/22/24 budesonide-formoterol HFA 160 2 puff inhalation BID ##3 07/06/24 01/06/25 mcg-4.5 mcg/actuation aerosol inhaler (Symbicort) colchicine 0.6 mg tablet 0.6 mg PO BID #60 tabs 07/09/24 01/06/25 blood-glucose sensor (Dexcom G6 #9 ea 07/30/24 01/06/25 Sensor device) Held on 11/22/24. Instructions: Home Medication placed on hold at Doctor's office magnesium chloride 71.5 mg 71.5 mg PO BID #180 tabs 07/30/24 01/06/25 (magnesium chloride) tablet,delayed release (Slow-Mag) clonazepam 2 mg tablet 1 - 2 mg (0.5 - 1 x 2 mg) PO QHS 10/05/24 01/06/25 PRN anxiety #30 tab-caps metoprolol succinate 100 mg 150 mg (1.5 x 100 mg) PO DAILY 10/05/24 01/06/25 tablet,extended release 24 hr #135 tab-caps chlorthalidone 25 mg tablet 25 mg PO DAILY #90 tabs 11/05/24 01/06/25 insulin lispro 100 unit/mL 60 unit (0.6 mL) subcut TID #300 mL 11/05/24 01/06/25 subcutaneous pen ipratropium 0.5 mg-albuterol 3 mg 3 ml inhalation TID PRN shortness 11/05/24 01/06/25 (2.5 mg base)/3 mL nebulization of breath or wheezing #180 mL soln levothyroxine 125 mcg tablet 125 mcg PO DAILY #90 tab-caps 11/05/24 01/06/25 nystatin 100,000 unit/gram topical 1 applic topical BID PRN yeast 11/05/24 01/06/25 powder infx in groin #60 grams nystatin-triamcinolone 100,000 1 applic topical DAILY PRN rash 11/05/24 01/06/25 unit/gram-0.1 % topical ointment #30 grams ondansetron 4 mg disintegrating 4 mg PO Q8H PRN nausea and 11/05/24 01/06/25 tablet vomiting #20 tabs Held on 01/06/25. Instructions: Prescription Finished tramadol 50 mg tablet 100 mg (2 x 50 mg) PO BID #120 tabs 11/05/24 01/06/25 pregabalin 150 mg capsule 150 mg PO TID #90 caps 11/08/24 01/06/25 blood-glucose sensor (Dexcom G7 #9 ea 11/22/24 11/22/24 Sensor device) blood-glucose,human resources communications manager,cont #1 ea 11/22/24 01/06/25 (Dexcom G7 Shipping Hand) albuterol sulfate 90 mcg/actuation 1 - 2 puff inhalation Q6H PRN #18 12/18/24 01/06/25 aerosol inhaler grams Previous Rx's Medication Instructions Recorded insulin syringe-needle U-100 0.5 #100 ea 03/01/ mL 29 gauge x 1/2 (BD Insulin Syringe) blood-glucose,human resources communications manager,cont #3 ea 07/01/22 (Dexcom G6 Shipping Hand) ketoconazole 2 % topical cream 1 applic topical DAILY #120 grams 08/29/23 pen needle, diabetic 32 gauge x #500 ea 08/30/2303/03 (Novofine 32) clotrimazole-betamethasone 1 1 applic topical BID #45 grams 01/11/24 %-0.05 % topical cream mupirocin 2 % topical ointment 1 applic topical BID #22 grams 01/20/24 mecobalamin (vitamin B12) 1,000 1,000 mcg PO DAILY #90 ea 03/05/24 mcg lozenges Held on 06/12/24. Instructions: Changed by Provider omeprazole 20 mg capsule,delayed 20 mg PO DAILY #90 caps 03/05/24 release ropinirole 1 mg tablet 1 mg PO BID #180 tabs 03/05/24 blood sugar diagnostic (Blood #300 ea 03/08/24 Glucose Test strips) blood-glucose transmitter (Dexcom #1 ea 03/21/24 G6 Transmitter device) Held on 11/22/24. Instructions: Home Medication placed on hold at Doctor's office insulin glargine 100 unit/mL (3 80 unit (0.8 mL) subcut BID #90 mL 03/23/24 mL) subcutaneous pen (Lantus Solostar U-100 Insulin) losartan 100 mg tablet 100 mg PO DAILY #90 tabs 06/12/24 spironolactone 25 mg tablet 25 mg PO DAILY #90 tabs 06/12/24 budesonide-formoterol HFA 160 2 puff inhalation BID ##3 07/06/24 mcg-4.5 mcg/actuation aerosol inhaler (Symbicort) colchicine 0.6 mg tablet 0.6 mg PO BID #60 tabs 07/09/24 blood-glucose sensor (Dexcom G6 #9 ea 07/30/24 Sensor device) Held on 11/22/24. Instructions: Home Medication placed on hold at Doctor's office magnesium chloride 71.5 mg 71.5 mg PO BID #180 tabs 07/30/24 (magnesium chloride) tablet,delayed release (Slow-Mag) clonazepam 2 mg tablet 1 - 2 mg (0.5 - 1 x 2 mg) PO QHS 10/05/24 PRN anxiety #30 tab-caps metoprolol succinate 100 mg 150 mg (1.5 x 100 mg) PO DAILY 10/05/24 tablet,extended release 24 hr #135 tab-caps chlorthalidone 25 mg tablet 25 mg PO DAILY #90 tabs 11/05/24 insulin lispro 100 unit/mL 60 unit (0.6 mL) subcut TID #300 mL 11/05/24 subcutaneous pen ipratropium 0.5 mg-albuterol 3 mg 3 ml inhalation TID PRN shortness 11/05/24 (2.5 mg base)/3 mL nebulization of breath or wheezing #180 mL soln levothyroxine 125 mcg tablet 125 mcg PO DAILY #90 tab-caps 11/05/24 nystatin 100,000 unit/gram topical 1 applic topical BID PRN yeast 11/05/24 powder infx in groin #60 grams nystatin-triamcinolone 100,000 1 applic topical DAILY PRN rash 11/05/24 unit/gram-0.1 % topical ointment #30 grams ondansetron 4 mg disintegrating 4 mg PO Q8H PRN nausea and 11/05/24 tablet vomiting #20 tabs Held on 01/06/25. Instructions: Prescription Finished tramadol 50 mg tablet 100 mg (2 x 50 mg) PO BID #120 tabs 11/05/24 pregabalin 150 mg capsule 150 mg PO TID #90 caps 11/08/24 blood-glucose sensor (Dexcom G7 #9 ea 11/22/24 Sensor device) blood-glucose,human resources communications manager,cont #1 ea 11/22/24 (Dexcom G7 Shipping Hand) albuterol sulfate 90 mcg/actuation 1 - 2 puff inhalation Q6H PRN #18 12/18/24 aerosol inhaler grams Allergies Allergy/AdvReac Type Severity Reaction Status Date / Time Penicillins Allergy Skin Rash Verified 01/06/25 00:45 amlodipine besylate (From AdvReac Intermediate cough Verified 01/06/25 00:45 [facility] lithium AdvReac Intermediate HYPERACTIVITY Verified 01/06/25 00:45 FOR DAYS rizatriptan AdvReac Intermediate BAD COUGH Verified 01/06/25 00:45 FOR 2 YEARS morphine AdvReac Mild Hallucinati Verified 01/06/25 00:45 ons/Vomitin g ibuprofen AdvReac Unknown Other (See Verified 01/06/25 00:45 Comment) atorvastatin AdvReac myalgias Verified 01/06/25 00:45 carbamazepine AdvReac myalgias Verified 01/06/25 00:45 enalaprilat AdvReac Cough Verified 01/06/25 00:45 General Stated Complaint: GenMedical EARL: 2 Exam Narrative Exam Narrative: 1.Const: Well-nourished, Well-developed, appearing stated age 2.Eyes: PERRL, no conjunctival injection, and symmetrical lids. 3.ENT: Atraumatic external nose and ears. Dry MM. Neck: Symmetric, trachea midline, No thyromegaly. 4.CVS: +S1/S2, Peripheral pulses 2+ and equal in all extremities. Brisk capillary refill in all extremities. 5.RESP: Unlabored respiratory effort. Clear to auscultation bilaterally. No wheezes rales or rhonchi 6.GI: Soft, nondistended, mild tenderness in the epigastric region, 7.MSK: Normocephalic/Atraumatic, Extremities w/o deformity or ttp No cyanosis or clubbing, Normal movement of all extremities 8.Skin: Warm, Dry. No rashes or lesions. 9.Neuro: driller's offsider II-XII grossly intact. Sensation grossly intact, no focal neurologic deficits. 10.Psych: (AAO) x3. Appropriate mood and affect Course Vital Signs Vital signs: Vital Signs Temperature 36.9 C 01/06/25 00:28 Pulse 72 01/06/25 00:28 Respiratory Rate 19 01/06/25 00:28 Blood Pressure 80/25 L 01/06/25 00:28 Pulse Oximetry 96 01/06/25 00:28 Temperature 36.9 C 01/06/25 00:38 Temperature Source Oral 01/06/25 00:38 Pulse 72 01/06/25 00:38 Respiratory Rate 19 01/06/25 00:38 Respiratory Effort Short of Breath 01/06/25 00:38 Respiratory Depth Normal 01/06/25 00:38 Respiratory Pattern Normal 01/06/25 00:38 Blood Pressure 85/52 L 01/06/25 00:38 Blood Pressure Position Sitting 01/06/25 00:38 Pulse Oximetry 96 01/06/25 00:38 Oxygen Delivery Method Room Air 01/06/25 00:38 Oxygen Flow Rate 0 01/06/25 00:28 Pain Level 5 01/06/25 00:38 Lab/Test Results Lab/Test Results: 01/06/25 00:50 Blood Blood Culture - Pending 01/06/25 00:50 Blood Blood Culture - Pending Medical Decision Making This is a 69-year-old female with past medical history of type 2 diabetes mellitus, coronary artery disease, von Willebrand's disease, hypothyroidism, high cholesterol, nonalcoholic fatty liver disease, bipolar type I, previous CVA, hypertension, reactive airway disease, paroxysmal atrial fibrillation, bilateral abdominal wall hernias who presents today for evaluation of feeling unwell. Patient states that 3 weeks ago she was diagnosed with COVID, since then she has had gradual worsening weakness, nausea, vomiting, diarrhea, intermittent fevers, epigastric and abdominal pain, multiple recent falls. She denies any loss of consciousness. EMS was called this evening as her symptoms worsened. She was noted to be hypotensive in the 70s systolic, she had normal blood sugar she was noted to be quite chilled and cold at 93 °F tympanic. She was given a 500 cc bolus and brought to the ER for further assessment. Patient does admit to abdominal pain which she describes as achy in the abdominal epigastric region. She also admits to mild chest pain which she describes as achy as well for the last week. No other complaints at this time. No blood or vomit or stool. No other complaints or modifying factors. She has not been eating or drinking much at home. Abdominal exam demonstrates mild epigastric tenderness,She is hypotensive in the 80s, and has dry mucous membranes. We will rehydrate, get CT imaging to evaluate for intra-abdominal pathology including pancreatitis, UTI, or intra-abdominal pathology. Will check for pneumonia, get a CT scan of the brain to rule out bleed, will check hemoglobin levels, monitor closely and reassess. 6:05 AM Laboratory workup has returned, no white count or bandemia, patient demonstrates normal pH, lactate elevated at 2.8, electrolytes show a sodium of 134, potassium 3.1, anion gap is only 13. BUN is elevated at 52 with a creatinine of 4.6 which is notably higher than her baseline. Transaminases are also higher than normal with an AST of 128 and an ALT of 161. Troponin is also elevated initial was 433, followed by 460s, followed by slight downtrend to 398. EKG benign. Urinalysis shows no evidence of infection, CT imaging shows no evidence of pneumonia or infectious etiology. She has no headache or neck pain to suggest meningitis. No evidence of bacterial infectious etiology at this time. COVID flu and RSV testing is negative. Patient's blood pressure improved after 2 L of IV fluids and maintenance fluids at 125 an hour. Blood pressure improved to the high 90s low 100s after this. Patient continues to mentate very well. I have high concern for the patient's acute kidney injury/renal failure in conjunction with her known liver disease with potential combination of hepatorenal syndrome. We did reach out to [facility] and spoke with Dr. Staton Of nephrology who does recommend transfer to a facility with nephrology. Unfortunately [facility] is at capacity and unable to accept. Additionally [facility] is at capacity and unable to accept. I did speak with Dr. Eisenberg of cardiology and he also feels that this is likely a type II NSTEMI as EKG is benign, and that the symptomatology is related to demand ischemia. He does not recommend heparinization at this time. I spoke with [facility], the patient has been accepted under the [facility] ED physician Dr Benz. They accept the patient for transfer. I have extensively reviewed the treatment plan with the patient. I have addressed all patient concerns at this time. I have also discussed the plan with the admitting physician and they agree with the current assessment and plan and have agreed to assume responsibility for the patient. All parties demonstrate verbal understanding and agreement with our assessment and plan at this time. The documentation in this chart was dictated using [employer] dictation software. Please excuse any dictation errors. At time of transfer the patient was reassessed and continued to demonstrate No signs of acute respiratory distress requiring intubation, hemodynamic instability requiring pressor support, or rapidly declining mental status. FINDINGS: Brain: Volume loss and chronic small vessel ischemic change. No brain edema. No intracranial hemorrhage. Cerebral ventricles: No ventriculomegaly. Paranasal sinuses: Visualized sinuses are unremarkable. No fluid levels. Mastoid air cells: Unremarkable. Bones: Unremarkable. No acute fracture. Soft tissues: Unremarkable. IMPRESSION: No acute brain findings. Thank you for allowing us to participate in the care of your patient. Dictated and Authenticated by: Ramon Tilley MD 01/06/2025 2:44 AM Eastern Time ([place] & [place]) FINDINGS: Lungs: Unremarkable. No consolidation. No masses. Pleural spaces: Unremarkable. No pneumothorax. No pleural effusion. Heart: Unremarkable. No cardiomegaly. No pericardial effusion. Lymph nodes: Unremarkable. No enlarged lymph nodes. Vasculature: Unremarkable. No aortic aneurysm. Bones/joints: Unremarkable. No acute fracture. Soft tissues: Unremarkable. IMPRESSION: No acute findings FINDINGS: Liver: Diffuse liver surface nodularity compatible with cirrhosis. Gallbladder and biliary ducts: Prior cholecystectomy. No biliary ductal dilatation. Pancreas: Unremarkable. Spleen: Normal. Adrenal glands: Normal. No mass. Kidneys and ureters: Normal. No hydronephrosis. Stomach and bowel: Colonic diverticulosis. No diverticulitis. No bowel wall thickening or intestinal obstruction. No pneumatosis or portal/mesenteric venous gas. Appendix: Normal appendix. Intraperitoneal space: No pneumoperitoneum or abscess. Vasculature: 2 cm abdominal aortic aneurysm. No rupture. Lymph nodes: Unremarkable. Urinary bladder: Unremarkable as visualized. Reproductive: Hysterectomy. Bones/joints: Unremarkable. No acute fracture. Soft tissues: Unremarkable. IMPRESSION: Diffuse liver surface nodularity compatible with cirrhosis. Thank you for allowing us to participate in the care of your patient. Dictated and Authenticated by: Ramon Tilley MD 01/06/2025 3:36 AM Eastern Time ([place] & [place]) Critical Care Time Critical Care Time Critical Care Time: Yes Total Critical Care Time: 90 Attestation: Upon my evaluation, this patient had a high probability of imminent or life-threatening deterioration, which required my direct attention, intervention, and personal management. I have personally provided 90 minutes of critical care time exclusive of time spent on separately billable procedures. Time includes review of laboratory data, radiology results, discussion with consultants, and monitoring for potential decompensation. Interventions were performed as documented. [facility] All Active Problems (Updated 01/06/25 @ 06:10 by Juan M Zazueta DO) Non-ST elevation IN (NSTEMI) (Acute) Transaminitis (Acute) Acute kidney injury (Acute) Acute dehydration (Acute) Shock (Acute) Peripheral neuropathy (Acute) Contracture of left Achilles tendon (Acute) Plantar fasciitis of left foot (Acute) Tarsal tunnel syndrome of left side (Acute) Gout (Chronic) Multiple fractures of ribs of right side (Acute) Pain in joints of both feet (Acute) Nail dystrophy (Acute) Onychomycosis (Acute) Ingrown toenail (Acute) Atherosclerosis of artery of both lower extremities (Acute) Type 2 diabetes mellitus with peripheral neuropathy (Acute) Diabetes mellitus with autonomic neuropathy (Acute) Infection of lumbar spine (Acute) Frequent falls (Acute) Chronic low back pain with right-sided sciatica (Acute) Large hiatal hernia (Acute) RLQ abdominal pain (Acute) Cataract (Chronic) Bunion, right foot (Acute) BMI 40.0-44.9, adult (Acute) Abdominal wall hernia (Acute) Coronary artery calcification seen on CAT scan (Acute) Atherosclerosis (Acute) Enlarged heart (Acute) Herpes (Acute) Lumbar radicular pain (Acute) Seborrhea corporis (Acute) Elevated LFTs (Acute) Arthralgia (Acute) DARLENE positive (Acute) Yeast infection (Acute) Staph infection (Acute) Restless leg (Acute) Von Willebrand factor inhibitor disorder (Chronic) Rotator cuff disorder (Chronic 06/27/14) Recurrent ventral hernia (Chronic 04/07/16) Non-alcoholic fatty liver disease (Chronic) elevated LFT Insomnia (Chronic) Hypothyroidism (Chronic) Hyperlipidemia (Chronic) Gastroesophageal reflux disease (Chronic) 09/29/12 EGD SHOW SOME REFULX CHANGES Elevated serum GGT level (Chronic 02/17/15) 1600 in 2011 [address] RIDDLE Diverticula of colon (Chronic) Diabetes mellitus with neuropathy (Chronic 02/14/14) Depressed bipolar I disorder (Chronic) STABLE 02/2011 Chronic cough (Chronic) Cataracts, both eyes (Chronic 12/09/15) [facility] Atrophic vaginitis (Chronic 09/14/12) Asthma (Chronic) Chronic pain disorder (Chronic 11/25/16) Ganglion (Chronic) Stress incontinence in female (Chronic) Hypertension (Chronic) Medical History (Updated 01/06/25 @ 06:10 by Juan M Zazueta DO) COVID-19 (~02/2024) Ribs, multiple fractures Tibial fracture pt. reports surgical intervention Fatigue Torn medial meniscus Diarrhea Cellulitis Trigger finger Hand joint pain (12/01/11) History of tobacco use History of tobacco use quit in 2002 History of alcoholism in sobriety for greater than 10 years Triggering of finger thumb Ganglion of tendon sheath 12/01/11 Hand joint pain 12/01/11 Chest pain 06/05/12 Overdose 1995: alcohol and benzo 09/18/13 Stenosing tenosynovitis of thumb (05/13/14) Right foot pain (12/16/14) Neoplasm of unspecified nature of bone, soft tissue, and skin (08/12/14) Headache Essential hypertension (12/13/12) fatty liver Elevated lipase (08/26/16) Sanjuanita infection (08/26/16) Chronic sinusitis CVA (cerebral vascular accident) 2018 x2 Diabetes type 2, uncontrolled Hypothyroidism Hyperlipidemia Headache Chronic cough Bipolar disorder Diabetic neuropathy Fatty liver disease, nonalcoholic Insomnia Hypomagnesemia Fatigue Surgical History Status post abdominal hysterectomy Status post bilateral salpingo-oophorectomy Status post cholecystectomy Status post hernia repair S/P BSO (bilateral salpingo-oophorectomy) S/P abdominal hysterectomy fibroids, abnormal paps S/P cholecystectomy S/P hernia repair 02/28/11 H/O esophagogastroduodenoscopy active gastritis and focal acute inflammation 02/29/12 H/O surgical procedure right thumb release 02/29/12 hernia repair (~02/2011) Ventral Hernia repair (04/07/16) Dr. Jackson Incision, Tendon Sheath (08/01/12) RIGHT THUMB RELEASE Abdominal hysterectomy FIBROIDS/ABNORMAL PAPS EGD - MAC (09/29/12) ACTIVE GASTRITIS AND FOCAL ACUTE INFLAMMATION. Tooth extraction 10/12/14-TEETH REMOVED Colonoscopy - MAC (~03/2011) Colonoscopy - IV Sedation (04/02/11) DR. TIFFANI NICHOLS; [facility] Cholecystectomy Bilateral salpingectomy with oophorectomy Family History Mother , age 67 Alcohol abuse Mental disorder Psychotic/paranoid symptoms, unknown diagnosis Cancer bladder/kidney; ?brain Sister Substance abuse MARIJUANA Maternal Grandfather Asthma Alcohol abuse Paternal Grandfather Heart disease Diabetes Stroke Maternal Grandmother No problems noted. Paternal Grandmother Diabetes Sister Substance abuse MARIJUANA Asthma Alcohol abuse Son Depression Diabetes Hyperlipidemia Stroke Son No problems noted. Son Asthma Diabetes Hyperlipidemia Hypertension Father , 80 Cancer Brother Alcohol abuse Depression Social History Smoking/Tobacco Use Status: Former Tobacco Use tobacco type: cigarettes Quit Date: 06/20/03 Tobacco: How many years used: 30 Second Hand Exposure: Yes Smoking risk assessment performed?: Yes Alcohol Intake: former Drug use: Current Sobriety Substance use type: marijuana Details: quit smoking marijuana x1mo ago Caregiver/Support person: No Household members: spouse and children Housing: house Communication Needs: None Do you need help understanding health information?: Often Pets and animals: Yes Pets and animals: cat(s) and dog(s) Sexually active: No Do you think of yourself as: straight/heterosexual Current gender identity: female What is your relationship status?: How often do you talk on the phone with friends or family?: three or more times per week How often do you get together with friends or relatives?: decline to answer How often do you attend jew or rastafari services?: decline to answer Do you belong to any clubs or organized social groups?: no Panel score (0-1 are the most socially isolated patients): 2 What type of physical activity do you participate in: walking Duration: < 15 minutes/day Frequency: 3-4 times per week Silvia/Voodoo: Yashira Special silvia needs: No Seatbelt use: always Helmet use: No Drive intox or ride w/intox armored car guard and driver: No Do you feel safe at home: Yes Do you feel safe in your relationship?: Yes
[2025-01-06 01:03] LABS: Abs Immature Grans 0.12 10^3/uL (0.0-0.06); BE (Venous) -2 mmol/L (-2-3); HCO3 (Venous) 24 mmol/L (23-28); HCT 42.6 % (36.0-46.0); HGB 15.0 g/dL (11.2-15.7); Immature Grans % 1.3 %; MCH 32.1 pg (27.0-33.0); MCHC 35.2 % (32.0-36.0); MCV 91 fL (80-95); MPV 12.9 fL (8.0-11.0); O2 Sat (Venous) 65 %; Platelet Count 225 10^3/uL (130-400); RBC 4.68 10^6/uL (3.93-5.22); RDW 13.4 % (11.7-14.6); RDW-SD 44.9 fL; TCO2 (Venous) 22 mmol/L (24-29); WBC 9.57 10^3/uL (4.4-10.8); pCO2 (Venous) 46 mmHg (41-51); pO2 (Venous) 37 mmHg
[2025-01-06 01:14] LABS: RBC Morphology Normal
[2025-01-06 01:19] LABS: INR 1.1 (0.9-1.1); PTT Activated 25.1 sec (20.6-30.2); Prothrombin Time 11.0 sec (9.1-11.1)
[2025-01-06 01:30] LABS: ALT 161 U/L (14-59); AST 128 U/L (15-37); Albumin 3.3 g/dL (3.4-5.0); Alkaline Phosphatase 346 U/L (46-116); Anion Gap 13.0 mmol/L (3-11); BUN 52 mg/dL (7-18); Bilirubin, Total 0.7 mg/dL (0.2-1.0); CO2 26.0 mmol/L (21.0-32.0); Calcium 8.6 mg/dL (8.5-10.1); Chloride 95 mmol/L (98-107); Glucose 154 mg/dL (74-106); Lipase 20 U/L (<78); Potassium 3.1 mmol/L (3.5-5.1); Sodium 134 mmol/L (136-145); TSH (W/Ref FT4) 4.31 uIU/mL (0.36-3.74); Total Protein 6.2 g/dL (6.4-8.2)
[2025-01-06 01:31] LABS: Troponin I 443 ng/L (<or=51)
[2025-01-06 02:15] LABS: Glucose Negative (Negative)
[2025-01-06 02:19] LABS: RBC Negative HPF (0-2); WBC Negative HPF (0-5)
--- NOTE | 2025-01-06 02:23 | DI.CT_ITS ---
Exam(s) CT HEAD WO EXAM: CT HEAD WO CLINICAL HISTORY: frequent falls, history of von Willebrand's. TECHNIQUE: Imaging Protocol: Axial computed tomography images with coronal and sagittal reformatted images were created and reviewed COMPARISON: CT HEAD WITHOUT CONTRAST from 06/30/2015 FINDINGS: Ventricles and Extra axial spaces: Normal in size and morphology for the patient's age. Hemorrhage: None. Cerebral parenchyma: There is no evidence of an acute territorial infarct. There is a small lacune in the left basal ganglia. There are subtle areas of decreased attenuation in the white matter most consistent with chronic microvascular ischemic disease. Midline shift: None. Brainstem/Cerebellum: Normal. Calvarium: Normal. Visualized Paranasal sinuses/Mastoids: Clear. Soft Tissues: Unremarkable. IMPRESSION: 1. No acute intracranial process. 2. The preliminary [facility] report was reviewed. RADIATION DOSE DELIVERED: 854.3mGy.cm Total DLP DATA REPOSITORY: All CT scans at this facility are submitted to the National Radiology Data Registry (NRDR) Dose Index Registry (DIR) with the [employer] (A[employer]). RADIATION OPTIMIZATION: All CT scans at this facility use at least one of these dose optimization techniques: automated exposure control; mA and/or kV adjustment per patient size (includes targeted exams where dose is matched to clinical indication); or iterative reconstruction.
--- NOTE | 2025-01-06 02:23 | DI.CT_ITS ---
Exam(s) CT CHEST/ABD/PEL WO EXAM: CT CHEST/ABD/PEL WO CLINICAL HISTORY: epigastric pain, vomiting, CP, fever, hypotensive TECHNIQUE: Imaging Protocol: Axial computed tomography images with coronal and sagittal reformatted images were created and reviewed. Computer aided detection (CAD) was utilized. COMPARISON: CT CT CHEST LUNG CANCER SCREEN from 03/29/[address] ABDOMEN PELVIS W from 07/04/[address] CHEST/ABD/PEL W from 09/03/2023 FINDINGS: CHEST: Tracheobronchial tree: Patent where visualized. No bronchiectasis. Pulmonary parenchyma: No consolidation or dominant measurable mass. No architectural distortion. Mediastinum and Melissa: No dominant adenopathy or fluid collection. The esophagus is unremarkable. Thyroid gland: Unremarkable. Pleura: No effusion or pneumothorax. Heart: The heart is not dilated. Coronary artery calcifications are present. No pericardial effusion. Aorta: The ascending thoracic aorta measures 4 x 4 cm. Atherosclerotic calcification is present. Lymph nodes: Within normal limits. Bones:Within normal limits for the patient's age. Soft tissues: Unremarkable. ABDOMEN: Liver: Normal density. No measurable mass. The liver has a nodular contour and an enlarged left lobe. The findings are suggestive of hepatic cirrhosis. Gallbladder and Biliary Tract: Status post cholecystectomy. There is unchanged dilatation of the common bile duct. This likely is secondary to the post cholecystectomy state. Pancreas: There is fatty atrophy of the pancreas. There is no evidence of a pancreatic mass or peripancreatic fluid collection. Spleen: Normal. Adrenals: No masses seen. Kidneys: Normal size, contour and axis. No radiodense stones or obstructive uropathy. No masses seen. Abdominal Aorta: Abdominal portion non-dilated. Atherosclerotic calcification is present. Bowel: There is diverticulosis of the colon without evidence of acute diverticulitis. There is no evidence of bowel obstruction or bowel wall thickening. Appendix is unremarkable. Peritoneal Cavity: No ascites, collection or mesenteric inflammatory response. No free air. Lymph Nodes: Within normal limits. Bones: Within normal limits for the patient's age. Soft Tissues: There is a fat containing left-sided spigelian hernia. There is a small fat containing midline abdominal wall hernia. PELVIS: Bladder: Symmetric distention, no gross wall thickening. Reproductive Organs: Status post hysterectomy. Lymph Nodes: Within normal limits. Bones: Within normal limits for the patient's age. IMPRESSION: 1. There is no acute pulmonary process. 2. There is no acute abdominal or pelvic process. 3. Colonic diverticulosis without evidence of acute diverticulitis. 4. Fat containing left-sided spigelian hernia. 5. The preliminary [facility] report was reviewed. RADIATION DOSE DELIVERED: 784.42mGy.cm Total DLP 784.42mGy.cm Total DLP DATA REPOSITORY: All CT scans at this facility are submitted to the National Radiology Data Registry (NRDR) Dose Index Registry (DIR) with the [employer] (ACR). RADIATION OPTIMIZATION: All CT scans at this facility use at least one of these dose optimization techniques: automated exposure control; mA and/or kV adjustment per patient size (includes targeted exams where dose is matched to clinical indication); or iterative reconstruction.
[2025-01-06 02:31] LABS: Procalcitonin 1.66 ng/mL; Troponin I 466 ng/L (<or=51)
[2025-01-06] MEDS: Lactated Ringers 1,000 ML 1000 ML IV (02:37)
--- NOTE | 2025-01-06 02:45 | DI.[facility]_ITS ---
PROCEDURE INFORMATION: Exam: CT Head Without Contrast Exam date and time: 01/06/2025 2:07 AM Age: 69 years old Clinical indication: Other: Frequent falls, history of von willebrand's TECHNIQUE: Imaging protocol: Computed tomography of the head without contrast. COMPARISON: MR BRAIN WO 12/05/2018 2:32 PM FINDINGS: Brain: Volume loss and chronic small vessel ischemic change. No brain edema. No intracranial hemorrhage. Cerebral ventricles: No ventriculomegaly. Paranasal sinuses: Visualized sinuses are unremarkable. No fluid levels. Mastoid air cells: Unremarkable. Bones: Unremarkable. No acute fracture. Soft tissues: Unremarkable. IMPRESSION: No acute brain findings. Dictated and Authenticated by: Ramon Tilley MD. Orderin Carlita Mcgowan MD
--- NOTE | 2025-01-06 03:36 | DI.[facility]_ITS ---
PROCEDURE INFORMATION: Exam: CT Chest Without Contrast; Diagnostic Exam date and time: 01/06/2025 2:09 AM Age: 69 years old Clinical indication: Other: Epigastric pain, vomiting; Other: Cp, fever, hypotensive TECHNIQUE: Imaging protocol: Diagnostic computed tomography of the chest without contrast. 3D rendering (Not supervised by radiologist): MIP and/or 3D reconstructed images were created by the technologist. COMPARISON: CT CHEST/ABD/PEL W 09/03/2023 5:55 PM FINDINGS: Lungs: Unremarkable. No consolidation. No masses. Pleural spaces: Unremarkable. No pneumothorax. No pleural effusion. Heart: Unremarkable. No cardiomegaly. No pericardial effusion. Lymph nodes: Unremarkable. No enlarged lymph nodes. Vasculature: Unremarkable. No aortic aneurysm. Bones/joints: Unremarkable. No acute fracture. Soft tissues: Unremarkable. IMPRESSION: No acute findings. PROCEDURE INFORMATION: Exam: CT Abdomen And Pelvis Without Contrast Exam date and time: 01/06/2025 2:09 AM Age: 69 years old Clinical indication: Other: Epigastric pain, vomiting; Other: Cp, fever, hypotensive TECHNIQUE: Imaging protocol: Computed tomography of the abdomen and pelvis without contrast. 3D rendering (Not supervised by radiologist): MIP and/or 3D reconstructed images were created by the technologist. COMPARISON: CT CHEST/ABD/PEL W 09/03/2023 5:55 PM FINDINGS: Liver: Diffuse liver surface nodularity compatible with cirrhosis. Gallbladder and biliary ducts: Prior cholecystectomy. No biliary ductal dilatation. Pancreas: Unremarkable. Spleen: Normal. Adrenal glands: Normal. No mass. Kidneys and ureters: Normal. No hydronephrosis. Stomach and bowel: Colonic diverticulosis. No diverticulitis. No bowel wall thickening or intestinal obstruction. No pneumatosis or portal/mesenteric venous gas. Appendix: Normal appendix. Intraperitoneal space: No pneumoperitoneum or abscess. Vasculature: 2 cm abdominal aortic aneurysm. No rupture. Lymph nodes: Unremarkable. Urinary bladder: Unremarkable as visualized. Reproductive: Hysterectomy. Bones/joints: Unremarkable. No acute fracture. Soft tissues: Unremarkable. IMPRESSION: Diffuse liver surface nodularity compatible with cirrhosis. Dictated and Authenticated by: Ramon Tilley MD. Orderin Carlita Mcgowan MD
[2025-01-06 03:56] LABS: COVID-19 PCR Negative (Negative); RSV PCR Negative (Negative)
[2025-01-06 04:21] LABS: Troponin I 398 ng/L (<or=51)
[2025-01-06] MEDS: Normal Saline 1,000 ML 150 ML IV (04:24)
== END 2025-01-06 08:42 | disposition short-term general hospital (02) ==
PROVIDERS: Emergency Provider Student in an Organized Health Care Education/Training Program; PCP Family Medicine
DX: I21.4 Non-ST elevation (NSTEMI) myocardial infarction (principal); R74.01 Elevation of levels of liver transaminase levels; N17.9 Acute kidney failure, unspecified; E86.0 Dehydration; R57.9 Shock, unspecified
CPT/HCPCS: 36415; 71250; 80053; 82805; 83690; 84145; 87040; 87637; 93005; 96360; 96361; 99291; 70450; 74176; 81003; 81015; 83605; 84439; 84443; 84484; 85025; 85610; 85730; 87086; 93010

== ENCOUNTER 2025-01-11 10:26 | Observation (INO) | payer OTHER, MEDICARE, SELFPAY ==
[2025-01-11] VITALS (38 sets, daily range): BP systolic 128–187; BP diastolic 51–121; PULSE 64–85; RESP 10–27; TEMP 36.1–36.6; O2SAT 90–99
--- NOTE | 2025-01-11 10:49 | ED.GENADUL_ITS ---
Discharge Plan Disposition Patient Disposition: Admit to [facility] Condition: Serious Discharge Details Clinical Impression: Hypomagnesemia, Generalized weakness, Elevated troponin Primary Care Provider: Renu Gerber ED Provider: Raffy Mejia Home Meds and New Rx's Prescriptions: No Action ketoconazole 2 % cream 1 applic topical DAILY Qty: 120 6RF Patient Comments: Medication just picked up from pharmacy, has not used yet Rx Instructions: Apply to toenails once daily chlorthalidone 25 mg tablet 25 mg PO DAILY Qty: 90 3RF ipratropium-albuterol 0.5 mg-3 mg(2.5 mg base)/3 mL solution for nebulization 3 ml Inhalation TID PRN (Reason: shortness of breath or wheezing) Qty: 180 3RF Rx Instructions: J45.909 levothyroxine 125 mcg tablet 125 mcg PO DAILY Qty: 90 11RF nystatin 100,000 unit/gram powder 1 applic TP BID PRN (Reason: yeast infx in groin) Qty: 60 1RF ondansetron 4 mg tablet,disintegrating 4 mg PO Q8H PRN (Reason: nausea and vomiting) Qty: 20 0RF nystatin-triamcinolone 100,000-0.1 unit/gram-% ointment 1 applic TOPICAL DAILY PRN (Reason: rash) Qty: 30 2RF tramadol 50 mg tablet 100 mg PO BID Qty: 120 5RF Rx Instructions: one months supply insulin lispro 100 unit/mL insulin pen 60 unit subcut TID Qty: 300 5RF (DME) Dexcom G7 Sensor Device See Rx Instructions .Route Qty: 9 4RF Rx Instructions: Use as directed to monitor BG (DME) Dexcom G7 Product Development Worker Misc See Rx Instructions .Route Qty: 1 0RF Rx Instructions: Use to read G7 sensor blood glucose data. (DME) insulin syringe-needle U-100 [BD Insulin Syringe] 0.5 mL 29 gauge x 1/2 syringe See Dose Instructions .ROUTE .MEDSUPPLY Qty: 100 7RF Dose Instruction: As directed Rx Instructions: As directed omeprazole 20 mg capsule,delayed release(DR/EC) 20 mg PO DAILY Qty: 90 3RF ropinirole 1 mg tablet 1 mg PO BID Qty: 180 4RF mecobalamin (vitamin B12) 1,000 mcg lozenge 1,000 mcg PO DAILY Qty: 90 4RF Rx Instructions: allow to dissolve in mouth OR may chew lightly before swallowing mupirocin 2 % ointment 1 applic topical BID Qty: 22 0RF spironolactone 25 mg tablet 25 mg PO DAILY Qty: 90 4RF losartan 100 mg tablet 100 mg PO DAILY Qty: 90 4RF cholecalciferol (vitamin D3) [Vitamin D3] 2,000 UNIT capsule 2,000 unit PO DAILY (DME) Dexcom G6 Product Development Worker Misc See Rx Instructions .Route Qty: 3 4RF Rx Instructions: As directed E11.9 (DME) pen needle, diabetic [Novofine 32] 32 gauge x 1/4 needle 1 ea Miscellaneous 5 time day Qty: 500 4RF Rx Instructions: E11.40 novofine pen needles 32X6mm ; use 5 times daily clotrimazole-betamethasone 1-0.05 % cream 1 applic topical BID Qty: 45 0RF (DME) Blood Glucose Test Strip See Dose Instructions .Route .MEDSUPPLY Qty: 300 5RF Dose Instruction: AC and HS Patient Comments: pt. reports checking blood sugar this AM, BS 134 @ 0800 Rx Instructions: AC ; 3Xdaily; E11.21 (DME) Dexcom G6 Transmitter Device See Rx Instructions .Route Qty: 1 3RF Rx Instructions: As directed;E11.40 insulin glargine [Lantus Solostar U-100 Insulin] 100 unit/mL (3 mL) insulin pen 80 unit subcut BID Qty: 90 8RF budesonide-formoterol [Symbicort] 160-4.5 mcg/actuation HFA aerosol inhaler 2 puff Inhalation BID Qty: 3 4RF colchicine 0.6 mg tablet 0.6 mg PO BID Qty: 60 6RF (DME) Dexcom G6 Sensor Device See Rx Instructions .Route Qty: 9 4RF Rx Instructions: As directed E11.9 Slow-Mag 71.5 mg tablet,delayed release (DR/EC) 71.5 mg PO BID Qty: 180 4RF clonazepam 2 mg tablet 1 - 2 mg PO QHS MDD 1 PRN (Reason: anxiety) Qty: 30 5RF metoprolol succinate 100 mg tablet extended release 24 hr 150 mg PO DAILY Qty: 135 3RF pregabalin 150 mg capsule 150 mg PO TID Qty: 90 3RF albuterol sulfate 90 mcg/actuation HFA aerosol inhaler 1 - 2 puff Inhalation Q6H PRN Qty: 18 3RF HPI General Date/Time Provider Initiated Documentation: 01/11/25 10:48 . Limitations to Documentation: no limitations . Information obtained by: patient . HPI Narrative: HISTORY OF PRESENT ILLNESS This is a 69-year-old female with a history of type 2 diabetes, coronary artery disease, von Willebrand's disease, hypothyroidism, hypercholesterolemia, nonalcoholic fatty liver disease, previous cerebrovascular accident (CVA), hypertension, reactive airway disease, and paroxysmal atrial fibrillation (A- fib) presenting with recurrent vomiting. The patient was seen in the emergency department on 01/06/2025 for general malaise. She had been diagnosed with COVID-19 three weeks prior and was experiencing generalized weakness, nausea, vomiting, diarrhea, intermittent fevers, multiple recent falls, and abdominal pain. During this recent admission, diagnostic laboratory workup revealed multiple abnormalities, including lactic acidosis, hyponatremia, hypokalemia, acute kidney injury (YASSINE), transaminitis, and elevated troponins, raising concern for dyt-HM-mprzqxfof myocardial infarction (NSTEMI). She was transferred to [facility] for further care. The discharge summary from [facility] indicates that she was admitted on 01/06/2025 after transfer from [facility] and discharged on 01/09/2025 with diagnoses of YASSINE on chronic kidney disease stage IV, improving creatinine, and poorly controlled diabetes. Troponin levels have been downtrending, and there does not appear to be any cardiac stress testing or other invasive diagnostic cardiac testing performed. She returns today at the prompting of her technical services coordinator, who noted recurrent vomiting that started yesterday. The patient reports persistent vomiting since her discharge from [facility] on 01/09/2025, accompanied by general malaise and nausea. She has not taken any antiemetic medication today. She has not experienced diarrhea in the past three days but has a history of chronic diarrhea. She reports mild coughing and fevers, with a recorded temperature of 101 degrees before her admission to [facility]. However, her temperature was normal during a recent visit from a home health nurse. She has been maintaining hydration despite her symptoms. She has a history of two strokes and experienced severe heartburn last week, radiating to her shoulder and arm. She does not recall undergoing any stress testing or echocardiography at [facility]. She is not currently experiencing chest pain but had an episode of heartburn yesterday. She has large abdominal hernias, which have been present for some time and have required two to three surgical interventions. She experiences chronic abdominal discomfort. She also reports edema around her ankles and feet, which she attributes to her peripheral neuropathy and gout. PAST SURGICAL HISTORY: Two to three hernia surgeries. Related Data Home Medications ?Medication ?Instructions ?Recorded ?Confirmed cholecalciferol (vitamin D3) 50 2,000 unit PO DAILY 01/06/25 mcg (2,000 unit) capsule (Vitamin D3) insulin syringe-needle U-100 0.5 #100 ea 03/01/1911/22 mL 29 gauge x 1/2 (BD Insulin Syringe) blood-glucose,ux developer,cont #3 ea 07/01/22 01/06/25 (Dexcom G6 Product Development Worker) ketoconazole 2 % topical cream 1 applic topical DAILY #120 grams 08/29/23 01/06/25 pen needle, diabetic 32 gauge x #500 ea 08/30/2301/06 (Novofine 32) clotrimazole-betamethasone 1 1 applic topical BID #45 grams 01/11/24 01/06/25 %-0.05 % topical cream mupirocin 2 % topical ointment 1 applic topical BID #2 2 grams 01/20/24 01/06/25 mecobalamin (vitamin B12) 1,000 1,000 mcg PO DAILY #90 ea 03/05/24 01/06/25 mcg lozenges Held on 06/12/24. Instructions: Changed by Provider omeprazole 20 mg capsule,delayed 20 mg PO DAILY #90 ca ps 03/05/24 01/06/25 release ropinirole 1 mg tablet 1 mg PO BID #180 tabs 01/06/25 blood sugar diagnostic (Blood #300 ea 03/08/24 5 Glucose Test strips) blood-glucose transmitter (Dexcom #1 ea 03/21/2401/06 G6 Transmitter device) Held on 11/22/24. Instructions: Home Medication placed on hold at Doctor's office insulin glargine 100 unit/mL (3 80 unit (0.8 mL) subcu t BID #90 mL 03/23/24 01/06/25 mL) subcutaneous pen (Lantus Solostar U-100 Insulin) losartan 100 mg tablet 100 mg PO DAILY #90 tabs 01/06/25 spironolactone 25 mg tablet 25 mg PO DAILY #90 tabs 11/22/24 budesonide-formoterol HFA 160 2 puff inhalation BID ## 3 07/06/24 01/06/25 mcg-4.5 mcg/actuation aerosol inhaler (Symbicort) colchicine 0.6 mg tablet 0.6 mg PO BID #60 tabs 07/0901/06/25 blood-glucose sensor (Dexcom G6 #9 ea 07/30/24 5 Sensor device) Held on 11/22/24. Instructions: Home Medication placed on hold at Doctor's office magnesium chloride 71.5 mg 71.5 mg PO BID #180 tabs 01/06/25 (magnesium chloride) tablet,delayed release (Slow-Mag) clonazepam 2 mg tablet 1 - 2 mg (0.5 - 1 x 2 mg) PO QHS 10/05/24 01/06/25 PRN anxiety #30 tab-caps metoprolol succinate 100 mg 150 mg (1.5 x 100 mg) PO D AILY 10/05/24 01/06/25 tablet,extended release 24 hr #135 tab-caps chlorthalidone 25 mg tablet 25 mg PO DAILY #90 tabs 01/06/25 insulin lispro 100 unit/mL 60 unit (0.6 mL) subcut TID #300 mL 11/05/24 01/06/25 subcutaneous pen ipratropium 0.5 mg-albuterol 3 mg 3 ml inhalation TID PRN shortness 11/05/2411/22 (2.5 mg base)/3 mL nebulization of breath or wheezing #180 mL soln levothyroxine 125 mcg tablet 125 mcg PO DAILY #90 tab- caps 11/05/24 01/06/25 nystatin 100,000 unit/gram topical 1 applic topical BI D PRN yeast 11/05/24 01/06/25 powder infx in groin #60 grams nystatin-triamcinolone 100,000 1 applic topical DAILY PRN rash 11/05/24 01/06/25 unit/gram-0.1 % topical ointment #30 grams ondansetron 4 mg disintegrating 4 mg PO Q8H PRN nausea and 11/05/24 01/06/25 tablet vomiting #20 tabs Held on 01/06/25. Instructions: Prescription Finished tramadol 50 mg tablet 100 mg (2 x 50 mg) PO BID #1 20 tabs 11/05/24 01/06/25 pregabalin 150 mg capsule 150 mg PO TID #90 caps 11/0801/06/25 blood-glucose sensor (Dexcom G7 #9 ea 11/22/2411/22/2 5 Sensor device) blood-glucose,ux developer,cont #1 ea 11/22/24 01/06/25 (Dexcom G7 Product Development Worker) albuterol sulfate 90 mcg/actuation 1 - 2 puff inhalati on Q6H PRN #18 12/18/24 1 03/08/24 aerosol inhaler grams Previous Rx's ?Medication ?Instructions ?Recorded insulin syringe-needle U-100 0.5 #100 ea 03/01/19 mL 29 gauge x 1/2 (BD Insulin Syringe) blood-glucose,ux developer,cont #3 ea 07/01/22 (Dexcom G6 Product Development Worker) ketoconazole 2 % topical cream 1 applic topical DAILY #120 grams 08/29/23 pen needle, diabetic 32 gauge x #500 ea 08/30/2303/03 (Novofine 32) clotrimazole-betamethasone 1 1 applic topical BID #45 grams 01/11/24 %-0.05 % topical cream mupirocin 2 % topical ointment 1 applic topical BID #2 2 grams 01/20/24 mecobalamin (vitamin B12) 1,000 1,000 mcg PO DAILY #90 ea 03/05/24 mcg lozenges Held on 06/12/24. Instructions: Changed by Provider omeprazole 20 mg capsule,delayed 20 mg PO DAILY #90 ca ps 03/05/24 release ropinirole 1 mg tablet 1 mg PO BID #180 tabs blood sugar diagnostic (Blood #300 ea 03/08/24 Glucose Test strips) blood-glucose transmitter (Dexcom #1 ea 03/21/24 G6 Transmitter device) Held on 11/22/24. Instructions: Home Medication placed on hold at Doctor's office insulin glargine 100 unit/mL (3 80 unit (0.8 mL) subcu t BID #90 mL 03/23/24 mL) subcutaneous pen (Lantus Solostar U-100 Insulin) losartan 100 mg tablet 100 mg PO DAILY #90 tabs spironolactone 25 mg tablet 25 mg PO DAILY #90 tabs budesonide-formoterol HFA 160 2 puff inhalation BID ## 3 07/06/24 mcg-4.5 mcg/actuation aerosol inhaler (Symbicort) colchicine 0.6 mg tablet 0.6 mg PO BID #60 tabs 07/09 blood-glucose sensor (Dexcom G6 #9 ea 07/30/24 Sensor device) Held on 11/22/24. Instructions: Home Medication placed on hold at Doctor's office magnesium chloride 71.5 mg 71.5 mg PO BID #180 tabs (magnesium chloride) tablet,delayed release (Slow-Mag) clonazepam 2 mg tablet 1 - 2 mg (0.5 - 1 x 2 mg) PO QHS 10/05/24 PRN anxiety #30 tab-caps metoprolol succinate 100 mg 150 mg (1.5 x 100 mg) PO D AILY 10/05/24 tablet,extended release 24 hr #135 tab-caps chlorthalidone 25 mg tablet 25 mg PO DAILY #90 tabs insulin lispro 100 unit/mL 60 unit (0.6 mL) subcut TID #300 mL 11/05/24 subcutaneous pen ipratropium 0.5 mg-albuterol 3 mg 3 ml inhalation TID PRN shortness 11/05/24 (2.5 mg base)/3 mL nebulization of breath or wheezing #180 mL soln levothyroxine 125 mcg tablet 125 mcg PO DAILY #90 tab- caps 11/05/24 nystatin 100,000 unit/gram topical 1 applic topical BI D PRN yeast 11/05/24 powder infx in groin #60 grams nystatin-triamcinolone 100,000 1 applic topical DAILY PRN rash 11/05/24 unit/gram-0.1 % topical ointment #30 grams ondansetron 4 mg disintegrating 4 mg PO Q8H PRN nausea and 11/05/24 tablet vomiting #20 tabs Held on 01/06/25. Instructions: Prescription Finished tramadol 50 mg tablet 100 mg (2 x 50 mg) PO BID #1 20 tabs 11/05/24 pregabalin 150 mg capsule 150 mg PO TID #90 caps 11/08 blood-glucose sensor (Dexcom G7 #9 ea 11/22/24 Sensor device) blood-glucose,ux developer,cont #1 ea 11/22/24 (Dexcom G7 Product Development Worker) albuterol sulfate 90 mcg/actuation 1 - 2 puff inhalati on Q6H PRN #18 12/18/24 aerosol inhaler grams Allergies Allergy/AdvReac Type Severity Reaction Status Date / Time Penicillins Allergy Skin Rash Verified 01/06/25 00:45 amlodipine besylate (From AdvReac Intermediate cough Verified 01/06/25 00:45 Norvas) lithium AdvReac Intermediate HYPERACTIVITY Verified 01/06/25 00:45 FOR DAYS rizatriptan AdvReac Intermediate BAD COUGH Verified 01/06/25 00:45 FOR 2 YEARS morphine AdvReac Mild Hallucinati Verified 01/06/25 00:45 ons/Vomitin g ibuprofen AdvReac Unknown Other (See Verified 01/06/25 00:45 Comment) atorvastatin AdvReac myalgias Verified 01/06/25 00:45 carbamazepine AdvReac myalgias Verified 01/06/25 00:45 enalaprilat AdvReac Cough Verified 01/06/25 00:45 General Stated Complaint: Abd Prob EARL: 3 Exam Const General: cooperative and no acute distress HENMT Mouth: moist mucous membranes Eyes Conjunctivae: normal conjunctivae Sclera: normal sclerae Neck Neck: trachea midline and supple Resp Auscultation: clear to auscultation bilaterally, no rales, no rhonchi and no wheezes Cardio Rate: regular rate and not tachycardic Rhythm: regular rhythm GI Inspection: visible herniation (two large ventral hernias) Palpation: soft, not firm, no guarding, no masses, not rigid and nontender Skin General skin exam: no rashes or lesions noted Neuro General: patient alert, patient awake, patient oriented x3 and tone normal Extrem General: no edema Psych Appearance: grossly normal Mental Status: mental status grossly normal Speech and Movement: speech and movement normal Course Vital Signs Vital signs: Vital Signs Temperature 36.6 C 01/11/25 10:40 Pulse 78 01/11/25 10:40 Respiratory Rate 15 01/11/25 10:40 Blood Pressure 183/88 H 01/11/25 10:40 Pulse Oximetry 97 01/11/25 10:40 Temperature 36.6 C 01/11/25 10:48 Temperature Source Oral 01/11/25 10:48 Pulse 78 01/11/25 10:48 Respiratory Rate 15 01/11/25 10:48 Blood Pressure 183/88 H 01/11/25 10:48 Blood Pressure Position Sitting 01/11/25 10:48 Pulse Oximetry 97 01/11/25 10:48 Oxygen Delivery Method Room Air 01/11/25 10:48 Oxygen Flow Rate 0 01/11/25 10:48 Medical Decision Making ASSESSMENT AND PLAN Initial Assessment: 69-year-old female with multiple medical problems including type 2 diabetes, coronary artery disease, von Willebrand's disease, hypothyroidism, hypercholesterolemia, nonalcoholic fatty liver disease, previous CVA, hypertension, reactive airway disease, paroxysmal A-fib, presenting with recurrent vomiting, generalized weakness, intermittent fevers, and abdominal pain. Recently discharged from hospital with diagnosis of YASSINE on CKD stage IV, poorly controlled diabetes, and elevated troponins. Differential Diagnosis: - YASSINE on CKD stage IV: recent discharge with improving creatinine levels; blood work to assess kidney function and electrolytes. - Poorly controlled diabetes: recent discharge diagnosis; monitor blood glucose levels, adjust diabetes management. - NSTEMI: elevated troponins during last visit; recheck cardiac enzymes, repeat EKG. - Electrolyte abnormality - Consider infectious etiology including pneumonia and UTI ED Course: - Zofran IV administered for nausea - Blood work conducted to assess kidney function and electrolyte levels. Creatinine significantly improved. Severe hypomagnesemia noted. I will give magnesium 2 g IV. - EKG was reviewed and interpreted by me: Please report, sinus rhythm 76 bpm, no STEMI, nondiagnostic. Initial troponin today slightly elevated although significantly improved from prior. - Chest x-ray reviewed interpreted by radiology: No acute pulmonary findings. - Urinalysis pending. -- [address] Zavala, discussed ED presentation course, she will admit the patient. Final Assessment: Patient presented with recurrent vomiting, generalized weakness, intermittent fevers, and abdominal pain. Blood work conducted to assess kidney function and electrolytes. Cardiac enzymes rechecked and EKG repeated. Zofran administered for nausea. Clinical Impression: - Hypomagnesemia, severe - Generalized weakness - Nausea and vomiting - Elevated troponin Disposition: Admit for further diagnostic workup and treatment, continue cardiac monitoring while receiving electrolyte replacement. This document was written with the assistance of MARKO Roque. The patient consented to its use. Lab Data Labs: Laboratory Tests Range/Units 01/11/25 11:24 WBC (4.4-10.8) 10^3/uL 5.43 RBC (3.93-5.22) 10^6/uL 3.73 L Hgb (11.2-15.7) g/dL 12.1 Hct (36.0-46.0) % 35.1 L MCV (80-95) fL 94 MCH (27.0-33.0) pg 32.4 MCHC (32.0-36.0) % 34.5 RDW (11.7-14.6) % 13.7 Plt Count (130-400) 10^3/uL 129 L MPV (8.0-11.0) fL 13.0 H Immature Gran % % 2.0 Neutrophils % % 50.4 Lymphocytes % % 27.4 Monocytes % % 18.4 Eosinophils % % 1.1 Basophils % % 0.7 Nucleated RBC % (0.0-0.3) % 0.0 Absolute Neutrophils (1.2-6.7) 10^3/uL 2.73 Absolute Lymphocytes (1.2-3.4) 10^3/uL 1.49 Absolute Monocytes (0.1-0.8) 10^3/uL 1.00 H Absolute Eosinophils (0.0-0.7) 10^3/uL 0.06 Absolute Basophils (0.0-0.2) 10^3/uL 0.04 VBG Lactate (<or=2.0) mmol/L 1.8 Sodium (136-145) mmol/L 138 Potassium (3.5-5.1) mmol/L 3.7 Chloride (98-107) mmol/L 102 Carbon Dioxide (20.0-31.0) mmol/L 28.1 Anion Gap (3-11) mmol/L 7.9 BUN (9-23) mg/dL 13 Creatinine (0.55-1.02) mg/dL 1.2 H Est GFR (CKD-EPI 2020) (mL/min/1.73m2) 46.56 Glucose (74-106) mg/dL 217 H Calcium (8.3-10.6) mg/dL 8.7 Magnesium (1.6-2.6) mg/dL 1.0 L Total Bilirubin (0.2-1.2) mg/dL 0.60 AST (<34) U/L 116 H ALT (10-49) U/L 119 H Alkaline Phosphatase (46-116) U/L 280 H Troponin I (<35) ng/L 69 H Total Protein (5.7-8.2) g/dL 5.8 Albumin (3.4-5.0) g/dL 3.7 Lipase (<53) U/L 18 PFSH All Active Problems (Updated 01/11/25 @ 13:22 by Raffy Mejia MD) Elevated troponin (Acute) Generalized weakness (Acute) Hypomagnesemia (Acute) Non-ST elevation UT (NSTEMI) (Acute) Transaminitis (Acute) Acute kidney injury (Acute) Acute dehydration (Acute) Shock (Acute) Peripheral neuropathy (Acute) Contracture of left Achilles tendon (Acute) Plantar fasciitis of left foot (Acute) Tarsal tunnel syndrome of left side (Acute) Gout (Chronic) Multiple fractures of ribs of right side (Acute) Pain in joints of both feet (Acute) Nail dystrophy (Acute) Onychomycosis (Acute) Ingrown toenail (Acute) Atherosclerosis of artery of both lower extremities (Acute) Type 2 diabetes mellitus with peripheral neuropathy (Acute) Diabetes mellitus with autonomic neuropathy (Acute) Infection of lumbar spine (Acute) Frequent falls (Acute) Chronic low back pain with right-sided sciatica (Acute) Large hiatal hernia (Acute) RLQ abdominal pain (Acute) Cataract (Chronic) Bunion, right foot (Acute) BMI 40.0-44.9, adult (Acute) Abdominal wall hernia (Acute) Coronary artery calcification seen on CAT scan (Acute) Atherosclerosis (Acute) Enlarged heart (Acute) Herpes (Acute) Lumbar radicular pain (Acute) Seborrhea corporis (Acute) Elevated LFTs (Acute) Arthralgia (Acute) DARLENE positive (Acute) Yeast infection (Acute) Staph infection (Acute) Restless leg (Acute) Von Willebrand factor inhibitor disorder (Chronic) Rotator cuff disorder (Chronic 06/27/14) Recurrent ventral hernia (Chronic 04/07/16) Non-alcoholic fatty liver disease (Chronic) elevated LFT Insomnia (Chronic) Hypothyroidism (Chronic) Hyperlipidemia (Chronic) Gastroesophageal reflux disease (Chronic) 09/29/12 EGD SHOW SOME REFULX CHANGES Elevated serum GGT level (Chronic 02/17/15) 1600 in 2011 [address] RIDDLE Diverticula of colon (Chronic) Diabetes mellitus with neuropathy (Chronic 02/14/14) Depressed bipolar I disorder (Chronic) STABLE 02/2011 Chronic cough (Chronic) Cataracts, both eyes (Chronic 12/09/15) 12/09/15[facility]>OS Atrophic vaginitis (Chronic 09/14/12) Asthma (Chronic) Chronic pain disorder (Chronic 11/25/16) Ganglion (Chronic) Stress incontinence in female (Chronic) Hypertension (Chronic) Medical History COVID-19 (~02/2024) Ribs, multiple fractures Tibial fracture pt. reports surgical intervention Fatigue Torn medial meniscus Diarrhea Cellulitis Trigger finger Hand joint pain (12/01/11) History of tobacco use History of tobacco use quit in 2002 History of alcoholism in sobriety for greater than 10 years Triggering of finger thumb Ganglion of tendon sheath 12/01/11 Hand joint pain 12/01/11 Chest pain 06/05/12 Overdose 1994: alcohol and benzo 09/18/13 Stenosing tenosynovitis of thumb (05/13/14) Right foot pain (12/16/14) Neoplasm of unspecified nature of bone, soft tissue, and skin (08/12/14) Headache Essential hypertension (12/13/12) fatty liver Elevated lipase (08/26/16) Sanjuanita infection (08/26/16) Chronic sinusitis CVA (cerebral vascular accident) 2018 x2 Diabetes type 2, uncontrolled Hypothyroidism Hyperlipidemia Headache Chronic cough Bipolar disorder Diabetic neuropathy Fatty liver disease, nonalcoholic Insomnia Hypomagnesemia Fatigue Surgical History Status post abdominal hysterectomy Status post bilateral salpingo-oophorectomy Status post cholecystectomy Status post hernia repair S/P BSO (bilateral salpingo-oophorectomy) S/P abdominal hysterectomy fibroids, abnormal paps S/P cholecystectomy S/P hernia repair 02/28/11 H/O esophagogastroduodenoscopy active gastritis and focal acute inflammation 02/29/12 H/O surgical procedure right thumb release 02/29/12 hernia repair (~02/2011) Ventral Hernia repair (04/07/16) Dr. Jackson Incision, Tendon Sheath (08/01/12) RIGHT THUMB RELEASE Abdominal hysterectomy FIBROIDS/ABNORMAL PAPS EGD - MAC (09/29/12) ACTIVE GASTRITIS AND FOCAL ACUTE INFLAMMATION. Tooth extraction 10/12/14-TEETH REMOVED Colonoscopy - MAC (~03/2011) Colonoscopy - IV Sedation (04/02/11) DR. TIFFANI NICHOLS; DIVERTICULA Cholecystectomy Bilateral salpingectomy with oophorectomy Family History Mother , age 67 Alcohol abuse Mental disorder Psychotic/paranoid symptoms, unknown diagnosis Cancer bladder/kidney; ?brain Sister Substance abuse MARIJUANA Maternal Grandfather Asthma Alcohol abuse Paternal Grandfather Heart disease Diabetes Stroke Maternal Grandmother No problems noted. Paternal Grandmother Diabetes Sister Substance abuse MARIJUANA Asthma Alcohol abuse Son Depression Diabetes Hyperlipidemia Stroke Son No problems noted. Son Asthma Diabetes Hyperlipidemia Hypertension Father , 80 Cancer Brother Alcohol abuse Depression Social History Smoking/Tobacco Use Status: Former Tobacco Use tobacco type: cigarettes Quit Date: 06/20/03 Tobacco: How many years used: 30 Second Hand Exposure: Yes Smoking risk assessment performed?: Yes Alcohol Intake: former Drug use: Current Sobriety Substance use type: marijuana Details: quit smoking marijuana x1mo ago Caregiver/Support person: No Household members: spouse and children Housing: house Communication Needs: None Do you need help understanding health information?: Often Pets and animals: Yes Pets and animals: cat(s) and dog(s) Sexually active: No Do you think of yourself as: straight/heterosexual Current gender identity: female What is your relationship status?: How often do you talk on the phone with friends or family?: three or more times per week How often do you get together with friends or relatives?: decline to answer How often do you attend episcopal or hindu services?: decline to answer Do you belong to any clubs or organized social groups?: no Panel score (0-1 are the most socially isolated patients): 2 What type of physical activity do you participate in: walking Duration: < 15 minutes/day Frequency: 3-4 times per week Silvia/Mosque: Yashira Special silvia needs: No Seatbelt use: always Helmet use: No Drive intox or ride w/intox regional intermodal truck driver: No Do you feel safe at home: Yes Do you feel safe in your relationship?: Yes
--- NOTE | 2025-01-11 11:00 | RT.EKG_ITS ---
APPROVED REPORT Exam: Resting ECG Reason for Exam: chest pain yesterday Patient Location: E HR:76 bpm ECG Measurements Heart Rate 76 AXIS RI 154 P 20 QRSd 84 QRS 21 QT 413 T 52 QTc 466 Conclusion Sinus rhythm...normal P axis, V-rate 60- 99
--- NOTE | 2025-01-11 11:00 | DI.RAD_ITS ---
Exam(s) XR CHEST 2V PA LATERAL EXAM: XR CHEST 2V PA LATERAL CLINICAL HISTORY: cough. TECHNIQUE: 2D digital imaging was performed. COMPARISON: CR XR CHEST 2V PA LATERAL from 07/28/2021 FINDINGS: 2 views: Heart size is normal. The mediastinum is not widened. Lungs are clear. No infiltrates nor pleural effusions. IMPRESSION: No acute pulmonary findings. DATA REPOSITORY: RADIATION DOSE DELIVERED:
[2025-01-11] MEDS: Ondansetron 4 MG/2 ML VIAL IVP (11:29)
[2025-01-11 11:36] LABS: Abs Immature Grans 0.11 10^3/uL (0.0-0.06); HCT 35.1 % (36.0-46.0); HGB 12.1 g/dL (11.2-15.7); Immature Grans % 2.0 %; MCH 32.4 pg (27.0-33.0); MCHC 34.5 % (32.0-36.0); MCV 94 fL (80-95); MPV 13.0 fL (8.0-11.0); Platelet Count 129 10^3/uL (130-400); RBC 3.73 10^6/uL (3.93-5.22); RDW 13.7 % (11.7-14.6); RDW-SD 47.1 fL; WBC 5.43 10^3/uL (4.4-10.8)
[2025-01-11 11:51] LABS: Lipase 18 U/L (<53)
[2025-01-11 11:52] LABS: Magnesium 1.0 mg/dL (1.6-2.6)
[2025-01-11 11:54] LABS: ALT 119 U/L (10-49); AST 116 U/L (<34); Albumin 3.7 g/dL (3.4-5.0); Alkaline Phosphatase 280 U/L (46-116); Anion Gap 7.9 mmol/L (3-11); BUN 13 mg/dL (9-23); Bilirubin, Total 0.60 mg/dL (0.2-1.2); CO2 28.1 mmol/L (20.0-31.0); Calcium 8.7 mg/dL (8.3-10.6); Chloride 102 mmol/L (98-107); Glucose 217 mg/dL (74-106); Potassium 3.7 mmol/L (3.5-5.1); Sodium 138 mmol/L (136-145); Total Protein 5.8 g/dL (5.7-8.2)
[2025-01-11] MEDS: MAGNESIUM SULFATE 2 GM/50 ML BAG IV_INF (12:30)
[2025-01-11 12:33] LABS: Troponin I 69 ng/L (<35)
[2025-01-11 13:26] LABS: Troponin I 77 ng/L (<35)
--- NOTE | 2025-01-11 15:23 | W.PC.ACHO ---
Registration Status: REG ER Primary Language: Preferred Language: Persian ED Information & Data Chief Complaint Abd Prob 01/11/25 10:52 Triage Note started vomiting yesterday 01/11/25 10:40 is what brought pt in to ed. pt was here Tuesday for fall and weakness, diagnosed with renal failure, went to [facility] to be seen by specialist, had stroke and heart attach there. Medical / Surgical History (Last Reviewed 01/11/25 @ 13:17 by Raffy Mejia MD) COVID-19 (~02/2024) Ribs, multiple fractures Tibial fracture Fatigue Torn medial meniscus Diarrhea Cellulitis Trigger finger Hand joint pain (12/01/11) History of tobacco use History of tobacco use History of alcoholism Triggering of finger Ganglion of tendon sheath Hand joint pain Chest pain Overdose Stenosing tenosynovitis of thumb (05/13/14) Right foot pain (12/16/14) Neoplasm of unspecified nature of bone, soft tissue, and skin (08/12/14) Headache Essential hypertension (12/13/12) Elevated lipase (08/26/16) Sanjuanita infection (08/26/16) Chronic sinusitis CVA (cerebral vascular accident) Diabetes type 2, uncontrolled Hypothyroidism Hyperlipidemia Headache Chronic cough Bipolar disorder Diabetic neuropathy Fatty liver disease, nonalcoholic Insomnia Hypomagnesemia Fatigue (Last Reviewed 01/11/25 @ 13:17 by Raffy Mejia MD) Status post abdominal hysterectomy Status post bilateral salpingo-oophorectomy Status post cholecystectomy Status post hernia repair S/P BSO (bilateral salpingo-oophorectomy) S/P abdominal hysterectomy S/P cholecystectomy S/P hernia repair H/O esophagogastroduodenoscopy H/O surgical procedure hernia repair (~02/2011) Ventral Hernia repair (04/07/16) Incision, Tendon Sheath (08/01/12) Abdominal hysterectomy EGD - MAC (09/29/12) Tooth extraction Colonoscopy - MAC (~03/2011) Colonoscopy - IV Sedation (04/02/11) Cholecystectomy Bilateral salpingectomy with oophorectomy Most Recent Vital Signs Temperature 36.6 C 01/11/25 10:48 Temperature Source Oral 01/11/25 10:48 Pulse 64 01/11/25 14:01 Pulse 73 01/11/25 13:32 Respiratory Rate 27 H 01/11/25 13:32 Blood Pressure 158/71 H 01/11/25 14:01 Blood Pressure Mean 104 01/11/25 14:01 Blood Pressure Position Sitting 01/11/25 10:48 Pulse Oximetry 93 01/11/25 14:01 Oxygen Delivery Method Room Air 01/11/25 10:48 Oxygen Flow Rate 0 01/11/25 10:48 Allergies Penicillins Allergy (Verified 01/06/25 00:45) Skin Rash ithcy amlodipine besylate (From [facility]) Adverse Reaction (Intermediate, Verified 01/06/25 00:45) cough cough lithium Adverse Reaction (Intermediate, Verified 01/06/25 00:45) HYPERACTIVITY FOR DAYS rizatriptan Adverse Reaction (Intermediate, Verified 01/06/25 00:45) BAD COUGH FOR 2 YEARS morphine Adverse Reaction (Mild, Verified 01/06/25 00:45) Hallucinations/Vomiting ibuprofen Adverse Reaction (Unknown, Verified 01/06/25 00:45) Other (See Comment) pt. reports it makes her heart crazy things atorvastatin Adverse Reaction (Verified 01/06/25 00:45) myalgias carbamazepine Adverse Reaction (Verified 01/06/25 00:45) myalgias enalaprilat Adverse Reaction (Verified 01/06/25 00:45) Cough IV IV Catheter Type [Left Peripheral IV Antecubital] IV Catheter Gauge [Left 18 Antecubital] Diet Orders Category Date Time Status Diabetes Consistent CHO/Heart Healthy [DIET] Nutrition 01/11/25 Dinner Active Diagnostics 01/11/25 01/11/25 01/11/25 Range/Units 15:10 12:25 11:24 WBC 5.43 (4.4-10.8) 10^3/uL RBC 3.73 L (3.93-5.22) 10^6/uL Hgb 12.1 (11.2-15.7) g/dL Hct 35.1 L (36.0-46.0) % MCV 94 (80-95) fL MCH 32.4 (27.0-33.0) pg MCHC 34.5 (32.0-36.0) % RDW 13.7 (11.7-14.6) % Plt Count 129 L (130-400) 10^3/uL MPV 13.0 H (8.0-11.0) fL Immature Gran % 2.0 % Neutrophils % 50.4 % Lymphocytes % 27.4 % Monocytes % 18.4 % Eosinophils % 1.1 % Basophils % 0.7 % Nucleated RBC % 0.0 (0.0-0.3) % Absolute Neutrophils 2.73 (1.2-6.7) 10^3/uL Absolute Lymphocytes 1.49 (1.2-3.4) 10^3/uL Absolute Monocytes 1.00 H (0.1-0.8) 10^3/uL Absolute Eosinophils 0.06 (0.0-0.7) 10^3/uL Absolute Basophils 0.04 (0.0-0.2) 10^3/uL VBG Lactate 1.8 (<or=2.0) mmol/L Sodium 138 (136-145) mmol/L Potassium 3.7 (3.5-5.1) mmol/L Chloride 102 (98-107) mmol/L Carbon Dioxide 28.1 (20.0-31.0) mmol/L Anion Gap 7.9 (3-11) mmol/L BUN 13 (9-23) mg/dL Creatinine 1.2 H (0.55-1.02) mg/dL Est GFR (CKD-EPI 2020) 46.56 (mL/min/1.73m2) Glucose 217 H (74-106) mg/dL Calcium 8.7 (8.3-10.6) mg/dL Magnesium 1.0 L (1.6-2.6) mg/dL Total Bilirubin 0.60 (0.2-1.2) mg/dL AST 116 H (<34) U/L ALT 119 H (10-49) U/L Alkaline Phosphatase 280 H (46-116) U/L Troponin I Pending 77 H 69 H (<35) ng/L Total Protein 5.8 (5.7-8.2) g/dL Albumin 3.7 (3.4-5.0) g/dL Lipase 18 (<53) U/L Intake and Output - 24 Hour Total 01/11/25 10:26 thru 01/11/25 15:17 Intake Total 50 Balance 50 Weight 104.326 kg Intake: IV 50 Falls Risk Assessment History of Falls Previous History 01/11/25 10:48 Contributing Factors Unstable 01/11/25 10:48 Ambulatory Aids Uses ambulatory device 01/11/25 10:48 Tubes/Lines With any additional score 11/14/25 10:48 Gait Evaluation W/any additional score 01/11/25 10:48 Cognition No cognitive impairment 01/11/25 10:48 Fall Total Score 73 01/11/25 10:48 Level of Risk High Risk 01/11/25 10:48 Problems (Last Reviewed 01/11/25 @ 13:17 by Raffy Mejia MD) Elevated troponin (Acute) Generalized weakness (Acute) Hypomagnesemia (Acute) Attestation Statement: By documenting the first initial, last name, and credentials of the reporting nurse below, both parties acknowledge that all relevant information regarding the patient handoff has been communicated, and that all questions have been addressed to ensure continuity and safety of care. Additional Patient Information/Comments: Pt presented to ED on 01/06/25 with YASSINE and elevated troponin, transferred to [place], discharged home. Referred to ED for vomiting, received 2gm Mag sulfate, zofran with good effect, has yet to void in ED, pt states she has chronic low output, not cathed in ED, awaiting a void, ambulates with cane, alert, oriented, verbal. Report Received From: FLORIN Bazzi
[2025-01-11 15:57] LABS: Troponin I 81 ng/L (<35)
[2025-01-11 16:03] LABS: Glucose 100 mg/dL (Negative)
[2025-01-11 16:16] LABS: WBC >50 HPF (0-5)
--- NOTE | 2025-01-11 19:09 | W.PM.HP.N ---
Date of service: 01/11/25 Time of Service: 19:09 Assessment and Plan Assessment and plan (1) Hypomagnesemia: Status: Acute Assessment and plan: Mag 1.0 - 2 gm IV given in ED Trend (2) Elevated troponin: Status: Acute Assessment and plan: 69-year-old female with extensive comorbidities presenting with recurrent vomiting and generalized weakness shortly after hospital discharge for YASSINE on CKD IV, abnormal electrolytes, and elevated troponins. Troponins repeated due to recent elevation. Trop 69; 77; 81 - No chest pain, no shortness of breath Improved since last admission 01/06 (3) Generalized weakness: Status: Acute Assessment and plan: Will get PT eval Fall precautions (4) Transaminitis: Status: Acute Assessment and plan: AST 116 ALT 119 Alk Phos 280 - improved since last admission Trend History of Present Illness Narrative: This is a 69-year-old female with a significant history of type 2 diabetes, CAD, von Willebrand disease, hypothyroidism, hyperlipidemia, non alcoholic fatty liver disease, prior CVA x 2, hypertension, reactive airway disease, and paroxysmal atrial fibrillation, presenting with recurrent vomiting. She was evaluated in the ED on 01/06/25 for generalized malaise after a recent COVID-19 infection. At that time she had nausea, vomiting, diarrhea, intermittent fevers, abdominal pain, and multiple falls. Workup revealed lactic acidosis, hyponatremia, hypokalemia, YASSINE, transaminitis, and elevated troponins concerning for NSTEMI. She was transferred to [facility] and discharged on 01/09/25 with diagnoses of YASSINE on CKD IV (improving), and poorly controlled diabetes. No stress test or further cardiac evaluation was documented. Since discharge, she reports persistent vomiting beginning yesterday with associated nausea and generalized weakness. She denies current diarrhea (none x3 days), though she has a history of chronic diarrhea. Reports intermittent fevers at home (Tmax 101?F), mild cough, and chronic abdominal discomfort related to two large ventral hernias. No current chest pain, but she reports an episode of severe heartburn radiating to her shoulder/arm last week. She has chronic lower-extremity edema attributed to neuropathy and gout. She has been able to maintain some oral hydration. She presents today at the request of her customer care associate due to recurrent vomiting. She did not take an antiemetic today. ED Course: Zofran IV administered with improvement in nausea. Laboratory studies obtained: creatinine notably improved from prior admission. Severe hypomagnesemia (Mg 1.0) identified administered 2 g IV magnesium. EKG: Sinus rhythm 76 bpm, no STEMI, nondiagnostic. Troponin: Slightly elevated (69 ng/L) but significantly improved from prior values. Chest X-ray: Interpreted by radiology - No acute pulmonary process. Urinalysis contaminated - will do a straight cath Review of Systems Narrative: Constitutional: +fatigue, +intermittent fevers. GI: +vomiting, nausea, chronic abdominal discomfort. No diarrhea x3 days. Resp: Mild cough; denies shortness of breath. CV: Denies current chest pain; reports episode of heartburn last week. Neuro: Denies new focal deficits; chronic neuropathy. : No dysuria. All other systems reviewed and negative unless noted above. PFSH All Active Problems (Updated 01/11/25 @ 15:33 by VAIBHAV BENDER) Elevated troponin (Acute) Generalized weakness (Acute) Hypomagnesemia (Acute) Non-ST elevation MT (NSTEMI) (Acute) Transaminitis (Acute) Acute kidney injury (Acute) Acute dehydration (Acute) Shock (Acute) Peripheral neuropathy (Acute) Contracture of left Achilles tendon (Acute) Plantar fasciitis of left foot (Acute) Tarsal tunnel syndrome of left side (Acute) Gout (Chronic) Multiple fractures of ribs of right side (Acute) Pain in joints of both feet (Acute) Nail dystrophy (Acute) Onychomycosis (Acute) Ingrown toenail (Acute) Atherosclerosis of artery of both lower extremities (Acute) Type 2 diabetes mellitus with peripheral neuropathy (Acute) Diabetes mellitus with autonomic neuropathy (Acute) Infection of lumbar spine (Acute) Frequent falls (Acute) Chronic low back pain with right-sided sciatica (Acute) Large hiatal hernia (Acute) RLQ abdominal pain (Acute) Cataract (Chronic) Bunion, right foot (Acute) BMI 40.0-44.9, adult (Acute) Abdominal wall hernia (Acute) Coronary artery calcification seen on CAT scan (Acute) Atherosclerosis (Acute) Enlarged heart (Acute) Herpes (Acute) Lumbar radicular pain (Acute) Seborrhea corporis (Acute) Elevated LFTs (Acute) Arthralgia (Acute) DARLENE positive (Acute) Yeast infection (Acute) Staph infection (Acute) Restless leg (Acute) Von Willebrand factor inhibitor disorder (Chronic) Rotator cuff disorder (Chronic 06/27/14) Recurrent ventral hernia (Chronic 04/07/16) Non-alcoholic fatty liver disease (Chronic) elevated LFT Insomnia (Chronic) Hypothyroidism (Chronic) Hyperlipidemia (Chronic) Gastroesophageal reflux disease (Chronic) 09/29/12 EGD SHOW SOME REFULX CHANGES Elevated serum GGT level (Chronic 02/17/15) 1600 in 2011 [address] RIDDLE Diverticula of colon (Chronic) Diabetes mellitus with neuropathy (Chronic 02/14/14) Depressed bipolar I disorder (Chronic) STABLE 02/2011 Chronic cough (Chronic) Cataracts, both eyes (Chronic 12/09/15) 12/09/15-[facility]- OD>OS Atrophic vaginitis (Chronic 09/14/12) Asthma (Chronic) Chronic pain disorder (Chronic 11/25/16) Ganglion (Chronic) Stress incontinence in female (Chronic) Hypertension (Chronic) Medical History COVID-19 (~02/2024) Ribs, multiple fractures Tibial fracture pt. reports surgical intervention Fatigue Torn medial meniscus Diarrhea Cellulitis Trigger finger Hand joint pain (12/01/11) History of tobacco use History of tobacco use quit in 2002 History of alcoholism in sobriety for greater than 10 years Triggering of finger thumb Ganglion of tendon sheath 12/01/11 Hand joint pain 12/01/11 Chest pain 06/05/12 Overdose 1995: alcohol and benzo 09/18/13 Stenosing tenosynovitis of thumb (05/13/14) Right foot pain (12/16/14) Neoplasm of unspecified nature of bone, soft tissue, and skin (08/12/14) Headache Essential hypertension (12/13/12) fatty liver Elevated lipase (08/26/16) Sanjuanita infection (08/26/16) Chronic sinusitis CVA (cerebral vascular accident) 2018 x2 Diabetes type 2, uncontrolled Hypothyroidism Hyperlipidemia Headache Chronic cough Bipolar disorder Diabetic neuropathy Fatty liver disease, nonalcoholic Insomnia Hypomagnesemia Fatigue Surgical History Status post abdominal hysterectomy Status post bilateral salpingo-oophorectomy Status post cholecystectomy Status post hernia repair S/P BSO (bilateral salpingo-oophorectomy) S/P abdominal hysterectomy fibroids, abnormal paps S/P cholecystectomy S/P hernia repair 02/28/11 H/O esophagogastroduodenoscopy active gastritis and focal acute inflammation 02/29/12 H/O surgical procedure right thumb release 02/29/12 hernia repair (~02/2011) Ventral Hernia repair (04/07/16) Dr. Jackson Incision, Tendon Sheath (08/01/12) RIGHT THUMB RELEASE Abdominal hysterectomy FIBROIDS/ABNORMAL PAPS EGD - MAC (09/29/12) ACTIVE GASTRITIS AND FOCAL ACUTE INFLAMMATION. Tooth extraction 10/12/14-TEETH REMOVED Colonoscopy - MAC (~03/2011) Colonoscopy - IV Sedation (04/02/11) DR. TIFFANI NICHOLS; [place] Cholecystectomy Bilateral salpingectomy with oophorectomy Family History Mother , age 67 Alcohol abuse Mental disorder Psychotic/paranoid symptoms, unknown diagnosis Cancer bladder/kidney; ?brain Sister Substance abuse MARIJUANA Maternal Grandfather Asthma Alcohol abuse Paternal Grandfather Heart disease Diabetes Stroke Maternal Grandmother No problems noted. Paternal Grandmother Diabetes Sister Substance abuse MARIJUANA Asthma Alcohol abuse Son Depression Diabetes Hyperlipidemia Stroke Son No problems noted. Son Asthma Diabetes Hyperlipidemia Hypertension Father , 80 Cancer Brother Alcohol abuse Depression Social History Smoking/Tobacco Use Status: Former Tobacco Use tobacco type: cigarettes Quit Date: 06/20/03 Tobacco: How many years used: 30 Second Hand Exposure: Yes Smoking risk assessment performed?: Yes Alcohol Intake: former Drug use: Current Sobriety Substance use type: marijuana Details: quit smoking marijuana x1mo ago Caregiver/Support person: No Household members: spouse and children Housing: house Communication Needs: None Do you need help understanding health information?: Often Pets and animals: Yes Pets and animals: cat(s) and dog(s) Sexually active: No Do you think of yourself as: straight/heterosexual Current gender identity: female What is your relationship status?: How often do you talk on the phone with friends or family?: three or more times per week How often do you get together with friends or relatives?: decline to answer How often do you attend muslim or evangelical services?: decline to answer Do you belong to any clubs or organized social groups?: no Panel score (0-1 are the most socially isolated patients): 2 What type of physical activity do you participate in: walking Duration: < 15 minutes/day Frequency: 3-4 times per week Silvia/Oriental Orthodox: Ac Special silvia needs: No Seatbelt use: always Helmet use: No Drive intox or ride w/intox driver's education instructor: No Do you feel safe at home: Yes Do you feel safe in your relationship?: Yes Meds Allergies and Home Medications Allergies Allergy/AdvReac Type Severity Reaction Status Date / Time Penicillins Allergy Skin Rash Verified 01/06/25 00:45 amlodipine besylate (From AdvRe[facility] Intermediate cough Verified 01/06/25 00:45 Norvasc) lithium Adv[facility] Intermediate HYPERACTIVITY Verified 01/06/25 00:45 FOR DAYS rizatriptan [facility] Intermediate BAD COUGH Verified 01/06/25 00:45 FOR 2 YEARS morphine AdvReac Mild Hallucinati Verified 01/06/25 00:45 ons/Vomitin g ibuprofen Adv[facility] Unknown Other (See Verified 01/06/25 00:45 Comment) atorvastatin Adv[facility] myalgias Verified 01/06/25 00:45 carbamazepine AdvReac myalgias Verified 01/06/25 00:45 enalaprilat AdvReac Cough Verified 01/06/25 00:45 Home Medications ?Medication ?Instructions ?Recorded ?Confirmed ?Type cholecalciferol (vitamin D3) 50 2,000 unit PO DAILY 05/16/12 01/11/25 History mcg (2,000 unit) capsule (Vitamin D3) insulin syringe-needle U-100 0.5 #100 ea 03/01/19 01/11/25 Rx mL 29 gauge x 1/2 (BD Insulin Syringe) blood-glucose,operations support representative,cont #3 ea 07/01/22 01/11/25 Rx (Dexcom G6 Obedience Trainer) ketoconazole 2 % topical cream 1 applic topical DAILY #120 grams 08/29/23 01/11/25 Rx pen needle, diabetic 32 gauge x #500 ea 08/30/23 01/11/25 Rx 1/4 (Novofine 32) clotrimazole-betamethasone 1 1 applic topical BID #45 grams 01/11/24 01/11/25 Rx %-0.05 % topical cream mupirocin 2 % topical ointment 1 applic topical BID #22 grams 01/20/24 01/11/25 Rx mecobalamin (vitamin B12) 1,000 1,000 mcg PO DAILY #90 ea 03/05/24 01/11/25 Rx mcg lozenges Held on 06/12/24. Instructions: Changed by Provider omeprazole 20 mg capsule,delayed 20 mg PO DAILY #90 caps 03/05/24 01/11/25 Rx release ropinirole 1 mg tablet 1 mg PO BID #180 tabs 03/05/24 01/11/25 Rx blood sugar diagnostic (Blood #300 ea 03/08/24 01/11/25 Rx Glucose Test strips) blood-glucose transmitter (Dexcom #1 ea 03/21/24 01/11/25 Rx G6 Transmitter device) Held on 11/22/24. Instructions: Home Medication placed on hold at Doctor's office insulin glargine 100 unit/mL (3 80 unit (0.8 mL) subcut BID #90 mL 03/23/24 01/11/25 Rx mL) subcutaneous pen (Lantus Solostar U-100 Insulin) losartan 100 mg tablet 100 mg PO DAILY #90 tabs 06/12/24 01/11/25 Rx budesonide-formoterol HFA 160 2 puff inhalation BID ##3 07/06/24 01/11/25 Rx mcg-4.5 mcg/actuation aerosol inhaler (Symbicort) blood-glucose sensor (Dexcom G6 #9 ea 07/30/24 01/11/25 Rx Sensor device) Held on 11/22/24. Instructions: Home Medication placed on hold at Doctor's office magnesium chloride 71.5 mg 71.5 mg PO BID #180 tabs 07/30/24 01/11/25 Rx (magnesium chloride) tablet,delayed release (Slow-Mag) clonazepam 2 mg tablet 1 - 2 mg (0.5 - 1 x 2 mg) PO QHS 10/05/24 01/11/25 Rx PRN anxiety #30 tab-caps metoprolol succinate 100 mg 150 mg (1.5 x 100 mg) PO DAILY 10/05/24 01/11/25 Rx tablet,extended release 24 hr #135 tab-caps insulin lispro 100 unit/mL 60 unit (0.6 mL) subcut TID #300 mL 11/05/24 01/11/25 Rx subcutaneous pen ipratropium 0.5 mg-albuterol 3 mg 3 ml inhalation TID PRN shortness 11/05/24 01/11/25 Rx (2.5 mg base)/3 mL nebulization of breath or wheezing #180 mL soln levothyroxine 125 mcg tablet 125 mcg PO DAILY #90 tab-caps 11/05/24 01/11/25 Rx nystatin 100,000 unit/gram topical 1 applic topical BID PRN yeast 11/05/24 01/11/25 Rx powder infx in groin #60 grams nystatin-triamcinolone 100,000 1 applic topical DAILY PRN rash 11/05/24 01/11/25 Rx unit/gram-0.1 % topical ointment #30 grams ondansetron 4 mg disintegrating 4 mg PO Q8H PRN nausea and 11/05/24 01/11/25 Rx tablet vomiting #20 tabs Held on 01/06/25. Instructions: Prescription Finished tramadol 50 mg tablet 100 mg (2 x 50 mg) PO BID #120 tabs 11/05/24 01/11/25 Rx blood-glucose sensor (Dexcom G7 #9 ea 11/22/24 01/11/25 Rx Sensor device) blood-glucose,operations support representative,cont #1 ea 11/22/24 01/11/25 Rx (Dexcom G7 Obedience Trainer) albuterol sulfate 90 mcg/actuation 1 - 2 puff inhalation Q6H PRN #18 12/18/24 01/11/25 Rx aerosol inhaler grams allopurinol 100 mg tablet 50 mg (1/2 x 100 mg) PO DAILY #15 01/11/25 01/11/25 Rx tabs pregabalin 75 mg capsule 75 mg PO TID #270 caps 01/11/25 01/11/25 Rx Exam Narrative Exam Narrative: General: Cooperative, no acute distress. HEENT: MMM; no conjunctival injection. Neck: Supple, trachea midline. Resp: CTAB; no wheezes, rales, or rhonchi. Cardiac: RRR; normal rate; no murmurs noted. GI: Soft, non-tender, no guarding or rigidity. Two large ventral hernias present. Skin: No rash or lesions. Extremities: No edema. Neuro: Alert and oriented ?3; normal tone; no focal deficits. Psych: Normal speech, behavior, appearance. Results Labs 01/11/25 11:24 01/11/25 11:24 Labs: Laboratory Results - last 24 hr 01/11/25 01/11/25 01/11/25 11:24 12:25 15:10 WBC 5.43 RBC 3.73 L Hgb 12.1 Hct 35.1 L MCV 94 MCH 32.4 MCHC 34.5 RDW 13.7 Plt Count 129 L MPV 13.0 H Immature Gran % 2.0 Neutrophils % 50.4 Lymphocytes % 27.4 Monocytes % 18.4 Eosinophils % 1.1 Basophils % 0.7 Nucleated RBC % 0.0 Absolute Neutrophils 2.73 Absolute Lymphocytes 1.49 Absolute Monocytes 1.00 H Absolute Eosinophils 0.06 Absolute Basophils 0.04 VBG Lactate 1.8 Sodium 138 Potassium 3.7 Chloride 102 Carbon Dioxide 28.1 Anion Gap 7.9 BUN 13 Creatinine 1.2 H Est GFR (CKD-EPI 2020) 46.56 Glucose 217 H Calcium 8.7 Magnesium 1.0 L Total Bilirubin 0.60 AST 116 H ALT 119 H Alkaline Phosphatase 280 H Troponin I 69 H 77 H 81 H Total Protein 5.8 Albumin 3.7 Lipase 18 Urine Color Urine Clarity Urine pH Ur Specific [place] Urine Protein Urine Ketones Urine Blood Urine Nitrite Urine Bilirubin Urine Urobilinogen Ur Leukocyte Esterase Urine RBC Urine WBC Ur Epithelial Cells Urine Crystals Urine Bacteria Urine Casts Urine Mucus Ur Culture Indicated? Urine Glucose 01/11/25 15:44 WBC RBC Hgb Hct MCV MCH MCHC RDW Plt Count MPV Immature Gran % Neutrophils % Lymphocytes % Monocytes % Eosinophils % Basophils % Nucleated RBC % Absolute Neutrophils Absolute Lymphocytes Absolute Monocytes Absolute Eosinophils Absolute Basophils VBG Lactate Sodium Potassium Chloride Carbon Dioxide Anion Gap BUN Creatinine Est GFR (CKD-EPI 2020) Glucose Calcium Magnesium Total Bilirubin AST ALT Alkaline Phosphatase Troponin I Total Protein Albumin Lipase Urine Color Yellow Urine Clarity Clear Urine pH 5.5 Ur Specific [place] 1.020 Urine Protein 30 H Urine Ketones Trace H Urine Blood Negative Urine Nitrite Negative Urine Bilirubin Negative Urine Urobilinogen 1.0 H Ur Leukocyte Esterase Trace H Urine RBC 5-10 H Urine WBC >50 H Ur Epithelial Cells Moderate Urine Crystals Negative Urine Bacteria Many Urine Casts Negative Urine Mucus Trace Ur Culture Indicated? No/Sq. Contamination Urine Glucose 100 H Last Vital Signs Temp 36.1 C L 01/11/25 15:36 Pulse 84 01/11/25 15:36 Resp 16 01/11/25 15:36 BP 187/94 H 01/11/25 15:36 Pulse Ox 98 01/11/25 15:36 Time Spent Time spent with Patient: 55-74 minutes Time was spent: preparing to see the patient(eg.review tests), obtaining and/or reviewing separately otained hiistory, ordering medications,tests, procedures, referring, communicating with other health physician locums urgent care, indepentently interpreting results, counseling the patient and care coordination
[2025-01-11] MEDS: Pregabalin 25 MG CAP 75 MG PO (20:28)
[2025-01-11] MEDS: traMADol 50 MG TAB 100 MG PO (20:28)
[2025-01-11] MEDS: Magnesium Chloride 64 MG TABCR PO (20:28)
[2025-01-11] MEDS: Insulin Glargine 300 UNITS/3 ML PEN 80 UNITS SC (20:29)
[2025-01-11] MEDS: rOPINIRole 1 MG TAB PO (20:29)
[2025-01-11] MEDS: Insulin Aspart 300 UNITS/3 ML PEN SC (20:30)
--- NOTE | 2025-01-11 20:58 | DI.RAD_ITS ---
Exam(s) XR TOE RT GREAT EXAM: XR TOE RT GREAT CLINICAL HISTORY: Open wound - diabetic. TECHNIQUE: 2D digital imaging was performed. COMPARISON: No exams were available for comparison FINDINGS: 3 views No evidence of acute fracture. There is moderate hallux valgus. There is some calcification noted in the soft tissues medial to the great toe metatarsal head. There are cystic degenerative changes also evident in the medial aspect of the head of the great toe metatarsal and its great toe metatarsophalangeal joint. No radiopaque foreign bodies. No radiographic evidence of osteomyelitis in the great toe. IMPRESSION: Hallux valgus and degenerative changes. No radiographic evidence of osteomyelitis in the great toe. DATA REPOSITORY: RADIATION DOSE DELIVERED:
--- NOTE | 2025-01-11 21:19 | DI.VRAD_ITS ---
PROCEDURE INFORMATION: Exam: XR Right Toe(s) Exam date and time: 01/11/2025 20:50 Age: 69 years old Clinical indication: Other: Open wound - diabetic TECHNIQUE: Imaging protocol: Radiologic exam of the right toes. Views: Minimum 2 views. COMPARISON: CR XR FOOT RT COMPLETE 08/29/2023 09:53 FINDINGS: Bones/joints: The bones are demineralized. Moderate hallux valgus. Moderate first metatarsal phalangeal degerative changes. No acute fracture or subluxation. No focal osseous erosion. Cystic structure in the 1st metatarsal neck appears probably degenerative, less likely could be secondary to erosive arthropathy. Soft tissues: Mild swelling in the medial forefoot is more pronounced. Vasculature: Atherosclerosis. IMPRESSION: 1. No acute bony pathology. 2. Chronic findings as described. Dictated and Authenticated by: Katey Gale MD. Orderin Viktor Yanes MD
[2025-01-11] MEDS: clonazePAM 1 MG TAB PO (21:48)
[2025-01-11] MEDS: Acetaminophen 325 MG TAB 650 MG PO (21:50)
[2025-01-12 03:30] VITALS: BP 136/69; PULSE 80; RESP 18; TEMP 36.2; O2SAT 95
[2025-01-12] MEDS: Levothyroxine 125 MCG TAB PO (06:16)
[2025-01-12 06:56] LABS: Abs Immature Grans 0.14 10^3/uL (0.0-0.06); HCT 35.2 % (36.0-46.0); HGB 12.3 g/dL (11.2-15.7); Immature Grans % 2.5 %; MCH 33.2 pg (27.0-33.0); MCHC 34.9 % (32.0-36.0); MCV 95 fL (80-95); Platelet Count 114 10^3/uL (130-400); RBC 3.71 10^6/uL (3.93-5.22); RDW 13.6 % (11.7-14.6); RDW-SD 47.4 fL; WBC 5.71 10^3/uL (4.4-10.8)
[2025-01-12 07:14] LABS: Anion Gap 8.6 mmol/L (3-11); BUN 11 mg/dL (9-23); CO2 29.4 mmol/L (20.0-31.0); Calcium 8.5 mg/dL (8.3-10.6); Chloride 102 mmol/L (98-107); Glucose 220 mg/dL (74-106); Magnesium 1.2 mg/dL (1.6-2.6); Potassium 3.3 mmol/L (3.5-5.1); Sodium 140 mmol/L (136-145)
[2025-01-12 07:31] VITALS: BP 150/61; PULSE 84; RESP 16; TEMP 36.5; O2SAT 97
[2025-01-12] MEDS: Insulin Aspart 300 UNITS/3 ML PEN SC ×2 (08:04→12:29)
[2025-01-12] MEDS: Magnesium Chloride 64 MG TABCR PO (08:17)
[2025-01-12] MEDS: traMADol 50 MG TAB 100 MG PO (08:17)
[2025-01-12] MEDS: Enoxaparin 40 MG/0.4 ML SYR SC (08:17)
[2025-01-12] MEDS: rOPINIRole 1 MG TAB PO (08:18)
[2025-01-12] MEDS: Omeprazole 20 MG CAPCR PO (08:18)
[2025-01-12] MEDS: Losartan 50 MG TAB 100 MG PO (08:18)
[2025-01-12] MEDS: Pregabalin 25 MG CAP 75 MG PO (08:18)
[2025-01-12] MEDS: Metoprolol CR 100 MG TABCR 150 MG PO (08:18)
[2025-01-12] MEDS: Allopurinol 100 MG TAB 50 MG PO (08:19)
[2025-01-12] MEDS: Insulin Glargine 300 UNITS/3 ML PEN 80 UNITS SC (08:19)
--- NOTE | 2025-01-12 09:28 | PDOC.CMIN ---
Date of service: 01/12/25 Time of Service: 09:33 Care Management Initial Assmt Initial Assessment Reason for Hospitalization: hypomagnesemia, nausea, vomiting Functional Status/Living Situation Town of Residence: [place] Significant Other/Family: Local Natural Supports: , Rickey Son, Rickey Employment Status: Retired Instrumental Activities of Daily Living (ADLs): Independent Medications Medication Management: No Issues/Barriers identified Physical Functioning/Mobility Assistive Device: FWW Advance Directives Advance Directives: Do you have an Advance Directive: Y 06/20/23, 13:29 AD On File at [facility]: Y 06/20/23, 13:29 Date Asked 04/04/22 05/20/24, 08:57 AD Date Reviewed 01/11/25 01/11/25, 10:33 COLST On File at [facility] COLST Date Scanned Code Status Resuscitation Status Full Code Insurance Coverage/Financial Issues Insurance: [facility] Care Team Visit Care Team Role Provider Type Davin Ravi MD [facility] STAFF PHYSICIAN Renu Gerber MD, [place] Primary Care Provider , [facility] Lilliam Bay RDN, [facility] Other Providers ELEMENTARY INSTRUCTIONAL COACH James Reynoso Other Providers OTHER Ty Angeles RDN Other Providers ELEMENTARY INSTRUCTIONAL COACH Raffy Mejia MD Emergency Provider [facility] STAFF PHYSICIAN Edson Zavala MD Admit Provider [facility] STAFF PHYSICIAN Attending Provider Discharge Potential Discharge Needs: PT Evaluation and PCP F/U Appt Anticipated Barriers to Discharge: None Identified Patient/Family Education Needs: Review discharge instructions, discuss Ask Me Three Transportation: Private vehicle Plan: Anticipate Crystal will return home once medically cleared. Her will drive her home via private vehicle. She will follow up with her PCP and discharge plan of care. CM will continue to follow. Social Determinants of Health Screening Social Determinants of health last assessed in clinic: 01/11/25 Will the Patient Participate in the Screening?: Yes Do you worry about having a steady place to live?: no Problems where you live: no known problems In the past 12 months, have you had to go without electric, gas, oil or water in your home?: no Has lack of transportation kept you from medical appointments or from doing things needed for daily living?: no Has anyone in your life made you feel unsafe or unsupported?: no How hard is it for you to pay for the very basics like food, housing, medical care, and heating? Would you say it is:: Not hard at all Do you want help finding or keeping work or a job?: I do not need or want help If for any reason you need help with day-to-day activities such as bathing, preparing meals, shopping, managing finances, etc., do you get the help you need?: I don?t need any help How often do you feel lonely or isolated from those around you?: Never Do you speak a language other than Marshallese at home?: No Does the patient want assistance with any of the above?: No PFSH All Active Problems (Updated 01/11/25 @ 15:33 by VAIBHAV BENDER) Elevated troponin (Acute) Generalized weakness (Acute) Hypomagnesemia (Acute) Non-ST elevation NV (NSTEMI) (Acute) Transaminitis (Acute) Acute kidney injury (Acute) Acute dehydration (Acute) Shock (Acute) Peripheral neuropathy (Acute) Contracture of left Achilles tendon (Acute) Plantar fasciitis of left foot (Acute) Tarsal tunnel syndrome of left side (Acute) Gout (Chronic) Multiple fractures of ribs of right side (Acute) Pain in joints of both feet (Acute) Nail dystrophy (Acute) Onychomycosis (Acute) Ingrown toenail (Acute) Atherosclerosis of artery of both lower extremities (Acute) Type 2 diabetes mellitus with peripheral neuropathy (Acute) Diabetes mellitus with autonomic neuropathy (Acute) Infection of lumbar spine (Acute) Frequent falls (Acute) Chronic low back pain with right-sided sciatica (Acute) Large hiatal hernia (Acute) RLQ abdominal pain (Acute) Cataract (Chronic) Bunion, right foot (Acute) BMI 40.0-44.9, adult (Acute) Abdominal wall hernia (Acute) Coronary artery calcification seen on CAT scan (Acute) Atherosclerosis (Acute) Enlarged heart (Acute) Herpes (Acute) Lumbar radicular pain (Acute) Seborrhea corporis (Acute) Elevated LFTs (Acute) Arthralgia (Acute) DARLENE positive (Acute) Yeast infection (Acute) Staph infection (Acute) Restless leg (Acute) Von Willebrand factor inhibitor disorder (Chronic) Rotator cuff disorder (Chronic 06/27/14) Recurrent ventral hernia (Chronic 04/07/16) Non-alcoholic fatty liver disease (Chronic) elevated LFT Insomnia (Chronic) Hypothyroidism (Chronic) Hyperlipidemia (Chronic) Gastroesophageal reflux disease (Chronic) 09/29/12 EGD SHOW SOME REFULX CHANGES Elevated serum GGT level (Chronic 02/17/15) 1600 in 2011 [address] RIDDLE Diverticula of colon (Chronic) Diabetes mellitus with neuropathy (Chronic 02/14/14) Depressed bipolar I disorder (Chronic) STABLE 02/2011 Chronic cough (Chronic) Cataracts, both eyes (Chronic 12/09/15) 12/09/15-[facility]- OD>OS Atrophic vaginitis (Chronic 09/14/12) Asthma (Chronic) Chronic pain disorder (Chronic 11/25/16) Ganglion (Chronic) Stress incontinence in female (Chronic) Hypertension (Chronic) Medical History COVID-19 (~02/2024) Ribs, multiple fractures Tibial fracture pt. reports surgical intervention Fatigue Torn medial meniscus Diarrhea Cellulitis Trigger finger Hand joint pain (12/01/11) History of tobacco use History of tobacco use quit in 2002 History of alcoholism in sobriety for greater than 10 years Triggering of finger thumb Ganglion of tendon sheath 12/01/11 Hand joint pain 12/01/11 Chest pain 06/05/12 Overdose 1994: alcohol and benzo 09/18/13 Stenosing tenosynovitis of thumb (05/13/14) Right foot pain (12/16/14) Neoplasm of unspecified nature of bone, soft tissue, and skin (08/12/14) Headache Essential hypertension (12/13/12) fatty liver Elevated lipase (08/26/16) Sanjuanita infection (08/26/16) Chronic sinusitis CVA (cerebral vascular accident) 2018 x2 Diabetes type 2, uncontrolled Hypothyroidism Hyperlipidemia Headache Chronic cough Bipolar disorder Diabetic neuropathy Fatty liver disease, nonalcoholic Insomnia Hypomagnesemia Fatigue Surgical History Status post abdominal hysterectomy Status post bilateral salpingo-oophorectomy Status post cholecystectomy Status post hernia repair S/P BSO (bilateral salpingo-oophorectomy) S/P abdominal hysterectomy fibroids, abnormal paps S/P cholecystectomy S/P hernia repair 02/28/11 H/O esophagogastroduodenoscopy active gastritis and focal acute inflammation 02/29/12 H/O surgical procedure right thumb release 02/29/12 hernia repair (~02/2011) Ventral Hernia repair (04/07/16) Dr. Jackson Incision, Tendon Sheath (08/01/12) RIGHT THUMB RELEASE Abdominal hysterectomy FIBROIDS/ABNORMAL PAPS EGD - MAC (09/29/12) ACTIVE GASTRITIS AND FOCAL ACUTE INFLAMMATION. Tooth extraction 10/12/14-TEETH REMOVED Colonoscopy - MAC (~03/2011) Colonoscopy - IV Sedation (04/02/11) DR. TIFFANI NICHOLS; DIVERTICULA Cholecystectomy Bilateral salpingectomy with oophorectomy Family History Mother , age 67 Alcohol abuse Mental disorder Psychotic/paranoid symptoms, unknown diagnosis Cancer bladder/kidney; ?brain Sister Substance abuse MARIJUANA Maternal Grandfather Asthma Alcohol abuse Paternal Grandfather Heart disease Diabetes Stroke Maternal Grandmother No problems noted. Paternal Grandmother Diabetes Sister Substance abuse MARIJUANA Asthma Alcohol abuse Son Depression Diabetes Hyperlipidemia Stroke Son No problems noted. Son Asthma Diabetes Hyperlipidemia Hypertension Father , 80 Cancer Brother Alcohol abuse Depression Social History Smoking/Tobacco Use Status: Former Tobacco Use tobacco type: cigarettes Quit Date: 06/20/03 Tobacco: How many years used: 30 Second Hand Exposure: Yes Smoking risk assessment performed?: Yes Alcohol Intake: former Drug use: Current Sobriety Substance use type: marijuana Details: quit smoking marijuana x1mo ago Caregiver/Support person: No Household members: spouse and children Housing: house Communication Needs: None Do you need help understanding health information?: Often Pets and animals: Yes Pets and animals: cat(s) and dog(s) Sexually active: No Do you think of yourself as: straight/heterosexual Current gender identity: female What is your relationship status?: How often do you talk on the phone with friends or family?: three or more times per week How often do you get together with friends or relatives?: decline to answer How often do you attend samaritan or zoroastrianism services?: decline to answer Do you belong to any clubs or organized social groups?: no Panel score (0-1 are the most socially isolated patients): 2 What type of physical activity do you participate in: walking Duration: < 15 minutes/day Frequency: 3-4 times per week Silvia/Christian: Yashira Special silvia needs: No Seatbelt use: always Helmet use: No Drive intox or ride w/intox 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
[2025-01-12] MEDS: Budesonide/Formoterol 160/4.5 6 GM 60 PUFF INH IH (09:29)
[2025-01-12] MEDS: MAGNESIUM SULFATE 2 GM/50 ML BAG IV_INF (10:36)
[2025-01-12] MEDS: Polyethylene Glycol 3350 17 GM PACKET PO (10:36)
[2025-01-12] MEDS: Potassium Chloride 20 MEQ TABCR 40 MEQ PO (10:36)
[2025-01-12 11:32] VITALS: BP 123/98; PULSE 83; RESP 16; TEMP 36.1; O2SAT 97
--- NOTE | 2025-01-12 11:45 | IN_ITS ---
Date of service: 01/12/25 Time of Service: 11:05 PT Notes Visit Reasons: Hypomagnesemia; nausea; vomiting Inpatient Physical Therapy Evaluation Date: January 12, 2025 Referring Doctor: Farzana Hoang PT Orders: PT CONSULT Precautions: standard, falls Patient Profile/Admitting Diagnosis: Crystal is a 69 year old female with a history of type 2 diabetes, coronary artery disease, von Willebrand's disease, hypothyroidism, hypercholesterolemia, nonalcoholic fatty liver disease, previous cerebrovascular accident (CVA), hypertension, reactive airway disease, and paroxysmal atrial fibrillation (A-fib) presenting with recurrent vomiting to the ED yesterday. PMHX: (Updated 01/11/25 @ 15:33 by VAIBHAV BENDER) Elevated troponin (Acute) Generalized weakness (Acute) Hypomagnesemia (Acute) Non-ST elevation AK (NSTEMI) (Acute) Transaminitis (Acute) Acute kidney injury (Acute) Acute dehydration (Acute) Shock (Acute) Peripheral neuropathy (Acute) Contracture of left Achilles tendon (Acute) Plantar fasciitis of left foot (Acute) Tarsal tunnel syndrome of left side (Acute) Gout (Chronic) Multiple fractures of ribs of right side (Acute) Pain in joints of both feet (Acute) Nail dystrophy (Acute) Onychomycosis (Acute) Ingrown toenail (Acute) Atherosclerosis of artery of both lower extremities (Acute) Type 2 diabetes mellitus with peripheral neuropathy (Acute) Diabetes mellitus with autonomic neuropathy (Acute) Infection of lumbar spine (Acute) Frequent falls (Acute) Chronic low back pain with right-sided sciatica (Acute) Large hiatal hernia (Acute) RLQ abdominal pain (Acute) Cataract (Chronic) Bunion, right foot (Acute) BMI 40.0-44.9, adult (Acute) Abdominal wall hernia (Acute) Coronary artery calcification seen on CAT scan (Acute) Atherosclerosis (Acute) Enlarged heart (Acute) Herpes (Acute) Lumbar radicular pain (Acute) Seborrhea corporis (Acute) Elevated LFTs (Acute) Arthralgia (Acute) DARLENE positive (Acute) Yeast infection (Acute) Staph infection (Acute) Restless leg (Acute) Von Willebrand factor inhibitor disorder (Chronic) Rotator cuff disorder (Chronic 06/27/14) Recurrent ventral hernia (Chronic 04/07/16) Non-alcoholic fatty liver disease (Chronic) elevated LFT Insomnia (Chronic) Hypothyroidism (Chronic) Hyperlipidemia (Chronic) Gastroesophageal reflux disease (Chronic) 09/29/12 EGD SHOW SOME REFULX CHANGES Elevated serum GGT level (Chronic 02/17/15) 1600 in 2011 [address] RIDDLE Diverticula of colon (Chronic) Diabetes mellitus with neuropathy (Chronic 02/14/14) Depressed bipolar I disorder (Chronic) STABLE 02/2011 Chronic cough (Chronic) Cataracts, both eyes (Chronic 12/09/15) 12/09/15-[facility]- OD>OS Atrophic vaginitis (Chronic 09/14/12) Asthma (Chronic) Chronic pain disorder (Chronic 11/25/16) Ganglion (Chronic) Stress incontinence in female (Chronic) Hypertension (Chronic) Medical History COVID-19 (~02/2024) Ribs, multiple fractures Tibial fracture pt. reports surgical interventionFatigue Torn medial meniscus Diarrhea Cellulitis Trigger finger Hand joint pain (12/01/11) History of tobacco use History of tobacco use quit in 2002History of alcoholism in sobriety for greater than 10 yearsTriggering of finger thumbGanglion of tendon sheath 12/01/11Hand joint pain 12/01/11Chest pain 06/05/12Overdose 1994: alcohol and benzo 09/18/13Stenosing tenosynovitis of thumb (05/13/14) Right foot pain (12/16/14) Neoplasm of unspecified nature of bone, soft tissue, and skin (08/12/14) Headache Essential hypertension (12/13/12) fatty liver Elevated lipase (08/26/16) Sanjuanita infection (08/26/16) Chronic sinusitis CVA (cerebral vascular accident) 2017 [id number] type 2, uncontrolled Hypothyroidism Hyperlipidemia Headache Chronic cough Bipolar disorder Diabetic neuropathy Fatty liver disease, nonalcoholic Insomnia Hypomagnesemia Fatigue Surgical History Status post abdominal hysterectomy Status post bilateral salpingo-oophorectomy Status post cholecystectomy Status post hernia repair S/P BSO (bilateral salpingo-oophorectomy) S/P abdominal hysterectomy fibroids, abnormal papsS/P cholecystectomy S/P hernia repair 02/28/11H/O esophagogastroduodenoscopy active gastritis and focal acute inflammation 02/29/12H/O surgical procedure right thumb release 02/29/12hernia repair (~02/2011) Ventral Hernia repair (04/07/16) Dr. Umanzor, Tendon Sheath (08/01/12) RIGHT THUMB RELEASEAbdominal hysterectomy FIBROIDS/ABNORMAL PAPSEGD - MAC (09/29/12) ACTIVE GASTRITIS AND FOCAL ACUTE INFLAMMATION.Tooth extraction 10/12/14-TEETH REMOVEDColonoscopy - MAC (~03/2011) Colonoscopy - IV Sedation (04/02/11) DR. TIFFANI NICHOLS; DIVERTICULACholecystectomy Bilateral salpingectomy with oophorectomy Social History/Home Situation: Crystal reports that she lives in a private home with her and youngest son. Current Functional Limitations: Decreased activity tolerance due to chronic LBP, peripheral neuropathy and gout. Reports independence in dressing however does require assistance for tie shoes. Primarily wears crocs because she can just slip on independently. Primarily sponge bathing at home. Sedentary. Does have multiple canes a walker and a rollator at home however does not tend to move around too much secondary to pain. Equipment Owned/DME: cane,rollator Subjective: Crystal notes that she continues to have pain all over kirstin into her back and abdomen. Is agreeable to PT consult this morning. Objective: General Observation: Patient lying in bed upon time of PT consult. IV L UE, telemetry Mental Status: Alert and oriented x3. Pleasant Pain: Reports of chronic pain in her abdomen, low back, and bilateral LE secondary to peripheral neuropathy/gout Vital Signs: Monitored via nursing. ROM: Right Upper Extremity: Demonstrates WFL AROM of R UE Left Upper Extremity: Limited active shoulder forward elevation to 110 degrees with pain, abduction 165 degress, IR T12, ER 55 degrees Right Lower Extremity: Demonstrates WFL AROM of R LE. Left Lower Extremity: Demonstrates WFL AROM of L LE Strength: Right Upper Extremity: Demonstrates grossly 4+/5 R UE Left Upper Extremity:Demonstrates grossly 4/5 L UE Right Lower Extremity: Hip flexion 4/5, knee extension 5/5, knee flexion 4/5, DF 5/5 Left Lower Extremity: Hip flexion 4/5, knee extension 5/5, knee flexion 4/5, DF 5/5 Sensation: Intact to light touch. Bed Mobility/Transfers: Supine to sit: Independent Sit to supine: Independent Sit-stand: CGA with Walker Stand-sit: CGA with cueing for proper hand placement Gait: Crystal ambulated 100ft with use of standard walker with good stride length, decreased tommy and widened base of support. Balance: Static Sitting: Normal Dynamic Sitting: Normal Static Standing: Fair Dynamic Standing: Fair Special Tests: Mobility Limitations Standardized Measure [facility] AM-PAC 6 clicks Basic Mobility Inpatient Short Form: Raw Score: 19 CMS Score: 42% Informed Consent/Education: Patient instructed in purpose of PT consult and plan of care. Assessment: Patient is a 69 year old female referred to physical therapy services with the diagnosis of hypomagnesemia, vomiting and nausea. Patient presents with clinical signs and symptoms consistent with current/admitting diagnoses that have resulted to mobility limitations, gait instability, generalized weakness, and overall ADL decline as demonstrated by the following impairment level findings: 1.? Impaired standing balance 2.? Impaired activity tolerance 3.? Limitation of joint range of motion in shoulder Impairments are contributing to the following functional limitations: 1.? Difficulty with ambulation without assistive device and physical assistance 2.? Increased completion time for mobility ADL performance 3.? Increased risk for falls Patient is assessed as a Moderate [id number] complexity based on the following: History: As above Examination: as above Presentation: Evolving Decision Making: Moderate Goals: Goals X1 week 1. Supine-Sit independent 2. Sit-Supine independent 3. Sit-Stand independent 4. Stand-Sit independent 5. Bed-Chair supervision with use of front wheel walker 6. Chair-Bed supervision with use of front wheeled walker 7. Gait 300 feet with use of front wheeled walker 8. Stairs up down 3-4 stairs with use of railings Plan of Care/Treatment Plan: 1-2x/day, 7 days/week x 1 week. Plan of care has been reviewed with the FIBER ARTIST providing the service under Physical Therapy direction. Initiate Physical Therapy intervention for strengthening, bed mobility, transfers, gait, stairs, balance training, use of assistive device. DISCHARGE RECOMMENDATIONS: Home with home health services versus short term intermediate facility for rehab TREATMENT CODE/TIME: 82913 IE 30 minutes 11:05-11:35 am ELGIN Donaldson [facility]
--- NOTE | 2025-01-12 13:03 | DSE_ITS ---
Date of service: 01/12/25 Time of Service: 13:04 DS: Diagnosis Discharge Diagnosis (1) Hypomagnesemia: Status: Acute (2) Elevated troponin: Status: Acute (3) Generalized weakness: Status: Acute (4) Transaminitis: Status: Acute Discharge Plan Disposition Patient Disposition: Home Condition: Improving Discharge Details Reason For Visit: Hypomagnesemia; nausea; vomiting Admit Date/Time: 01/11/25 14:01 Admit Provider: Edson Zavala Attending Provider: Edson Zavala Primary Care Provider: Renu Gerber Hospital Course Hospital Course: Reason for Admission Recurrent vomiting, generalized weakness, and electrolyte abnormalities in the setting of recent hospital discharge for YASSINE on CKD IV and elevated troponins. Hospital Course The patient, with extensive past medical history including type 2 diabetes, CAD, von Willebrand disease, hypothyroidism, hyperlipidemia, non-alcoholic fatty liver disease, prior CVAs, hypertension, reactive airway disease, and paroxysmal atrial fibrillation, presented with recurrent vomiting and generalized weakness. ED course: * Nausea improved with IV ondansetron. * Severe hypomagnesemia (Mg 1.0 mg/dL) corrected with 2 g IV magnesium. * Troponins mildly elevated (69 77 81 ng/L) but no chest pain; NSTEMI ruled out. * EKG: Sinus rhythm 76 bpm, nondiagnostic. * Labs: Improved renal function from prior admission; transaminases elevated but trending down. * Urinalysis: Contaminated; no fever, no leukocytosis - followup with PCP if symptoms develop. * Chest X-ray: No acute pulmonary process. No surgical intervention required. Discharge Diagnoses * Hypomagnesemia (corrected) * Elevated troponin, likely demand ischemia (NSTEMI ruled out) * Generalized weakness * Transaminitis, improving * YASSINE on CKD IV (improving) * Acute dehydration * Open wound on right great toe * Multiple chronic comorbidities as listed in the HPI Discharge Medications (continued home meds and new adjustments) * Magnesium chloride 71.5 mg PO increased to three times a day until seen by PCP. * Ondansetron 4 mg PO q8h PRN nausea/vomiting * Continue home medications including: insulin glargine & lispro, metoprolol succinate, losartan, levothyroxine, ropinirole, pregabalin, tramadol, budesonide-formoterol inhaler, omeprazole, clonazepam PRN, vitamins D3 & B12, and topical creams/ointments as previously listed. Allergies remain unchanged. Follow-Up * Primary care provider: Within 1 week * Cardiology: As outpatient for troponin follow-up, consider stress test if clinically indicated * Laboratory: BMP, magnesium, LFTs, and renal function in 1 week LDischarge Instructions * Take medications as prescribed; ensure magnesium and antiemetics adherence. * Maintain oral hydration; small, frequent meals. * Monitor for worsening nausea, vomiting, chest pain, shortness of breath, or dizziness; seek immediate medical attention if these occur. * Fall precautions at home. * Continue routine daily activity as tolerated; avoid heavy lifting. Condition at Discharge * Ambulating with assistance, alert and oriented ?3 * Vitals stable except mild hypertension * Nausea improved * Electrolytes corrected Recommendations for Follow Up Recommended tests to be ordered by follow up provider: BMP, magnesium, LFTs, and renal function in 1 week Home Meds and New Rx's Prescriptions: Continued ketoconazole 2 % cream 1 applic topical DAILY Qty: 120 6RF Patient Comments: Medication just picked up from pharmacy, has not used yet Rx Instructions: Apply to toenails once daily ipratropium-albuterol 0.5 mg-3 mg(2.5 mg base)/3 mL solution for nebulization 3 ml Inhalation TID PRN (Reason: shortness of breath or wheezing) Qty: 180 3RF Rx Instructions: J45.909 levothyroxine 125 mcg tablet 125 mcg PO DAILY Qty: 90 11RF Patient Comments: decreased to 25mcg nystatin 100,000 unit/gram powder 1 applic TP BID PRN (Reason: yeast infx in groin) Qty: 60 1RF ondansetron 4 mg tablet,disintegrating 4 mg PO Q8H PRN (Reason: nausea and vomiting) Qty: 20 0RF nystatin-triamcinolone 100,000-0.1 unit/gram-% ointment 1 applic TOPICAL DAILY PRN (Reason: rash) Qty: 30 2RF tramadol 50 mg tablet 100 mg PO BID Qty: 120 5RF Rx Instructions: one months supply insulin lispro 100 unit/mL insulin pen 60 unit subcut TID Qty: 300 5RF (DME) Dexcom G7 Sensor Device See Rx Instructions .Route Qty: 9 4RF Rx Instructions: Use as directed to monitor BG (DME) Dexcom G7 Business Education Instructor Misc See Rx Instructions .Route Qty: 1 0RF Rx Instructions: Use to read G7 sensor blood glucose data. (DME) insulin syringe-needle U-100 [BD Insulin Syringe] 0.5 mL 29 gauge x 1/2 syringe See Dose Instructions .ROUTE .MEDSUPPLY Qty: 100 7RF Dose Instruction: As directed Rx Instructions: As directed omeprazole 20 mg capsule,delayed release(DR/EC) 20 mg PO DAILY Qty: 90 3RF ropinirole 1 mg tablet 1 mg PO BID Qty: 180 4RF mecobalamin (vitamin B12) 1,000 mcg lozenge 1,000 mcg PO DAILY Qty: 90 4RF Rx Instructions: allow to dissolve in mouth OR may chew lightly before swallowing mupirocin 2 % ointment 1 applic topical BID Qty: 22 0RF losartan 100 mg tablet 100 mg PO DAILY Qty: 90 4RF cholecalciferol (vitamin D3) [Vitamin D3] 2,000 UNIT capsule 2,000 unit PO DAILY (DME) Dexcom G6 Business Education Instructor Misc See Rx Instructions .Route Qty: 3 4RF Rx Instructions: As directed E11.9 (DME) pen needle, diabetic [Novofine 32] 32 gauge x 1/4 needle 1 ea Miscellaneous 5 time day Qty: 500 4RF Rx Instructions: E11.40 novofine pen needles 32X6mm ; use 5 times daily clotrimazole-betamethasone 1-0.05 % cream 1 applic topical BID Qty: 45 0RF (DME) Blood Glucose Test Strip See Dose Instructions .Route .MEDSUPPLY Qty: 300 5RF Dose Instruction: AC and HS Patient Comments: pt. reports checking blood sugar this AM, BS 134 @ 0800 Rx Instructions: AC ; 3Xdaily; E11.21 (DME) Dexcom G6 Transmitter Device See Rx Instructions .Route Qty: 1 3RF Rx Instructions: As directed;E11.40 insulin glargine [Lantus Solostar U-100 Insulin] 100 unit/mL (3 mL) insulin pen 80 unit subcut BID Qty: 90 8RF Patient Comments: states 70 units 3 times daily budesonide-formoterol [Symbicort] 160-4.5 mcg/actuation HFA aerosol inhaler 2 puff Inhalation BID Qty: 3 4RF (DME) Dexcom G6 Sensor Device See Rx Instructions .Route Qty: 9 4RF Rx Instructions: As directed E11.9 clonazepam 2 mg tablet 1 - 2 mg PO QHS MDD 1 PRN (Reason: anxiety) Qty: 30 5RF metoprolol succinate 100 mg tablet extended release 24 hr 150 mg PO DAILY Qty: 135 3RF albuterol sulfate 90 mcg/actuation HFA aerosol inhaler 1 - 2 puff Inhalation Q6H PRN Qty: 18 3RF allopurinol 100 mg tablet 50 mg PO DAILY Qty: 15 0RF Rx Instructions: 01/09/2025: Per Dr. [facility]. -hb pregabalin 75 mg capsule 75 mg PO TID Qty: 270 0RF Rx Instructions: [place] [facility] Changed Slow-Mag 71.5 mg tablet,delayed release (DR/EC) 71.5 mg PO TID Qty: 180 4RF Discharge Instructions Instructions: Hypomagnesemia Additional Instructions: Medications: * Take magnesium chloride three times a day (instead of twice) until your follow-up with your primary care provider. * Continue all other medications as prescribed. Hydration & Diet: * Drink plenty of fluids. * Eat small, frequent meals. Wound Care: * Follow up with your PCP regarding your injured toe. It does not appear to be infected. White count is normal. Xray No acute bony pathology. * Keep the toe clean, dry, and covered. Activity & Safety: * Use fall precautions at home. * Resume normal activity as tolerated but avoid heavy lifting. Warning Signs ? Call 911 or seek care immediately if you have: * Chest pain, pressure, or shortness of breath * Severe dizziness or fainting * Persistent vomiting or inability to keep fluids down * Fever or signs of infection at any wound site Follow-Up Appointments: * PCP: Within 1 week for labs and general follow-up Stand Alone Forms: Portal Information Referrals: Renu Gerber MD, [place] [Primary Care Provider, Medicine] Referral Note: Your pcp will call to schedule your appointment, if you haven' t heard from them please reach out Activity:: Activity as Tolerated Equipment/Supplies:: No Equipment Needed Diet:: diabetic heart healthy Discharge Orders Discharge Orders: Discharge Order (Routine); Ordered 01/12/25 Ordered By: Farzana Hoang Discharge Data Discharge Date/Time-TO BE ENTERED AT DEPARTURE: 01/12/25 13:53 DS: Summary Time Spent with Patient providing and/or coordinating discharge services: Greater than 30 minutes Status at Discharge Functional status at discharge: uses cane/walker Overall status at discharge: patient is back to baseline Mental Status: mental status grossly normal Speech and Movement: speech and movement normal Mood: congruent mood Affect: normal affect Exam Narrative Exam Narrative: General: Cooperative, no acute distress. HEENT: MMM; no conjunctival injection. Neck: Supple, trachea midline. Resp: CTAB; no wheezes, rales, or rhonchi. Cardiac: RRR; normal rate; no murmurs noted. GI: Soft, non-tender, no guarding or rigidity. Two large ventral hernias present. Skin: No rash or lesions. Extremities: No edema. Neuro: Alert and oriented ?3; normal tone; no focal deficits. Psych: Normal speech, behavior, appearance. Skin Other: Right great toe with 3 mm red area with tiny opening of skin Psych Mental Status: mental status grossly normal Speech and Movement: speech and movement normal Mood: congruent mood Affect: normal affect DS: Data Vitals/I&O Vitals and I&O: Vital Signs Temperature 36.1 C L 01/12/25 11:32 Temperature Source Temporal Artery Scan 01/12/25 11:32 Pulse 83 01/12/25 11:32 Pulse Rhythm Regular 01/11/25 15:44 Pulse 73 01/11/25 13:32 Respiratory Rate 16 01/12/25 11:32 Respiratory Effort Normal 01/11/25 15:44 Respiratory Depth Normal 01/11/25 15:44 Respiratory Pattern Normal 01/11/25 15:44 Blood Pressure 123/98 H 01/12/25 11:32 Blood Pressure Mean 106 01/12/25 11:32 Blood Pressure Position Sitting 01/11/25 10:48 Pulse Oximetry 97 01/12/25 11:32 Oxygen Delivery Method Room Air 01/12/25 11:32 Oxygen Flow Rate 0 01/12/25 11:32 Pain Level 6 01/12/25 03:30 Intake & Output 01/11/25 01/12/25 01/12/25 23:59 11:59 23:59 Intake Total 50 / 50 240 / 290 50 / 290 Output Total 400 / 400 450 / 450 Balance -350 / -350 -210 / -160 50 / -160 Weight 111 kg 109.4 kg Intake: IV 50 / 50 50 / 50 Oral 240 / 240 Output: Urine 400 / 400 450 / 450 Other: Urine Color Yellow Yellow Dark Isa Urine Appearance Clear Clear Urine Odor Normal Comment Pt voids ind. into the toilet. Stool Size Small Stool Characteristics Formed Brown Data Completed and Pending Pending Labs at Discharge: 01/11/25 01/11/25 01/11/25 11:24 12:25 15:10 WBC 5.43 RBC 3.73 L Hgb 12.1 Hct 35.1 L MCV 94 MCH 32.4 MCHC 34.5 RDW 13.7 Plt Count 129 L MPV 13.0 H Immature Gran % 2.0 Neutrophils % 50.4 Lymphocytes % 27.4 Monocytes % 18.4 Eosinophils % 1.1 Basophils % 0.7 Nucleated RBC % 0.0 Absolute Neutrophils 2.73 Absolute Lymphocytes 1.49 Absolute Monocytes 1.00 H Absolute Eosinophils 0.06 Absolute Basophils 0.04 VBG Lactate 1.8 Sodium 138 Potassium 3.7 Chloride 102 Carbon Dioxide 28.1 Anion Gap 7.9 BUN 13 Creatinine 1.2 H Est GFR (CKD-EPI 2020) 46.56 Glucose 217 H Calcium 8.7 Magnesium 1.0 L Total Bilirubin 0.60 AST 116 H ALT 119 H Alkaline Phosphatase 280 H Troponin I 69 H 77 H 81 H Total Protein 5.8 Albumin 3.7 Lipase 18 Urine Color Urine Clarity Urine pH Ur Specific [place] Urine Protein Urine Ketones Urine Blood Urine Nitrite Urine Bilirubin Urine Urobilinogen Ur Leukocyte Esterase Urine RBC Urine WBC Ur Epithelial Cells Urine Crystals Urine Bacteria Urine Casts Urine Mucus Ur Culture Indicated? Urine Glucose Stl C.difficile Tox PCR 01/11/25 01/11/25 01/11/25 15:44 19:46 19:51 WBC RBC Hgb Hct MCV MCH MCHC RDW Plt Count MPV Immature Gran % Neutrophils % Lymphocytes % Monocytes % Eosinophils % Basophils % Nucleated RBC % Absolute Neutrophils Absolute Lymphocytes Absolute Monocytes Absolute Eosinophils Absolute Basophils VBG Lactate Sodium Potassium Chloride Carbon Dioxide Anion Gap BUN Creatinine Est GFR (CKD-EPI 2020) Glucose Calcium Magnesium Total Bilirubin AST ALT Alkaline Phosphatase Troponin I Total Protein Albumin Lipase Urine Color Yellow Cancelled Urine Clarity Clear Cancelled Urine pH 5.5 Cancelled Ur Specific [place] 1.020 Cancelled Urine Protein 30 H Cancelled Urine Ketones Trace H Cancelled Urine Blood Negative Cancelled Urine Nitrite Negative Cancelled Urine Bilirubin Negative Cancelled Urine Urobilinogen 1.0 H Cancelled Ur Leukocyte Esterase Trace H Cancelled Urine RBC 5-10 H Urine WBC >50 H Ur Epithelial Cells Moderate Urine Crystals Negative Urine Bacteria Many Urine Casts Negative Urine Mucus Trace Ur Culture Indicated? No/Sq. Contamination Urine Glucose 100 H Cancelled Stl C.difficile Tox PCR Pending 01/12/25 06:22 WBC 5.71 RBC 3.71 L Hgb 12.3 Hct 35.2 L MCV 95 MCH 33.2 H MCHC 34.9 RDW 13.6 Plt Count 114 L MPV Immature Gran % 2.5 Neutrophils % 49.4 Lymphocytes % 28.5 Monocytes % 17.5 Eosinophils % 1.2 Basophils % 0.9 Nucleated RBC % 0.0 Absolute Neutrophils 2.82 Absolute Lymphocytes 1.63 Absolute Monocytes 1.00 H Absolute Eosinophils 0.07 Absolute Basophils 0.05 VBG Lactate Sodium 140 Potassium 3.3 L Chloride 102 Carbon Dioxide 29.4 Anion Gap 8.6 BUN 11 Creatinine 1.1 H Est GFR (CKD-EPI 2020) 49.53 Glucose 220 H Calcium 8.5 Magnesium 1.2 L Total Bilirubin AST ALT Alkaline Phosphatase Troponin I Total Protein Albumin Lipase Urine Color Urine Clarity Urine pH Ur Specific [place] Urine Protein Urine Ketones Urine Blood Urine Nitrite Urine Bilirubin Urine Urobilinogen Ur Leukocyte Esterase Urine RBC Urine WBC Ur Epithelial Cells Urine Crystals Urine Bacteria Urine Casts Urine Mucus Ur Culture Indicated? Urine Glucose Stl C.difficile Tox PCR PFSH All Active Problems (Updated 01/12/25 @ 13:08 by Farzana Hoang NP) Elevated troponin (Acute) Generalized weakness (Acute) Hypomagnesemia (Acute) Non-ST elevation [place] (NSTEMI) (Acute) Transaminitis (Acute) Acute kidney injury (Acute) Acute dehydration (Acute) Shock (Acute) Peripheral neuropathy (Acute) Contracture of left Achilles tendon (Acute) Plantar fasciitis of left foot (Acute) Tarsal tunnel syndrome of left side (Acute) Gout (Chronic) Multiple fractures of ribs of right side (Acute) Pain in joints of both feet (Acute) Nail dystrophy (Acute) Onychomycosis (Acute) Ingrown toenail (Acute) Atherosclerosis of artery of both lower extremities (Acute) Type 2 diabetes mellitus with peripheral neuropathy (Acute) Diabetes mellitus with autonomic neuropathy (Acute) Infection of lumbar spine (Acute) Frequent falls (Acute) Chronic low back pain with right-sided sciatica (Acute) Large hiatal hernia (Acute) RLQ abdominal pain (Acute) Cataract (Chronic) Bunion, right foot (Acute) BMI 40.0-44.9, adult (Acute) Abdominal wall hernia (Acute) Coronary artery calcification seen on CAT scan (Acute) Atherosclerosis (Acute) Enlarged heart (Acute) Herpes (Acute) Lumbar radicular pain (Acute) Seborrhea corporis (Acute) Elevated LFTs (Acute) Arthralgia (Acute) DARLENE positive (Acute) Yeast infection (Acute) Staph infection (Acute) Restless leg (Acute) Von Willebrand factor inhibitor disorder (Chronic) Rotator cuff disorder (Chronic 06/27/14) Recurrent ventral hernia (Chronic 04/07/16) Non-alcoholic fatty liver disease (Chronic) elevated LFT Insomnia (Chronic) Hypothyroidism (Chronic) Hyperlipidemia (Chronic) Gastroesophageal reflux disease (Chronic) 09/29/12 EGD SHOW SOME REFULX CHANGES Elevated serum GGT level (Chronic 02/17/15) 1600 in 2011 [address] in [address] RIDDLE Diverticula of colon (Chronic) Diabetes mellitus with neuropathy (Chronic 02/14/14) Depressed bipolar I disorder (Chronic) STABLE 02/2011 Chronic cough (Chronic) Cataracts, both eyes (Chronic 12/09/15) 12/09/15-[facility]- OD>OS Atrophic vaginitis (Chronic 09/14/12) Asthma (Chronic) Chronic pain disorder (Chronic 11/25/16) Ganglion (Chronic) Stress incontinence in female (Chronic) Hypertension (Chronic) Medical History COVID-19 (~02/2024) Ribs, multiple fractures Tibial fracture pt. reports surgical intervention Fatigue Torn medial meniscus Diarrhea Cellulitis Trigger finger Hand joint pain (12/01/11) History of tobacco use History of tobacco use quit in 2002 History of alcoholism in sobriety for greater than 10 years Triggering of finger thumb Ganglion of tendon sheath 12/01/11 Hand joint pain 12/01/11 Chest pain 06/05/12 Overdose 1994: alcohol and benzo 09/18/13 Stenosing tenosynovitis of thumb (05/13/14) Right foot pain (12/16/14) Neoplasm of unspecified nature of bone, soft tissue, and skin (08/12/14) Headache Essential hypertension (12/13/12) fatty liver Elevated lipase (08/26/16) Sanjuanita infection (08/26/16) Chronic sinusitis CVA (cerebral vascular accident) 2018 x2 Diabetes type 2, uncontrolled Hypothyroidism Hyperlipidemia Headache Chronic cough Bipolar disorder Diabetic neuropathy Fatty liver disease, nonalcoholic Insomnia Hypomagnesemia Fatigue Surgical History Status post abdominal hysterectomy Status post bilateral salpingo-oophorectomy Status post cholecystectomy Status post hernia repair S/P BSO (bilateral salpingo-oophorectomy) S/P abdominal hysterectomy fibroids, abnormal paps S/P cholecystectomy S/P hernia repair 02/28/11 H/O esophagogastroduodenoscopy active gastritis and focal acute inflammation 02/29/12 H/O surgical procedure right thumb release 02/29/12 hernia repair (~02/2011) Ventral Hernia repair (04/07/16) Dr. Jackson Incision, Tendon Sheath (08/01/12) RIGHT THUMB RELEASE Abdominal hysterectomy FIBROIDS/ABNORMAL PAPS EGD - MAC (09/29/12) ACTIVE GASTRITIS AND FOCAL ACUTE INFLAMMATION. Tooth extraction 10/12/14-TEETH REMOVED Colonoscopy - MAC (~03/2011) Colonoscopy - IV Sedation (04/02/11) DR. TIFFANI NICHOLS; [place] Cholecystectomy Bilateral salpingectomy with oophorectomy Family History Mother , age 67 Alcohol abuse Mental disorder Psychotic/paranoid symptoms, unknown diagnosis Cancer bladder/kidney; ?brain Sister Substance abuse MARIJUANA Maternal Grandfather Asthma Alcohol abuse Paternal Grandfather Heart disease Diabetes Stroke Maternal Grandmother No problems noted. Paternal Grandmother Diabetes Sister Substance abuse MARIJUANA Asthma Alcohol abuse Son Depression Diabetes Hyperlipidemia Stroke Son No problems noted. Son Asthma Diabetes Hyperlipidemia Hypertension Father , 80 Cancer Brother Alcohol abuse Depression Social History Smoking/Tobacco Use Status: Former Tobacco Use tobacco type: cigarettes Quit Date: 06/20/03 Tobacco: How many years used: 30 Second Hand Exposure: Yes Smoking risk assessment performed?: Yes Alcohol Intake: former Drug use: Current Sobriety Substance use type: marijuana Details: quit smoking marijuana x1mo ago Caregiver/Support person: No Household members: spouse and children Housing: house Communication Needs: None Do you need help understanding health information?: Often Pets and animals: Yes Pets and animals: cat(s) and dog(s) Sexually active: No Do you think of yourself as: straight/heterosexual Current gender identity: female What is your relationship status?: How often do you talk on the phone with friends or family?: three or more times per week How often do you get together with friends or relatives?: decline to answer How often do you attend episcopalian or orthodox services?: decline to answer Do you belong to any clubs or organized social groups?: no Panel score (0-1 are the most socially isolated patients): 2 What type of physical activity do you participate in: walking Duration: < 15 minutes/day Frequency: 3-4 times per week Silvia/Yazidi: Yashira Special silvia needs: No Seatbelt use: always Helmet use: No Drive intox or ride w/intox electric pile driver operator: No Do you feel safe at home: Yes Do you feel safe in your relationship?: Yes Time Spent with Patient Time Spent with Patient: 45-69 minutes Time was spent: preparing to see the patient(eg.review tests), ordering medications,tests, procedures, referring, communicating with other health home care chaplain, indepentently interpreting results, counseling the patient and care coordination
[2025-01-12 16:09] LABS: Glucose 100 mg/dL (Negative)
[2025-01-12 16:31] LABS: RBC 0-2 HPF (0-2)
[2025-01-12 16:32] LABS: C & S Indicated? No
== END 2025-01-12 13:53 | disposition home or self-care (01) ==
LOC: ER 13:25 → MS 15:37
PROVIDERS: Admitting Provider Family Medicine; Emergency Provider Student in an Organized Health Care Education/Training Program; PCP Family Medicine; Responsible Provider Nurse Practitioner Family; Visit Provider Family Medicine
DX: E83.42 Hypomagnesemia (principal); D68.00 Von Willebrand disease, unspecified; N18.4 Chronic kidney disease, stage 4 (severe); N17.9 Acute kidney failure, unspecified; I24.89 Other forms of acute ischemic heart disease; R53.1 Weakness; R74.01 Elevation of levels of liver transaminase levels; Z79.4 Long term (current) use of insulin; Z79.899 Other long term (current) drug therapy; I25.10 Atherosclerotic heart disease of native coronary artery without angina pectoris; E03.9 Hypothyroidism, unspecified; E78.00 Pure hypercholesterolemia, unspecified; K76.0 Fatty (change of) liver, not elsewhere classified; Z86.73 Personal history of transient ischemic attack (TIA), and cerebral infarction without residual deficits; J45.909 Unspecified asthma, uncomplicated; I48.0 Paroxysmal atrial fibrillation; I12.9 Hypertensive chronic kidney disease with stage 1 through stage 4 chronic kidney disease, or unspecified chronic kidney disease; E11.22 Type 2 diabetes mellitus with diabetic chronic kidney disease; R11.2 Nausea with vomiting, unspecified; K52.9 Noninfective gastroenteritis and colitis, unspecified; K43.9 Ventral hernia without obstruction or gangrene; E11.42 Type 2 diabetes mellitus with diabetic polyneuropathy; R60.0 Localized edema; I25.2 Old myocardial infarction; M54.16 Radiculopathy, lumbar region; R29.6 Repeated falls; G25.81 Restless legs syndrome; G47.00 Insomnia, unspecified; K21.9 Gastro-esophageal reflux disease without esophagitis; G89.29 Other chronic pain; R05.3 Chronic cough; N39.3 Stress incontinence (female) (male); Z86.16 Personal history of COVID-19; K44.9 Diaphragmatic hernia without obstruction or gangrene; M10.9 Gout, unspecified; I70.203 Unspecified atherosclerosis of native arteries of extremities, bilateral legs; E86.0 Dehydration; E11.621 Type 2 diabetes mellitus with foot ulcer; L97.519 Non-pressure chronic ulcer of other part of right foot with unspecified severity; E11.65 Type 2 diabetes mellitus with hyperglycemia
CPT/HCPCS: 00123; 36415; 80048; 80053; 83690; 93005; 94640; 96365; 96375; 97162; 99285; J1650; 71046; 73660; 81003; 81015; 83605; 83735; 84484; 85025; 93010; 94664; 94760; 99222; 99239; G0378; J1815; J2405; J3475

== ENCOUNTER 2025-01-19 20:19 | Observation (INO) | payer OTHER, MEDICARE, SELFPAY ==
[2025-01-19] VITALS (12 sets, daily range): BP systolic 133–158; BP diastolic 43–75; PULSE 66–77; RESP 16; TEMP 37.1; O2SAT 94–100
--- NOTE | 2025-01-19 20:47 | W.ED.GENAD ---
Discharge Plan Disposition Patient Disposition: Admit to [facility] Discharge Details Clinical Impression: Acute UTI, Generalized weakness, Elevated brain natriuretic peptide (BNP) level Primary Care Provider: Renu Gerber ED Provider: Ronen Gómez Home Meds and New Rx's Prescriptions: No Action ketoconazole 2 % cream 1 applic topical DAILY Qty: 120 6RF Patient Comments: Medication just picked up from pharmacy, has not used yet Rx Instructions: Apply to toenails once daily ipratropium-albuterol 0.5 mg-3 mg(2.5 mg base)/3 mL solution for nebulization 3 ml Inhalation TID PRN (Reason: shortness of breath or wheezing) Qty: 180 3RF Rx Instructions: J45.909 levothyroxine 125 mcg tablet 125 mcg PO DAILY Qty: 90 11RF Patient Comments: decreased to 25mcg nystatin 100,000 unit/gram powder 1 applic TP BID PRN (Reason: yeast infx in groin) Qty: 60 1RF nystatin-triamcinolone 100,000-0.1 unit/gram-% ointment 1 applic TOPICAL DAILY PRN (Reason: rash) Qty: 30 2RF tramadol 50 mg tablet 100 mg PO BID Qty: 120 5RF Rx Instructions: one months supply insulin lispro 100 unit/mL insulin pen 60 unit subcut TID Qty: 300 5RF (DME) Dexcom G7 Sensor Device See Rx Instructions .Route Qty: 9 4RF Rx Instructions: Use as directed to monitor BG (DME) Dexcom G7 Fire Equipment Repairer Inspector Misc See Rx Instructions .Route Qty: 1 0RF Rx Instructions: Use to read G7 sensor blood glucose data. (DME) insulin syringe-needle U-100 [BD Insulin Syringe] 0.5 mL 29 gauge x 1/2 syringe See Dose Instructions .ROUTE .MEDSUPPLY Qty: 100 7RF Dose Instruction: As directed Rx Instructions: As directed omeprazole 20 mg capsule,delayed release(DR/EC) 20 mg PO DAILY Qty: 90 3RF ropinirole 1 mg tablet 1 mg PO BID Qty: 180 4RF cholecalciferol (vitamin D3) [Vitamin D3] 2,000 UNIT capsule 2,000 unit PO DAILY (DME) Dexcom G6 Fire Equipment Repairer Inspector Misc See Rx Instructions .Route Qty: 3 4RF Rx Instructions: As directed E11.9 (DME) pen needle, diabetic [Novofine 32] 32 gauge x 1/4 needle 1 ea Miscellaneous 5 time day Qty: 500 4RF Rx Instructions: E11.40 novofine pen needles 32X6mm ; use 5 times daily clotrimazole-betamethasone 1-0.05 % cream 1 applic topical BID Qty: 45 0RF (DME) Blood Glucose Test Strip See Dose Instructions .Route .MEDSUPPLY Qty: 300 5RF Dose Instruction: AC and HS Patient Comments: pt. reports checking blood sugar this AM, BS 134 @ 0800 Rx Instructions: AC ; 3Xdaily; E11.21 (DME) Dexcom G6 Transmitter Device See Rx Instructions .Route Qty: 1 3RF Rx Instructions: As directed;E11.40 insulin glargine [Lantus Solostar U-100 Insulin] 100 unit/mL (3 mL) insulin pen 80 unit subcut BID Qty: 90 8RF Patient Comments: states 70 units 3 times daily budesonide-formoterol [Symbicort] 160-4.5 mcg/actuation HFA aerosol inhaler 2 puff Inhalation BID Qty: 3 4RF (DME) Dexcom G6 Sensor Device See Rx Instructions .Route Qty: 9 4RF Rx Instructions: As directed E11.9 clonazepam 2 mg tablet 1 - 2 mg PO QHS MDD 1 PRN (Reason: anxiety) Qty: 30 5RF metoprolol succinate 100 mg tablet extended release 24 hr 150 mg PO DAILY Qty: 135 3RF albuterol sulfate 90 mcg/actuation HFA aerosol inhaler 1 - 2 puff Inhalation Q6H PRN Qty: 18 3RF allopurinol 100 mg tablet 50 mg PO DAILY Qty: 15 0RF Rx Instructions: 01/09/2025: Per Dr. Car[facility]. -hb pregabalin 75 mg capsule 75 mg PO TID Qty: 270 0RF Rx Instructions: [facility] Gastro Slow-Mag 71.5 mg tablet,delayed release (DR/EC) 71.5 mg PO TID Qty: 180 4RF HPI General Date/Time Provider Initiated Documentation: 01/19/25 20:46. HPI Narrative: MDM/Narrative: 69-year-old female with multiple comorbidities presenting with generalized malaise. Differential Diagnosis: - UTI: Increased urinary frequency, urgency, cloudy urine. - Pneumonia: Considered due to malaise. No fever, chills, or respiratory symptoms. - Metabolic derangement: History of severe hypomagnesemia. Monitor magnesium/obtain CMP. - Ischemic causes: Recent NSTEMI. . ED Course: - Labs: Elevated BNP, nitrite-positive urine - Blood cultures obtained - Ceftriaxone administered for nitrate positive UTI - Admit to hospitalist for further management Final Assessment: Labs: Elevated BNP, nitrite-positive urine. Blood cultures obtained. Ceftriaxone administered. Admitted for further management. Clinical Impression: - UTI - Generalized weakness - Hypomagnesemia Disposition: - Admission: Admitted to hospitalist for further management This document was created with assistance from [employer] The patient consented to its use. HPI: The patient, a 69-year-old female with a medical history significant for diabetes mellitus, chronic kidney disease (CKD), recent acute renal failure, and non-ST elevation myocardial infarction (NSTEMI), presents with generalized malaise that has worsened today. Following hospitalization, the patient had a urinary catheter placed, which has resulted in increased urinary frequency, urgency, and cloudy urine. She denies experiencing fever, chills, nausea, vomiting, or any other new symptoms. ROS: Negative besides as mentioned above Exam: Vital signs: Reviewed. General Appearance: Alert and oriented. No acute distress. HEENT: NCAT, EOMI, not icteric. External ears normal. No rhinorrhea. Moist mucous membranes. Neck: Supple, full range of motion, no observable masses, No meningeal sign. Respiratory: No Respiratory distress. No tachypnea. Cardiovascular: RRR, no edema. Gastrointestinal: Mild suprapubic tenderness. Back: No midline tenderness to palpation or palpable step-offs of the C/T/L spine. Skin: Warm and dry, no rash. Neurological: Normal Gait, Grossly intact. Psychiatric: Appropriate for situation. Labs: 01/19/25 22:50 Blood Blood Culture - Pending 01/19/25 22:50 Blood Blood Culture - Pending 01/19/25 21:47 Urine - Reflex from Ua Urine Culture - Pending Laboratory Tests Range/Units 01/19/25 01/19/25 01/19/25 20:57 21:47 21:49 WBC (4.4-10.8) 10^3/uL 10.50 RBC (3.93-5.22) 10^6/uL 3.58 L Hgb (11.2-15.7) g/dL 11.7 Hct (36.0-46.0) % 35.7 L MCV (80-95) fL 100 H MCH (27.0-33.0) pg 32.7 MCHC (32.0-36.0) % 32.8 RDW (11.7-14.6) % 14.9 H Plt Count (130-400) 10^3/uL 148 MPV (8.0-11.0) fL 11.4 H Immature Gran % % 1.6 Neutrophils % % 71.8 Lymphocytes % % 14.4 Monocytes % % 10.2 Eosinophils % % 1.1 Basophils % % 0.9 Nucleated RBC % (0.0-0.3) % 0.0 Absolute Neutrophils (1.2-6.7) 10^3/uL 7.54 H Absolute Lymphocytes (1.2-3.4) 10^3/uL 1.51 Absolute Monocytes (0.1-0.8) 10^3/uL 1.07 H Absolute Eosinophils (0.0-0.7) 10^3/uL 0.12 Absolute Basophils (0.0-0.2) 10^3/uL 0.09 VBG pH (7.31-7.41) 7.33 VBG pCO2 (41-51) mmHg 57 H VBG pO2 mmHg 37 VBG HCO3 (23-28) mmol/L 30 H VBG Total CO2 (24-29) mmol/L 28 VBG O2 Saturation % 66 VBG Base Excess (-2-3) mmol/L 4 H VBG Lactate (<or=2.0) mmol/L 1.5 Sodium (136-145) mmol/L 145 Potassium (3.5-5.1) mmol/L 4.4 Chloride (98-107) mmol/L 106 Carbon Dioxide (20.0-31.0) mmol/L 28.8 Anion Gap (3-11) mmol/L 10.2 BUN (9-23) mg/dL 18 Creatinine (0.55-1.02) mg/dL 1.41 H Est GFR (CKD-EPI 2020) (mL/min/1.73m2) 36.80 Glucose (74-106) mg/dL 127 H Calcium (8.3-10.6) mg/dL 8.7 Magnesium (1.6-2.6) mg/dL 1.5 L Total Bilirubin (0.2-1.2) mg/dL 0.50 AST (<34) U/L 107 H ALT (10-49) U/L 72 H Alkaline Phosphatase (46-116) U/L 194 H Troponin I (<35) ng/L 7 NT-Pro-B Natriuret Pep (<300) pg/mL 1888 H Total Protein (5.7-8.2) g/dL 5.9 Albumin (3.4-5.0) g/dL 3.9 Urine Color (Yellow) Yellow Urine Clarity (Clear) Sl Cloudy Urine pH (5-8) 6.0 Ur Specific Lizella (1.005-1.025) 1.015 Urine Protein (Neg-Trace) mg/dL Negative Urine Ketones (Negative) mg/dL Negative Urine Blood (Negative) Trace-intact H Urine Nitrite (Negative) Positive H Urine Bilirubin (Negative) Negative Urine Urobilinogen (Up to 0.2) mg/dL 0.2 Ur Leukocyte Esterase (Negative) Small H Urine RBC (0-2) HPF 3-5 H Urine WBC (0-5) HPF 10-20 H Ur Epithelial Cells (Negative) HPF Few Urine Crystals (Negative) HPF Negative Urine Bacteria (Negative) HPF Few Urine Casts (Negative) LPF Negative Urine Mucus (Negative) Negative Ur Culture Indicated? Yes Urine Glucose (Negative) mg/dL Negative Urine Opiates Screen (Negative) Negative Urine Methadone Screen (Negative) Negative Ur Barbiturates Screen (Negative) Negative Ur Tricyclics Screen (Negative) Positive A Ur Amphetamines Screen (Negative) Negative U Benzodiazepines Scrn (Negative) Negative Urine Cocaine Screen (Negative) Negative U Cannabinoids Screen (Negative) Positive A Range/Units 01/19/25 21:55 WBC (4.4-10.8) 10^3/uL RBC (3.93-5.22) 10^6/uL Hgb (11.2-15.7) g/dL Hct (36.0-46.0) % MCV (80-95) fL MCH (27.0-33.0) pg MCHC (32.0-36.0) % RDW (11.7-14.6) % Plt Count (130-400) 10^3/uL MPV (8.0-11.0) fL Immature Gran % % Neutrophils % % Lymphocytes % % Monocytes % % Eosinophils % % Basophils % % Nucleated RBC % (0.0-0.3) % Absolute Neutrophils (1.2-6.7) 10^3/uL Absolute Lymphocytes (1.2-3.4) 10^3/uL Absolute Monocytes (0.1-0.8) 10^3/uL Absolute Eosinophils (0.0-0.7) 10^3/uL Absolute Basophils (0.0-0.2) 10^3/uL VBG pH (7.31-7.41) VBG pCO2 (41-51) mmHg VBG pO2 mmHg VBG HCO3 (23-28) mmol/L VBG Total CO2 (24-29) mmol/L VBG O2 Saturation % VBG Base Excess (-2-3) mmol/L VBG Lactate (<or=2.0) mmol/L Sodium (136-145) mmol/L Potassium (3.5-5.1) mmol/L Chloride (98-107) mmol/L Carbon Dioxide (20.0-31.0) mmol/L Anion Gap (3-11) mmol/L BUN (9-23) mg/dL Creatinine (0.55-1.02) mg/dL Est GFR (CKD-EPI 2020) (mL/min/1.73m2) Glucose (74-106) mg/dL Calcium (8.3-10.6) mg/dL Magnesium (1.6-2.6) mg/dL Total Bilirubin (0.2-1.2) mg/dL AST (<34) U/L ALT (10-49) U/L Alkaline Phosphatase (46-116) U/L Troponin I (<35) ng/L 9 NT-Pro-B Natriuret Pep (<300) pg/mL Total Protein (5.7-8.2) g/dL Albumin (3.4-5.0) g/dL Urine Color (Yellow) Urine Clarity (Clear) Urine pH (5-8) Ur Specific Lizella (1.005-1.025) Urine Protein (Neg-Trace) mg/dL Urine Ketones (Negative) mg/dL Urine Blood (Negative) Urine Nitrite (Negative) Urine Bilirubin (Negative) Urine Urobilinogen (Up to 0.2) mg/dL Ur Leukocyte Esterase (Negative) Urine RBC (0-2) HPF Urine WBC (0-5) HPF Ur Epithelial Cells (Negative) HPF Urine Crystals (Negative) HPF Urine Bacteria (Negative) HPF Urine Casts (Negative) LPF Urine Mucus (Negative) Ur Culture Indicated? Urine Glucose (Negative) mg/dL Urine Opiates Screen (Negative) Urine Methadone Screen (Negative) Ur Barbiturates Screen (Negative) Ur Tricyclics Screen (Negative) Ur Amphetamines Screen (Negative) U Benzodiazepines Scrn (Negative) Urine Cocaine Screen (Negative) U Cannabinoids Screen (Negative) Radiology: PROCEDURE INFORMATION: Exam: XR Chest Exam date and time: 01/19/2025 9:19 PM Age: 69 years old Clinical indication: Shortness of breath TECHNIQUE: Imaging protocol: Radiologic exam of the chest. Views: 2 views. COMPARISON: CR XR CHEST 2V PA LATERAL 01/11/2025 11:43 AM FINDINGS: Lungs: Unremarkable. No consolidation. Pleural spaces: Unremarkable. No pleural effusion. No pneumothorax. Heart/Mediastinum: Unremarkable. No cardiomegaly. Bones/joints: Moderate multilevel degenerative changes thoracic spine. IMPRESSION: No acute findings. Thank you for allowing us to participate in the care of your patient. Dictated and Authenticated by: Pam Holder MD Related Data Home Medications ?Medication ?Instructions ?Recorded ?Confirmed cholecalciferol (vitamin D3) 50 2,000 unit PO DAILY 05/16/12 01/19/25 mcg (2,000 unit) capsule (Vitamin D3) insulin syringe-needle U-100 0.5 #100 ea 03/01/19 01/11/25 mL 29 gauge x 1/2 (BD Insulin Syringe) blood-glucose,coagulating operator,cont #3 ea 07/01/22 01/11/25 (Dexcom G6 Fire Equipment Repairer Inspector) ketoconazole 2 % topical cream 1 applic topical DAILY #120 grams 08/29/23 01/19/25 pen needle, diabetic 32 gauge x #500 ea 08/30/23 01/11/2503/03 (Novofine 32) clotrimazole-betamethasone 1 1 applic topical BID #45 grams 01/11/24 01/19/25 %-0.05 % topical cream omeprazole 20 mg capsule,delayed 20 mg PO DAILY #90 caps 03/05/24 01/19/25 release ropinirole 1 mg tablet 1 mg PO BID #180 tabs 03/05/24 01/19/25 blood sugar diagnostic (Blood #300 ea 03/08/24 01/11/25 Glucose Test strips) blood-glucose transmitter (Dexcom #1 ea 03/21/24 01/11/25 G6 Transmitter device) insulin glargine 100 unit/mL (3 80 unit (0.8 mL) subcut BID #90 mL 03/23/24 01/19/25 mL) subcutaneous pen (Lantus Solostar U-100 Insulin) budesonide-formoterol HFA 160 2 puff inhalation BID ##3 07/06/24 01/19/25 mcg-4.5 mcg/actuation aerosol inhaler (Symbicort) blood-glucose sensor (Dexcom G6 #9 ea 07/30/24 01/11/25 Sensor device) clonazepam 2 mg tablet 1 - 2 mg (0.5 - 1 x 2 mg) PO QHS 10/05/24 01/19/25 PRN anxiety #30 tab-caps metoprolol succinate 100 mg 150 mg (1.5 x 100 mg) PO DAILY 10/05/24 01/19/25 tablet,extended release 24 hr #135 tab-caps insulin lispro 100 unit/mL 60 unit (0.6 mL) subcut TID #300 mL 11/05/24 01/19/25 subcutaneous pen ipratropium 0.5 mg-albuterol 3 mg 3 ml inhalation TID PRN shortness 11/05/24 01/19/25 (2.5 mg base)/3 mL nebulization of breath or wheezing #180 mL soln levothyroxine 125 mcg tablet 125 mcg PO DAILY #90 tab-caps 11/05/24 01/19/25 nystatin 100,000 unit/gram topical 1 applic topical BID PRN yeast 11/05/24 01/19/25 powder infx in groin #60 grams nystatin-triamcinolone 100,000 1 applic topical DAILY PRN rash 11/05/24 01/19/25 unit/gram-0.1 % topical ointment #30 grams tramadol 50 mg tablet 100 mg (2 x 50 mg) PO BID #120 tabs 11/05/24 01/19/25 blood-glucose sensor (Dexcom G7 #9 ea 11/22/24 01/11/25 Sensor device) blood-glucose,coagulating operator,cont #1 ea 11/22/24 01/11/25 (Dexcom G7 Fire Equipment Repairer Inspector) albuterol sulfate 90 mcg/actuation 1 - 2 puff inhalation Q6H PRN #18 12/18/24 01/19/25 aerosol inhaler grams allopurinol 100 mg tablet 50 mg (1/2 x 100 mg) PO DAILY #15 01/11/25 01/19/25 tabs pregabalin 75 mg capsule 75 mg PO TID #270 caps 01/11/25 01/19/25 magnesium chloride 71.5 mg 71.5 mg PO TID #180 tabs 01/12/25 01/19/25 (magnesium chloride) tablet,delayed release (Slow-Mag) Previous Rx's ?Medication ?Instructions ?Recorded insulin syringe-needle U-100 0.5 #100 ea 03/01/19 mL 29 gauge x 1/2 (BD Insulin Syringe) blood-glucose,coagulating operator,cont #3 ea 07/01/22 (Dexcom G6 Fire Equipment Repairer Inspector) ketoconazole 2 % topical cream 1 applic topical DAILY #120 grams 08/29/23 pen needle, diabetic 32 gauge x #500 ea 08/30/2303/03 (Novofine 32) clotrimazole-betamethasone 1 1 applic topical BID #45 grams 01/11/24 %-0.05 % topical cream omeprazole 20 mg capsule,delayed 20 mg PO DAILY #90 caps 03/05/24 release ropinirole 1 mg tablet 1 mg PO BID #180 tabs 03/05/24 blood sugar diagnostic (Blood #300 ea 03/08/24 Glucose Test strips) blood-glucose transmitter (Dexcom #1 ea 03/21/24 G6 Transmitter device) insulin glargine 100 unit/mL (3 80 unit (0.8 mL) subcut BID #90 mL 03/23/24 mL) subcutaneous pen (Lantus Solostar U-100 Insulin) budesonide-formoterol HFA 160 2 puff inhalation BID ##3 07/06/24 mcg-4.5 mcg/actuation aerosol inhaler (Symbicort) blood-glucose sensor (Dexcom G6 #9 ea 07/30/24 Sensor device) clonazepam 2 mg tablet 1 - 2 mg (0.5 - 1 x 2 mg) PO QHS 10/05/24 PRN anxiety #30 tab-caps metoprolol succinate 100 mg 150 mg (1.5 x 100 mg) PO DAILY 10/05/24 tablet,extended release 24 hr #135 tab-caps insulin lispro 100 unit/mL 60 unit (0.6 mL) subcut TID #300 mL 11/05/24 subcutaneous pen ipratropium 0.5 mg-albuterol 3 mg 3 ml inhalation TID PRN shortness 11/05/24 (2.5 mg base)/3 mL nebulization of breath or wheezing #180 mL soln levothyroxine 125 mcg tablet 125 mcg PO DAILY #90 tab-caps 11/05/24 nystatin 100,000 unit/gram topical 1 applic topical BID PRN yeast 11/05/24 powder infx in groin #60 grams nystatin-triamcinolone 100,000 1 applic topical DAILY PRN rash 11/05/24 unit/gram-0.1 % topical ointment #30 grams tramadol 50 mg tablet 100 mg (2 x 50 mg) PO BID #120 tabs 11/05/24 blood-glucose sensor (Dexcom G7 #9 ea 11/22/24 Sensor device) blood-glucose,coagulating operator,cont #1 ea 11/22/24 (Dexcom G7 Fire Equipment Repairer Inspector) albuterol sulfate 90 mcg/actuation 1 - 2 puff inhalation Q6H PRN #18 12/18/24 aerosol inhaler grams allopurinol 100 mg tablet 50 mg (1/2 x 100 mg) PO DAILY #15 01/11/25 tabs pregabalin 75 mg capsule 75 mg PO TID #270 caps 01/11/25 magnesium chloride 71.5 mg 71.5 mg PO TID #180 tabs 01/12/25 (magnesium chloride) tablet,delayed release (Slow-Mag) Allergies Allergy/AdvReac Type Severity Reaction Status Date / Time Penicillins Allergy Skin Rash Verified 01/19/25 21:05 amlodipine besylate (From AdvReac Intermediate cough Verified 01/19/25 21:05 Norvasc) lithium AdvReac Intermediate HYPERACTIVITY Verified 01/19/25 21:05 FOR DAYS rizatriptan AdvReac Intermediate BAD COUGH Verified 01/19/25 21:05 FOR 2 YEARS morphine AdvReac Mild Hallucinati Verified 01/19/25 21:05 ons/Vomitin g ibuprofen AdvReac Unknown Other (See Verified 01/19/25 21:05 Comment) atorvastatin AdvReac myalgias Verified 01/19/25 21:05 carbamazepine AdvReac myalgias Verified 01/19/25 21:05 enalaprilat AdvReac Cough Verified 01/19/25 21:05 General ERAL: 3 PFSH All Active Problems (Updated 01/19/25 @ 23:32 by Ronen Gómez MD) Elevated brain natriuretic peptide (BNP) level (Acute) Generalized weakness (Acute) Acute UTI (Acute) Elevated troponin (Acute) Generalized weakness (Acute) Non-ST elevation MA (NSTEMI) (Acute) Transaminitis (Acute) Acute kidney injury (Acute) Acute dehydration (Acute) Shock (Acute) Peripheral neuropathy (Acute) Contracture of left Achilles tendon (Acute) Plantar fasciitis of left foot (Acute) Tarsal tunnel syndrome of left side (Acute) Gout (Chronic) Multiple fractures of ribs of right side (Acute) Pain in joints of both feet (Acute) Nail dystrophy (Acute) Onychomycosis (Acute) Ingrown toenail (Acute) Atherosclerosis of artery of both lower extremities (Acute) Type 2 diabetes mellitus with peripheral neuropathy (Acute) Diabetes mellitus with autonomic neuropathy (Acute) Infection of lumbar spine (Acute) Frequent falls (Acute) Chronic low back pain with right-sided sciatica (Acute) Large hiatal hernia (Acute) RLQ abdominal pain (Acute) Cataract (Chronic) Bunion, right foot (Acute) BMI 40.0-44.9, adult (Acute) Abdominal wall hernia (Acute) Coronary artery calcification seen on CAT scan (Acute) Atherosclerosis (Acute) Enlarged heart (Acute) Herpes (Acute) Lumbar radicular pain (Acute) Seborrhea corporis (Acute) Elevated LFTs (Acute) Arthralgia (Acute) DARLENE positive (Acute) Yeast infection (Acute) Staph infection (Acute) Restless leg (Acute) Von Willebrand factor inhibitor disorder (Chronic) Rotator cuff disorder (Chronic 06/27/14) Recurrent ventral hernia (Chronic 04/07/16) Non-alcoholic fatty liver disease (Chronic) elevated LFT Insomnia (Chronic) Hypothyroidism (Chronic) Hyperlipidemia (Chronic) Gastroesophageal reflux disease (Chronic) 09/29/12 EGD SHOW SOME REFULX CHANGES Elevated serum GGT level (Chronic 02/17/15) 1600 in 2011 [address] RIDDLE Diverticula of colon (Chronic) Diabetes mellitus with neuropathy (Chronic 02/14/14) Depressed bipolar I disorder (Chronic) STABLE 02/2011 Chronic cough (Chronic) Cataracts, both eyes (Chronic 12/09/15) [facility] Atrophic vaginitis (Chronic 09/14/12) Asthma (Chronic) Chronic pain disorder (Chronic 11/25/16) Ganglion (Chronic) Stress incontinence in female (Chronic) Hypertension (Chronic) Medical History COVID-19 (~02/2024) Ribs, multiple fractures Tibial fracture pt. reports surgical intervention Fatigue Torn medial meniscus Diarrhea Cellulitis Trigger finger Hand joint pain (12/01/11) History of tobacco use History of tobacco use quit in 2002 History of alcoholism in sobriety for greater than 10 years Triggering of finger thumb Ganglion of tendon sheath 12/01/11 Hand joint pain 12/01/11 Chest pain 06/05/12 Overdose 1994: alcohol and benzo 09/18/13 Stenosing tenosynovitis of thumb (05/13/14) Right foot pain (12/16/14) Neoplasm of unspecified nature of bone, soft tissue, and skin (08/12/14) Headache Essential hypertension (12/13/12) fatty liver Elevated lipase (08/26/16) Sanjuanita infection (08/26/16) Chronic sinusitis CVA (cerebral vascular accident) 2018 x2 Diabetes type 2, uncontrolled Hypothyroidism Hyperlipidemia Headache Chronic cough Bipolar disorder Diabetic neuropathy Fatty liver disease, nonalcoholic Insomnia Hypomagnesemia Fatigue Surgical History Status post abdominal hysterectomy Status post bilateral salpingo-oophorectomy Status post cholecystectomy Status post hernia repair S/P BSO (bilateral salpingo-oophorectomy) S/P abdominal hysterectomy fibroids, abnormal paps S/P cholecystectomy S/P hernia repair 02/28/11 H/O esophagogastroduodenoscopy active gastritis and focal acute inflammation 02/29/12 H/O surgical procedure right thumb release 02/29/12 hernia repair (~02/2011) Ventral Hernia repair (04/07/16) Dr. Jackson Incision, Tendon Sheath (08/01/12) RIGHT THUMB RELEASE Abdominal hysterectomy FIBROIDS/ABNORMAL PAPS EGD - MAC (09/29/12) ACTIVE GASTRITIS AND FOCAL ACUTE INFLAMMATION. Tooth extraction 10/12/14-TEETH REMOVED Colonoscopy - MAC (~03/2011) Colonoscopy - IV Sedation (04/02/11) DR. TIFFANI NICHOLS; DIVERTICULA Cholecystectomy Bilateral salpingectomy with oophorectomy Family History Mother , age 67 Alcohol abuse Mental disorder Psychotic/paranoid symptoms, unknown diagnosis Cancer bladder/kidney; ?brain Sister Substance abuse MARIJUANA Maternal Grandfather Asthma Alcohol abuse Paternal Grandfather Heart disease Diabetes Stroke Maternal Grandmother No problems noted. Paternal Grandmother Diabetes Sister Substance abuse MARIJUANA Asthma Alcohol abuse Son Depression Diabetes Hyperlipidemia Stroke Son No problems noted. Son Asthma Diabetes Hyperlipidemia Hypertension Father , 80 Cancer Brother Alcohol abuse Depression Social History Smoking/Tobacco Use Status: Former Tobacco Use tobacco type: cigarettes Quit Date: 06/20/03 Tobacco: How many years used: 30 Second Hand Exposure: Yes Smoking risk assessment performed?: Yes Alcohol Intake: never Drug use: Daily Substance use type: marijuana Caregiver/Support person: No Household members: spouse and children Housing: house Communication Needs: None Do you need help understanding health information?: Often Pets and animals: Yes Pets and animals: cat(s) and dog(s) Sexually active: No Do you think of yourself as: straight/heterosexual Current gender identity: female What is your relationship status?: How often do you talk on the phone with friends or family?: three or more times per week How often do you get together with friends or relatives?: decline to answer How often do you attend uatsdin or restoration services?: decline to answer Do you belong to any clubs or organized social groups?: no Panel score (0-1 are the most socially isolated patients): 2 What type of physical activity do you participate in: walking Duration: < 15 minutes/day Frequency: 3-4 times per week Silvia/Denominational: Yashira Special silvia needs: No Seatbelt use: always Helmet use: No Drive intox or ride w/intox sprinkler truck driver: No Do you feel safe at home: Yes Do you feel safe in your relationship?: Yes
[2025-01-19 21:04] LABS: BE (Venous) 4 mmol/L (-2-3); HCO3 (Venous) 30 mmol/L (23-28); O2 Sat (Venous) 66 %; TCO2 (Venous) 28 mmol/L (24-29); pCO2 (Venous) 57 mmHg (41-51); pO2 (Venous) 37 mmHg
[2025-01-19 21:05] LABS: Abs Immature Grans 0.17 10^3/uL (0.0-0.06); HCT 35.7 % (36.0-46.0); HGB 11.7 g/dL (11.2-15.7); Immature Grans % 1.6 %; MCH 32.7 pg (27.0-33.0); MCHC 32.8 % (32.0-36.0); MCV 100 fL (80-95); MPV 11.4 fL (8.0-11.0); Platelet Count 148 10^3/uL (130-400); RBC 3.58 10^6/uL (3.93-5.22); RDW 14.9 % (11.7-14.6); RDW-SD 54.6 fL; WBC 10.50 10^3/uL (4.4-10.8)
--- NOTE | 2025-01-19 21:21 | DI.RAD_ITS ---
Exam(s) XR CHEST 2V PA LATERAL EXAM: XR CHEST 2V PA LATERAL CLINICAL HISTORY: malaise TECHNIQUE: 2D digital imaging was performed. Two views. COMPARISON: CR XR CHEST 2V PA LATERAL from 01/11/2025 FINDINGS: The AP view is limited by overlying abdominal soft tissues. HEART: Normal size. Aorta: Not dilated. PULMONARY VASCULATURE: Normal. MEDIASTINUM: Unremarkable. LUNGS: Clear. PLEURAL SPACE: No pleural effusion or pneumothorax. BONE:Unremarkable for age. SOFT TISSUES: Unremarkable. IMPRESSION: Limited exam. No acute abnormality. The preliminary [facility] report was reviewed. DATA REPOSITORY: RADIATION DOSE DELIVERED:
[2025-01-19 21:23] LABS: Troponin I 7 ng/L (<35)
[2025-01-19 21:27] LABS: Magnesium 1.5 mg/dL (1.6-2.6)
--- NOTE | 2025-01-19 21:28 | DI.VRAD_ITS ---
PROCEDURE INFORMATION: Exam: XR Chest Exam date and time: 01/19/2025 9:19 PM Age: 69 years old Clinical indication: Shortness of breath TECHNIQUE: Imaging protocol: Radiologic exam of the chest. Views: 2 views. COMPARISON: CR XR CHEST 2V PA LATERAL 01/11/2025 11:43 AM FINDINGS: Lungs: Unremarkable. No consolidation. Pleural spaces: Unremarkable. No pleural effusion. No pneumothorax. Heart/Mediastinum: Unremarkable. No cardiomegaly. Bones/joints: Moderate multilevel degenerative changes thoracic spine. IMPRESSION: No acute findings. Dictated and Authenticated by: Pam Holder MD. Orderin Dalia Hardwick MD
[2025-01-19 21:29] LABS: ALT 72 U/L (10-49); AST 107 U/L (<34); Albumin 3.9 g/dL (3.4-5.0); Alkaline Phosphatase 194 U/L (46-116); Anion Gap 10.2 mmol/L (3-11); BUN 18 mg/dL (9-23); Bilirubin, Total 0.50 mg/dL (0.2-1.2); CO2 28.8 mmol/L (20.0-31.0); Calcium 8.7 mg/dL (8.3-10.6); Chloride 106 mmol/L (98-107); Glucose 127 mg/dL (74-106); Potassium 4.4 mmol/L (3.5-5.1); Sodium 145 mmol/L (136-145); Total Protein 5.9 g/dL (5.7-8.2)
[2025-01-19 21:55] LABS: Glucose Negative (Negative)
[2025-01-19 22:00] LABS: C & S Indicated? Yes
[2025-01-19 22:20] LABS: Cannabinoids THC Positive (Negative)
[2025-01-19 22:23] LABS: Troponin I 9 ng/L (<35)
[2025-01-19] MEDS: cefTRIAXone 2 GM/50 ML BAG IVPB (23:17)
[2025-01-20 00:01] VITALS: BP 106/53; PULSE 72; O2SAT 93
[2025-01-20 00:32] VITALS: BP 120/90; PULSE 68
[2025-01-20 01:15] LABS: Troponin I 7 ng/L (<35)
[2025-01-20 01:22] VITALS: BP 138/70; PULSE 70; RESP 18; TEMP 37.2; O2SAT 97
--- NOTE | 2025-01-20 01:30 | RT.EKG_ITS ---
APPROVED REPORT Exam: Resting ECG Reason for Exam: Order not done in order Patient Location: I HR:69 bpm ECG Measurements Heart Rate 69 AXIS MA 149 P 50 QRSd 84 QRS 47 QT 402 T 74 QTc 431 Conclusion Sinus rhythm...normal P axis, V-rate 50- 99 Normal Electrocardiogram
[2025-01-20] MEDS: Enoxaparin 40 MG/0.4 ML SYR SC ×2 (02:10→13:11)
--- NOTE | 2025-01-20 02:25 | W.PM.HP.N ---
Date of service: 01/20/25 Time of Service: 02:25 Assessment and Plan Assessment and plan (1) UTI (urinary tract infection): Status: Acute Assessment and plan: Continue with Rocephin await culture results. (2) Hypertension: Status: Chronic Assessment and plan: Continue with home medications. Patient is actually not on her losartan potentially because of recent acute kidney injury. Patient does not appear to be on beta-samson either. Patient is not on a SGLT2 inhibitor. Patient's urine does show hematuria but no proteinuria. (3) Hyperlipidemia: Status: Chronic Assessment and plan: Patient does not appear to be on any statin at this point. Will check a lipid panel in the a.m. her most recent discharge summary does not was a statin either. (4) Von Willebrand factor inhibitor disorder: Status: Chronic Assessment and plan: Noted (5) Elevated brain natriuretic peptide (BNP) level: Status: Acute Assessment and plan: With the patient's elevated BNP as well as symptoms will order an echocardiogram. Consider diuretics if her echocardiogram warrants it. (6) Elevated LFTs: Status: Acute Assessment and plan: Longstanding, potentially the reason why she is not on a statin. (7) Acute kidney injury: Status: Acute Assessment and plan: Patient's GFR is currently 36.8 indicating she is at stage III kidney disease of note, on the ninth of this month her GFR was 9.7. (8) Elevated MCV: Status: Acute Assessment and plan: B12 folate are pending have also ordered iron and TIBC for concerns about mixed disease. (9) Bunion, right foot: Status: Acute Assessment and plan: Consider podiatry consult although this can be done as an outpatient. Does not look infected at this point. History of Present Illness History of Present Illness Chief Complaint: FTT Narrative: This is a 69-year-old female who had recently been in the hospital between the and the for generalized weakness and actually had been transferred to [facility] approximately a week before that for concerns about acute kidney injury with the need for hemodialysis. Patient came in today with concerns for continued weakness as well as increasing exercise intolerance. Patient states that she has noticed swelling in her lower extremities. Patient states has been taking her medications as prescribed. Patient does endorse some polydipsia as well as polyuria and some dysuria. Patient is also complaining of a right toe injury that she was worried about infection. While she was in the ED she did get a workup including laboratory data radiographs EKG cultures. She was noted to have mild hypomagnesemia and a BNP of 1888 urine drug screen positive for TCA and THC mild transaminitis with an AST of 107 ALT of 72 alk phos of 194 UA with positive nitrite leukocyte esterase. Her chest x-ray was negative EKG was done today and appears benign. Blood and urine cultures have been drawn. Patient was started on Rocephin by the ER doctor. In reviewing her records she does have a somewhat unusual diabetic regimen or she is taking her long-acting insulin 3 times a day. Patient is a full code. Review of Systems All systems reviewed & are unremarkable except as noted in HPI and below PFSH All Active Problems (Updated 01/20/25 @ 02:33 by Rickey Caldreon MD) Hypomagnesemia (Acute) Elevated MCV (Acute) UTI (urinary tract infection) (Acute) Elevated brain natriuretic peptide (BNP) level (Acute) Generalized weakness (Acute) Acute UTI (Acute) Elevated troponin (Acute) Generalized weakness (Acute) Non-ST elevation HI (NSTEMI) (Acute) Transaminitis (Acute) Acute kidney injury (Acute) Acute dehydration (Acute) Shock (Acute) Peripheral neuropathy (Acute) Contracture of left Achilles tendon (Acute) Plantar fasciitis of left foot (Acute) Tarsal tunnel syndrome of left side (Acute) Gout (Chronic) Multiple fractures of ribs of right side (Acute) Pain in joints of both feet (Acute) Nail dystrophy (Acute) Onychomycosis (Acute) Ingrown toenail (Acute) Atherosclerosis of artery of both lower extremities (Acute) Type 2 diabetes mellitus with peripheral neuropathy (Acute) Diabetes mellitus with autonomic neuropathy (Acute) Infection of lumbar spine (Acute) Frequent falls (Acute) Chronic low back pain with right-sided sciatica (Acute) Large hiatal hernia (Acute) RLQ abdominal pain (Acute) Cataract (Chronic) Bunion, right foot (Acute) BMI 40.0-44.9, adult (Acute) Abdominal wall hernia (Acute) Coronary artery calcification seen on CAT scan (Acute) Atherosclerosis (Acute) Enlarged heart (Acute) Herpes (Acute) Lumbar radicular pain (Acute) Seborrhea corporis (Acute) Elevated LFTs (Acute) Arthralgia (Acute) DARLENE positive (Acute) Yeast infection (Acute) Staph infection (Acute) Restless leg (Acute) Von Willebrand factor inhibitor disorder (Chronic) Rotator cuff disorder (Chronic 06/27/14) Recurrent ventral hernia (Chronic 04/07/16) Non-alcoholic fatty liver disease (Chronic) elevated LFT Insomnia (Chronic) Hypothyroidism (Chronic) Hyperlipidemia (Chronic) Gastroesophageal reflux disease (Chronic) 09/29/12 EGD SHOW SOME REFULX CHANGES Elevated serum GGT level (Chronic 02/17/15) 1600 in 2011 [address] RIDDLE Diverticula of colon (Chronic) Diabetes mellitus with neuropathy (Chronic 02/14/14) Depressed bipolar I disorder (Chronic) STABLE 02/2011 Chronic cough (Chronic) Cataracts, both eyes (Chronic 12/09/15) 12/09/15-[facility]- OD>OS Atrophic vaginitis (Chronic 09/14/12) Asthma (Chronic) Chronic pain disorder (Chronic 11/25/16) Ganglion (Chronic) Stress incontinence in female (Chronic) Hypertension (Chronic) Medical History COVID-19 (~02/2024) Ribs, multiple fractures Tibial fracture pt. reports surgical intervention Fatigue Torn medial meniscus Diarrhea Cellulitis Trigger finger Hand joint pain (12/01/11) History of tobacco use History of tobacco use quit in 2002 History of alcoholism in sobriety for greater than 10 years Triggering of finger thumb Ganglion of tendon sheath 12/01/11 Hand joint pain 12/01/11 Chest pain 06/05/12 Overdose 1994: alcohol and benzo 09/18/13 Stenosing tenosynovitis of thumb (05/13/14) Right foot pain (12/16/14) Neoplasm of unspecified nature of bone, soft tissue, and skin (08/12/14) Headache Essential hypertension (12/13/12) fatty liver Elevated lipase (08/26/16) Sanjuanita infection (08/26/16) Chronic sinusitis CVA (cerebral vascular accident) 2018 x2 Diabetes type 2, uncontrolled Hypothyroidism Hyperlipidemia Headache Chronic cough Bipolar disorder Diabetic neuropathy Fatty liver disease, nonalcoholic Insomnia Hypomagnesemia Fatigue Surgical History Status post abdominal hysterectomy Status post bilateral salpingo-oophorectomy Status post cholecystectomy Status post hernia repair S/P BSO (bilateral salpingo-oophorectomy) S/P abdominal hysterectomy fibroids, abnormal paps S/P cholecystectomy S/P hernia repair 02/28/11 H/O esophagogastroduodenoscopy active gastritis and focal acute inflammation 02/29/12 H/O surgical procedure right thumb release 02/29/12 hernia repair (~02/2011) Ventral Hernia repair (04/07/16) Dr. [facility] Incision, Tendon Sheath (08/01/12) RIGHT THUMB RELEASE Abdominal hysterectomy FIBROIDS/ABNORMAL PAPS EGD - MAC (09/29/12) ACTIVE GASTRITIS AND FOCAL ACUTE INFLAMMATION. Tooth extraction 10/12/14-TEETH REMOVED Colonoscopy - MAC (~03/2011) Colonoscopy - IV Sedation (04/02/11) DR. TIFFANI NICHOLS; [place] Cholecystectomy Bilateral salpingectomy with oophorectomy Family History Mother , age 67 Alcohol abuse Mental disorder Psychotic/paranoid symptoms, unknown diagnosis Cancer bladder/kidney; ?brain Sister Substance abuse MARIJUANA Maternal Grandfather Asthma Alcohol abuse Paternal Grandfather Heart disease Diabetes Stroke Maternal Grandmother No problems noted. Paternal Grandmother Diabetes Sister Substance abuse MARIJUANA Asthma Alcohol abuse Son Depression Diabetes Hyperlipidemia Stroke Son No problems noted. Son Asthma Diabetes Hyperlipidemia Hypertension Father , 80 Cancer Brother Alcohol abuse Depression Social History Smoking/Tobacco Use Status: Former Tobacco Use tobacco type: cigarettes Quit Date: 06/20/03 Tobacco: How many years used: 30 Second Hand Exposure: Yes Smoking risk assessment performed?: Yes Alcohol Intake: never Drug use: Daily Substance use type: marijuana Caregiver/Support person: No Household members: spouse and children Housing: house Communication Needs: None Do you need help understanding health information?: Often Pets and animals: Yes Pets and animals: cat(s) and dog(s) Sexually active: No Do you think of yourself as: straight/heterosexual Current gender identity: female What is your relationship status?: How often do you talk on the phone with friends or family?: three or more times per week How often do you get together with friends or relatives?: decline to answer How often do you attend taoist or zoroastrianism services?: decline to answer Do you belong to any clubs or organized social groups?: no Panel score (0-1 are the most socially isolated patients): 2 What type of physical activity do you participate in: walking Duration: < 15 minutes/day Frequency: 3-4 times per week Silvia/Synagogue: Ac Special silvia needs: No Seatbelt use: always Helmet use: No Drive intox or ride w/intox van cdl driver: No Do you feel safe at home: Yes Do you feel safe in your relationship?: Yes Meds Allergies and Home Medications Allergies Allergy/AdvReac Type Severity Reaction Status Date / Time Penicillins Allergy Skin Rash Verified 01/19/25 21:05 amlodipine besylate (From AdvReac Intermediate cough Verified 01/19/25 21:05 Norvasc) lithium AdvReac Intermediate HYPERACTIVITY Verified 01/19/25 21:05 FOR DAYS rizatriptan AdvReac Intermediate BAD COUGH Verified 01/19/25 21:05 FOR 2 YEARS morphine AdvReac Mild Hallucinati Verified 01/19/25 21:05 ons/Vomitin g ibuprofen AdvReac Unknown Other (See Verified 01/19/25 21:05 Comment) atorvastatin AdvReac myalgias Verified 01/19/25 21:05 carbamazepine AdvReac myalgias Verified 01/19/25 21:05 enalaprilat AdvReac Cough Verified 01/19/25 21:05 Home Medications ?Medication ?Instructions ?Recorded ?Confirmed ?Type cholecalciferol (vitamin D3) 50 2,000 unit PO DAILY 05/16/12 01/19/25 History mcg (2,000 unit) capsule (Vitamin D3) insulin syringe-needle U-100 0.5 #100 ea 03/01/19 01/20/25 Rx mL 29 gauge x 1/2 (BD Insulin Syringe) blood-glucose,general sales manager,cont #3 ea 07/01/22 01/20/25 Rx (Dexcom G6 Fly Winder) ketoconazole 2 % topical cream 1 applic topical DAILY #120 grams 08/29/23 01/19/25 Rx pen needle, diabetic 32 gauge x #500 ea 08/30/23 01/20/25 Rx 1/4 (Novofine 32) clotrimazole-betamethasone 1 1 applic topical BID #45 grams 01/11/24 01/19/25 Rx %-0.05 % topical cream omeprazole 20 mg capsule,delayed 20 mg PO DAILY #90 caps 03/05/24 01/19/25 Rx release ropinirole 1 mg tablet 1 mg PO BID #180 tabs 03/05/24 01/19/25 Rx blood sugar diagnostic (Blood #300 ea 03/08/24 01/20/25 Rx Glucose Test strips) blood-glucose transmitter (Dexcom #1 ea 03/21/24 01/20/25 Rx G6 Transmitter device) insulin glargine 100 unit/mL (3 80 unit (0.8 mL) subcut BID #90 mL 03/23/24 01/19/25 Rx mL) subcutaneous pen (Lantus Solostar U-100 Insulin) budesonide-formoterol HFA 160 2 puff inhalation BID ##3 07/06/24 01/19/25 Rx mcg-4.5 mcg/actuation aerosol inhaler (Symbicort) blood-glucose sensor (Dexcom G6 #9 ea 07/30/24 01/20/25 Rx Sensor device) clonazepam 2 mg tablet 1 - 2 mg (0.5 - 1 x 2 mg) PO QHS 10/05/24 01/19/25 Rx PRN anxiety #30 tab-caps metoprolol succinate 100 mg 150 mg (1.5 x 100 mg) PO DAILY 10/05/24 01/19/25 Rx tablet,extended release 24 hr #135 tab-caps insulin lispro 100 unit/mL 60 unit (0.6 mL) subcut TID #300 mL 11/05/24 01/19/25 Rx subcutaneous pen ipratropium 0.5 mg-albuterol 3 mg 3 ml inhalation TID PRN shortness 11/05/24 01/19/25 Rx (2.5 mg base)/3 mL nebulization of breath or wheezing #180 mL soln levothyroxine 125 mcg tablet 125 mcg PO DAILY #90 tab-caps 11/05/24 01/19/25 Rx nystatin 100,000 unit/gram topical 1 applic topical BID PRN yeast 11/05/24 01/19/25 Rx powder infx in groin #60 grams nystatin-triamcinolone 100,000 1 applic topical DAILY PRN rash 11/05/24 01/19/25 Rx unit/gram-0.1 % topical ointment #30 grams tramadol 50 mg tablet 100 mg (2 x 50 mg) PO BID #120 tabs 11/05/24 01/19/25 Rx blood-glucose sensor (Dexcom G7 #9 ea 11/22/24 01/20/25 Rx Sensor device) blood-glucose,general sales manager,cont #1 ea 11/22/24 01/20/25 Rx (Dexcom G7 Fly Winder) albuterol sulfate 90 mcg/actuation 1 - 2 puff inhalation Q6H PRN #18 12/18/24 01/19/25 Rx aerosol inhaler grams allopurinol 100 mg tablet 50 mg (1/2 x 100 mg) PO DAILY #15 01/11/25 01/19/25 Rx tabs pregabalin 75 mg capsule 75 mg PO TID #270 caps 01/11/25 01/19/25 Rx magnesium chloride 71.5 mg 71.5 mg PO TID #180 tabs 01/12/25 01/19/25 Rx (magnesium chloride) tablet,delayed release (Slow-Mag) Exam Narrative Exam Narrative: HEENT normocephalic atraumatic mucous members moist oropharynx is clear Neck no lymphadenopathy no JVD no thyromegaly Cardiovascular regular rate and rhythm no murmurs or gallops Lungs clear to auscultation bilaterally Abdomen protuberant Extremities 2+ lower extremity edema as well as what appears to be a wound on her first metatarsal followed by 1 cm at the greatest Neurologic nonfocal Psych alert and oriented x 3 Results Labs 01/19/25 20:57 01/19/25 20:57 Labs: Laboratory Results - last 24 hr 01/19/25 01/19/25 01/19/25 20:57 21:47 21:49 WBC 10.50 RBC 3.58 L Hgb 11.7 Hct 35.7 L MCV 100 H MCH 32.7 MCHC 32.8 RDW 14.9 H Plt Count 148 MPV 11.4 H Immature Gran % 1.6 Neutrophils % 71.8 Lymphocytes % 14.4 Monocytes % 10.2 Eosinophils % 1.1 Basophils % 0.9 Nucleated RBC % 0.0 Absolute Neutrophils 7.54 H Absolute Lymphocytes 1.51 Absolute Monocytes 1.07 H Absolute Eosinophils 0.12 Absolute Basophils 0.09 VBG pH 7.33 VBG pCO2 57 H VBG pO2 37 VBG HCO3 30 H VBG Total CO2 28 VBG O2 Saturation 66 VBG Base Excess 4 H VBG Lactate 1.5 Sodium 145 Potassium 4.4 Chloride 106 Carbon Dioxide 28.8 Anion Gap 10.2 BUN 18 Creatinine 1.41 H Est GFR (CKD-EPI 2020) 36.80 Glucose 127 H Calcium 8.7 Magnesium 1.5 L Total Bilirubin 0.50 AST 107 H ALT 72 H Alkaline Phosphatase 194 H Troponin I 7 NT-Pro-B Natriuret Pep 1888 H Total Protein 5.9 Albumin 3.9 Urine Color Yellow Urine Clarity Sl Cloudy Urine pH 6.0 Ur Specific [place] 1.015 Urine Protein Negative Urine Ketones Negative Urine Blood Trace-intact H Urine Nitrite Positive H Urine Bilirubin Negative Urine Urobilinogen 0.2 Ur Leukocyte Esterase Small H Urine RBC 3-5 H Urine WBC 10-20 H Ur Epithelial Cells Few Urine Crystals Negative Urine Bacteria Few Urine Casts Negative Urine Mucus Negative Ur Culture Indicated? Yes Urine Glucose Negative Urine Opiates Screen Negative Urine Methadone Screen Negative Ur Barbiturates Screen Negative Ur Tricyclics Screen Positive A Ur Amphetamines Screen Negative U Benzodiazepines Scrn Negative Urine Cocaine Screen Negative U Cannabinoids Screen Positive A 01/19/25 01/20/25 21:55 00:53 WBC RBC Hgb Hct MCV MCH MCHC RDW Plt Count MPV Immature Gran % Neutrophils % Lymphocytes % Monocytes % Eosinophils % Basophils % Nucleated RBC % Absolute Neutrophils Absolute Lymphocytes Absolute Monocytes Absolute Eosinophils Absolute Basophils VBG pH VBG pCO2 VBG pO2 VBG HCO3 VBG Total CO2 VBG O2 Saturation VBG Base Excess VBG Lactate Sodium Potassium Chloride Carbon Dioxide Anion Gap BUN Creatinine Est GFR (CKD-EPI 2020) Glucose Calcium Magnesium Total Bilirubin AST ALT Alkaline Phosphatase Troponin I 9 7 NT-Pro-B Natriuret Pep Total Protein Albumin Urine Color Urine Clarity Urine pH Ur Specific [place] Urine Protein Urine Ketones Urine Blood Urine Nitrite Urine Bilirubin Urine Urobilinogen Ur Leukocyte Esterase Urine RBC Urine WBC Ur Epithelial Cells Urine Crystals Urine Bacteria Urine Casts Urine Mucus Ur Culture Indicated? Urine Glucose Urine Opiates Screen Urine Methadone Screen Ur Barbiturates Screen Ur Tricyclics Screen Ur Amphetamines Screen U Benzodiazepines Scrn Urine Cocaine Screen U Cannabinoids Screen Last Vital Signs Temp 37.2 C 01/20/25 01:22 Pulse 70 01/20/25 01:22 Resp 18 01/20/25 01:22 BP 138/70 01/20/25 01:22 Pulse Ox 97 01/20/25 01:22 Time Spent Time spent with Patient: 40-54 minutes Time was spent: preparing to see the patient(eg.review tests), obtaining and/or reviewing separately otained hiistory, ordering medications,tests, procedures, referring, communicating with other health manager critical care, indepentently interpreting results, counseling the patient and care coordination
[2025-01-20 02:37] VITALS: BP 138/70; PULSE 70; RESP 18; TEMP 37.2; O2SAT 97
[2025-01-20] MEDS: clonazePAM 1 MG TAB PO ×2 (02:49→20:28)
[2025-01-20] MEDS: Docusate Sodium 100 MG CAP PO (02:49)
[2025-01-20] MEDS: Levothyroxine 125 MCG TAB PO (06:24)
[2025-01-20 06:37] LABS: Abs Immature Grans 0.08 10^3/uL (0.0-0.06); HCT 35.5 % (36.0-46.0); HGB 11.8 g/dL (11.2-15.7); Immature Grans % 0.9 %; MCH 33.6 pg (27.0-33.0); MCHC 33.2 % (32.0-36.0); MCV 101 fL (80-95); MPV 12.0 fL (8.0-11.0); Platelet Count 144 10^3/uL (130-400); RBC 3.51 10^6/uL (3.93-5.22); RDW 14.9 % (11.7-14.6); RDW-SD 55.2 fL; WBC 9.07 10^3/uL (4.4-10.8)
[2025-01-20] MEDS: Lactated Ringers 1,000 ML 125 ML IV (06:43)
[2025-01-20 06:59] LABS: Iron 85 ug/dL (50-170); Total Iron Binding Capacity 300 ug/dL (250-425); Transferrin Sat 28 % (15-50)
[2025-01-20 07:00] LABS: ALT 71 U/L (10-49); AST 98 U/L (<34); Albumin 3.8 g/dL (3.4-5.0); Alkaline Phosphatase 216 U/L (46-116); Anion Gap 8.8 mmol/L (3-11); BUN 19 mg/dL (9-23); Bilirubin, Total 0.40 mg/dL (0.2-1.2); CO2 25.2 mmol/L (20.0-31.0); Calcium 8.6 mg/dL (8.3-10.6); Chloride 106 mmol/L (98-107); Glucose 300 mg/dL (74-106); Potassium 4.7 mmol/L (3.5-5.1); Sodium 140 mmol/L (136-145); Total Protein 5.8 g/dL (5.7-8.2)
[2025-01-20 07:01] LABS: TSH (W/Ref FT4) 0.97 uIU/mL (0.55-4.78)
[2025-01-20 07:31] VITALS: BP 113/88; PULSE 71; RESP 18; TEMP 36; O2SAT 97
[2025-01-20 07:35] LABS: Folate 9.9 ng/mL (>5.38); Vitamin B12 543 pg/mL (211-911)
--- NOTE | 2025-01-20 07:53 | PDOC.CMIN ---
Date of service: 01/20/25 Time of Service: 07:53 Care Management Initial Assmt Initial Assessment Reason for Hospitalization: Acute UTI Functional Status/Living Situation Patient Presentation: Jennifer is being closely monitored and treated for a UTI and was awake and sitting in a recliner when CM met with her. She is accompanied by her and son, Rickey Ward and Rickey John. Per pt, just weeks ago she was transferred from our ED to [facility] for kidney failure, of which she reports being told she has only 5 hours to live. Following discharge from [place] she established services with [facility] and is currently all set up with [facility] RN/PT/OT and telehealth monitoring. She lives in [place] with her and son. She has two additional children whom live out of state. 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 Rickey Ward. provides her transportation as neither she or Rickey Eddy drive. She uses a walker, has grab bars in the home and considers herself fairly independent. If STR is recommended, Jennifer would like to decline, stating she feels very well supported at home. Her confirms that Crystal is left at home alone, no more than 2 hours per week. Although he works night time babysitter during the day, their son Rickey is constantly present and assists her with her ADL's. In addition to her UTI, her other main concern right now is getting her blood sugars under better control. She reports recent spikes in her glucose and reports that she has tried to reach out to her PCP but never received a call back. Fortunately, she has an appointment to follow up with her PCP early next week. CM will continue to follow. Town of Residence: [place] Resides with: Child (Son Rickey John) and Spouse (Rickey Ward) Natural Supports: Rickey Ward. Son Rickey John. Employment Status: Retired (NET WEB DEVELOPER) and Disabled Instrumental Activities of Daily Living (ADLs): Requires support with Dishes/food prep, Groceries, Heat/Utilities, Laundry and Transportation Medications Medication Management: No Issues/Barriers identified Physical Functioning/Mobility Assistive Device: Walker Has grab bars in the home Advance Directives Advance Directives: Do you have an Advance Directive: Y 06/20/23, 13:29 AD On File at [facility]: Y 06/20/23, 13:29 Date Asked 04/04/22 05/20/24, 08:57 AD Date Reviewed 01/11/25 01/11/25, 10:33 COLST On File at [facility] COLST Date Scanned Code Status Resuscitation Status Full Code Insurance Coverage/Financial Issues Insurance: [facility] - [id number] Medicare Part A & B - [id number] Care Team Visit Care Team Role Provider Type Selina Soto, GINETTE NURSE PRACTITIONER Renu Gerber MD, [place] Primary Care Provider [facility] InPatient Reji Reynoso Other Providers OTHER Ronen Gómez MD Emergency Provider [facility] STAFF PHYSICIAN Rickey Calderon MD Admit Provider [facility] STAFF PHYSICIAN Attending Provider Discharge Potential Discharge Needs: PCP F/U Appt Anticipated Barriers to Discharge: None Identified and Medical Status Patient/Family Education Needs: Review discharge instructions, discuss Ask Me Three Transportation: Private vehicle Plan: Anticipate Jennifer will discharge home with resumption of H RN/PT/OT services and caregiver supports via private vehicle with her . Patient will need a follow up with community providers and continue per her discharge plan of care as directed. CM will follow. Social Determinants of Health Screening Social Determinants of health last assessed in clinic: 01/20/25 Will the Patient Participate in the Screening?: Yes Do you worry about having a steady place to live?: no Problems where you live: no known problems In the past 12 months, have you had to go without electric, gas, oil or water in your home?: no 1. Within the past 12 months, we worried whether our food would run out before we got money to buy more.: Never true 2. Within the past 12 months, the food we bought just didn't last and we didn't have money to get more.: Never true Has lack of transportation kept you from medical appointments or from doing things needed for daily living?: no Has anyone in your life made you feel unsafe or unsupported?: no How hard is it for you to pay for the very basics like food, housing, medical care, and heating? Would you say it is:: Somewhat hard Do you want help finding or keeping work or a job?: I do not need or want help If for any reason you need help with day-to-day activities such as bathing, preparing meals, shopping, managing finances, etc., do you get the help you need?: I don?t need any help How often do you feel lonely or isolated from those around you?: Rarely Do you speak a language other than Cape Verdean at home?: No Does the patient want assistance with any of the above?: No Health Related Social Needs Health related social needs: problems related to housing/economic circumstances (Z59.89) and feeling lonely/isolated (Z60.8) Health related social needs details: Pt declines help at this time PFSH All Active Problems (Updated 01/20/25 @ 02:33 by Rickey Calderon MD) Hypomagnesemia (Acute) Elevated MCV (Acute) UTI (urinary tract infection) (Acute) Elevated brain natriuretic peptide (BNP) level (Acute) Generalized weakness (Acute) Acute UTI (Acute) Elevated troponin (Acute) Generalized weakness (Acute) Non-ST elevation [place] (NSTEMI) (Acute) Transaminitis (Acute) Acute kidney injury (Acute) Acute dehydration (Acute) Shock (Acute) Peripheral neuropathy (Acute) Contracture of left Achilles tendon (Acute) Plantar fasciitis of left foot (Acute) Tarsal tunnel syndrome of left side (Acute) Gout (Chronic) Multiple fractures of ribs of right side (Acute) Pain in joints of both feet (Acute) Nail dystrophy (Acute) Onychomycosis (Acute) Ingrown toenail (Acute) Atherosclerosis of artery of both lower extremities (Acute) Type 2 diabetes mellitus with peripheral neuropathy (Acute) Diabetes mellitus with autonomic neuropathy (Acute) Infection of lumbar spine (Acute) Frequent falls (Acute) Chronic low back pain with right-sided sciatica (Acute) Large hiatal hernia (Acute) RLQ abdominal pain (Acute) Cataract (Chronic) Bunion, right foot (Acute) BMI 40.0-44.9, adult (Acute) Abdominal wall hernia (Acute) Coronary artery calcification seen on CAT scan (Acute) Atherosclerosis (Acute) Enlarged heart (Acute) Herpes (Acute) Lumbar radicular pain (Acute) Seborrhea corporis (Acute) Elevated LFTs (Acute) Arthralgia (Acute) DARLENE positive (Acute) Yeast infection (Acute) Staph infection (Acute) Restless leg (Acute) Von Willebrand factor inhibitor disorder (Chronic) Rotator cuff disorder (Chronic 06/27/14) Recurrent ventral hernia (Chronic 04/07/16) Non-alcoholic fatty liver disease (Chronic) elevated LFT Insomnia (Chronic) Hypothyroidism (Chronic) Hyperlipidemia (Chronic) Gastroesophageal reflux disease (Chronic) 09/29/12 EGD SHOW SOME REFULX CHANGES Elevated serum GGT level (Chronic 02/17/15) 1600 in 2011 [address] RIDDLE Diverticula of colon (Chronic) Diabetes mellitus with neuropathy (Chronic 02/14/14) Depressed bipolar I disorder (Chronic) STABLE 02/2011 Chronic cough (Chronic) Cataracts, both eyes (Chronic 12/09/15) 12/09/15-[facility]- OD>OS Atrophic vaginitis (Chronic 09/14/12) Asthma (Chronic) Chronic pain disorder (Chronic 11/25/16) Ganglion (Chronic) Stress incontinence in female (Chronic) Hypertension (Chronic) Medical History COVID-19 (~02/2024) Ribs, multiple fractures Tibial fracture pt. reports surgical intervention Fatigue Torn medial meniscus Diarrhea Cellulitis Trigger finger Hand joint pain (12/01/11) History of tobacco use History of tobacco use quit in 2002 History of alcoholism in sobriety for greater than 10 years Triggering of finger thumb Ganglion of tendon sheath 12/01/11 Hand joint pain 12/01/11 Chest pain 06/05/12 Overdose 1994: alcohol and benzo 09/18/13 Stenosing tenosynovitis of thumb (05/13/14) Right foot pain (12/16/14) Neoplasm of unspecified nature of bone, soft tissue, and skin (08/12/14) Headache Essential hypertension (12/13/12) fatty liver Elevated lipase (08/26/16) Sanjaunita infection (08/26/16) Chronic sinusitis CVA (cerebral vascular accident) 2018 x2 Diabetes type 2, uncontrolled Hypothyroidism Hyperlipidemia Headache Chronic cough Bipolar disorder Diabetic neuropathy Fatty liver disease, nonalcoholic Insomnia Hypomagnesemia Fatigue Surgical History Status post abdominal hysterectomy Status post bilateral salpingo-oophorectomy Status post cholecystectomy Status post hernia repair S/P BSO (bilateral salpingo-oophorectomy) S/P abdominal hysterectomy fibroids, abnormal paps S/P cholecystectomy S/P hernia repair 02/28/11 H/O esophagogastroduodenoscopy active gastritis and focal acute inflammation 02/29/12 H/O surgical procedure right thumb release 02/29/12 hernia repair (~02/2011) Ventral Hernia repair (04/07/16) Dr. Jackson Incision, Tendon Sheath (08/01/12) RIGHT THUMB RELEASE Abdominal hysterectomy FIBROIDS/ABNORMAL PAPS EGD - MAC (09/29/12) ACTIVE GASTRITIS AND FOCAL ACUTE INFLAMMATION. Tooth extraction 10/12/14-TEETH REMOVED Colonoscopy - MAC (~03/2011) Colonoscopy - IV Sedation (04/02/11) DR. TIFFANI NICHOLS; DIVERTICULA Cholecystectomy Bilateral salpingectomy with oophorectomy Family History Mother , age 67 Alcohol abuse Mental disorder Psychotic/paranoid symptoms, unknown diagnosis Cancer bladder/kidney; ?brain Sister Substance abuse MARIJUANA Maternal Grandfather Asthma Alcohol abuse Paternal Grandfather Heart disease Diabetes Stroke Maternal Grandmother No problems noted. Paternal Grandmother Diabetes Sister Substance abuse MARIJUANA Asthma Alcohol abuse Son Depression Diabetes Hyperlipidemia Stroke Son No problems noted. Son Asthma Diabetes Hyperlipidemia Hypertension Father , 80 Cancer Brother Alcohol abuse Depression Social History Smoking/Tobacco Use Status: Former Tobacco Use tobacco type: cigarettes Quit Date: 06/20/03 Tobacco: How many years used: 30 Second Hand Exposure: Yes Smoking risk assessment performed?: Yes Alcohol Intake: never Drug use: Daily Substance use type: marijuana Caregiver/Support person: No Household members: spouse and children Housing: house Communication Needs: None Do you need help understanding health information?: Often Pets and animals: Yes Pets and animals: cat(s) and dog(s) Sexually active: No Do you think of yourself as: straight/heterosexual Current gender identity: female What is your relationship status?: How often do you talk on the phone with friends or family?: three or more times per week How often do you get together with friends or relatives?: decline to answer How often do you attend episcopalian or advent services?: decline to answer Do you belong to any clubs or organized social groups?: no Panel score (0-1 are the most socially isolated patients): 2 What type of physical activity do you participate in: walking Duration: < 15 minutes/day Frequency: 3-4 times per week Silvia/Congregation: [employer] Special silvia needs: No Seatbelt use: always Helmet use: No Drive intox or ride w/intox operator and truck driver: No Do you feel safe at home: Yes Do you feel safe in your relationship?: Yes
[2025-01-20] MEDS: Budesonide/Formoterol 160/4.5 6 GM 60 PUFF INH IH ×2 (08:11→19:43)
[2025-01-20] MEDS: Cholecalciferol (Vitamin D3) 1,000 UNIT TAB 2000 UNITS PO (08:22)
[2025-01-20] MEDS: Pregabalin 25 MG CAP 75 MG PO ×3 (08:22→20:11)
[2025-01-20] MEDS: traMADol 50 MG TAB 100 MG PO ×2 (08:22→20:11)
[2025-01-20] MEDS: Magnesium Oxide 400 MG TAB PO ×2 (08:22→20:12)
[2025-01-20] MEDS: Allopurinol 100 MG TAB 50 MG PO (08:23)
[2025-01-20] MEDS: Metoprolol CR 100 MG TABCR 150 MG PO (08:23)
[2025-01-20] MEDS: rOPINIRole 1 MG TAB PO ×2 (08:23→20:11)
[2025-01-20] MEDS: Omeprazole 20 MG CAPCR PO (08:23)
[2025-01-20] MEDS: Insulin Glargine 300 UNITS/3 ML PEN 80 UNITS SC ×2 (08:24→20:13)
[2025-01-20] MEDS: Insulin Aspart 300 UNITS/3 ML PEN SC ×4 (08:37→20:58)
--- NOTE | 2025-01-20 10:21 | PT.INIE ---
PT Notes Visit Reasons: Failure to thrive Inpatient Physical Therapy Evaluation Date: January 20, 2025 Referring Doctor: Dr. Calderon PT Orders: PT CONSULT Precautions: standard, falls Certification Period: From 01/20/2025 through 01/25/2025 I certify the need for these services as being medically necessary and skilled as furnished under this plan of treatment while under my care. Please sign and return within 14 days if you agree wit the above plan of care. Thank you for this referral! Referring Physician: Date: Patient Profile/Admitting Diagnosis: Crystal is a 69 year old female with a history of type 2 diabetes with peripheral neuropathy, coronary artery disease, von Willebrand's disease, hypothyroidism, hypercholesterolemia, nonalcoholic fatty liver disease, previous cerebrovascular accident (CVA), hypertension, reactive airway disease, and paroxysmal atrial fibrillation (A-fib). She was admitted to acute care yesterday after presenting to ED with weakness and malaise; diagnosed with acute UTI and admitted for observation. Of note, she was previously admitted last week, and had an additional ER visit earlier this month. Social History/Home Situation: Crystal reports that she lives in a private home with her and youngest son. She ambulates independently, but only short distances and with frequent falls. Recently transitioned from cane to FWW. Began working with PT earlier this week. Equipment Owned/DME: cane, rollator, FWW Subjective: Crystal is agreeable to PT consult, but reports apprehension about walking due to ongoing foot pain related to peripheral neuropathy and gout. States that she has been transferring to the commode to urinate, but with increased pain resulting. Objective: General Observation: Patient lying in bed upon time of PT consult. IV L UE, no additional lines. Mental Status: Alert and oriented x3. Pleasant and cooperative throughout Pain: Reports of chronic pain in her abdomen, low back, and bilateral LE secondary to peripheral neuropathy/gout Vital Signs: Monitored via nursing. ROM: Right Upper Extremity: Demonstrates WFL AROM of R UE Left Upper Extremity: Limited active shoulder forward elevation to 90* degrees with pain, abduction 165 degress, IR T12, ER 55 degrees. Passively, I can flex her shoulder to 135* without discomfort. Right Lower Extremity: Demonstrates WFL AROM of R LE. Left Lower Extremity: Demonstrates WFL AROM of L LE. Pain with active knee flexion. Strength: Right Upper Extremity: Shoulder flexion 3/5 or greater. Biceps 4+/5. Triceps 4+/5. Composition Tile Layer is strong and equal. Left Upper Extremity: Shoulder flexion 3-/5. Biceps 4/5. Triceps 4/5. Composition Tile Layer is strong and equal. Right Lower Extremity: Hip flexion 4/5, knee extension 5/5, knee flexion 4/5, DF 4/5 Left Lower Extremity: Hip flexion 4/5, knee extension 5/5, knee flexion 4/5, DF 5/5 Coordination: diminished with alternating toe tapping Fine motor: thumb to digit tapping shows slow completion with diminished accuracy bilaterally Bed Mobility/Transfers: Supine to sit: min A Sit-stand: SBA with FWW Stand-sit: CGA with cueing for proper hand placement Chair to commode: SBA with FWW, with assitance for management of lines. Gait: Crystal ambulates 10ft with use of standard walker with good stride length, decreased tommy and widened base of support. Requires cues for equipment management, particularly with turning for transfer to chair, but with good carryover. Balance: Static Sitting: Normal Dynamic Sitting: Normal Static Standing: Fair Dynamic Standing: Fair Special Tests: Mobility Limitations Standardized Measure [facility] AM-PAC 6 clicks Basic Mobility Inpatient Short Form: Raw Score: 20 CMS Score: 35.8% Informed Consent/Education: Patient instructed in purpose of PT consult and plan of care. Treatment: Initial evaluation (84861) Therapeutic exercises (14248): Patient was instructed in the following activities for independent completion between PT sessions: Ankle pumps 5 times (low repetitions as patient experiences calf cramps) Quad sets 5 times each-requires cues for technique, and particularly for avoidance of Valsalva maneuver active assisted shoulder flexion, where she is able to tolerate 130 degrees 5x Provided written instructions on whiteboard Assessment: Patient is a 69 year old female referred to physical therapy services in acute care setting, where she is being medically managed for acute UTI. She has multiple comorbidities and chronic mobility impairments, with increasing frequency of falls and diminishing activity tolerance. She is established with home health PT, which she is encouraged to continue upon discharge. Will benefit from skilled PT intervention during her acute care stay to maximize mobility and prevent functional decline during management for acute medical issues. She is safe for discharge home with home health PT once medically stable. The following impairment level findings: 1.? Impaired standing balance 2.? Impaired activity tolerance 3.? Decree strength left upper extremity Impairments are contributing to the following functional limitations: 1.? Unable to ambulate without assistive device and physical assistance 2.? Increased completion time for mobility ADL performance 3.? Increased risk for falls Patient is assessed as a Moderate 36005 complexity based on the following: History: As above Examination: as above Presentation: Evolving Decision Making: Moderate Goals: Goals X1 week 1. Supine-Sit independent 2. Sit-Supine independent 3. Sit-Stand independent 4. Stand-Sit independent 5. Bed-Chair supervision with use of front wheel walker 6. Chair-Bed supervision with use of front wheeled walker 7. Gait 300 feet with use of front wheeled walker 8. Stairs up down 3-4 stairs with use of railings Plan of Care/Treatment Plan: 1-2x/day, 7 days/week x 1 week. Plan of care has been reviewed with the MUSICAL INSTRUMENT SUPERVISOR providing the service under Physical Therapy direction. Initiate Physical Therapy intervention for strengthening, bed mobility, transfers, gait, stairs, balance training, use of assistive device. DISCHARGE RECOMMENDATIONS: Home with home health services TREATMENT CODE/TIME: [id number] ([id number]) Chelsea Rodriguez, PT, DPT [facility] Reji Reynoso [facility] All Active Problems (Updated 01/20/25 @ 02:33 by Rickey Calderon MD) Hypomagnesemia (Acute) Elevated MCV (Acute) UTI (urinary tract infection) (Acute) Elevated brain natriuretic peptide (BNP) level (Acute) Generalized weakness (Acute) Acute UTI (Acute) Elevated troponin (Acute) Generalized weakness (Acute) Non-ST elevation [place] (NSTEMI) (Acute) Transaminitis (Acute) Acute kidney injury (Acute) Acute dehydration (Acute) Shock (Acute) Peripheral neuropathy (Acute) Contracture of left Achilles tendon (Acute) Plantar fasciitis of left foot (Acute) Tarsal tunnel syndrome of left side (Acute) Gout (Chronic) Multiple fractures of ribs of right side (Acute) Pain in joints of both feet (Acute) Nail dystrophy (Acute) Onychomycosis (Acute) Ingrown toenail (Acute) Atherosclerosis of artery of both lower extremities (Acute) Type 2 diabetes mellitus with peripheral neuropathy (Acute) Diabetes mellitus with autonomic neuropathy (Acute) Infection of lumbar spine (Acute) Frequent falls (Acute) Chronic low back pain with right-sided sciatica (Acute) Large hiatal hernia (Acute) RLQ abdominal pain (Acute) Cataract (Chronic) Bunion, right foot (Acute) BMI 40.0-44.9, adult (Acute) Abdominal wall hernia (Acute) Coronary artery calcification seen on CAT scan (Acute) Atherosclerosis (Acute) Enlarged heart (Acute) Herpes (Acute) Lumbar radicular pain (Acute) Seborrhea corporis (Acute) Elevated LFTs (Acute) Arthralgia (Acute) DARLENE positive (Acute) Yeast infection (Acute) Staph infection (Acute) Restless leg (Acute) Von Willebrand factor inhibitor disorder (Chronic) Rotator cuff disorder (Chronic 06/27/14) Recurrent ventral hernia (Chronic 04/07/16) Non-alcoholic fatty liver disease (Chronic) elevated LFT Insomnia (Chronic) Hypothyroidism (Chronic) Hyperlipidemia (Chronic) Gastroesophageal reflux disease (Chronic) 09/29/12 EGD SHOW SOME REFULX CHANGES Elevated serum GGT level (Chronic 02/17/15) 1600 in 2011 [address] RIDDLE Diverticula of colon (Chronic) Diabetes mellitus with neuropathy (Chronic 02/14/14) Depressed bipolar I disorder (Chronic) STABLE 02/2011 Chronic cough (Chronic) Cataracts, both eyes (Chronic 12/09/15) 12/09/15-[facility]- OD>OS Atrophic vaginitis (Chronic 09/14/12) Asthma (Chronic) Chronic pain disorder (Chronic 11/25/16) Ganglion (Chronic) Stress incontinence in female (Chronic) Hypertension (Chronic) Medical History COVID-19 (~02/2024) Ribs, multiple fractures Tibial fracture pt. reports surgical intervention Fatigue Torn medial meniscus Diarrhea Cellulitis Trigger finger Hand joint pain (12/01/11) History of tobacco use History of tobacco use quit in 2002 History of alcoholism in sobriety for greater than 10 years Triggering of finger thumb Ganglion of tendon sheath 12/01/11 Hand joint pain 12/01/11 Chest pain 06/05/12 Overdose 1995: alcohol and benzo 09/18/13 Stenosing tenosynovitis of thumb (05/13/14) Right foot pain (12/16/14) Neoplasm of unspecified nature of bone, soft tissue, and skin (08/12/14) Headache Essential hypertension (12/13/12) fatty liver Elevated lipase (08/26/16) Sanjuanita infection (08/26/16) Chronic sinusitis CVA (cerebral vascular accident) 2018 x2 Diabetes type 2, uncontrolled Hypothyroidism Hyperlipidemia Headache Chronic cough Bipolar disorder Diabetic neuropathy Fatty liver disease, nonalcoholic Insomnia Hypomagnesemia Fatigue Surgical History Status post abdominal hysterectomy Status post bilateral salpingo-oophorectomy Status post cholecystectomy Status post hernia repair S/P BSO (bilateral salpingo-oophorectomy) S/P abdominal hysterectomy fibroids, abnormal paps S/P cholecystectomy S/P hernia repair 02/28/11 H/O esophagogastroduodenoscopy active gastritis and focal acute inflammation 02/29/12 H/O surgical procedure right thumb release 02/29/12 hernia repair (~02/2011) Ventral Hernia repair (04/07/16) Dr. Jackson Incision, Tendon Sheath (08/01/12) RIGHT THUMB RELEASE Abdominal hysterectomy FIBROIDS/ABNORMAL PAPS EGD - MAC (09/29/12) ACTIVE GASTRITIS AND FOCAL ACUTE INFLAMMATION. Tooth extraction 10/12/14-TEETH REMOVED Colonoscopy - MAC (~03/2011) Colonoscopy - IV Sedation (04/02/11) DR. TIFFANI NICHOLS; DIVERTICULA Cholecystectomy Bilateral salpingectomy with oophorectomy
--- NOTE | 2025-01-20 11:00 | PHA.REVIEW2 ---
Pharmacy Admission Review Admission Clinical Review Admission Pharmacy Review: Elevated MCV (Acute) UTI (urinary tract infection) (Acute) Elevated brain natriuretic peptide (BNP) level (Acute) Generalized weakness (Acute) Acute UTI (Acute) Acute kidney injury (Acute) Bunion, right foot (Acute) Elevated LFTs (Acute) Penicillins Allergy (Verified 01/19/25 21:05) Skin Rash amlodipine besylate (From [facility]) Adverse Reaction (Intermediate, Verified 01/19/25 21:05) cough lithium Adverse Reaction (Intermediate, Verified 01/19/25 21:05) HYPERACTIVITY FOR DAYS rizatriptan Adverse Reaction (Intermediate, Verified 01/19/25 21:05) BAD COUGH FOR 2 YEARS morphine Adverse Reaction (Mild, Verified 01/19/25 21:05) Hallucinations/Vomiting ibuprofen Adverse Reaction (Unknown, Verified 01/19/25 21:05) Other (See Comment) atorvastatin Adverse Reaction (Verified 01/19/25 21:05) myalgias carbamazepine Adverse Reaction (Verified 01/19/25 21:05) myalgias enalaprilat Adverse Reaction (Verified 01/19/25 21:05) Cough Resuscitation Status Full Code Height 5 ft 4 in Weight 112.945 kg Pharmacy Admission Review Renal Dosing Renal Dosing: BUN 19 mg/dL (9-23) 01/20/25 06:25 Creatinine 1.30 mg/dL (0.55-1.02) H 01/20/25 06:25 Medications needing adjustments: Reviewed (CrCl 49.58 mL/min) List of meds needing interventions: Current medications are okay Anticoagulation Anticoagulation: Hgb 11.8 g/dL (11.2-15.7) 01/20/25 06:25 Hct 35.5 % (36.0-46.0) L 01/20/25 06:25 Plt Count 144 10^3/uL (130-400) 01/20/25 06:25 Creatinine 1.30 mg/dL (0.55-1.02) H 01/20/25 06:25 DVT Prophylaxis: Intervened (changed from daily to q12h due to BMI > 40) Medications: Enoxaparin (40mg q12h) Relevant Labs Relevant Labs: Sodium 140 mmol/L (136-145) 01/20/25 06:25 Potassium 4.7 mmol/L (3.5-5.1) 01/20/25 06:25 Chloride 106 mmol/L (98-107) 01/20/25 06:25 Magnesium 1.5 mg/dL (1.6-2.6) L 01/19/25 20:57 Electrolytes, C-Reactive P, ESR: Reviewed (has order for magnesium oxide 400mg BID) DM Control DM Control: Glucose 300 mg/dL (74-106) H 01/20/25 06:25 Finger Stick Blood Glucose 304 0837 Finger Stick Blood Glucose 304 0824 Finger Stick Blood Glucose 304 0744 Finger Stick Blood Glucose 304 0744 DM Control: Intervened (insulin lispro to insulin aspart) Insulin Dosing, Diabetic Medication: Has orders for SS insulin and glargine 80 units twice daily. Order was put in for insulin lispro 60 units TID from home med list. Reached out to provider as this is non-formulary, asked if they would rather give SS coverage while inpatient instead. Provider discontinued lispro order and changed to SS aspart AC+HS. Cardiac Review Cardiac Review: Troponin I 7 ng/L (<35) 01/20/25 00:53 NT-Pro-B Natriuret Pep 1888 pg/mL (<300) H 01/19/25 20:57 BP, HR, EF%: Reviewed (BP and HR WNL) List meds needing interventions: Has order for metoprolol XL 150mg daily QTc Review QTc: Reviewed (466 from 01/11/25) IV to PO Switch IV Medications: Reviewed (ceftriaxone) Home Meds Home Med List reviewed: Reviewed Current Meds Current Medication Order Review: Intervened Comments: Added IV admission order set Pharmacy Antibiotic Review Relevant Labs: WBC 9.07 10^3/uL (4.4-10.8) 01/20/25 06:25 Temperature 36.0 C Temperature 37.2 C Temperature 37.2 C Pharmacy Antibiotic Activity: C/S review and Reviewed, no change Comments: Patient is on ceftriaxone, day 1, for UTI. Blood and urine cultures pending.
--- NOTE | 2025-01-20 12:42 | PT.INTREAT ---
PT Notes Visit Reasons: Failure to thrive Inpatient Physical Therapy Treatment Note [facility] Date: 01/20/25 HPI: Crystal is a 69 year old female with a history of type 2 diabetes with peripheral neuropathy, coronary artery disease, von Willebrand's disease, hypothyroidism, hypercholesterolemia, nonalcoholic fatty liver disease, previous cerebrovascular accident (CVA), hypertension, reactive airway disease, and paroxysmal atrial fibrillation (A-fib). She was admitted to acute care 01/19/25 after presenting to ED with weakness and malaise; diagnosed with acute UTI and admitted for observation. PRECAUTIONS: fall, standard SUBJECTIVE: Crystal states that she is feeling good. Her son is here visiting. She's agreeable to participating in PT. Requests assistance to toilet. OBJECTIVE: ? BED MOBILITY/TRANSFERS? Sit-supine: independent? Sit-stand: SBA? Stand-sit: SBA ? Therapeutic Exercises ([id number]): Direct one-on-one instruction in therapeutic exercises to develop strength, endurance, range of motion and flexibility Ambulation ? Assistive Device: FWW? Weight bearing: WBAT Assist: CGA ? Distance:? 20'x1, 150'x1 ? Deviation: requires cues for management of FWW during turning and transfers. Able to toilet independently. Balance: ? ? Able to stand at sink with SBA to wash hands without LOB. Prior to transferring back to bed, removes robe in standing position with wide EDNA. Requires min A for management around IV, and has minor LOB with hip strategies, requires min A recovery. ? ASSESSMENT:? Improving activity tolerance, with chronic balance impairments. Remains at high risk for falls. Too fatigued after ambulation to begin standing balance activities, but will plan to add tomorrow. PLAN: Add balance activities and continue progressing ambulation for improved activity tolerance. TREATMENT CODE/TIME: [id number] ([id number]) DISCHARGE RECOMMENDATION: RUKHSANA PT
--- NOTE | 2025-01-20 15:54 | PGE_ITS ---
Date of Service Date of service: 01/20/25 Time of Service: 15:54 Assessment and Plan Assessment and plan (1) UTI (urinary tract infection): Status: Acute Assessment and plan: Continue with Rocephin await culture results. (2) Hypertension: Status: Chronic Assessment and plan: Continue with home medications. Patient is actually not on her losartan potentially because of recent acute kidney injury. Patient does not appear to be on beta-samson either. Patient is not on a SGLT2 inhibitor. Patient's urine does show hematuria but no proteinuria. (3) Hyperlipidemia: Status: Chronic Assessment and plan: Patient does not appear to be on any statin at this point. Will check a lipid panel in the a.m. her most recent discharge summary does not was a statin either. (4) Von Willebrand factor inhibitor disorder: Status: Chronic Assessment and plan: Noted (5) Elevated brain natriuretic peptide (BNP) level: Status: Acute Assessment and plan: With the patient's elevated BNP as well as symptoms will order an echocardiogram. Consider diuretics if her echocardiogram warrants it. (6) Elevated LFTs: Status: Acute Assessment and plan: Longstanding, potentially the reason why she is not on a statin. (7) Acute kidney injury: Status: Acute Assessment and plan: Patient's GFR is currently 36.8 indicating she is at stage III kidney disease of note, on the ninth of this month her GFR was 9.7. (8) Elevated MCV: Status: Acute Assessment and plan: B12 folate are pending have also ordered iron and TIBC for concerns about mixed disease. (9) Bunion, right foot: Status: Acute Assessment and plan: Consider podiatry consult although this can be done as an outpatient. Does not look infected at this point. Subjective Subjective Patient reports: no new complaints, feels better, tolerating liquids well, tolerating a regular diet and afebrile; denies nausea or shortness of breath Objective Last Vital Signs Temp 36.0 C L 01/20/25 07:31 Pulse 71 01/20/25 07:31 Resp 18 01/20/25 07:31 BP 113/88 01/20/25 07:31 Pulse Ox 97 01/20/25 07:31 Laboratory Results - last 24 hr 01/19/25 01/19/25 01/19/25 20:57 21:47 21:49 WBC 10.50 RBC 3.58 L Hgb 11.7 Hct 35.7 L MCV 100 H MCH 32.7 MCHC 32.8 RDW 14.9 H Plt Count 148 MPV 11.4 H Immature Gran % 1.6 Neutrophils % 71.8 Lymphocytes % 14.4 Monocytes % 10.2 Eosinophils % 1.1 Basophils % 0.9 Nucleated RBC % 0.0 Absolute Neutrophils 7.54 H Absolute Lymphocytes 1.51 Absolute Monocytes 1.07 H Absolute Eosinophils 0.12 Absolute Basophils 0.09 VBG pH 7.33 VBG pCO2 57 H VBG pO2 37 VBG HCO3 30 H VBG Total CO2 28 VBG O2 Saturation 66 VBG Base Excess 4 H VBG Lactate 1.5 Sodium 145 Potassium 4.4 Chloride 106 Carbon Dioxide 28.8 Anion Gap 10.2 BUN 18 Creatinine 1.41 H Est GFR (CKD-EPI 2020) 36.80 Glucose 127 H Calcium 8.7 Magnesium 1.5 L Iron TIBC Transferrin % Sat Total Bilirubin 0.50 AST 107 H ALT 72 H Alkaline Phosphatase 194 H Troponin I 7 NT-Pro-B Natriuret Pep 1888 H Total Protein 5.9 Albumin 3.9 Vitamin B12 Folate TSH Urine Color Yellow Urine Clarity Sl Cloudy Urine pH 6.0 Ur Specific [place] 1.015 Urine Protein Negative Urine Ketones Negative Urine Blood Trace-intact H Urine Nitrite Positive H Urine Bilirubin Negative Urine Urobilinogen 0.2 Ur Leukocyte Esterase Small H Urine RBC 3-5 H Urine WBC 10-20 H Ur Epithelial Cells Few Urine Crystals Negative Urine Bacteria Few Urine Casts Negative Urine Mucus Negative Ur Culture Indicated? Yes Urine Glucose Negative Urine Opiates Screen Negative Urine Methadone Screen Negative Ur Barbiturates Screen Negative Ur Tricyclics Screen Positive A Ur Amphetamines Screen Negative U Benzodiazepines Scrn Negative Urine Cocaine Screen Negative U Cannabinoids Screen Positive A 01/19/25 01/20/25 01/20/25 21:55 00:53 06:25 WBC 9.07 RBC 3.51 L Hgb 11.8 Hct 35.5 L MCV 101 H MCH 33.6 H MCHC 33.2 RDW 14.9 H Plt Count 144 MPV 12.0 H Immature Gran % 0.9 Neutrophils % 71.8 Lymphocytes % 17.0 Monocytes % 8.5 Eosinophils % 1.4 Basophils % 0.4 Nucleated RBC % 0.0 Absolute Neutrophils 6.51 Absolute Lymphocytes 1.54 Absolute Monocytes 0.77 Absolute Eosinophils 0.13 Absolute Basophils 0.04 VBG pH VBG pCO2 VBG pO2 VBG HCO3 VBG Total CO2 VBG O2 Saturation VBG Base Excess VBG Lactate Sodium 140 Potassium 4.7 Chloride 106 Carbon Dioxide 25.2 Anion Gap 8.8 BUN 19 Creatinine 1.30 H Est GFR (CKD-EPI 2020) 40.41 Glucose 300 H Calcium 8.6 Magnesium Iron 85 TIBC 300 Transferrin % Sat 28 Total Bilirubin 0.40 AST 98 H ALT 71 H Alkaline Phosphatase 216 H Troponin I 9 7 NT-Pro-B Natriuret Pep Total Protein 5.8 Albumin 3.8 Vitamin B12 543 Folate 9.9 TSH 0.97 Urine Color Urine Clarity Urine pH Ur Specific [place] Urine Protein Urine Ketones Urine Blood Urine Nitrite Urine Bilirubin Urine Urobilinogen Ur Leukocyte Esterase Urine RBC Urine WBC Ur Epithelial Cells Urine Crystals Urine Bacteria Urine Casts Urine Mucus Ur Culture Indicated? Urine Glucose Urine Opiates Screen Urine Methadone Screen Ur Barbiturates Screen Ur Tricyclics Screen Ur Amphetamines Screen U Benzodiazepines Scrn Urine Cocaine Screen U Cannabinoids Screen
--- NOTE | 2025-01-20 15:55 | NUR.NOTE ---
Nursing Note: VSS pt alert and oriented x 3 pt complaints of generalized pain given all scheduled medications with good relief pt complained of frequency BS for 63 pt ambulated in the hallway with therapy pt able to void without complaints IVF's dc'd pt sat up in the chair In the afternoon the pt complained of slight sore throat area slighlt red notifed the MD awaiting orders [facility] maintained
[2025-01-20 19:02] VITALS: BP 149/73; PULSE 69; RESP 18; TEMP 36.2; O2SAT 97
[2025-01-20] MEDS: cefTRIAXone 1 GM/50 ML BAG IVPB (20:11)
[2025-01-21] MEDS: Enoxaparin 40 MG/0.4 ML SYR SC (06:10)
[2025-01-21] MEDS: Levothyroxine 125 MCG TAB PO (06:11)
[2025-01-21 06:39] LABS: Abs Immature Grans 0.07 10^3/uL (0.0-0.06); HCT 33.9 % (36.0-46.0); HGB 11.5 g/dL (11.2-15.7); Immature Grans % 1.1 %; MCH 34.0 pg (27.0-33.0); MCHC 33.9 % (32.0-36.0); MCV 100 fL (80-95); MPV 11.8 fL (8.0-11.0); Platelet Count 118 10^3/uL (130-400); RBC 3.38 10^6/uL (3.93-5.22); RDW 14.8 % (11.7-14.6); RDW-SD 54.0 fL; WBC 6.23 10^3/uL (4.4-10.8)
[2025-01-21 07:06] LABS: Magnesium 1.4 mg/dL (1.6-2.6)
[2025-01-21 07:08] VITALS: BP 124/54; PULSE 68; RESP 16; TEMP 36.7; O2SAT 96
[2025-01-21 07:08] LABS: ALT 62 U/L (10-49); AST 87 U/L (<34); Albumin 3.5 g/dL (3.4-5.0); Alkaline Phosphatase 175 U/L (46-116); Anion Gap 8.3 mmol/L (3-11); BUN 17 mg/dL (9-23); Bilirubin, Total 0.50 mg/dL (0.2-1.2); CO2 28.7 mmol/L (20.0-31.0); Calcium 8.7 mg/dL (8.3-10.6); Chloride 107 mmol/L (98-107); Glucose 104 mg/dL (74-106); Potassium 4.3 mmol/L (3.5-5.1); Sodium 144 mmol/L (136-145); Total Protein 5.5 g/dL (5.7-8.2)
[2025-01-21 07:09] LABS: Hemoglobin A1C 10.3 % (<5.7)
[2025-01-21] MEDS: Budesonide/Formoterol 160/4.5 6 GM 60 PUFF INH IH (07:41)
[2025-01-21] MEDS: Omeprazole 20 MG CAPCR PO (08:03)
[2025-01-21] MEDS: Allopurinol 100 MG TAB 50 MG PO (08:06)
[2025-01-21] MEDS: Magnesium Oxide 400 MG TAB PO (08:06)
[2025-01-21] MEDS: Cholecalciferol (Vitamin D3) 1,000 UNIT TAB 2000 UNITS PO (08:06)
[2025-01-21] MEDS: Pregabalin 25 MG CAP 75 MG PO ×2 (08:07→13:26)
[2025-01-21] MEDS: traMADol 50 MG TAB 100 MG PO (08:07)
[2025-01-21] MEDS: Metoprolol CR 100 MG TABCR 150 MG PO (08:08)
[2025-01-21] MEDS: rOPINIRole 1 MG TAB PO (08:08)
--- NOTE | 2025-01-21 08:28 | CMPROGNOTE_ITS ---
Date of service: 01/21/25 Time of Service: 08:28 Care Management Progress Note Progress Note Text Progress Note Text: Jennifer was sitting up on the side of her bed when CM met with her. She was pleasant in interaction and agreeable to conversation. Jennifer informed CM that she is having a lot of pain in her legs and feet today. She explained that she has peripheral neuropathy and that sometimes the pain gets really bad. She takes Tramadol and Tylenol at home and that is what is ordered for her currently. The Tramadol is scheduled to be given 100mg bid. The tylenol is prn. Documentation indicates that the Tramadol is effective. Jennifer had an Ech ocardiogram today however the results are not available. There is no cardiology coverage today so the Echo was sent to [facility] for reading. If there are no concerning findings she may be discharged home later. Discharge Potential Discharge Needs: PCP F/U Appt Anticipated Barriers to Discharge: None Identified Patient/Family Education Needs: Review discharge instructions, discuss Ask Me Three Transportation: Private vehicle Plan: Anticipate Jennifer will discharge home with resumption of home health RN/PT/OT services and caregiver supports as well as Meals on Wheels. She will transport via private vehicle with her . Patient will be scheduled for a follow up appointment with community providers and continue per her discharge plan of care. CM will follow. Social Determinants of Health Screening Social Determinants of health last assessed in clinic: 01/21/25 Will the Patient Participate in the Screening?: Yes Do you worry about having a steady place to live?: no Problems where you live: no known problems In the past 12 months, have you had to go without electric, gas, oil or water in your home?: no 1. Within the past 12 months, we worried whether our food would run out before we got money to buy more.: Never true 2. Within the past 12 months, the food we bought just didn't last and we didn't have money to get more.: Never true Has lack of transportation kept you from medical appointments or from doing things needed for daily living?: no Has anyone in your life made you feel unsafe or unsupported?: no How hard is it for you to pay for the very basics like food, housing, medical care, and heating? Would you say it is:: Somewhat hard Do you want help finding or keeping work or a job?: I do not need or want help If for any reason you need help with day-to-day activities such as bathing, preparing meals, shopping, managing finances, etc., do you get the help you need?: I don?t need any help How often do you feel lonely or isolated from those around you?: Rarely Do you speak a language other than Maltese at home?: No Does the patient want assistance with any of the above?: No Health Related Social Needs Health related social needs: problems related to housing/economic circumstances (Z59.89) and feeling lonely/isolated (Z60.8) Health related social needs details: Pt declines help at this time
--- NOTE | 2025-01-21 08:37 | PTTR_ITS ---
PT Notes Visit Reasons: Failure to thrive Inpatient Physical Therapy Treatment Note [facility] Date: 01/21/2025 PRECAUTIONS: Fall. Standard. Activity as tolerated. SUBJECTIVE: Reported that she has had issues with her back hurting and her gout as well. Agreeable to working with PT but needed to go slow and do 2 brief standing rests to catch her breath. Denied head ache, chest pain, and lightheadedness throughout session. In the PM, received a dose of magnesium from Nurse Mamadou. Unsure about whether she goes home today or not. OBJECTIVE: ? ? Resting in bed. Just got done brekfast. IV access to R UE. and son present in room in the PM through out session. ? BED MOBILITY/TRANSFERS? Sit-supine: independent? Sit-stand: supervision? Stand-sit: supervision? GAIT? Assistive Device: FWW? Weight bearing: WBAT Assist: stand by assist? Distance:? 250 feet + 250 feet ? Deviation: Needed to do brief, >1 minute standing rests to catch her breath and minimize pain in her back and her foot. NO LOB. Minimal shortness of breath. BP 193/74 mmHg, 74 bpm, 97% on RA within 1 minute after activity. After about 3 minutes of rest, BP went down to 161/82 mmHg. STAIRS: Guided patient with safe and correct negotiation of 6 x 4-inch steps and 4 x 6- inch steps while holding onto B rails for support BALANCE: ? ? Static sitting: Normal Dynamic sitting: Normal Static Standing: Good Dynamic standing: Fair THERA ACT: --Facilitated safe and correct performance of functional mobility training during ambulation and transfer tasks. --Stimulated balance reactions in standing using labile surface/balance foam working on static balance x 1 minute, forward walking on rigid floor and then stepping on foam and then back to rigid floor for 3 sets with one hand holding onto a rail, side stepping on rigid surface then labile surface then back to rigid surface/floor with one hand holding onto a rail for 3 sets? ? ? --Reviewed and provided written copy of HEP as follows in the PM session Access Code: [email or web address] URL: [email or web address] Date: 01/21/2025 Prepared by: Meg Arango Exercises - Bilateral Shoulder Flexion with Dumbbell and Compression Garment - 1 x daily - 7 x weekly - 1 sets - 10 reps - 5 hold - Supine Gluteal Sets - 1 x daily - 7 x weekly - 1 sets - 10 reps - 5 hold - Supine Quadricep Sets - 1 x daily - 7 x weekly - 1 sets - 10 reps - 5 hold - Supine Heel Slide - 1 x daily - 7 x weekly - 1 sets - 10 reps - 5 hold - Ankle Pumps with Compression Garment - 1 x daily - 7 x weekly - 1 sets - 10 reps - 5 hold ? ASSESSMENT:? Patient with continue limited activity tolerance and will require continued PT services for functional mobility training, strengthening, and balance traini ng. She was able to cover father distance with demonstration of good ability to pace self, stopping before she gets too tired. Complained of chronic back and foot pain limiting her gait speed and negotiating corners. Beginner level balance exercises were introduced today and may be continued at home to reduce fall risk. PLAN: Progress balanne, strength and functional mobility level as tolerated. DISCHARGE RECOMMENDATION: PT TREATMENT CODE/TIME: Session 1-- [id number] x 33 minutes for 2 units (8:37-9:10). Session 2-- [id number] x 27 minutes for 2 units (14:44-15:11).
--- NOTE | 2025-01-21 09:24 | W.PM.PROGNOT ---
Date of Service Date of service: 01/21/25 Time of Service: :25 Assessment and Plan Assessment and plan (1) UTI (urinary tract infection): Start date: 01/21/25 Start time: 09:38 Status: Acute Assessment and plan: Continue with Rocephin- urine Cx growing GNR (2) Hypertension: Start date: 01/21/25 Start time: 09:38 Status: Chronic Assessment and plan: Continue with home medications. Patient is actually not on her losartan potentially because of recent acute kidney injury. Patient does not appear to be on beta-samson either. Patient is not on a SGLT2 inhibitor. Patient's urine does show hematuria but no proteinuria. (3) Hyperlipidemia: Start date: 01/21/25 Start time: 09:39 Status: Chronic Assessment and plan: Patient does not appear to be on any statin at this point. LDL above recommendation for diabetic patient will start rosuvastatin ; the patient had bad reaction to Lipitor and we will monitor closely -CMP in the morning will check a lipid panel in the a.m. her most recentischarge summary does not was a statin either. (4) Diabetes: Start date: 01/21/25 Start time: 09:47 Status: Chronic Assessment and plan: Continue further care glucose monitoring AC and HS with SSI coverage AC- A1c was 10.3 trending down from 11.13 months ago Low-dose of Lantus dose adjusted due to blood sugar below 90 this morning Nutrition consult (5) Von Willebrand factor inhibitor disorder: Status: Chronic Assessment and plan: Noted Patient on DVT prophylaxis with Lovenox ( (6) Elevated brain natriuretic peptide (BNP) level: Status: Acute Assessment and plan: With the patient's elevated BNP as well as symptoms will order an echocardiogram. Consider diuretics if her echocardiogram warrants it. Echocardiogram pending (7) Elevated LFTs: Status: Acute Assessment and plan: Longstanding, and trending down?potentially the reason why she is not on a statin. As per point 3 -CMP in a.m. will monitor for myalgia and CPK (8) Acute kidney injury: Status: Acute Assessment and plan: YASSINE on CKD Patient's GFR is currently 36.8 indicating she is at stage III kidney disease of note, on the ninth of this month her GFR was 9.7. CR improving (9) Morbid obesity with BMI of 40.0-44.9, adult: Start date: 01/21/25 Start time: 09:50 Status: Acute Assessment and plan: Not on GLP-1 or similar drug, this could be beneficial for patient and patient counseled with further discussion with primary care provider Nutrition consult (10) Elevated MCV: Start date: 01/21/25 Start time: 09:46 Status: Acute Assessment and plan: B12 at 543 as an acute phase reactant the patient could benefit from supplementation folate at 9.9 Iron and TIBC levels do not warrant supplementation (11) Bunion, right foot: Start date: 01/21/25 Start time: 09:45 Status: Acute Assessment and plan: Will consider podiatry consult although this can be done as an outpatient. Does not look infected at this point. (12) On deep vein thrombosis (DVT) prophylaxis: Start date: 01/21/25 Start time: 09:45 Status: Acute Assessment and plan: On Lovenox (13) Discharge planning issues: Start date: 01/21/25 Start time: 09:46 Status: Acute Assessment and plan: CM to follow for new needs at discharge Discharge within 24 to [address] Ellsworth Objective Last Vital Signs Temp 36.7 C 01/21/25 07:08 Pulse 68 01/21/25 07:08 Resp 16 01/21/25 07:08 BP 124/54 L 01/21/25 07:08 Pulse Ox 96 01/21/25 07:08 Laboratory Results - last 24 hr 01/21/25 06:26 WBC 6.23 RBC 3.38 L Hgb 11.5 Hct 33.9 L MCV 100 H MCH 34.0 H MCHC 33.9 RDW 14.8 H Plt Count 118 L MPV 11.8 H Immature Gran % 1.1 Neutrophils % 56.4 Lymphocytes % 28.4 Monocytes % 11.6 Eosinophils % 1.9 Basophils % 0.6 Nucleated RBC % 0.0 Absolute Neutrophils 3.51 Absolute Lymphocytes 1.77 Absolute Monocytes 0.72 Absolute Eosinophils 0.12 Absolute Basophils 0.04 Sodium 144 Potassium 4.3 Chloride 107 Carbon Dioxide 28.7 Anion Gap 8.3 BUN 17 Creatinine 1.16 H Est GFR (CKD-EPI 2020) 46.09 Glucose 104 Hemoglobin A1c 10.3 H Calcium 8.7 Magnesium 1.4 L Total Bilirubin 0.50 AST 87 H ALT 62 H Alkaline Phosphatase 175 H Total Protein 5.5 L Albumin 3.5
[2025-01-21] MEDS: Magnesium Oxide 400 MG TAB 800 MG PO ×2 (10:04→14:49)
[2025-01-21] MEDS: Insulin Glargine 300 UNITS/3 ML PEN 70 UNITS SC (10:05)
[2025-01-21] MEDS: Acetaminophen 325 MG TAB PO (10:13)
[2025-01-21 10:29] LABS: Creatine Kinase 203 U/L (34-145)
[2025-01-21] MEDS: Insulin Aspart 300 UNITS/3 ML PEN SC (12:05)
--- NOTE | 2025-01-21 12:07 | W.NUTRFU ---
Date of service: 01/21/25 Time of Service: 12:07 Nutrition Note NOTE: received nutrition consult request re: diabetes mgt/education. Crystal being treated for UTI, chronic HTN, chronic HLD, chronic DMII, CVT proph, elevated BNP, YASSINE/CKD3. She has a long chronic problem list. Visited with Crystal while she was sitting on side of her bed shortly before lunchtime. She wears a Dexcom CGM which was reporting a current glucose of 173. She let me briefly review her reports, which shows high glucose variability with 2% low over the last 14 days and only 23% of the time in range of 70-180. Her A1C was 10.3 today and has been significantly elevated over the last 3 months. Per interview, she takes Lantus 80 units BID and Lispro 60units TID at meals for corrections. No oral diabetes meds at home. Current insulin order this admission is for glargine - 60u AM and 40u HS and resistant scale insulin aspart at meals and 22:00. between previous admission earlier this month, her fingersticks have been between 86 and 389. Pt confirms inconsistent/wide variation of results on CGM at home - states she does experience frequent low's as part of these fluctuations. She lives at home with her and son. Her works 2nd shift and her son makes meals for them. She usually skips breakfast and just have coffee in the morning. Biggest meal of the day is lunch, before leaves for work and son will make this. Crystal states she tries to avoid breads/potato and will only have occasionally. Likes veggies but only able to tolerate cooked veggies d/t no bottom teeth and ill-fitting bottom dentures she usually will not wear. TDD of insulin yesterday was 196units (1.73u/kg). IBW-54.7kg AjBW- 78.2kg Estimated energy needs: 1967kcals (would suggest ~1600 for wt loss), 62-93g protein (emphasis on kidney-friendly plant protein), and 2600mL (urine out yesterday +500mL Nutrition Dx: inadequate intake (fiber, omega-3 fats, protein) related to usual eating pattern of only 2 meals per day, limited ability to chew firmer consistencies, as evidenced by nutrition interview. -chronic hyperglycemia as evidenced by 3 most recent A1C >8.8%. Intervention: - recommendations made to eat breakfast as insulin is ordered at this meal and not eating and taking insulin will increase risk for low glucose and omitting morning insulin can result in greater hepatic glucose output, resuling in high glucose. -encouraged 3 meals and 0-2 snacks, depending on glucose patterns. -encouraged frequent monitoring -provided pt with 3-day sample menu to take home for reference. -gave pt contact for outpatient nutrition counseling Recommendations to provider: would consider keeping glargine as is to see if recent alteration helps avoid lower glucose in AM, but would suggest 1 unit of aspart per 15 grams of CHO at meals to be proactive with corrections and avoid larger spikes post prandial spikes. monitoring: will check back for reinforement of education/answer questions on sample menus. will monitor glucose trends, nutrition-related labs, intake, weight. Time Spent in Nutritional Counseling and Treatment: 10 min
[2025-01-21 13:29] VITALS: TEMP 36.2
[2025-01-21 14:54] LABS: Lab Add On Test DONE
--- NOTE | 2025-01-21 15:38 | DSE_ITS ---
Date of service: 01/21/25 Time of Service: 15:38 DS: Diagnosis Discharge Diagnosis (1) UTI (urinary tract infection): Status: Acute (2) Hypertension: Status: Chronic (3) Hyperlipidemia: Status: Chronic (4) Diabetes: Status: Chronic (5) Von Willebrand factor inhibitor disorder: Status: Chronic (6) Elevated brain natriuretic peptide (BNP) level: Status: Acute (7) Elevated LFTs: Status: Acute (8) Acute kidney injury: Status: Acute (9) Morbid obesity with BMI of 40.0-44.9, adult: Status: Acute (10) Elevated MCV: Status: Acute (11) Bunion, right foot: Status: Acute (12) On deep vein thrombosis (DVT) prophylaxis: Status: Acute (13) Discharge planning issues: Status: Acute Discharge Plan Disposition Patient Disposition: Home W/Home Health Services Home Health Services: Resumption of Home Health Services Condition: Improving Discharge Details Reason For Visit: FTT Admit Date/Time: 01/20/25 00:25 Admit Provider: Rickey Calderon Attending Provider: Rickey Calderon Primary Care Provider: Renu Gerber [facility] Hospital Course: Crystal is a 69 year old female with a history of type 2 diabetes with peripheral neuropathy, coronary artery disease, von Willebrand's disease, hypothyroidism, hypercholesterolemia, nonalcoholic fatty liver disease, previous cerebrovascular accident (CVA), hypertension,CKD, reactive airway disease, and paroxysmal atrial fibrillation (A-fib) recent hospitalization at [facility] s/p troponin elevation, YASSINE on CKD, shock with lactate at 2.8 and hypotension who presented on 01/19/25 to the ED with c/o malaise, weakness and confusion. Work-up in the ED was positive for elevated BNP, UTI and ceftriaxone was initiated in the ED. Ceftriaxone IV continued on admission. Urine cultures grew GNR. Blood cultures are negative. The patient is ambulatory with physical therapy in room and deemed safe to be discharge with home health. The patient mentation has improved and she is clinically improving. The patient remains afebrile, hemodynamically stable and will be discharged home today with resumption of home health RN/PT/OT services and caregiver supports as well as Meals on Wheels. Cefpodoxime script sent to pharmacy to complete a sort course of antibiotics for her UTI. Follow-up with PCP within 7 days of discharge. Podiatry referral completed. TEDs ordered for bilateral lower extremity edema. Echocardiogram official report is pending but IVC appears to be collapsing >50% with inspiration and LVEF most likely > 50% with concern for mild concentric left ventricular hypertrophy with prominent anterior epicardial fat pad. Recommendation for cardiology referral. Discussed with Dr. Ellsworth Recommendations for Follow Up Recommended tests to be ordered by follow up provider: Echocardiogram report, CMP, CPK, consider MPI VS cardiology referral , lipid panel f/u Home Meds and New Rx's Prescriptions: New polyethylene glycol 3350 17 gram Powder In Packet 17 g PO DAILY PRNQty: 14 0RF cefpodoxime 200 mg tablet 200 mg PO Q12H Qty: 6 0RF Rx Instructions: must administer with a meal/food Continued ketoconazole 2 % cream 1 applic topical DAILY Qty: 120 6RF Patient Comments: Medication just picked up from pharmacy, has not used yet Rx Instructions: Apply to toenails once daily ipratropium-albuterol 0.5 mg-3 mg(2.5 mg base)/3 mL solution for nebulization 3 ml Inhalation TID PRN (Reason: shortness of breath or wheezing) Qty: 180 3RF Rx Instructions: J45.909 levothyroxine 125 mcg tablet 125 mcg PO DAILY Qty: 90 11RF Patient Comments: decreased to 25mcg nystatin 100,000 unit/gram powder 1 applic TP BID PRN (Reason: yeast infx in groin) Qty: 60 1RF nystatin-triamcinolone 100,000-0.1 unit/gram-% ointment 1 applic TOPICAL DAILY PRN (Reason: rash) Qty: 30 2RF tramadol 50 mg tablet 100 mg PO BID Qty: 120 5RF Rx Instructions: one months supply insulin lispro 100 unit/mL insulin pen 60 unit subcut TID Qty: 300 5RF (DME) Dexcom G7 Sensor Device See Rx Instructions .Route Qty: 9 4RF Rx Instructions: Use as directed to monitor BG (DME) Dexcom G7 Pepper Cutter Misc See Rx Instructions .Route Qty: 1 0RF Rx Instructions: Use to read G7 sensor blood glucose data. (DME) insulin syringe-needle U-100 [BD Insulin Syringe] 0.5 mL 29 gauge x 1/2 syringe See Dose Instructions .ROUTE .MEDSUPPLY Qty: 100 7RF Dose Instruction: As directed Rx Instructions: As directed omeprazole 20 mg capsule,delayed release(DR/EC) 20 mg PO DAILY Qty: 90 3RF ropinirole 1 mg tablet 1 mg PO BID Qty: 180 4RF cholecalciferol (vitamin D3) [Vitamin D3] 2,000 UNIT capsule 2,000 unit PO DAILY (DME) Dexcom G6 Pepper Cutter Misc See Rx Instructions .Route Qty: 3 4RF Rx Instructions: As directed E11.9 (DME) pen needle, diabetic [Novofine 32] 32 gauge x 1/4 needle 1 ea Miscellaneous 5 time day Qty: 500 4RF Rx Instructions: E11.40 novofine pen needles 32X6mm ; use 5 times daily clotrimazole-betamethasone 1-0.05 % cream 1 applic topical BID Qty: 45 0RF (DME) Blood Glucose Test Strip See Dose Instructions .Route .MEDSUPPLY Qty: 300 5RF Dose Instruction: AC and HS Patient Comments: pt. reports checking blood sugar this AM, BS 134 @ 0800 Rx Instructions: AC ; 3Xdaily; E11.21 (DME) Dexcom G6 Transmitter Device See Rx Instructions .Route Qty: 1 3RF Rx Instructions: As directed;E11.40 budesonide-formoterol [Symbicort] 160-4.5 mcg/actuation HFA aerosol inhaler 2 puff Inhalation BID Qty: 3 4RF (DME) Dexcom G6 Sensor Device See Rx Instructions .Route Qty: 9 4RF Rx Instructions: As directed E11.9 clonazepam 2 mg tablet 1 - 2 mg PO QHS MDD 1 PRN (Reason: anxiety) Qty: 30 5RF metoprolol succinate 100 mg tablet extended release 24 hr 150 mg PO DAILY Qty: 135 3RF albuterol sulfate 90 mcg/actuation HFA aerosol inhaler 1 - 2 puff Inhalation Q6H PRN Qty: 18 3RF allopurinol 100 mg tablet 50 mg PO DAILY Qty: 15 0RF Rx Instructions: 01/09/2025: Per [facility]. -hb pregabalin 75 mg capsule 75 mg PO TID Qty: 270 0RF Rx Instructions: [place] [facility] Slow-Mag 71.5 mg tablet,delayed release (DR/EC) 71.5 mg PO TID Qty: 180 4RF insulin glargine [Lantus Solostar U-100 Insulin] 100 unit/mL (3 mL) insulin pen 80 unit subcut BID Qty: 90 8RF Patient Comments: states 70 units 3 times daily Discharge Instructions Stand Alone Forms: Portal Information, Nursing Discharge Form Referrals: Renu Gerber [place], [place] [Primary Care Provider, Medicine] Referral Note: Follow-up with 7 days of discharge Your pcp will call to schedule your follow up, if you haven't heard from them please reach out to them Chelsea Huang DPM [[facility] STAFF PHYSICIAN, Podiatry] Referral Note: Referral for right great toe wound Activity:: Activity as Tolerated Equipment/Supplies:: As per [employer] Diet:: Heart healthy diabetic Discharge Orders Discharge Orders: Discharge Order (Routine); Ordered 01/21/25 Ordered By: Paris Clark DS: Summary Time Spent with Patient providing and/or coordinating discharge services: Greater than 30 minutes Status at Discharge Functional status at discharge: uses cane/walker Overall status at discharge: patient is progressing back to baseline Mental Status: mental status grossly normal Speech and Movement: speech and movement normal Mood: congruent mood Affect: normal affect Quality:SDOH Health Related Social Needs: Health related social needs house/econ circumstance lo clif/isolated Health related social needs details Pt declines help a t this time Health related social needs details: Pt declines help at this time Exam Narrative Exam Narrative: 69-year-old female patient age, in no acute distress, alert and oriented x 4 no focal neurological deficit , unlabored breathing, clear lung, S1-2, irregular rhythm with controlled rate, PPP x 4, abdomen is obese with retractable hernias w/o tenderness, soft, no CVA tenderness, moves all 4 ext Psych Mental Status: mental status grossly normal Speech and Movement: speech and movement normal Mood: congruent mood Affect: normal affect DS: Data Vitals/I&O Vitals and I&O: Vital Signs Temperature 36.2 C L 01/21/25 13:29 Temperature Source Tympanic 01/21/25 13:29 Pulse 68 01/21/25 07:08 Respiratory Rate 16 01/21/25 07:08 Respiratory Effort Labored 01/20/25 01:22 Respiratory Depth Shallow 01/20/25 01:22 Respiratory Pattern Normal 01/20/25 01:22 Blood Pressure 124/54 L 01/21/25 07:08 Blood Pressure Mean 77 01/21/25 07:08 Blood Pressure Position Supine 01/19/25 20:48 Pulse Oximetry 96 01/21/25 07:08 Oxygen Delivery Method Room Air 01/21/25 07:08 Oxygen Flow Rate 0 01/21/25 07:08 Pain Level 4 01/21/25 10:13 Comment baseline pain 4-5 d/t peripheral neuropathy and gout in both feet 01/20/25 01:22 Intake & Output 01/20/25 01/21/25 01/21/25 23:59 11:59 23:59 Intake Total 1500 / 1990 550 / 550 Output Total 1150 / 2100 1350 / 1350 Balance 350 / -110 -800 / -800 Weight 113.398 kg Intake: IV 1020 / 1030 50 / 50 Oral 480 / 960 500 / 500 Output: Urine 1150 / 2100 1350 / 1350 Other: Urine Color Yellow Pale Urine Appearance Cloudy Clear Urine Odor Normal None Stool Size Moderate Stool Characteristics Soft Formed Data Completed and Pending Pending Labs at Discharge: 01/19/25 01/19/25 01/19/25 20:57 21:47 21:49 WBC 10.50 RBC 3.58 L Hgb 11.7 Hct 35.7 L MCV 100 H MCH 32.7 MCHC 32.8 RDW 14.9 H Plt Count 148 MPV 11.4 H Immature Gran % 1.6 Neutrophils % 71.8 Lymphocytes % 14.4 Monocytes % 10.2 Eosinophils % 1.1 Basophils % 0.9 Nucleated RBC % 0.0 Absolute Neutrophils 7.54 H Absolute Lymphocytes 1.51 Absolute Monocytes 1.07 H Absolute Eosinophils 0.12 Absolute Basophils 0.09 VBG pH 7.33 VBG pCO2 57 H VBG pO2 37 VBG HCO3 30 H VBG Total CO2 28 VBG O2 Saturation 66 VBG Base Excess 4 H VBG Lactate 1.5 Sodium 145 Potassium 4.4 Chloride 106 Carbon Dioxide 28.8 Anion Gap 10.2 BUN 18 Creatinine 1.41 H Est GFR (CKD-EPI 2020) 36.80 Glucose 127 H Hemoglobin A1c Calcium 8.7 Magnesium 1.5 L Iron TIBC Transferrin % Sat Total Bilirubin 0.50 AST 107 H ALT 72 H Alkaline Phosphatase 194 H Creatine Kinase Troponin I 7 NT-Pro-B Natriuret Pep 1888 H Total Protein 5.9 Albumin 3.9 Vitamin B12 Folate TSH Urine Color Yellow Urine Clarity Sl Cloudy Urine pH 6.0 Ur Specific [place] 1.015 Urine Protein Negative Urine Ketones Negative Urine Blood Trace-intact H Urine Nitrite Positive H Urine Bilirubin Negative Urine Urobilinogen 0.2 Ur Leukocyte Esterase Small H Urine RBC 3-5 H Urine WBC 10-20 H Ur Epithelial Cells Few Urine Crystals Negative Urine Bacteria Few Urine Casts Negative Urine Mucus Negative Ur Culture Indicated? Yes Urine Glucose Negative Urine Opiates Screen Negative Urine Methadone Screen Negative Ur Barbiturates Screen Negative Ur Tricyclics Screen Positive A Ur Amphetamines Screen Negative U Benzodiazepines Scrn Negative Urine Cocaine Screen Negative U Cannabinoids Screen Positive A Add-On Test Request 01/19/25 01/20/25 01/20/25 21:55 00:53 06:25 WBC 9.07 RBC 3.51 L Hgb 11.8 Hct 35.5 L MCV 101 H MCH 33.6 H MCHC 33.2 RDW 14.9 H Plt Count 144 MPV 12.0 H Immature Gran % 0.9 Neutrophils % 71.8 Lymphocytes % 17.0 Monocytes % 8.5 Eosinophils % 1.4 Basophils % 0.4 Nucleated RBC % 0.0 Absolute Neutrophils 6.51 Absolute Lymphocytes 1.54 Absolute Monocytes 0.77 Absolute Eosinophils 0.13 Absolute Basophils 0.04 VBG pH VBG pCO2 VBG pO2 VBG HCO3 VBG Total CO2 VBG O2 Saturation VBG Base Excess VBG Lactate Sodium 140 Potassium 4.7 Chloride 106 Carbon Dioxide 25.2 Anion Gap 8.8 BUN 19 Creatinine 1.30 H Est GFR (CKD-EPI 2020) 40.41 Glucose 300 H Hemoglobin A1c Calcium 8.6 Magnesium Iron 85 TIBC 300 Transferrin % Sat 28 Total Bilirubin 0.40 AST 98 H ALT 71 H Alkaline Phosphatase 216 H Creatine Kinase Troponin I 9 7 NT-Pro-B Natriuret Pep Total Protein 5.8 Albumin 3.8 Vitamin B12 543 Folate 9.9 TSH 0.97 Urine Color Urine Clarity Urine pH Ur Specific [place] Urine Protein Urine Ketones Urine Blood Urine Nitrite Urine Bilirubin Urine Urobilinogen Ur Leukocyte Esterase Urine RBC Urine WBC Ur Epithelial Cells Urine Crystals Urine Bacteria Urine Casts Urine Mucus Ur Culture Indicated? Urine Glucose Urine Opiates Screen Urine Methadone Screen Ur Barbiturates Screen Ur Tricyclics Screen Ur Amphetamines Screen U Benzodiazepines Scrn Urine Cocaine Screen U Cannabinoids Screen Add-On Test Request 01/21/25 06:26 WBC 6.23 RBC 3.38 L Hgb 11.5 Hct 33.9 L MCV 100 H MCH 34.0 H MCHC 33.9 RDW 14.8 H Plt Count 118 L MPV 11.8 H Immature Gran % 1.1 Neutrophils % 56.4 Lymphocytes % 28.4 Monocytes % 11.6 Eosinophils % 1.9 Basophils % 0.6 Nucleated RBC % 0.0 Absolute Neutrophils 3.51 Absolute Lymphocytes 1.77 Absolute Monocytes 0.72 Absolute Eosinophils 0.12 Absolute Basophils 0.04 VBG pH VBG pCO2 VBG pO2 VBG HCO3 VBG Total CO2 VBG O2 Saturation VBG Base Excess VBG Lactate Sodium 144 Potassium 4.3 Chloride 107 Carbon Dioxide 28.7 Anion Gap 8.3 BUN 17 Creatinine 1.16 H Est GFR (CKD-EPI 2020) 46.09 Glucose 104 Hemoglobin A1c 10.3 H Calcium 8.7 Magnesium 1.4 L Iron TIBC Transferrin % Sat Total Bilirubin 0.50 AST 87 H ALT 62 H Alkaline Phosphatase 175 H Creatine Kinase 203 H Troponin I NT-Pro-B Natriuret Pep Total Protein 5.5 L Albumin 3.5 Vitamin B12 Folate TSH Urine Color Urine Clarity Urine pH Ur Specific [place] Urine Protein Urine Ketones Urine Blood Urine Nitrite Urine Bilirubin Urine Urobilinogen Ur Leukocyte Esterase Urine RBC Urine WBC Ur Epithelial Cells Urine Crystals Urine Bacteria Urine Casts Urine Mucus Ur Culture Indicated? Urine Glucose Urine Opiates Screen Urine Methadone Screen Ur Barbiturates Screen Ur Tricyclics Screen Ur Amphetamines Screen U Benzodiazepines Scrn Urine Cocaine Screen U Cannabinoids Screen Add-On Test Request DONE Preliminary micro results at discharge 01/19/25 21:47 Urine - Reflex from Ua Urine Culture - Preliminary Gram negative lois 01/19/25 22:50 Blood Blood Culture - Preliminary NO GROWTH 24 HOURS 01/19/25 22:50 Blood Blood Culture - Preliminary NO GROWTH 24 HOURS PFSH All Active Problems (Updated 01/21/25 @ 09:49 by Paris Clark APRN) Morbid obesity with BMI of 40.0-44.9, adult (Acute) Diabetes (Chronic) Discharge planning issues (Acute) On deep vein thrombosis (DVT) prophylaxis (Acute) Hypomagnesemia (Acute) Elevated MCV (Acute) UTI (urinary tract infection) (Acute) Elevated brain natriuretic peptide (BNP) level (Acute) Generalized weakness (Acute) Acute UTI (Acute) Elevated troponin (Acute) Generalized weakness (Acute) Non-ST elevation [place] (NSTEMI) (Acute) Transaminitis (Acute) Acute kidney injury (Acute) Acute dehydration (Acute) Shock (Acute) Peripheral neuropathy (Acute) Contracture of left Achilles tendon (Acute) Plantar fasciitis of left foot (Acute) Tarsal tunnel syndrome of left side (Acute) Gout (Chronic) Multiple fractures of ribs of right side (Acute) Pain in joints of both feet (Acute) Nail dystrophy (Acute) Onychomycosis (Acute) Ingrown toenail (Acute) Atherosclerosis of artery of both lower extremities (Acute) Type 2 diabetes mellitus with peripheral neuropathy (Acute) Diabetes mellitus with autonomic neuropathy (Acute) Infection of lumbar spine (Acute) Frequent falls (Acute) Chronic low back pain with right-sided sciatica (Acute) Large hiatal hernia (Acute) RLQ abdominal pain (Acute) Cataract (Chronic) Bunion, right foot (Acute) BMI 40.0-44.9, adult (Acute) Abdominal wall hernia (Acute) Coronary artery calcification seen on CAT scan (Acute) Atherosclerosis (Acute) Enlarged heart (Acute) Herpes (Acute) Lumbar radicular pain (Acute) Seborrhea corporis (Acute) Elevated LFTs (Acute) Arthralgia (Acute) DARLENE positive (Acute) Yeast infection (Acute) Staph infection (Acute) Restless leg (Acute) Von Willebrand factor inhibitor disorder (Chronic) Rotator cuff disorder (Chronic 06/27/14) Recurrent ventral hernia (Chronic 04/07/16) Non-alcoholic fatty liver disease (Chronic) elevated LFT Insomnia (Chronic) Hypothyroidism (Chronic) Hyperlipidemia (Chronic) Gastroesophageal reflux disease (Chronic) 09/29/12 EGD SHOW SOME REFULX CHANGES Elevated serum GGT level (Chronic 02/17/15) 1600 in 2012 [address] RIDDLE Diverticula of colon (Chronic) Diabetes mellitus with neuropathy (Chronic 02/14/14) Depressed bipolar I disorder (Chronic) STABLE 02/2011 Chronic cough (Chronic) Cataracts, both eyes (Chronic 12/09/15) 12/09/15-[facility]- OD>OS Atrophic vaginitis (Chronic 09/14/12) Asthma (Chronic) Chronic pain disorder (Chronic 11/25/16) Ganglion (Chronic) Stress incontinence in female (Chronic) Hypertension (Chronic) Medical History COVID-19 (~02/2024) Ribs, multiple fractures Tibial fracture pt. reports surgical intervention Fatigue Torn medial meniscus Diarrhea Cellulitis Trigger finger Hand joint pain (12/01/11) History of tobacco use History of tobacco use quit in 2002 History of alcoholism in sobriety for greater than 10 years Triggering of finger thumb Ganglion of tendon sheath 12/01/11 Hand joint pain 12/01/11 Chest pain 06/05/12 Overdose 1994: alcohol and benzo 09/18/13 Stenosing tenosynovitis of thumb (05/13/14) Right foot pain (12/16/14) Neoplasm of unspecified nature of bone, soft tissue, and skin (08/12/14) Headache Essential hypertension (12/13/12) fatty liver Elevated lipase (08/26/16) Sanjuanita infection (08/26/16) Chronic sinusitis CVA (cerebral vascular accident) 2018 x2 Diabetes type 2, uncontrolled Hypothyroidism Hyperlipidemia Headache Chronic cough Bipolar disorder Diabetic neuropathy Fatty liver disease, nonalcoholic Insomnia Hypomagnesemia Fatigue Surgical History Status post abdominal hysterectomy Status post bilateral salpingo-oophorectomy Status post cholecystectomy Status post hernia repair S/P BSO (bilateral salpingo-oophorectomy) S/P abdominal hysterectomy fibroids, abnormal paps S/P cholecystectomy S/P hernia repair 02/28/11 H/O esophagogastroduodenoscopy active gastritis and focal acute inflammation 02/29/12 H/O surgical procedure right thumb release 02/29/12 hernia repair (~02/2011) Ventral Hernia repair (04/07/16) Dr. Jackson Incision, Tendon Sheath (08/01/12) RIGHT THUMB RELEASE Abdominal hysterectomy FIBROIDS/ABNORMAL PAPS EGD - MAC (09/29/12) ACTIVE GASTRITIS AND FOCAL ACUTE INFLAMMATION. Tooth extraction 10/12/14-TEETH REMOVED Colonoscopy - MAC (~03/2011) Colonoscopy - IV Sedation (04/02/11) DR. TIFFANI NICHOLS; DIVERTIC[place]A Cholecystectomy Bilateral salpingectomy with oophorectomy Family History Mother , age 67 Alcohol abuse Mental disorder Psychotic/paranoid symptoms, unknown diagnosis Cancer bladder/kidney; ?brain Sister Substance abuse MARIJUANA Maternal Grandfather Asthma Alcohol abuse Paternal Grandfather Heart disease Diabetes Stroke Maternal Grandmother No problems noted. Paternal Grandmother Diabetes Sister Substance abuse MARIJUANA Asthma Alcohol abuse Son Depression Diabetes Hyperlipidemia Stroke Son No problems noted. Son Asthma Diabetes Hyperlipidemia Hypertension Father , 80 Cancer Brother Alcohol abuse Depression Social History Smoking/Tobacco Use Status: Former Tobacco Use tobacco type: cigarettes Quit Date: 06/20/03 Tobacco: How many years used: 30 Second Hand Exposure: Yes Smoking risk assessment performed?: Yes Alcohol Intake: never Drug use: Daily Substance use type: marijuana Caregiver/Support person: No Household members: spouse and children Housing: house Communication Needs: None Do you need help understanding health information?: Often Pets and animals: Yes Pets and animals: cat(s) and dog(s) Sexually active: No Do you think of yourself as: straight/heterosexual Current gender identity: female What is your relationship status?: How often do you talk on the phone with friends or family?: three or more times per week How often do you get together with friends or relatives?: decline to answer How often do you attend rastafarian or christianity services?: decline to answer Do you belong to any clubs or organized social groups?: no Panel score (0-1 are the most socially isolated patients): 2 What type of physical activity do you participate in: walking Duration: < 15 minutes/day Frequency: 3-4 times per week Silvia/Islam: Yashira Special silvia needs: No Seatbelt use: always Helmet use: No Drive intox or ride w/intox livery car driver: No Do you feel safe at home: Yes Do you feel safe in your relationship?: Yes Time Spent with Patient Time Spent with Patient: >85 minutes Time was spent: preparing to see the patient(eg.review tests), obtaining and/or reviewing separately otained hiistory, ordering medications,tests, procedures, referring, communicating with other health child care associate teacher, indepentently interpreting results, counseling the patient, care coordination and other
--- NOTE | 2025-01-21 16:34 | PDOC.CMDIS ---
Date of service: 01/21/25 Time of Service: 16:34 LACE Index Scoring Tool Questions: Length of Stay (in days): 1 Was the patient admitted via the E.D.?: Yes Comorbidities: Previous M.I., Cerebrovascular Disease, Diabetes w/o Complication, Any Tumor and Liver or Renal Disease E.D. Visits: 3 Answers: Total Score: 12 Risk of Readmission: High Risk Care Management Discharge Plan Reason for Hospitalization: Uti Discharge Plan: Anticipate Jennifer will discharge home with resumption of [facility] RN/PT/OT services and caregiver supports as well as Meals on Wheels. She will transport via private vehicle with her . Jennifer will need a follow up with community providers and continue per her plan of care as directed. Patient/Family Education Needs: Review discharge instructions, limitations, follow up plan and discuss Ask Me Three SDOH Health Related Social Needs: Health related social needs house/econ circumstance lonely/isolated Health related social needs details Pt declines help at this time Health related social needs details: Pt declines help at this time
--- NOTE | 2025-01-24 12:03 | NUR.NOTE ---
Access chart to reconcile EKG orders with EKG's in [facility]. No EKG for 01/19, order deleted. Nursing Note:
== END 2025-01-21 16:15 | disposition home health service (06) ==
LOC: ER 01-20 00:33 → MS 01-20 01:07
PROVIDERS: Nurse Practitioner Family; Admitting Provider Hospitalist; Emergency Provider General Practice; PCP Family Medicine; Responsible Provider Nurse Practitioner Acute Care; Visit Provider Hospitalist
DX: N17.9 Acute kidney failure, unspecified (principal); N39.0 Urinary tract infection, site not specified; Z68.41 Body mass index [BMI] 40.0-44.9, adult; M79.89 Other specified soft tissue disorders; R53.1 Weakness; N18.9 Chronic kidney disease, unspecified; R60.0 Localized edema; Z79.4 Long term (current) use of insulin; E11.22 Type 2 diabetes mellitus with diabetic chronic kidney disease; I12.9 Hypertensive chronic kidney disease with stage 1 through stage 4 chronic kidney disease, or unspecified chronic kidney disease; I25.2 Old myocardial infarction; E83.42 Hypomagnesemia; R74.8 Abnormal levels of other serum enzymes; E66.01 Morbid (severe) obesity due to excess calories; R74.01 Elevation of levels of liver transaminase levels; E11.42 Type 2 diabetes mellitus with diabetic polyneuropathy; E78.5 Hyperlipidemia, unspecified; M54.41 Lumbago with sciatica, right side; R29.6 Repeated falls; E03.9 Hypothyroidism, unspecified; K21.9 Gastro-esophageal reflux disease without esophagitis; D68.00 Von Willebrand disease, unspecified; K75.81 Nonalcoholic steatohepatitis (NASH); Z79.899 Other long term (current) drug therapy; Z86.73 Personal history of transient ischemic attack (TIA), and cerebral infarction without residual deficits; M21.611 Bunion of right foot
CPT/HCPCS: 00123; 36415; 80053; 80307; 82550; 82805; 87040; 87077; 94640; 96365; 97110; 97162; 97530; 99285; J1650; 71046; 81003; 81015; 82607; 82746; 83036; 83540; 83550; 83605; 83735; 83880; 84443; 84484; 85025; 87086; 87186; 93005; 93010; 93306; 94664; 99222; 99239; G0378; J0696; J1815; J3490

== ENCOUNTER 2025-02-06 18:15 | Outpatient (REF) | payer OTHER, MEDICARE, SELFPAY ==
[2025-02-06 18:15] LABS: HCT 39.9 % (36.0-46.0); HGB 13.1 g/dL (11.2-15.7); MCH 32.3 pg (27.0-33.0); MCHC 32.8 % (32.0-36.0); MCV 99 fL (80-95); MPV 12.1 fL (8.0-11.0); Platelet Count 198 10^3/uL (130-400); RBC 4.05 10^6/uL (3.93-5.22); RDW 14.4 % (11.7-14.6); RDW-SD 52.7 fL; WBC 7.92 10^3/uL (4.4-10.8)
[2025-02-06 18:37] LABS: ALT 43 U/L (10-49); AST 56 U/L (<34); Albumin 4.3 g/dL (3.2-5.0); Alkaline Phosphatase 184 U/L (46-116); Anion Gap 8.5 mmol/L (3-11); BUN 29 mg/dL (9-23); Bilirubin, Total 0.4 mg/dL (0.2-1.2); CO2 26.5 mmol/L (20.0-31.0); Calcium 9.1 mg/dL (8.3-10.6); Chloride 105 mmol/L (98-107); GGT 400 U/L (<38); Glucose 243 mg/dL (74-106); Potassium 5.0 mmol/L (3.5-5.1); Sodium 140 mmol/L (136-145); Total Protein 6.6 g/dL (5.7-8.2)
[2025-02-06 18:39] LABS: TSH (W/Ref FT4) 0.92 uIU/mL (0.55-4.78)
== END 2025-02-06 18:16 | disposition home or self-care (01) ==
LOC: LBN 18:15
PROVIDERS: PCP Family Medicine; Visit Provider Family Medicine
DX: E03.9 Hypothyroidism, unspecified (principal); D68.318 Other hemorrhagic disorder due to intrinsic circulating anticoagulants, antibodies, or inhibitors; R79.89 Other specified abnormal findings of blood chemistry; D64.9 Anemia, unspecified; I10 Essential (primary) hypertension
CPT/HCPCS: 80053; 85027; 82977; 84443